=== PATIENT | male | born 1955 | race Caucasian/White ===

== ENCOUNTER → 2017-11-11 12:10 | Outpatient (CLI) | payer MEDICAID, SELFPAY ==
[2017-11-01 13:12] VITALS: BP 152/80; BMI 39.5
[2017-11-11 12:34] VITALS: PULSE 121; PULSE 124; PULSE 125; PULSE 126; PULSE 128; PULSE 129; O2SAT 89; O2SAT 90; O2SAT 92
--- NOTE | 2017-11-12 07:50 | WT_ITS ---
PSN 6 Minute Walk Test - 6 Minute Walk Test 6 Minute Walk Test: 6 Minute Walk Test PSN:6-Minute Walk Test Start: 11/11/17 12: 34 Freq: Status: Active Protocol: [id number].6MINW Document 11/11/17 12:34 DWP (Rec: 11/11/17 12:40 DWP [id number]) 6 Minute Walk Test Date Performed 11/11/17 Time Performed 12:17 Height 6 ft 1 in Weight: 300 lb Weight in Pounds 300.[address]: DR. ALEX PANCHAL FIO2 (% Oxygen) 0.21 Assistive device used: None Pre-test Oxygen Delivery Method Room Air Pulse Ox (%) 90 Pulse Rate (60-100 beats/min) 124 H Dyspnea Levy Scale (0-10) 5 Exertion Levy Scale (6-20) 10 Number of Rests Taken 0 1st minute Oxygen Delivery Method Room Air Pulse Ox (%) 90 Pulse Rate (60-100 beats/min) 124 H Number of Rests Taken 0 Reported Symptoms Increased Work of Breathing 2nd minute Oxygen Delivery Method Room Air Pulse Ox (%) 89 Pulse Rate (60-100 beats/min) 129 H Number of Rests Taken 0 3rd minute Oxygen Delivery Method Room Air Pulse Ox (%) 90 Pulse Rate (60-100 beats/min) 128 H Number of Rests Taken 0 Reported Symptoms Increased Work of Breathing 4th minute Oxygen Delivery Method Room Air Pulse Ox (%) 89 Pulse Rate (60-100 beats/min) 125 H Number of Rests Taken 0 5th minute Oxygen Delivery Method Room Air Pulse Ox (%) 89 Pulse Rate (60-100 beats/min) 126 H Number of Rests Taken 0 6th minute Oxygen Delivery Method Room Air Pulse Ox (%) 90 Pulse Rate (60-100 beats/min) 125 H Number of Rests Taken 0 Post-test Oxygen Delivery Method Room Air Pulse Ox (%) 92 Pulse Rate (60-100 beats/min) 121 H Dyspnea Levy Scale (0-10) 6 Exertion Levy Scale (6-20) 12 Full Laps Walked 8 Partial Lap, Number of Tiles Walked 0 Total Distance Walked (ft) 472 - Interpretation Interpretation: The patient ambulated 472 feet over the course of 6 minutes on room air without assistive devices or breaks. Pretesting oxygen saturation was noted to be 90% on room air. With ambulation, the chano oxygen saturation was 89%. The patient was notably tachycardic throughout the entire walk test. There was no significant exertional oxygen desaturation noted. However, there was evidence of impaired walk distance. - Recommendations Recommendations: There is no current indication for the use of supplemental oxygen at this time. However, close interval follow-up is recommended given the patient's low resting oxygen saturation and desaturation to 89% with ambulation.
== END ==
PROVIDERS: Family Provider Nurse Practitioner Family; PCP Nurse Practitioner Family; Visit Provider Internal Medicine Critical Care Medicine
DX: J44.9 Chronic obstructive pulmonary disease, unspecified (principal); F17.200 Nicotine dependence, unspecified, uncomplicated
CPT/HCPCS: 94618

== ENCOUNTER → 2017-12-08 12:39 | Outpatient (CLI) | payer MEDICAID, SELFPAY ==
[2017-11-01 13:12] VITALS: BP 152/80; BMI 39.5
--- NOTE | 2017-12-09 08:45 | PFT ---
INTRODUCTION: Patient is a 62-year-old male currently under the care of myself the presents for pulmonary function testing secondary to a diagnosis of COPD. Respiratory therapy reports good patient effort reports no other concerns. Bronchodilators were used during testing. INTERPRETATION: Forced expiration spirometry demonstrates the presence of a very severe large airways obstructive ventilatory defect. There was a significant response to aerosolized bronchodilators noted, based upon change in FVC. Spirograms are of good quality and do not plateau indicating slow emptying of the lungs. The respiratory flow volume loop reveals decreased expiratory flow rates at all lung volumes consistent with airways obstruction. Body plethysmography was performed and reveals an increased RV to 212% of predicted, indicative of underlying air trapping. Diffusing capacity by single breath CO is severely reduced at 31% of predicted. IMPRESSION: These pulmonary function studies demonstrate the presence of an irreversible very severe large airways obstructive ventilatory defect with associated air trapping and severe reduction in diffusing capacity. There are no previous pulmonary function studies available for comparison.
== END ==
PROVIDERS: Family Provider Nurse Practitioner Family; PCP Nurse Practitioner Family; Visit Provider Internal Medicine Critical Care Medicine
DX: J44.9 Chronic obstructive pulmonary disease, unspecified (principal); F17.200 Nicotine dependence, unspecified, uncomplicated
CPT/HCPCS: 94060; 94726; 94729

== ENCOUNTER → 2017-12-12 15:34 | Outpatient (CLI) | payer MEDICAID, SELFPAY ==
--- NOTE | 2017-12-12 15:36 | RAD_ITS ---
STUDY: X-RAY CHEST REASON FOR EXAM: Male, 62 years old. Short of breath and cough. TECHNIQUE: Frontal and lateral views of the chest. COMPARISON: None. FINDINGS: Hyperexpansion of the lungs. Increased lung markings in the perihilar regions and lung bases. Findings could be congestion and interstitial edema and/or atypical inflammatory process. Probable mild atelectasis or scarring in the lung bases. No focal infiltrates. No effusions. Sternal cerclage wires and vascular clips are present from a prior sternotomy and coronary artery bypass graft procedure (CABG). Mild cardiomegaly.. Normal mediastinum and steve. Normal visualized pulmonary arteries. Normal visualized aortic arch and descending thoracic aorta. There are diffuse degenerative changes of the visualized thoracic spine. Normal visualized ribs, clavicles, and shoulders. There is no demonstrated abnormality of the visualized soft tissue structures of the upper abdomen. RAD/Chest PA and Lateral IMPRESSION: Hyperexpansion of the lungs. Increased lung markings in the perihilar regions and lung bases. Findings could be congestion and interstitial edema and/or atypical inflammatory process. Electronically Signed: Narayan Roca MD at 9:45 EDT , Service support ,
== END ==
PROVIDERS: Family Provider Nurse Practitioner Family; PCP Nurse Practitioner Family; Visit Provider Nurse Practitioner Acute Care
DX: J44.9 Chronic obstructive pulmonary disease, unspecified (principal); R06.02 Shortness of breath; R06.00 Dyspnea, unspecified
CPT/HCPCS: 71046

== ENCOUNTER 2018-01-06 10:39 | Inpatient (IN) | payer MEDICAID, SELFPAY ==
[2018-01-06] VITALS (16 sets, daily range): BP systolic 113–158; BP diastolic 66–111; PULSE 81–133; RESP 14–28; TEMP 36.4–37.1; O2SAT 90–97; BMI 41.4; BMI 41.1
--- NOTE | 2018-01-06 11:06 | RAD_ITS ---
STUDY: X-RAY CHEST REASON FOR EXAM: Male, 62 years old. New onset of atrial fibrillation. Lower extremity edema. TECHNIQUE: Single AP portable view of the chest. COMPARISON: Comparison is made with prior study dated December 12, 2017. FINDINGS: EKG electrodes are seen. There is evidence of vascular congestion and mild degree of CHF. Blunting of the left costophrenic angle. Sternal cerclage wires and vascular clips are present from a prior sternotomy and coronary artery bypass graft procedure (CABG). Mild cardiomegaly. Normal mediastinum and steve. Normal visualized pulmonary arteries. Normal visualized aortic arch and descending thoracic aorta. There are diffuse degenerative changes of the visualized thoracic spine. Prior fusion of the lower cervical spine. There is no demonstrated abnormality of the visualized soft tissue structures of the upper abdomen. RAD/Chest 1 View (Portable) IMPRESSION: CHF. Cardiomegaly. Electronically Signed: Mao Cuenca MD at 11:33 EDT Tel [phone], Service support ,
--- NOTE | 2018-01-06 11:06 | EKG12_ITS ---
Test Reason : SOB Blood Pressure : / mmHG Vent. Rate : 122 BPM Atrial Rate : 129 BPM P-R Int : 000 ms QRS Dur : 100 ms QT Int : 336 ms P-R-T Axes : 000 071 011 degrees QTc Int : 478 ms Atrial fibrillation with premature ventricular or aberrantly conducted complexes Low voltage QRS Septal infarct , age undetermined Abnormal ECG Confirmed by DONNIE BRODY, ANGELA ([id number]), medical transcription editor BEATRIZ IBARRA ([id number]) on 01/10/2018 1:52:59 PM Referred By: BOB Confirmed By:ANGELA FIELDS MD
[2018-01-06] MEDS: Ipratropium/Albuterol Sulfate 3 ML AMPUL.NEB INHALATION ×3 (11:30→19:47)
[2018-01-06 11:52] LABS: Absolute Lymphocyte Count 0.47 X10^3/ul (0.83-4.51); Absolute Neutrophil Count 4.6 X10^3/uL (2.0-7.7); Basophil# 0.02 X10^3/uL; Basophil% 0.4 % (0-1); Differential Indicated SCAN CRITERIA MET; Eosinophil# 0.01 X10^3/uL; Eosinophils% 0.2 % (0-5); Hematocrit 54.7 % (40-54); Hemoglobin 17.6 g/dl (13.0-16.5); Lymphocyte # 0.47 X10^3/ul (4.0); Lymphocyte % 8.5 % (19-41); Mean Corp Hgb Conc 32.2 g/gl (32-36); Mean Corpuscular Hgb 31.1 pg (27.0-32.0); Mean Corpuscular Volume 96.6 fL (80-94); Mean Platelet Vol. 9.9 fl (6.2-12.0); Monocyte# 0.36 X10^3/uL; Monocyte% 6.5 % (0-10); Neutrophil # 4.64 X10^3/uL (2.7-7.7); Neutrophil % 84.2 % (47-70); POSITIVE COUNT NO; POSITIVE DIFFERENTIAL YES; POSITIVE MORPHOLOGY NO; Platelet Count 139 K/mm3 (150-450); RBC Distribution Width CV 14.9 % (11.6-14.6); Red Blood Count 5.66 M/mm3 (4.6-6.2); White Blood Count 5.5 K/mm3 (4.4-11.0)
[2018-01-06 11:59] LABS: Anion Gap 4 (5-15); BUN 17 mg/dL (7-18); BUN/Creat Ratio 16.2 RATIO (10-20); Calcium,Total 8.6 mg/dL (8.5-10.1); Chloride 106 mmol/L (98-107); Creatinine, Serum 1.05 mg/dL (0.70-1.30); EST Glomerular Filtration Rate 76 mL/min (>60); Est Glom Filt Rate - Afr Amer 92 mL/min (>60); Estimated Creatinine Clearance 83.49 ml/min; Glucose 98 mg/dL (74-106); Sodium Level 140 mmol/L (136-145)
--- NOTE | 2018-01-06 12:06 | ED.VISSUMM ---
- ER Visit Summary Date of Service: 01/06/18 Chief Complaint: Lower extremity edema and shortness of breath History of Present Illness: The patient is a 62 M who sees Tono Lara and a director of the biophysics facility Dr. Springer in [place]. Patient reports that he has swelling in his legs bilaterally that began approximately 1 week ago. Reports that at baseline his right leg is slightly swollen since having a two-vessel bypass 3 years ago. States it is twice as big as it typically is. Denies any chest pain or palpitations. He reports he has a chronic cough that is unchanged. No fever or chills. He reports that he has severe shortness of breath that is worsened by walking or laying flat. Physical Examination: Vitals: Stable. Afebrile. General: Well-nourished and well-developed. Head: Normocephalic atraumatic. Neck: Supple, no lymphadenopathy. No JVD. Nontender. Cardiovascular: Tachycardic irregular rhythm. No murmurs. Respiratory: No respiratory distress. Moderate wheezing bilaterally with decreased air movement. Abdominal: Soft, nontender, nondistended, normal bowel sounds. No guarding, rebound, or peritoneal signs. Back: Nontender. Extremities: Nontender, 3+ pitting edema of his lower extremities bilaterally. Neurologic: Alert and oriented ?3. Cranial nerves II through XII are intact. Normal strength and sensation. Psych: Normal affect. Test Results: EKG is A. fib at [address] changes. Troponin is negative. Chem-7 was normal. CBC is more for an H&H of 17.6 54.7, platelets 139, segment neutrophils 84, monocytes of 9. Emergency Department Course and Treatment: Patient was given albuterol and Atrovent aerosols. He was given 40 mg of Lasix IV. He was given Cardizem IV. Treatment Plan: Patient will be admitted to the hospital for further evaluation and treatment. Disposition: Admitted in improved condition. Impression: 1. Age fibrillation with RVR. 2. CHF. 3. COPD. 4. Critical care time 30 minutes. This note was generated with [employer] dictation software. It may contain incorrect words, spelling, and punctuation that were not noted in review of the chart prior to signing ED Disposition - Plan for ED Patient: Chief Complaint: Edema Referrals: Dawit Newell [Primary Care Provider] -
[2018-01-06] MEDS: Furosemide 40 MG/4 ML Vial IV ×2 (12:11→22:54)
--- NOTE | 2018-01-06 12:11 | ED.DCSUM_ITS ---
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 Springer in [place]. Patient reports that he has swelling in his legs bilaterally that began approximately 1 week ago. Reports that at baseline his right leg is slightly swollen since having a two-vessel bypass 3 years ago. States it is twice as big as it typically is. Denies any chest pain or palpitations. He reports he has a chronic cough that is unchanged. No fever or chills. He reports that he has severe shortness of breath that is worsened by walking or laying flat. Physical Examination: Vitals: Stable. Afebrile. General: Well-nourished and well-developed. Head: Normocephalic atraumatic. Neck: Supple, no lymphadenopathy. No JVD. Nontender. Cardiovascular: Tachycardic irregular rhythm. No murmurs. Respiratory: No respiratory distress. Moderate wheezing bilaterally with decreased air movement. Abdominal: Soft, nontender, nondistended, normal bowel sounds. No guarding, rebound, or peritoneal signs. Back: Nontender. Extremities: Nontender, 3+ pitting edema of his lower extremities bilaterally. Neurologic: Alert and oriented ?3. Cranial nerves II through XII are intact. Normal strength and sensation. Psych: Normal affect. Test Results: EKG is A. fib at [address] changes. Troponin is negative. Chem-7 was normal. CBC is more for an H&H of 17.6 54.7, platelets 139, segment neutrophils 84, monocytes of 9. Emergency Department Course and Treatment: Patient was given albuterol and Atrovent aerosols. He was given 40 mg of Lasix IV. He was given Cardizem IV. Treatment Plan: Patient will be admitted to the hospital for further evaluation and treatment. Disposition: Admitted in improved condition. Impression: 1. Age fibrillation with RVR. 2. CHF. 3. COPD. 4. Critical care time 30 minutes. This note was generated with [employer] dictation software. It may contain incorrect words, spelling, and punctuation that were not noted in review of the chart prior to signing ED Disposition - Plan for ED Patient: Chief Complaint: Edema Referrals: Dawit Newell [Primary Care Provider] -
--- NOTE | 2018-01-06 12:12 | ED.RN ---
called previously for rosa maria from pharmacy, will call again.
--- NOTE | 2018-01-06 12:26 | ED.RN ---
Called Pharmacy again for Elisabethm, Christa stated that it was in our [facility], I asked if it was refilled since I called, she said no but it was in the [facility]. [facility] did not have any when i called he first time nor the 2nd call. Pharmacy will send.
[2018-01-06] MEDS: dilTIAZem 25 MG/5 ML Vial 20 MG IV BOLUS (12:42)
[2018-01-06 13:28] LABS: BNP,B-Type NATRIURETIC PEPTIDE 177.1 pg/mL (0-100)
--- NOTE | 2018-01-06 13:32 | ED.RN ---
Cardizem drip up from pharmacy, not bolus. Called pharmacy for bolus dose.
[2018-01-06] MEDS: dilTIAZem 25 MG/5 ML Vial IV BOLUS (13:46)
--- NOTE | 2018-01-06 14:27 | HP.PCM_ITS ---
Problem List (1) New onset atrial fibrillation Status: Acute (2) Shortness of breath Status: Acute (3) Leg edema Status: Acute History of Present Illness Date of Admission: 01/06/18 Chief Complaint: New-onset atrial fibrillation, leg edema, shortness of breath The patient is a 62 year old M who was seen in the emergency room at [facility] after being sent in for evaluation by his family physician after an office visit today revealed that he was in atrial fibrillation. Patient has been complaining of some shortness of breath over the last week-he is very vague about his symptoms, he denies any chest pain, purulent sputum production, fever, chills, or diaphoresis. Patient states that he has had symptoms of palpitations in the past but he was unaware he was in atrial fib today. Patient has a past history of coronary artery disease with bypass in 2014, last time he saw assistant signal maintainer was last year, information obtained from his family practitioner reveals the patient had a stress test in 2016 that was negative for reversible ischemia, his last echocardiogram was done in 2013 and it showed a normal EF. Patient also complained of lower extremity edema-again he was vague about the onset of the lower extremity edema, he states he noticed that when he was diagnosed with shingle approximally a week ago. Workup in the emergency room revealed the patient had normal labs with the exception of an elevated beta natruretic peptide of 177, patient's chest x-ray showed some mild pulmonary congestion bilaterally on an overlay of what I feel is chronic changes in both lungs. Patient's pulse ox on room air was 90%, EKG showed atrial fibrillation with a rate of 122 bpm. Patient was given IV Cardizem which slowed his rate down somewhat, at the time of my examination, his heart rate was in the 105-110 range-he was due to get another IV bolus of Cardizem by the emergency room physician. On examination, patient had diffuse expiratory wheezes bilaterally, he does have a diagnosis of COPD and continues to smoke .Examination of lower extremities reveals +3 mm pitting edema of both lower legs.He did not appear to be in any distress. He will be admitted to PCU for new onset atrial fib with RVR, CHF presumed to be diastolic, and exacerbation of COPD. 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 (Chronic) HDL deficiency (Chronic) Asthma (Chronic) Overweight (BMI 25.0-29.9) (Chronic) Tobacco dependence (Chronic) Hyperlipidemia (Chronic) COPD (chronic obstructive pulmonary disease) (Chronic) Hypertension (Chronic) Allergies No Known Allergies Allergy (Unverified 12/12/17 14:25) Home Medications: Ambulatory Orders Medication Instructions Recorded albuterol sulfate HFA 90 2 puff INHALATION Q6H 10/27/17 mcg/actuation aerosol inhaler carvedilol 3.125 mg tablet 3.125 mg PO BID 10/27/17 ibuprofen 600 mg tablet 600 mg PO ONCE 10/27/17 loratadine 10 mg tablet 10 mg PO QDAY 10/27/17 simvastatin 40 mg tablet 40 mg PO QAM 10/27/17 budesonide-formoterol HFA 160 2 inh INHALATION Q12H #1 device 11/01/17 mcg-4.5 mcg/actuation aerosol inhaler azithromycin 250 mg tablet 250 mg PO QDAY #6 tab 12/12/17 losartan 25 mg tablet 25 mg PO QDAY 12/12/17 prednisone 10 mg tablet 10 mg PO QDAY #30 tab 12/12/17 umeclidinium 62.5 mcg/actuation 1 inh INHALATION QDAY #30 ea 12/12/17 blister powder for inhalation Albuterol Inhaler [Ventolin Hfa 2 puff INHALATION Q4H PRN PRN 01/06/18 (SP)] Valacyclovir HCl [Valtrex] 1,000 mg PO TID 01/06/18 Surgical History: coronary bypass surgery, tonsillectomy, - - 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, right shoulder surgery Psychiatric History: No pertinent psych hx Lives: Friends Smoking Status: Current every day smoker Tobacco Use: Cigarettes Alcohol: None Drugs: None - *Family History Maternal History Items: Heart Disease Paternal History Items: Heart Disease Review of Systems Constitutional: Denies: Anorexia, Chills, Fever, Night Sweats, Malaise, Weakness , Weight Change, Fatigue Eyes: Denies: Blurred vision, Cataracts, Conjunctivae Inflammation HEENT: Denies: Difficulty Swallowing, Dysphasia, Ear Pain, Eye Pain, Head Aches , Hearing Changes, Nasal bleeding, Nasal Congestion, Post Nasal Drip Cardiovascular: Reports: Edema, Palpitations. Denies: Chest Pain, Claudication , Chest Pressure, Chest Tightness, Heaviness, Light Headedness, Orthopnea, Syncope Respiratory: Reports: Shortness of Breath, Shortness of breath at rest, Shortness of breath upon exertion, Wheezing. Denies: Cough, Hemoptysis, Pleuritic Pain, Sputum production Gastrointestinal: Denies: Abdominal Pain, Constipation, Diarrhea, Hematemesis, Hematochezia, Nausea, Melena, Vomiting Genitourinary: Denies: Dysuria, Frequency, Hematuria, Hesitancy, Incontinence, Nocturia, Urgency Musculoskeletal: Denies: Joint Pain, Joint stiffness, Joint swelling Skin: Reports: - - Patient has resolving shingles area on the left upper buttocks. Denies: Dryness, Pruritis, Rash Neurological: Denies: Blurred vision, Double vision, Change in Speech, Slurred speech, Difficulty swallowing, Focal weakness, Incoordination, Numbness, Tingling Psychiatric: Denies: Anxiety, Depression, Homicidal Ideations, Suicidal Ideations Endocrine: Denies: Change in Body Habitus, Heat/ Cold Intolerance, Polydipsia, Polyuria, Hx of Irradiation Hematologic/ Lymphatic: Denies: Adenopathy, Anemia, Easy Bruising, Easy Bleeding , Petechiae, Purpura VTE Information - Inpt Only VTE Present on Admission: No VTE Mechan Device Prophylaxis: None VTE Pharm Prophylaxis ordered?: No Reason prophylaxis not ordered:: Treatment Not Indicated - patient will get full anticoagulation Patient Problems: Active and Suspected Problems (Last Reviewed 12/13/17 @ 13:04 by Vandana Castillo NP-C) New onset atrial fibrillation (Acute) Shortness of breath (Acute) Leg edema (Acute) - Physical Exam General: Alert, Oriented x3, Cooperative, No apparent distress, Well developed, Well nourished HEENT: Atraumatic, PERRLA, EOMI, Normocephalic Neck: Supple, No JVD, Negative Carotid Bruits, No Nuchal Rigidity, Trachea Midline, Thyroid Normal Size and Texture Lungs: Normal air movement, No rhonchi, No rales, Wheezes - Expiratory wheezes bilaterally Cardiovascular: No murmurs, PMI Normal, Irregular Rate, No rub noted, No Gallop Abdomen: Bowel Sounds Present, Soft, Non Tender, Non-Distended, Obese, No hernias noted Extremities: No clubbing, No cyanosis, Capillary Refill Less than 3 Seconds, Edema - +3 mm edema is noted over both legs Skin: No rashes, No breakdown, - - eschar formation on the patient's left upper buttocks Musculoskeletal: No Tenderness to Palpation of Joints or Extremities Neurological: Cranial nerves II-XII grossly intact, Neuro grossly intact, Sensory exam intact to light touch and pain, Coordination normal Psych/Mental Status: Normal Affect, Appropriate, Alert and oriented to time, place, person, mood and affect Vital Signs Temp Pulse Resp BP Pulse Ox 98.7 F 101 H 18 139/66 H 94 01/06/18 13:49 01/06/18 14:15 01/06/18 14:15 01/06/18 14:15 01/06/18 14:15 Oxygen Flow Rate (L/min) 3 Oxygen Delivery Method Nasal Cannula Weight: 142.609 kg Body Mass Index (BMI) 41.4 Intake and Output for Last 24 Hours 01/04/18 01/05/18 01/06/18 23:59 23:59 23:59 Output Total 1100 / 1100 Balance -1100 / -1100 Laboratory Tests Past 24 Hrs 01/06/18 01/06/18 01/06/18 11:32 11:32 11:32 WBC 5.5 RBC 5.66 Hgb 17.6 H Hct 54.7 H MCV 96.6 H MCH 31.1 MCHC 32.2 RDW 14.9 H RDW Differential 53.0 H Plt Count 139 L MPV 9.9 Immature Gran % (Auto) 0.200 Neut % (Auto) 84.2 H Lymph % (Auto) 8.5 L Porter % (Auto) 6.5 Eos % (Auto) 0.2 Baso % (Auto) 0.4 Absolute Neuts (auto) 4.6 Absolute Lymphs (auto) 0.47 L Total Counted Not Reportable Differential Comment COMMENT Sodium 140 Potassium 4.0 Chloride 106 Carbon Dioxide 30.0 Anion Gap 4 L BUN 17 Creatinine 1.05 Estim Creat Clear Calc 83.49 Est GFR (MDRD) Af Amer 92 Est GFR (MDRD) Non-Af 76 BUN/Creatinine Ratio 16.2 Glucose 98 Calcium 8.6 Troponin I < 0.02 B-Natriuretic Peptide 177.1 H Assessment/Plan Active and Suspected Problems (Last Reviewed 12/13/17 @ 13:04 by Vandana Castillo NP-C) New onset atrial fibrillation (Acute) Shortness of breath (Acute) Leg edema (Acute) #1 new onset A. fib with RVR-patient will be admitted to PCU, he will receive oral Cardizem, I will increase the patient's carvedilol, he will remain on his other cardiac meds, patient will be monitored on telemetry. I will start the patient on Xarelto for anticoagulation, he will be seen by cardiology #2 acute exacerbation of COPD-I feel the patient's wheezing is from COPD rather than CHF, I will place him on IV Solu-Medrol and DuoNeb aerosol treatments, patient does not want nicotine patch-he continues to smoke at home. #3 mild diastolic CHF-patient will have an echocardiogram performed, IV Lasix will be administered, repeat chest x-ray will be obtained tomorrow #4 lower extremity edema-possibly secondary to pulmonary hypertension ( undiagnosed)-patient will be given IV Lasix and monitored #5 morbid obesity #6 coronary artery disease #7 hyperlipidemia Code Visit Inpatient E&M: 40888 Init Hosp L3
[2018-01-06] MEDS: 0.9% NaCl Peripheral Flush Adult/Peds IV ×2 (15:55→22:54)
[2018-01-06] MEDS: Rivaroxaban 15 MG Tablet PO (15:56)
[2018-01-06] MEDS: dilTIAZem 60 MG Tablet PO ×2 (15:56→22:54)
[2018-01-06] MEDS: Carvedilol 12.5 MG Tablet PO ×2 (15:59→22:54)
[2018-01-06] MEDS: Atorvastatin Calcium 20 MG Tablet PO (22:54)
[2018-01-07] VITALS (21 sets, daily range): BP systolic 102–126; BP diastolic 59–100; PULSE 72–106; RESP 14–29; TEMP 36.6–37.5; O2SAT 92–96
[2018-01-07] MEDS: Ipratropium/Albuterol Sulfate 3 ML AMPUL.NEB INHALATION ×5 (00:53→22:50)
[2018-01-07] MEDS: Acetaminophen 325 MG Tablet 650 MG PO (01:14)
[2018-01-07] MEDS: Gabapentin 300 MG Capsule PO (01:18)
--- NOTE | 2018-01-07 05:55 | ECHOD_ITS ---
Reason For Study: Afib, Aflutter Procedure This was a 2D Doppler, Color Flow transthoracic echocardiogram. The study was technically difficult. Pt scanned upright due to SOB. Exam performed portable in patient room. Left Ventricle Normal LV size. Left ventricular systolic function is lower limits of normal. The estimated ejection fraction is 50 %. Unable to assess diastolic dysfunction. No regional wall motion abnormalities noted. Right Ventricle Normal RV size. Normal systolic function. Atria The left atrium is moderately enlarged. The right atrium is moderately enlarged. Mitral Valve Mitral valve not well visualized. Tricuspid Valve The tricuspid valve is not well visualized. Mild to moderate (1-2+) tricuspid valve insufficiency. Pulmonary artery systolic pressure is 30 mmHg. Aortic Valve The aortic valve is not well visualized. Pulmonic Valve The pulmonic valve is not well visualized. Great Vessels Normal aortic root. Pericardium/Pleural No pericardial effusion. Medication Definity0.4ml given slow IV push to enhance endocardial definition. MMode/2D Measurements & Calculations LVIDd: 5.5 cm IVSd: 1.2 cm Ao root diam: 3.0 cm LVIDs: 3.7 cm LVPWd: 1.2 cm LA dimension: 5.9 cm FS: 32.4 % LAV(MOD-bp): 84.4 ml LAV(MOD-bp) Indexed: 32.6 ml/m2 LA A4 area: 29.1 cm2 RA A4 area: 34.5 cm2 LAV(MOD-sp2): 66.0 ml LAV(MOD-sp4): 90.5 ml Doppler Measurements & Calculations MV E max alisa: 82.1 cm/sec Ao V2 max: 102.3 cm/sec LV V1 max: 87.0 cm/sec Ao max P.2 mmHg LV V1 max P.0 mmHg Ao V2 mean: 79.8 cm/sec Ao mean P.7 mmHg Ao V2 VTI: 17.2 cm PA V2 max: 110.5 cm/sec TR max alisa: 253.7 cm/sec TR max P.8 mmHg Interpretation Summary Normal LV size. Left ventricular systolic function is lower limits of normal. The estimated ejection fraction is 50 %. Unable to assess diastolic dysfunction. Pulmonary artery systolic pressure is 30 mmHg. Contrast injection was performed. Ordering Physician: Esau Everett Referring Physician: Dawit Newell Performed By: Charla López, HUNG, RVT
--- NOTE | 2018-01-07 05:55 | RAD_ITS ---
STUDY: X-RAY CHEST REASON FOR EXAM: Male, 62 years old. Follow-up TECHNIQUE: 1 view COMPARISON: January 06, 2018 FINDINGS: There is cardiomegaly with central vascular congestion and a few platelike atelectatic changes in the left base. No pneumonia. No pleural effusion. Median sternotomy wires are in place. Normal visualized thoracic spine. Normal visualized ribs, clavicles, and shoulders. There is no demonstrated abnormality of the visualized soft tissue structures of the upper abdomen. RAD/Chest PA and Lateral IMPRESSION: No change since yesterday's study. Cardiomegaly with central vascular congestion. Electronically Signed: Alfa Aguilar, at 7:08 EDT Tel , Service support ,
[2018-01-07] MEDS: dilTIAZem 60 MG Tablet PO (06:43)
[2018-01-07] MEDS: Furosemide 40 MG/4 ML Vial IV ×3 (06:43→22:34)
[2018-01-07 07:43] LABS: Anion Gap 8 (5-15); BUN 21 mg/dL (7-18); BUN/Creat Ratio 19.3 RATIO (10-20); Calcium,Total 8.7 mg/dL (8.5-10.1); Chloride 103 mmol/L (98-107); Creatinine, Serum 1.09 mg/dL (0.70-1.30); EST Glomerular Filtration Rate 73 mL/min (>60); Est Glom Filt Rate - Afr Amer 88 mL/min (>60); Estimated Creatinine Clearance 80.43 ml/min; Glucose 118 mg/dL (74-106); Potassium 4.6 mmol/L (3.5-5.1); Sodium Level 140 mmol/L (136-145)
--- NOTE | 2018-01-07 07:50 | PCM.PROGNOTE ---
Patient Problems: Active and Suspected Problems (Last Reviewed 12/13/17 @ 13:04 by RHONDA Tate) New onset atrial fibrillation (Acute) Shortness of breath (Acute) Leg edema (Acute) Subjective: Patient seen and examined today, chest x-ray shows continued vascular congestion from this morning. Patient remains in atrial fibrillation but his rate is well controlled on present medications. Patient appears to be moving more air today but there is still end expiratory wheezing noted bilaterally. - Physical Exam General: Alert, Oriented x3, Cooperative, No apparent distress, Well developed, Well nourished HEENT: Atraumatic, PERRLA, EOMI, Normocephalic Oral: Moist Mucosa Neck: Supple, No JVD, No Nuchal Rigidity, Trachea Midline, Thyroid Normal Size and Texture Lungs: Normal air movement, No rhonchi, No rales, Wheezes - End expiratory wheezes are noted bilaterally Cardiovascular: No murmurs, PMI Normal, Irregular Rate, No rub noted, No Gallop Abdomen: Bowel Sounds Present, Soft, Non Tender, Non-Distended, Obese, Hernia - Ventral hernia is noted Extremities: No clubbing, Capillary Refill Less than 3 Seconds, Edema - Generalized edema is noted over both lower legs Skin: No rashes, No breakdown Musculoskeletal: No Tenderness to Palpation of Joints or Extremities Neurological: Cranial nerves II-XII grossly intact, Neuro grossly intact, Sensory exam intact to light touch and pain, Coordination normal Psych/Mental Status: Normal Affect, Appropriate, Alert and oriented to time, place, person, mood and affect Vital Signs Temp Pulse Resp BP Pulse Ox 98.1 F 89 20 H 108/76 94 01/07/18 06:41 01/07/18 06:41 01/07/18 06:41 01/07/18 06:41 01/07/18 06:41 Oxygen Flow Rate (L/min) 3 Oxygen Delivery Method Nasal Cannula Weight: 136.4 kg Body Mass Index (BMI) 41.1 Intake and Output for Last 24 Hours 01/05/18 01/06/18 01/07/18 23:59 23:59 23:59 Intake Total 420 / 420 340 / 340 Output Total 1750 / 1750 Balance 420 / -680 -1410 / -1410 Laboratory Tests Past 24 Hrs 01/07/18 06:07 Sodium 140 Potassium 4.6 Chloride 103 Carbon Dioxide 29.0 Anion Gap 8 BUN 21 H Creatinine 1.09 Estim Creat Clear Calc 80.43 Est GFR (MDRD) Af Amer 88 Est GFR (MDRD) Non-Af 73 BUN/Creatinine Ratio 19.3 Glucose 118 H Calcium 8.7 Medical Necessity - Tobacco Use Smoking Status: Current every day smoker Tobacco Use: Cigarettes Assessment/Plan Active and Suspected Problems (Last Reviewed 12/13/17 @ 13:04 by Vandana Castillo, JORGE-C) New onset atrial fibrillation (Acute) Shortness of breath (Acute) Leg edema (Acute) #1 new onset A. fib with RVR-patient's rate is presently controlled, I will change him over to Trippifi CD today, cardiology will consult today #2 acute exacerbation of COPD-continue IV Solu-Medrol and aerosol treatments #3 mild diastolic CHF-patient will have an echocardiogram performed, IV Lasix will be continued #4 lower extremity edema-possibly secondary to pulmonary hypertension (undiagnosed)-patient will be given IV Lasix, await echocardiogram #5 morbid obesity #6 coronary artery disease #7 hyperlipidemia Code Visit Inpatient E&M: 05109 Subs Hosp L2
[2018-01-07] MEDS: Rivaroxaban 15 MG Tablet PO ×2 (08:02→17:28)
[2018-01-07] MEDS: Losartan Potassium 25 MG Tablet PO (09:27)
[2018-01-07] MEDS: Carvedilol 12.5 MG Tablet PO ×2 (09:27→22:34)
[2018-01-07] MEDS: dilTIAZem CD 180 MG Capsule PO (09:30)
[2018-01-07] MEDS: 0.9% NaCl Peripheral Flush Adult/Peds IV ×2 (10:57→22:36)
--- NOTE | 2018-01-07 14:41 | CON.PCM_ITS ---
Problem List (1) New onset atrial fibrillation Status: Acute Reason for Consult Date of Consultation: 01/07/18 History of Present Illness: The patient is a 62 year old M past medical history significant for coronary artery disease status post coronary artery bypass graft surgery, hypertension, COPD and dyslipidemia. He was referred from his primary care physician's office where and he had gone with complaints for complaints of increased ankle swelling. He was noted to be in atrial fibrillation. Subsequently he was admitted to the hospital. He was started on calcium channel blockers and his beta-gil dosage was increased. He was also started on anticoagulation with Xarelto. Patient describes history of palpitations off-and-on. Denies any chest pains. He has chronic shortness of breath on account of his COPD. Recent change. Denies any cough. No fevers or chills. Denies any orthopnea. Denies any history of sleep apnea. No PND. [] Past Medical History Allergies/Adverse Reactions: Allergies No Known Allergies Allergy (Unverified 12/12/17 14:25) Home Medications: Ambulatory Orders Medication Instructions Recorded carvedilol 3.125 mg tablet 3.125 mg PO DAILY 10/27/17 ibuprofen 600 mg tablet 600 mg PO Q6H PRN PRN 10/27/17 simvastatin 40 mg tablet 40 mg PO DAILY 10/27/17 losartan 25 mg tablet 25 mg PO DAILY 12/12/17 Albuterol Inhaler [Ventolin Hfa 2 puff INHALATION Q4H PRN PRN 01/06/18 (SP)] Budesonide/Formoterol 160/4.5 2 puff INHALATION DAILY 01/06/18 [Symbicort 160/4.5 Mcg Inhaler (SP)] Gabapentin [Neurontin] 300 mg PO DAILY 01/06/18 Prednisone See Taper PO DAILY 01/06/18 Umeclidinium Cushing [Incruse 1 inh INHALATION DAILY 01/06/18 Ellipta] Valacyclovir HCl [Valtrex] 1,000 mg PO TID 01/06/18 Past Medical History (Chronic Problems): Chronic Problems (Last Reviewed 12/13/17 @ 13:04 by RHONDA Tate) Stage 4 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 (Chronic) HDL deficiency (Chronic) Asthma (Chronic) Overweight (BMI 25.0-29.9) (Chronic) Tobacco dependence (Chronic) Hyperlipidemia (Chronic) COPD (chronic obstructive pulmonary disease) (Chronic) Hypertension (Chronic) Surgical History: coronary bypass surgery, tonsillectomy, - - 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, right shoulder surgery Psychiatric History: No pertinent psych hx - *Family History Maternal Family History: Family History (Last Reviewed 12/13/17 @ 13:04 by RHONDA Tate) Mother Hypertension Heart disease Father Heart disease Hypertension Myocardial infarction Brother Heart disease Hypertension Myocardial infarction History Items: Heart Disease Paternal Family History: Family History (Last Reviewed 12/13/17 @ 13:04 by RHONDA Tate) Mother Hypertension Heart disease Father Heart disease Hypertension Myocardial infarction Brother Heart disease Hypertension Myocardial infarction History Items: Heart Disease Lives: Friends Smoking Status: Current every day smoker Tobacco Use: Cigarettes Alcohol: None Drugs: None Review of Systems - Review of Systems General: Denies: Fever, Chills, Weight Loss HEENT: Denies: Head Aches Cardiovascular: Reports: Shortness of Breath with Exertion, Peripheral Edema. Denies: Chest Discomfort, Chest Discomfort at Rest, Chest Discomfort with Exertion Respiratory: Reports: Shortness of Breath Gastrointestinal: Denies: Abdominal Discomfort, Emesis, Hematemesis, Melena Muscoloskeletal: Denies: Myalgias Neurological: Denies: History of TIA, History of CVA Hematologic/ Lymphatic: Denies: Anemia, Easy Brusing, Easy Bleeding Subjectve: Obese. No apparent distress. Objective: Vital Signs Temp Pulse Resp BP Pulse Ox 98.3 F 77 20 H 104/64 96 01/07/18 12:54 01/07/18 12:54 01/07/18 12:54 01/07/18 12:54 01/07/18 12:54 Oxygen Flow Rate (L/min) 3 Oxygen Delivery Method Nasal Cannula Weight: 136.4 kg Body Mass Index (BMI) 41.1 Intake and Output for Last 24 Hours 01/05/18 01/06/18 01/07/18 23:59 23:59 23:59 Intake Total 420 / 420 780 / 780 Output Total 3650 / 3650 Balance 420 / -680 -2870 / -2870 General: Awake, Alert, Oriented x 3, No Acute Distress HEENT: Atraumatic, Normocephalic Oral: Moist Mucosa Neck: Supple, - - Jugular venous hernandez difficult because of body habitus Lungs: - - Bilateral end expiratory wheezing. Decreased breath sounds bilaterally Cardiovascular: Irregular Rhythm, Normal S1, Normal S2 Abdomen: Bowel Sounds Present, Soft Extremities: Bilateral Edema +2 - Chronic venous incompetence changes noted bilaterally Neurological: No Focal Motor or Sensory Deficit Psych/Mental Status: Appropriate 01/07/18 06:07: Sodium 140, Potassium 4.6, Chloride 103, Carbon Dioxide 29.0, Anion Gap 8, BUN 21 H, Creatinine 1.09, Est GFR (MDRD) Af Amer 88, Est GFR (MDRD ) Non-Af 73, BUN/Creatinine Ratio 19.3, Glucose 118 H, Calcium 8.7 Rhythm: Atrial fibrillation. Controlled ventricular response EKG: Atrial fibrillation ECHO: Ejection fraction normal. Stress Test: Cardiac Cath: PCI: CT Surgery: Holter monitor: EPS: PPM: CXR: Mild central vascular congestion Chest CT Scan: Assessment/Plan . New diagnosis of atrial fibrillation. Agree with rate controlled with calcium channel blockers. Patient is on beta blockers, seems to be tolerating well. However if his bronchospastic disease gets worse, then may consider stopping beta blockers. Agree with anticoagulation for thromboembolic risk with atrial fibrillation. Discussed with patient. He understands and agrees 2. COPD. Unfortunately patient continues to smoke. He is unwilling to quit 3. History of coronary artery disease status post CABG 4. Lower extremity edema. Consider venous incompetence. Agree with diuretics next 5. Hypertension 6. Consider workup for sleep apnea. Consider pulmonology consult 7. Obesity. Counseled to lose weight 8. Patient does not follow regularly with cardiology. Recommend follow-up with the [facility] in 2-3 weeks time after discharge home
[2018-01-07] MEDS: Gabapentin 600 MG Tablet PO (22:35)
[2018-01-07] MEDS: Atorvastatin Calcium 20 MG Tablet PO (22:35)
[2018-01-08] VITALS (20 sets, daily range): BP systolic 103–121; BP diastolic 58–66; PULSE 72–95; RESP 12–20; TEMP 36.5–37; O2SAT 92–96
[2018-01-08] MEDS: Ipratropium/Albuterol Sulfate 3 ML AMPUL.NEB INHALATION ×4 (02:44→23:21)
[2018-01-08] MEDS: 0.9% NaCl Peripheral Flush Adult/Peds IV ×3 (05:18→22:34)
[2018-01-08] MEDS: Furosemide 40 MG/4 ML Vial IV ×3 (05:18→22:26)
--- NOTE | 2018-01-08 05:55 | RAD_ITS ---
STUDY: X-RAY CHEST REASON FOR EXAM: Male, 62 years old. Shortness of breath TECHNIQUE: 1 view COMPARISON: None. FINDINGS: Cardiomegaly with minimally improved vascular congestion but no pneumonia and no pleural effusions. Median sternotomy wires are in place Normal visualized thoracic spine. Normal visualized ribs, clavicles, and shoulders. There is no demonstrated abnormality of the visualized soft tissue structures of the upper abdomen. RAD/Chest 1 View (Portable) IMPRESSION: Cardiomegaly with minimally improved central vascular congestion. No pneumonia and no pleural effusions. Electronically Signed: Alfa Aguilar, at 6:47 EDT Tel , Service support ,
[2018-01-08 06:48] LABS: BUN 29 mg/dL (7-18); Creatinine, Serum 1.25 mg/dL (0.70-1.30); Estimated Creatinine Clearance 70.13 ml/min; Glucose 135 mg/dL (74-106)
[2018-01-08 06:49] LABS: Anion Gap 2 (5-15); BUN/Creat Ratio 23.2 RATIO (10-20); Calcium,Total 9.1 mg/dL (8.5-10.1); Chloride 101 mmol/L (98-107); EST Glomerular Filtration Rate 62 mL/min (>60); Est Glom Filt Rate - Afr Amer 76 mL/min (>60); Potassium 4.7 mmol/L (3.5-5.1); Sodium Level 136 mmol/L (136-145)
--- NOTE | 2018-01-08 07:40 | NURSING ---
PT'S IV IS ACTUALLY IN LEFT HAND. ALL CHARTING ON IV IS IN RESPECT TO THE FACT THE IV IS ACTUALLY IN LEFT HAND.
[2018-01-08] MEDS: Losartan Potassium 25 MG Tablet PO (08:39)
[2018-01-08] MEDS: dilTIAZem CD 180 MG Capsule PO (08:39)
[2018-01-08] MEDS: Rivaroxaban 15 MG Tablet PO ×2 (08:39→18:03)
[2018-01-08] MEDS: Carvedilol 12.5 MG Tablet PO ×2 (08:39→22:26)
--- NOTE | 2018-01-08 15:27 | PCM.PROGNOTE ---
Patient Problems: Active and Suspected Problems (Last Reviewed 12/13/17 @ 13:04 by Vandana Castillo NP-Jaime) New onset atrial fibrillation (Acute) Shortness of breath (Acute) Leg edema (Acute) Subjective: Patient seen and examined today, he still having expiratory wheezes bilaterally, pulse ox on room air is 89% at rest. Patient continues to diurese, his rate is well controlled on his current rate limiting medications. I feel the patient needs continued diuresis for now and may need to go home on temporary oxygen, his pharmacy will need to be contacted regarding approval for Xarelto for him as an outpatient. - Physical Exam General: Alert, Oriented x3, Cooperative, No apparent distress, Well developed, Well nourished HEENT: Atraumatic, PERRLA, EOMI, Normocephalic Oral: Moist Mucosa Neck: Supple, No JVD, Trachea Midline, Thyroid Normal Size and Texture Lungs: Normal air movement, No rhonchi, No rales, Wheezes - Scattered expiratory wheezes bilaterally Cardiovascular: No murmurs, PMI Normal, Irregular Rate, No rub noted Abdomen: Bowel Sounds Present, Soft, Non Tender, Non-Distended, Obese Extremities: Capillary Refill Less than 3 Seconds, Edema - Generalized edema is noted over both lower legs Skin: No rashes, No breakdown Musculoskeletal: No Tenderness to Palpation of Joints or Extremities Neurological: Cranial nerves II-XII grossly intact, Neuro grossly intact, Sensory exam intact to light touch and pain, Coordination normal Psych/Mental Status: Normal Affect, Appropriate, Alert and oriented to time, place, person, mood and affect Vital Signs Temp Pulse Resp BP Pulse Ox 98.6 F 95 18 121/66 H 92 01/08/18 14:53 01/08/18 14:53 01/08/18 14:55 01/08/18 14:53 01/08/18 14:53 Oxygen Flow Rate (L/min) 2 Oxygen Delivery Method Nasal Cannula Weight: 139.4 kg Body Mass Index (BMI) 41.1 Intake and Output for Last 24 Hours 01/06/18 01/07/18 01/08/18 23:59 23:59 23:59 Intake Total 420 / 420 1352 / 1352 530 / 530 Output Total 5965 / 5965 1640 / 1640 Balance 420 / -680 -4613 / -4613 -1110 / -1110 Laboratory Tests Past 24 Hrs 01/08/18 05:45 Sodium 136 Potassium 4.7 Chloride 101 Carbon Dioxide 33.0 H Anion Gap 2 L BUN 29 H Creatinine 1.25 Estim Creat Clear Calc 70.13 Est GFR (MDRD) Af Amer 76 Est GFR (MDRD) Non-Af 62 BUN/Creatinine Ratio 23.2 H Glucose 135 H Calcium 9.1 Medical Necessity - Tobacco Use Smoking Status: Current every day smoker Tobacco Use: Cigarettes Assessment/Plan Active and Suspected Problems (Last Reviewed 12/13/17 @ 13:04 by Vandana Castillo, SSRS DEVELOPER-C) New onset atrial fibrillation (Acute) Shortness of breath (Acute) Leg edema (Acute) #1 new onset A. fib with RVR-patient's rate is presently controlled #2 acute exacerbation of COPD-continue IV Solu-Medrol and aerosol treatments #3 mild diastolic CHF-chest x-ray today showed improved pulmonary congestion, EF on patient's echo yesterday was 50% #4 lower extremity edema-possibly secondary to pulmonary hypertension-mild #5 morbid obesity #6 coronary artery disease #7 hyperlipidemia Summary: This 62-year-old white male was admitted with new onset atrial fibrillation and increased lower extremity edema along with diastolic congestive heart failure, echocardiogram showed a preserved ejection fraction (intermediate) and mild pulmonary hypertension. Patient was seen in consultation by cardiology recommended rate limiting medications and Xarelto. Patient was also felt to have an acute exacerbation of COPD with bilateral wheezing-he continues to smoke at home despite a diagnosis of COPD. Patient has been on Solu-Medrol since he was admitted, attempts to wean him to room air today failed. He will need set up for oxygen at home at least temporarily and his Xarelto will need to be approved by his insurance carrier. Code Visit Inpatient E&M: 23682 Subs Hosp L2
--- NOTE | 2018-01-08 15:33 | PN_ITS ---
Patient Problems: Active and Suspected Problems (Last Reviewed 12/13/17 @ 13:04 by Vandana Castillo NP-Jaime) New onset atrial fibrillation (Acute) Shortness of breath (Acute) Leg edema (Acute) Subjective: Patient seen and examined today, he still having expiratory wheezes bilaterally , pulse ox on room air is 89% at rest. Patient continues to diurese, his rate is well controlled on his current rate limiting medications. I feel the patient needs continued diuresis for now and may need to go home on temporary oxygen, his pharmacy will need to be contacted regarding approval for Xarelto for him as an outpatient. - Physical Exam General: Alert, Oriented x3, Cooperative, No apparent distress, Well developed, Well nourished HEENT: Atraumatic, PERRLA, EOMI, Normocephalic Oral: Moist Mucosa Neck: Supple, No JVD, Trachea Midline, Thyroid Normal Size and Texture Lungs: Normal air movement, No rhonchi, No rales, Wheezes - Scattered expiratory wheezes bilaterally Cardiovascular: No murmurs, PMI Normal, Irregular Rate, No rub noted Abdomen: Bowel Sounds Present, Soft, Non Tender, Non-Distended, Obese Extremities: Capillary Refill Less than 3 Seconds, Edema - Generalized edema is noted over both lower legs Skin: No rashes, No breakdown Musculoskeletal: No Tenderness to Palpation of Joints or Extremities Neurological: Cranial nerves II-XII grossly intact, Neuro grossly intact, Sensory exam intact to light touch and pain, Coordination normal Psych/Mental Status: Normal Affect, Appropriate, Alert and oriented to time, place, person, mood and affect Vital Signs Temp Pulse Resp BP Pulse Ox 98.6 F 95 18 121/66 H 92 01/08/18 14:53 01/08/18 14:53 01/08/18 14:55 01/08/18 14:53 01/08/18 14:53 Oxygen Flow Rate (L/min) 2 Oxygen Delivery Method Nasal Cannula Weight: 139.4 kg Body Mass Index (BMI) 41.1 Intake and Output for Last 24 Hours 01/06/18 01/07/18 01/08/18 23:59 23:59 23:59 Intake Total 420 / 420 1352 / 1352 530 / 530 Output Total 5965 / 5965 1640 / 1640 Balance 420 / -680 -4613 / -4613 -1110 / -1110 Laboratory Tests Past 24 Hrs 01/08/18 05:45 Sodium 136 Potassium 4.7 Chloride 101 Carbon Dioxide 33.0 H Anion Gap 2 L BUN 29 H Creatinine 1.25 Estim Creat Clear Calc 70.13 Est GFR (MDRD) Af Amer 76 Est GFR (MDRD) Non-Af 62 BUN/Creatinine Ratio 23.2 H Glucose 135 H Calcium 9.1 Medical Necessity - Tobacco Use Smoking Status: Current every day smoker Tobacco Use: Cigarettes Assessment/Plan Active and Suspected Problems (Last Reviewed 12/13/17 @ 13:04 by Vandana Castillo, BROAD[employer] PRODUCER-C) New onset atrial fibrillation (Acute) Shortness of breath (Acute) Leg edema (Acute) #1 new onset A. fib with RVR-patient's rate is presently controlled #2 acute exacerbation of COPD-continue IV Solu-Medrol and aerosol treatments #3 mild diastolic CHF-chest x-ray today showed improved pulmonary congestion, EF on patient's echo yesterday was 50% #4 lower extremity edema-possibly secondary to pulmonary hypertension-mild #5 morbid obesity #6 coronary artery disease #7 hyperlipidemia Summary: This 62-year-old white male was admitted with new onset atrial fibrillation and increased lower extremity edema along with diastolic congestive heart failure, echocardiogram showed a preserved ejection fraction ( intermediate) and mild pulmonary hypertension. Patient was seen in consultation by cardiology recommended rate limiting medications and Xarelto. Patient was also felt to have an acute exacerbation of COPD with bilateral wheezing-he continues to smoke at home despite a diagnosis of COPD. Patient has been on Solu-Medrol since he was admitted, attempts to wean him to room air today failed. He will need set up for oxygen at home at least temporarily and his Xarelto will need to be approved by his insurance carrier. Code Visit Inpatient E&M: 14250 Subs Hosp L2
[2018-01-08] MEDS: metOLazone 5 MG Tablet PO (18:10)
[2018-01-08] MEDS: Atorvastatin Calcium 20 MG Tablet PO (22:26)
[2018-01-08] MEDS: Gabapentin 600 MG Tablet PO (22:27)
[2018-01-08] MEDS: Acetaminophen 325 MG Tablet 650 MG PO (22:47)
[2018-01-09] VITALS (24 sets, daily range): BP systolic 95–122; BP diastolic 59–81; PULSE 68–98; RESP 16–20; TEMP 36.4–37.1; O2SAT 3–96
[2018-01-09] MEDS: 0.9% NaCl Peripheral Flush Adult/Peds IV ×4 (05:48→21:19)
[2018-01-09] MEDS: Ipratropium/Albuterol Sulfate 3 ML AMPUL.NEB INHALATION ×5 (07:47→23:16)
[2018-01-09] MEDS: Rivaroxaban 15 MG Tablet PO (10:12)
[2018-01-09] MEDS: dilTIAZem CD 180 MG Capsule PO (10:12)
--- NOTE | 2018-01-09 11:03 | CASEMGMT ---
Face to Face with patient for initial transition planning/care coordination assessment. SAMEER LAURENT introduced self and role at [facility], pt voices understanding and consents to assessment at this time. Pt is sitting up in chair in no distress at this time. Pt is A/O x4 at this time and answers all questions appropriately at this time. Care providers, pharmacy, and demographics verified. See attached link. Pt voices no further concerns/needs at this time. Advised pt to ask for CM if any further questions/concerns/needs arise, voices understanding. CM to follow for home oxygen need. PLAN: [place] SAMEER LAURENT
[2018-01-09] MEDS: Carvedilol 12.5 MG Tablet PO ×2 (12:15→21:16)
--- NOTE | 2018-01-09 15:36 | PCM.PN.HOSP ---
Patient Problems: Active and Suspected Problems (Last Reviewed 12/13/17 @ 13:04 by RHONDA Tate) New onset atrial fibrillation (Acute) Shortness of breath (Acute) Leg edema (Acute) Subjective: breathing better. still with lower extremity edema. edema reportedly began on 01/06 Vitals/I&O's: Vital Signs Temp Pulse Resp BP Pulse Ox 36.9 C 90 18 96/81 H 94 01/09/18 10:07 01/09/18 15:04 01/09/18 14:15 01/09/18 14:05 01/09/18 10:07 Oxygen Flow Rate (L/min) [ 3 AMBULATION with Oxygen] Oxygen Flow Rate (L/min) 3 Oxygen Delivery Method Nasal Cannula Weight: 139.4 kg Body Mass Index (BMI) 41.1 Intake and Output for Last 24 Hours 01/07/18 01/08/18 01/09/18 23:59 23:59 23:59 Intake Total 1352 / 1352 1672 / 1672 770 / 770 Output Total 5965 / 5965 3420 / 3420 1450 / 1450 Balance -4613 / -4613 -1748 / -1748 -680 / -680 General: Alert, Cooperative, No apparent distress HEENT: Atraumatic, Normocephalic Neck: No Nodes, Thyroid Normal Size and Texture Lungs: Clear to auscultation, No rhonchi, No wheeze, Diminished Cardiovascular: Regular rate, Regular Rhythm, Normal S1, Normal S2, No murmurs Abdomen: Bowel Sounds Present, Soft, Non Tender, Non-Distended, No Hepato-splenomegaly, Obese Extremities: No Calf Tenderness, Edema Psych/Mental Status: Normal Affect, Appropriate Current Medications Acetaminophen (Tylenol) 650 mg PO Q6H PRN PRN PRN Reason: Mild Pain (1-3)/Temp > 100.7 F Last Admin: 01/08/18 22:47 Dose: 650 mg Albuterol Sulfate (Ventolin Aerosols) 2.5 mg INHALATION Q2H PRN PRN PRN Reason: dyspnea, wheezing Albuterol/Ipratropium (Duoneb) 3 ml INHALATION Q4H.RT ES Last Admin: 01/09/18 15:08 Dose: 3 ml Atorvastatin Calcium (Lipitor) 20 mg PO QHS ES Last Admin: 01/08/18 22:26 Dose: 20 mg Carvedilol (Coreg) 12.5 mg PO BID [facility] Last Admin: 01/09/18 12:15 Dose: 12.5 mg Diltiazem HCl (Cardizem Cd) 180 mg PO DAILY [facility] Last Admin: 01/09/18 10:12 Dose: 180 mg Furosemide (Lasix) 40 mg IV Q8 [facility] Last Admin: 01/09/18 06:43 Dose: Not Given Gabapentin (Neurontin) 600 mg PO QHS [facility] Last Admin: 01/08/18 22:27 Dose: 600 mg Hydralazine HCl (Apresoline Iv) 10 mg IV Q4H PRN PRN PRN Reason: SBP > 160 Losartan Potassium (Cozaar) 25 mg PO DAILY [facility] Last Admin: 01/09/18 10:35 Dose: Not Given Methylprednisolone (Solu-Medrol) 40 mg IV Q8 [facility] Last Admin: 01/09/18 14:06 Dose: 40 mg Ondansetron HCl (Zofran) 4 mg IV Q8H PRN PRN PRN Reason: NAUSEA/VOMITING [facility] Last Admin: 01/09/18 10:12 Dose: 20 meq [facility] Last Admin: 01/09/18 10:12 Dose: 15 mg Sodium Chloride () 5 - 30 ml IV UD PRN PRN Reason: SALINE FLUSH Last Admin: 01/09/18 14:06 Dose: 10 ml Medical Necessity - Tobacco Use Smoking Status: Current every day smoker Tobacco Use: Cigarettes Assessment/Plan Active and Suspected Problems (Last Reviewed 12/13/17 @ 13:04 by Vandana Castillo NP-C) New onset atrial fibrillation (Acute) Shortness of breath (Acute) Leg edema (Acute) 1. New onset afib w RVR now rate controlled. [id number] score is 3 continue coreg, dilt and xarelto 2. HFpEF EF 50% continue IV lasix 3. AECOPD: change steroids to prednisone 4. DVT proph: anticoagulated. Code Visit Inpatient E&M: 35817 Subs Hosp L2
--- NOTE | 2018-01-09 15:41 | PN_ITS ---
Patient Problems: Active and Suspected Problems (Last Reviewed 12/13/17 @ 13:04 by RHONDA Tate) New onset atrial fibrillation (Acute) Shortness of breath (Acute) Leg edema (Acute) Subjective: breathing better. still with lower extremity edema. edema reportedly began on Vitals/I&O's: Vital Signs Temp Pulse Resp BP Pulse Ox 36.9 C 90 18 96/81 H 94 01/09/18 10:07 01/09/18 15:04 01/09/18 14:15 01/09/18 14:05 01/09/18 10:07 Oxygen Flow Rate (L/min) [ 3 AMBULATION with Oxygen] Oxygen Flow Rate (L/min) 3 Oxygen Delivery Method Nasal Cannula Weight: 139.4 kg Body Mass Index (BMI) 41.1 Intake and Output for Last 24 Hours 01/07/18 01/08/18 01/09/18 23:59 23:59 23:59 Intake Total 1352 / 1352 1672 / 1672 770 / 770 Output Total 5965 / 5965 3420 / 3420 1450 / 1450 Balance -4613 / -4613 -1748 / -1748 -680 / -680 General: Alert, Cooperative, No apparent distress HEENT: Atraumatic, Normocephalic Neck: No Nodes, Thyroid Normal Size and Texture Lungs: Clear to auscultation, No rhonchi, No wheeze, Diminished Cardiovascular: Regular rate, Regular Rhythm, Normal S1, Normal S2, No murmurs Abdomen: Bowel Sounds Present, Soft, Non Tender, Non-Distended, No Hepato- splenomegaly, Obese Extremities: No Calf Tenderness, Edema Psych/Mental Status: Normal Affect, Appropriate Current Medications Acetaminophen (Tylenol) 650 mg PO Q6H PRN PRN PRN Reason: Mild Pain (1-3)/Temp > 100.7 F Last Admin: 01/08/18 22:47 Dose: 650 mg Albuterol Sulfate (Ventolin Aerosols) 2.5 mg INHALATION Q2H PRN PRN PRN Reason: dyspnea, wheezing Albuterol/Ipratropium (Duoneb) 3 ml INHALATION Q4H.RT [facility] Last Admin: 01/09/18 15:08 Dose: 3 ml Atorvastatin Calcium (Lipitor) 20 mg PO QHS ES Last Admin: 01/08/18 22:26 Dose: 20 mg Carvedilol (Coreg) 12.5 mg PO BID [facility] Last Admin: 01/09/18 12:15 Dose: 12.5 mg Diltiazem HCl (Cardizem Cd) 180 mg PO DAILY [facility] Last Admin: 01/09/18 10:12 Dose: 180 mg Furosemide (Lasix) 40 mg IV Q8 [facility] Last Admin: 01/09/18 06:43 Dose: Not Given Gabapentin (Neurontin) 600 mg PO QHS [facility] Last Admin: 01/08/18 22:27 Dose: 600 mg Hydralazine HCl (Apresoline Iv) 10 mg IV Q4H PRN PRN PRN Reason: SBP > 160 Losartan Potassium (Cozaar) 25 mg PO DAILY [facility] Last Admin: 01/09/18 10:35 Dose: Not Given Methylprednisolone (Solu-Medrol) 40 mg IV Q8 [facility] Last Admin: 01/09/18 14:06 Dose: 40 mg Ondansetron HCl (Zofran) 4 mg IV Q8H PRN PRN PRN Reason: NAUSEA/VOMITING [facility] Admin: 01/09/18 10:12 Dose: 20 meq [facility] Last Admin: 01/09/18 10:12 Dose: 15 mg Sodium Chloride () 5 - 30 ml IV UD PRN PRN Reason: SALINE FLUSH Last Admin: 01/09/18 14:06 Dose: 10 ml Medical Necessity - Tobacco Use Smoking Status: Current every day smoker Tobacco Use: Cigarettes Assessment/Plan Active and Suspected Problems (Last Reviewed 12/13/17 @ 13:04 by Vandana Castillo NP-C) New onset atrial fibrillation (Acute) Shortness of breath (Acute) Leg edema (Acute) 1. New onset afib w RVR * now rate controlled. * [id number] score is 3 * continue coreg, dilt and xarelto 2. HFpEF * EF 50% * continue IV lasix 3. AECOPD: * change steroids to prednisone 4. DVT proph: anticoagulated. Code Visit Inpatient E&M: 31288 Subs Hosp L2
[2018-01-09] MEDS: Furosemide 40 MG/4 ML Vial IV ×2 (15:50→21:16)
[2018-01-09] MEDS: predniSONE 20 MG Tablet 40 MG PO (17:14)
[2018-01-09 17:15] LABS: Anion Gap 5 (5-15); BUN 36 mg/dL (7-18); BUN/Creat Ratio 24.7 RATIO (10-20); Calcium,Total 9.2 mg/dL (8.5-10.1); Chloride 100 mmol/L (98-107); Creatinine, Serum 1.46 mg/dL (0.70-1.30); EST Glomerular Filtration Rate 52 mL/min (>60); Est Glom Filt Rate - Afr Amer 63 mL/min (>60); Estimated Creatinine Clearance 60.05 ml/min; Glucose 131 mg/dL (74-106); Potassium 4.7 mmol/L (3.5-5.1); Sodium Level 139 mmol/L (136-145)
--- NOTE | 2018-01-09 17:49 | NURSING ---
TALKED WITH PT IN DEPTH ABOUT LIMITING HIS FLUID INTAKE. EXPLAINED THE PROCESS OF USING LASIX TO TRY AND PULL THE EXTRA WATER OFF HIM AND THAT HE SHOULD TRY TO REFRAIN FROM PUTTING AN ABUNDANT AMOUNT IN. RN TOLD HIM THAT FOR NOW HE SHOULD TRY TO STAY AROUND 2000 ML. PT STATES HE WILL DO WHAT HE WANTS.
[2018-01-09] MEDS: Gabapentin 600 MG Tablet PO (21:16)
[2018-01-09] MEDS: Atorvastatin Calcium 20 MG Tablet PO (21:17)
[2018-01-10] VITALS (12 sets, daily range): BP systolic 107–121; BP diastolic 60–79; PULSE 62–95; RESP 18–20; TEMP 36.3–36.9; O2SAT 88–93
[2018-01-10] MEDS: Furosemide 40 MG/4 ML Vial IV (05:25)
[2018-01-10] MEDS: 0.9% NaCl Peripheral Flush Adult/Peds IV (05:26)
[2018-01-10] MEDS: Ipratropium/Albuterol Sulfate 3 ML AMPUL.NEB INHALATION ×3 (06:48→15:18)
[2018-01-10] MEDS: dilTIAZem CD 180 MG Capsule PO (08:18)
[2018-01-10] MEDS: Rivaroxaban 20 MG Tablet PO (08:18)
[2018-01-10] MEDS: predniSONE 20 MG Tablet 40 MG PO (08:19)
[2018-01-10] MEDS: Carvedilol 12.5 MG Tablet PO (08:19)
[2018-01-10] MEDS: Losartan Potassium 25 MG Tablet PO (08:19)
--- NOTE | 2018-01-10 09:58 | CASEMGMT ---
Pt qualified for home oxygen and he states he would like [facility] as he had issues with [facility] in the past. Referral to Elaine at [facility] at this time, voices understanding. Referral also faxed to [facility] at this time. Veronika ESTRELLA CM
--- NOTE | 2018-01-10 14:00 | PCM.PN.HOSP ---
Patient Problems: Active and Suspected Problems (Last Reviewed 12/13/17 @ 13:04 by RHONDA Tate) New onset atrial fibrillation (Acute) Shortness of breath (Acute) Leg edema (Acute) Subjective: Breathing well w/ oxygen. No new complaints. Vitals/I&O's: Vital Signs Temp Pulse Resp BP Pulse Ox 36.8 C 91 18 107/60 91 01/10/18 13:25 01/10/18 13:25 01/10/18 13:25 01/10/18 13:25 01/10/18 13:25 Oxygen Flow Rate (L/min) [ 3 AMBULATION with Oxygen] Oxygen Flow Rate (L/min) [At 0 REST on Room Air] Oxygen Flow Rate (L/min) 3 Oxygen Delivery Method Nasal Cannula Weight: 139.4 kg Body Mass Index (BMI) 41.1 Intake and Output for Last 24 Hours 01/08/18 01/09/18 01/10/18 23:59 23:59 23:59 Intake Total 1672 / 1672 1800 / 1800 1900 / 1900 Output Total 3420 / 3420 2200 / 2200 4625 / 4625 Balance -1748 / -1748 -400 / -400 -2725 / -2725 General: Alert, Cooperative, No apparent distress HEENT: Atraumatic, Normocephalic Neck: No Nodes, Thyroid Normal Size and Texture Lungs: Clear to auscultation, Diminished Cardiovascular: Regular rate, Regular Rhythm, Normal S1, Normal S2, No murmurs Abdomen: Bowel Sounds Present, Soft, Non Tender, Non-Distended, No Hepato-splenomegaly Extremities: No Calf Tenderness, Edema Skin: No rashes, No breakdown Psych/Mental Status: Normal Affect, Appropriate Laboratory Results 01/09/18 16:14: Sodium 139, Potassium 4.7, Chloride 100, Carbon Dioxide 34.0 H, Anion Gap 5, BUN 36 H, Creatinine 1.46 H, Estim Creat Clear Calc 60.05, Est GFR (MDRD) Af Amer 63, Est GFR (MDRD) Non-Af 52 L, BUN/Creatinine Ratio 24.7 H, Glucose 131 H, Calcium 9.2 Current Medications Acetaminophen (Tylenol) 650 mg PO Q6H PRN PRN PRN Reason: Mild Pain (1-3)/Temp > 100.7 F Last Admin: 01/08/18 22:47 Dose: 650 mg Albuterol Sulfate (Ventolin Aerosols) 2.5 mg INHALATION Q2H PRN PRN PRN Reason: dyspnea, wheezing Albuterol/Ipratropium (Duoneb) 3 ml INHALATION Q4H.RT [facility] Last Admin: 01/10/18 11:07 Dose: 3 ml Atorvastatin Calcium (Lipitor) 20 mg PO QHS [facility] Last Admin: 01/09/18 21:17 Dose: 20 mg Carvedilol (Coreg) 12.5 mg PO BID [facility] Last Admin: 01/10/18 08:19 Dose: 12.5 mg Diltiazem HCl (Cardizem Cd) 180 mg PO DAILY [facility] Last Admin: 01/10/18 08:18 Dose: 180 mg Furosemide (Lasix) 40 mg PO BID [facility] Gabapentin (Neurontin) 600 mg PO QHS [facility] Last Admin: 01/09/18 21:16 Dose: 600 mg Hydralazine HCl (Apresoline Iv) 10 mg IV Q4H PRN PRN PRN Reason: SBP > 160 Losartan Potassium (Cozaar) 25 mg PO DAILY [facility] Last Admin: 01/10/18 08:19 Dose: 25 mg Ondansetron HCl (Zofran) 4 mg IV Q8H PRN PRN PRN Reason: NAUSEA/VOMITING [facility] Last Admin: 01/10/18 08:19 Dose: 20 meq Prednisone () 40 mg PO DAILY@0800 [facility] Last Admin: 01/10/18 08:19 Dose: 40 mg Rivaroxaban (Xarelto) 20 mg PO DAILY [facility] Last Admin: 01/10/18 08:18 Dose: 20 mg Sodium Chloride () 5 - 30 ml IV UD PRN PRN Reason: SALINE FLUSH Last Admin: 01/10/18 05:26 Dose: 10 ml Medical Necessity - Tobacco Use Smoking Status: Current every day smoker Tobacco Use: Cigarettes Assessment/Plan Active and Suspected Problems (Last Reviewed 12/13/17 @ 13:04 by Vandana Castillo NP-C) New onset atrial fibrillation (Acute) Shortness of breath (Acute) Leg edema (Acute) 1. New onset afib w RVR now rate controlled. [id number] score is 3 continue coreg, dilt and xarelto 2. HFpEF EF 50% change lasix to PO (40 Qday) 3. AECOPD: change steroids to prednisone (continue through 01/13) improved 4. DINO: likely d/t overdiuresis baseline 1.05, now 1.46 dc IV lasix 5. DVT proph: anticoagulated. DC home with oxygen.
--- NOTE | 2018-01-10 14:19 | PN_ITS ---
Patient Problems: Active and Suspected Problems (Last Reviewed 12/13/17 @ 13:04 by RHONDA Tate) New onset atrial fibrillation (Acute) Shortness of breath (Acute) Leg edema (Acute) Subjective: Breathing well w/ oxygen. No new complaints. Vitals/I&O's: Vital Signs Temp Pulse Resp BP Pulse Ox 36.8 C 91 18 107/60 91 01/10/18 13:25 01/10/18 13:25 01/10/18 13:25 01/10/18 13:25 01/10/18 13:25 Oxygen Flow Rate (L/min) [ 3 AMBULATION with Oxygen] Oxygen Flow Rate (L/min) [At 0 REST on Room Air] Oxygen Flow Rate (L/min) 3 Oxygen Delivery Method Nasal Cannula Weight: 139.4 kg Body Mass Index (BMI) 41.1 Intake and Output for Last 24 Hours 01/08/18 01/09/18 01/10/18 23:59 23:59 23:59 Intake Total 1672 / 1672 1800 / 1800 1900 / 1900 Output Total 3420 / 3420 2200 / 2200 4625 / 4625 Balance -1748 / -1748 -400 / -400 -2725 / -2725 General: Alert, Cooperative, No apparent distress HEENT: Atraumatic, Normocephalic Neck: No Nodes, Thyroid Normal Size and Texture Lungs: Clear to auscultation, Diminished Cardiovascular: Regular rate, Regular Rhythm, Normal S1, Normal S2, No murmurs Abdomen: Bowel Sounds Present, Soft, Non Tender, Non-Distended, No Hepato- splenomegaly Extremities: No Calf Tenderness, Edema Skin: No rashes, No breakdown Psych/Mental Status: Normal Affect, Appropriate Laboratory Results 01/09/18 16:14: Sodium 139, Potassium 4.7, Chloride 100, Carbon Dioxide 34.0 H, Anion Gap 5, BUN 36 H, Creatinine 1.46 H, Estim Creat Clear Calc 60.05, Est GFR (MDRD) Af Amer 63, Est GFR (MDRD) Non-Af 52 L, BUN/Creatinine Ratio 24.7 H, Glucose 131 H, Calcium 9.2 Current Medications Acetaminophen (Tylenol) 650 mg PO Q6H PRN PRN PRN Reason: Mild Pain (1-3)/Temp > 100.7 F Last Admin: 01/08/18 22:47 Dose: 650 mg Albuterol Sulfate (Ventolin Aerosols) 2.5 mg INHALATION Q2H PRN PRN PRN Reason: dyspnea, wheezing Albuterol/Ipratropium (Duoneb) 3 ml INHALATION Q4H.RT [facility] Last Admin: 01/10/18 11:07 Dose: 3 ml Atorvastatin Calcium (Lipitor) 20 mg PO QHS [facility] Last Admin: 01/09/18 21:17 Dose: 20 mg Carvedilol (Coreg) 12.5 mg PO BID [facility] Last Admin: 01/10/18 08:19 Dose: 12.5 mg Diltiazem HCl (Cardizem Cd) 180 mg PO DAILY [facility] Last Admin: 01/10/18 08:18 Dose: 180 mg Furosemide (Lasix) 40 mg PO BID [facility] Gabapentin (Neurontin) 600 mg PO QHS [facility] Last Admin: 01/09/18 21:16 Dose: 600 mg Hydralazine HCl (Apresoline Iv) 10 mg IV Q4H PRN PRN PRN Reason: SBP > 160 Losartan Potassium (Cozaar) 25 mg PO DAILY [facility] Last Admin: 01/10/18 08:19 Dose: 25 mg Ondansetron HCl (Zofran) 4 mg IV Q8H PRN PRN PRN Reason: NAUSEA/VOMITING Pot[facility] Last Admin: 01/10/18 08:19 Dose: 20 meq Prednisone () 40 mg PO DAILY@0800 [facility] Last Admin: 01/10/18 08:19 Dose: 40 mg Rivaroxaban (Xarelto) 20 mg PO DAILY [facility] Last Admin: 01/10/18 08:18 Dose: 20 mg Sodium Chloride () 5 - 30 ml IV UD PRN PRN Reason: SALINE FLUSH Last Admin: 01/10/18 05:26 Dose: 10 ml Medical Necessity - Tobacco Use Smoking Status: Current every day smoker Tobacco Use: Cigarettes Assessment/Plan Active and Suspected Problems (Last Reviewed 12/13/17 @ 13:04 by Vandana Castillo NP-C) New onset atrial fibrillation (Acute) Shortness of breath (Acute) Leg edema (Acute) 1. New onset afib w RVR * now rate controlled. * [id number] score is 3 * continue coreg, dilt and xarelto 2. HFpEF * EF 50% * change lasix to PO (40 Qday) 3. AECOPD: * change steroids to prednisone (continue through 01/13) * improved 4. DINO: * likely d/t overdiuresis * baseline 1.05, now 1.46 * dc IV lasix 5. DVT proph: anticoagulated. DC home with oxygen.
--- NOTE | 2018-01-10 14:25 | PCM.DC ---
- Discharge Diagnoses Current Active Problems: Current Active and Chronic Problems (Last Reviewed 12/13/17 @ 13:04 by RHONDA Tate) New onset atrial fibrillation (Acute) Shortness of breath (Acute) Leg edema (Acute) You will use the following diet at home:: Cardiac, Fluid restricted (specify 2000 mls, 1500 mls) - 2000 cc/day Your food should be the consistency of: Regular Your liquids should be the consistency of: Regular/Thin Discharge Activity: Return to Normal Activity Call your doctor if you observe: Fever of 101 or Higher, Shortness of breath, Chest pain Allergies/Adverse Reactions: Allergies No Known Allergies Allergy (Unverified 12/12/17 14:25) Medications to take at Discharge simvastatin 40 mg tablet 40 mg PO DAILY 10/27/17 Albuterol Inhaler [Ventolin Hfa] 2 puff INHALATION Q4H PRN PRN 01/06/18 Budesonide/Formoterol 160/4.5 [Symbicort 160/4.5 Mcg Inhaler (SP)] 2 puff INHALATION DAILY 01/06/18 Gabapentin [Neurontin] 300 mg PO DAILY 01/06/18 Umeclidinium [place] [Incruse Ellipta] 1 inh INHALATION DAILY 01/06/18 Albuterol Aerosols [Ventolin Aerosols] 2.5 mg INHALATION Q4HWA.RT PRN #1 vial.neb. 01/10/18 Carvedilol [Coreg (Beta Nathan)] 12.5 mg PO BID #60 tab 01/10/18 Diltiazem CD [Cardizem CD] 180 mg PO DAILY #30 cap 01/10/18 Furosemide [Lasix] 40 mg PO DAILY #30 tab 01/10/18 Potassium Chloride [K-Dur] 20 meq PO DAILY #30 tab 01/10/18 Prednisone 4 tab PO DAILY #12 tab 01/10/18 Rivaroxaban [Xarelto] 20 mg PO DAILY #30 tab 01/10/18 The following prescriptions were given: Albuterol Aerosols [Ventolin Aerosols] 2.5 mg INHALATION Q4HWA.RT PRN #1 vial.neb. PRN Reason: Shortness Of Breath Diltiazem CD [Cardizem CD] 180 mg PO DAILY #30 cap Furosemide [Lasix] 40 mg PO DAILY #30 tab Potassium Chloride [K-Dur] 20 meq PO DAILY #30 tab Prednisone 4 tab PO DAILY #12 tab Rivaroxaban [Xarelto] 20 mg PO DAILY #30 tab Carvedilol [Coreg (Beta Nathan)] 12.5 mg PO BID #60 tab Primary Care Physician: Dawit Newell [Primary Care Provider] - Within 2 Weeks Please Follow Up With: [facility] - afib and heart failure follow up. When: 1-2 months Please Follow Up With: Maurisio Lee DO - COPD follow up When: 1-2 months Proposed Discharge Date: 01/10/18
--- NOTE | 2018-01-10 14:29 | PCM.DC.SUM ---
Discharge Date and Diagnosis - Problem List Patient Problems: Active and Suspected Problems (Last Reviewed 12/13/17 @ 13:04 by RHONDA Tate) DINO (acute kidney injury) (Acute) Heart failure with preserved ejection fraction (Acute) COPD with acute exacerbation (Acute) New onset atrial fibrillation (Acute) Leg edema (Acute) Date of Admission: 01/06/18 Date of Discharge: 01/10/18 - Primary Discharge Diagnosis Active and Suspected Problems (Last Reviewed 12/13/17 @ 13:04 by RHODNA Tate) DINO (acute kidney injury) (Acute) Heart failure with preserved ejection fraction (Acute) COPD with acute exacerbation (Acute) New onset atrial fibrillation (Acute) Shortness of breath (Acute) Leg edema (Acute) - Secondary Discharge Diagnosis Chronic Problems (Last Reviewed 12/13/17 @ 13:04 by RHONDA Tate) Stage 4 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 Cardiomegaly. Electronically Signed: Mao Cuenca MD at 11:33 EDT Tel [phone], Service support , Chest X-Ray 01/07/18 05:55 IMPRESSION: No change since yesterday's study. Cardiomegaly with central vascular congestion. Electronically Signed: Alfa Aguilar, at 7:08 EDT Tel , Service support , Chest X-Ray 01/08/18 05:55 IMPRESSION: Cardiomegaly with minimally improved central vascular congestion. No pneumonia and no pleural effusions. Electronically Signed: Alfa Aguilar, at 6:47 EDT Tel , Service support , Operations: None Procedures: 2-D Echocardiogram - EF 50%. PASP 30mmHg Summary of Care Provided: The patient is a 62 year old M presents with atrial fibrillation and shortness of breath. Patient was felt to be in acute heart failure as well as acute exacerbation of COPD. Patient was started on IV Lasix IV Solu-Medrol and oxygen. Patient did improve from a respiratory standpoint. Patient did drop down to 80% on room air and therefore will require oxygen at home. 1. New onset afib w RVR now rate controlled. [id number] score is 3 continue coreg, dilt and xarelto follow up with cardiology 2. HFpEF EF 50% change lasix to PO (40 Qday) on cozaar and coreg 3. AECOPD: change steroids to prednisone (continue through 01/13) improved albuterol PRN follow up with Dr. Lee. 4. DINO: likely d/t overdiuresis baseline 1.05, now 1.46 dc IV lasix follow up outpatient labs. ] Discharge Diet: 6 Cup Fluid Restriction, 2000 mg Sodium Diet Discharge Activity: Return to Normal Activity Call your doctor if you observe: Fever of 101 or Higher, Shortness of breath, Chest pain Home Medications: Medications to take at Discharge simvastatin 40 mg tablet 40 mg PO DAILY 10/27/17 Albuterol Inhaler [Ventolin Hfa] 2 puff INHALATION Q4H PRN PRN 01/06/18 Budesonide/Formoterol 160/4.5 [Symbicort 160/4.5 Mcg Inhaler (SP)] 2 puff INHALATION DAILY 01/06/18 Gabapentin [Neurontin] 300 mg PO DAILY 01/06/18 Umeclidinium [place] [Incruse Ellipta] 1 inh INHALATION DAILY 01/06/18 Albuterol Aerosols [Ventolin Aerosols] 2.5 mg INHALATION Q4HWA.RT PRN #1 vial.neb. 01/10/18 Carvedilol [Coreg (Beta Nathan)] 12.5 mg PO BID #60 tab 01/10/18 Diltiazem CD [Cardizem CD] 180 mg PO DAILY #30 cap 01/10/18 Furosemide [Lasix] 40 mg PO DAILY #30 tab 01/10/18 Potassium Chloride [K-Dur] 20 meq PO DAILY #30 tab 01/10/18 Prednisone 4 tab PO DAILY #12 tab 01/10/18 Rivaroxaban [Xarelto] 20 mg PO DAILY #30 tab 01/10/18 Following Prescrptions Were Given to Patient: Albuterol Aerosols [Ventolin Aerosols] 2.5 mg INHALATION Q4HWA.RT PRN #1 vial.neb. PRN Reason: Shortness Of Breath Diltiazem CD [Cardizem CD] 180 mg PO DAILY #30 cap Furosemide [Lasix] 40 mg PO DAILY #30 tab Potassium Chloride [K-Dur] 20 meq PO DAILY #30 tab Prednisone 4 tab PO DAILY #12 tab Rivaroxaban [Xarelto] 20 mg PO DAILY #30 tab Carvedilol [Coreg (Beta Nathan)] 12.5 mg PO BID #60 tab Primary Care Physician: Dawit Newell [Primary Care Provider] - Within 2 Weeks Please Follow Up With: [facility] - afib and heart failure follow up. When: 1-2 months Please Follow Up With: Maurisio Lee DO - COPD follow up When: 1-2 months Disposition: Home Minutes spent on discharge:: 32 Patient Condition:: Fair Medical Necessity - Tobacco Use Smoking Status: Current every day smoker Tobacco Use: Cigarettes Meaningful Use Info Meaningful Use Diagnoses (Choose all that apply): CHF - CHF SOLOMON/ARB ordered at discharge?: Yes Documented LVEF (%): 50 Code Visit Inpatient E&M: 82643 Disch Hosp
--- NOTE | 2018-01-10 14:35 | DS.PCM_ITS ---
Discharge Date and Diagnosis - Problem List Patient Problems: Active and Suspected Problems (Last Reviewed 12/13/17 @ 13:04 by RHONDA Tate) DINO (acute kidney injury) (Acute) Heart failure with preserved ejection fraction (Acute) COPD with acute exacerbation (Acute) New onset atrial fibrillation (Acute) Leg edema (Acute) Date of Admission: 01/06/18 Date of Discharge: 01/10/18 - Primary Discharge Diagnosis Active and Suspected Problems (Last Reviewed 12/13/17 @ 13:04 by RHONDA Tate) DINO (acute kidney injury) (Acute) Heart failure with preserved ejection fraction (Acute) COPD with acute exacerbation (Acute) New onset atrial fibrillation (Acute) Shortness of breath (Acute) Leg edema (Acute) - Secondary Discharge Diagnosis Chronic Problems (Last Reviewed 12/13/17 @ 13:04 by RHONDA Tate) Stage 4 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 Cardiomegaly. Electronically Signed: Mao Cuenca MD at 11:33 EDT Tel [phone], Service support , Chest X-Ray 01/07/18 05:55 IMPRESSION: No change since yesterday's study. Cardiomegaly with central vascular congestion. Electronically Signed: Alfa Aguilar, at 7:08 EDT Tel , Service support , Chest X-Ray 01/08/18 05:55 IMPRESSION: Cardiomegaly with minimally improved central vascular congestion. No pneumonia and no pleural effusions. Electronically Signed: Alfa Aguilar, at 6:47 EDT Tel , Service support , Operations: None Procedures: 2-D Echocardiogram - EF 50%. PASP 30mmHg Summary of Care Provided: The patient is a 62 year old M presents with atrial fibrillation and shortness of breath. Patient was felt to be in acute heart failure as well as acute exacerbation of COPD. Patient was started on IV Lasix IV Solu-Medrol and oxygen. Patient did improve from a respiratory standpoint. Patient did drop down to 80% on room air and therefore will require oxygen at home. 1. New onset afib w RVR * now rate controlled. * [id number] score is 3 * continue coreg, dilt and xarelto * follow up with cardiology 2. HFpEF * EF 50% * change lasix to PO (40 Qday) * on cozaar and coreg 3. AECOPD: * change steroids to prednisone (continue through 01/13) * improved * albuterol PRN * follow up with Dr. Lee. 4. DINO: * likely d/t overdiuresis * baseline 1.05, now 1.46 * dc IV lasix * follow up outpatient labs. ] Discharge Diet: 6 Cup Fluid Restriction, 2000 mg Sodium Diet Discharge Activity: Return to Normal Activity Call your doctor if you observe: Fever of 101 or Higher, Shortness of breath, Chest pain Home Medications: Medications to take at Discharge simvastatin 40 mg tablet 40 mg PO DAILY 10/27/17 Albuterol Inhaler [Ventolin Hfa] 2 puff INHALATION Q4H PRN PRN 01/06/18 Budesonide/Formoterol 160/4.5 [Symbicort 160/4.5 Mcg Inhaler (SP)] 2 puff INHALATION DAILY 01/06/18 Gabapentin [Neurontin] 300 mg PO DAILY 01/06/18 Umeclidinium [place] [Incruse Ellipta] 1 inh INHALATION DAILY 01/06/18 Albuterol Aerosols [Ventolin Aerosols] 2.5 mg INHALATION Q4HWA.RT PRN #1 vial.neb. 01/10/18 Carvedilol [Coreg (Beta Nathan)] 12.5 mg PO BID #60 tab 01/10/18 Diltiazem CD [Cardizem CD] 180 mg PO DAILY #30 cap 01/10/18 Furosemide [Lasix] 40 mg PO DAILY #30 tab 01/10/18 Potassium Chloride [K-Dur] 20 meq PO DAILY #30 tab 01/10/18 Prednisone 4 tab PO DAILY #12 tab 01/10/18 Rivaroxaban [Xarelto] 20 mg PO DAILY #30 tab 01/10/18 Following Prescrptions Were Given to Patient: Albuterol Aerosols [Ventolin Aerosols] 2.5 mg INHALATION Q4HWA.RT PRN #1 vial.neb. PRN Reason: Shortness Of Breath Diltiazem CD [Cardizem CD] 180 mg PO DAILY #30 cap Furosemide [Lasix] 40 mg PO DAILY #30 tab Potassium Chloride [K-Dur] 20 meq PO DAILY #30 tab Prednisone 4 tab PO DAILY #12 tab Rivaroxaban [Xarelto] 20 mg PO DAILY #30 tab Carvedilol [Coreg (Beta Nathan)] 12.5 mg PO BID #60 tab Primary Care Physician: Dawit Newell [Primary Care Provider] - Within 2 Weeks Please Follow Up With: [facility] - afib and heart failure follow up. When: 1-2 months Please Follow Up With: Maurisio Lee DO - COPD follow up When: 1-2 months Disposition: Home Minutes spent on discharge:: 32 Patient Condition:: Fair Medical Necessity - Tobacco Use Smoking Status: Current every day smoker Tobacco Use: Cigarettes Meaningful Use Info Meaningful Use Diagnoses (Choose all that apply): CHF - CHF SOLOMON/ARB ordered at discharge?: Yes Documented LVEF (%): 50 Code Visit Inpatient E&M: 45166 Disch Hosp
--- NOTE | 2018-01-13 16:02 | CASEMGMT ---
Addendum entered by Anabel Strickland 01/17/18 15:35: PT LEFT MESSAGE OVER THE WEEKEND FOR THIS RN CM TO CALL BACK FOR F/U DISCHARGE PHONE CALL. CALL ATTEMPTED 01/17/18 WITHOUT SUCCESS WITH NO ANSWER. THIS RN CM WAS NOT ABLE TO LEAVE A VM. REYNA ESTRELLA CM Original Note: RN CM DISCHARGE F/U PHONE CALL LACE: 9 STRATA: 3 CALL DATE: 01/13/2018 DISCHARGE DATE: 01/10/18 TIME OF CALL: 1601 DURATION: 1 MINUTE ATTEMPT AT THIS TIME, NO ANSWER, VM LEFT WITH PT TO CALL THIS RN CM BACK. REYNA ESTRELLA CM
== END 2018-01-10 16:54 | disposition home or self-care (01) | DRG 127 ==
LOC: ED 11:55 → PCU 14:20
PROVIDERS: Admitting Provider Internal Medicine; Emergency Provider Emergency Medicine; Family Provider Nurse Practitioner Family; PCP Nurse Practitioner Family
DX: I11.0 Hypertensive heart disease with heart failure (principal); I48.91 Unspecified atrial fibrillation; J44.1 Chronic obstructive pulmonary disease with (acute) exacerbation; N17.9 Acute kidney failure, unspecified; I50.33 Acute on chronic diastolic (congestive) heart failure; I27.20 Pulmonary hypertension, unspecified; I25.10 Atherosclerotic heart disease of native coronary artery without angina pectoris; E78.5 Hyperlipidemia, unspecified; E78.6 Lipoprotein deficiency; F17.210 Nicotine dependence, cigarettes, uncomplicated; E66.01 Morbid (severe) obesity due to excess calories; Z68.41 Body mass index [BMI] 40.0-44.9, adult; Z79.899 Other long term (current) drug therapy; Z95.1 Presence of aortocoronary bypass graft
CPT/HCPCS: 36415; 71045; 71046; 80048; 83880; 84484; 85025; 93005; 93306; 94640; 97802; 99251; 99284; 99406; Q9957; A4216; C8929; G0463; J1940

== ENCOUNTER → 2018-02-07 12:34 | Outpatient (CLI) | payer MEDICAID, SELFPAY ==
[2018-02-07 13:04] VITALS: PULSE 118; PULSE 78; PULSE 88; PULSE 89; PULSE 92; PULSE 99; O2SAT 90; O2SAT 91; O2SAT 92; O2SAT 94; O2SAT 95
--- NOTE | 2018-02-07 14:47 | WT_ITS ---
PSN 6 Minute Walk Test - 6 Minute Walk Test 6 Minute Walk Test: 6 Minute Walk Test PSN:6-Minute Walk Test Start: 02/07/18 13: 04 Freq: Status: Active Protocol: [id number] Document 02/07/18 13:04 FR (Rec: 02/07/18 13:08 FR [id number]) 6 Minute Walk Test Date Performed 02/07/18 Time Performed 12:30 Height 6 ft 1 in Weight: 132.903 kg Weight in Pounds 293.[address]: Vandana Castillo FIO2 (% Oxygen) 21 Assistive device used: None Pre-test Oxygen Delivery Method Room Air Pulse Ox (%) 94 Pulse Rate (60-100 beats/min) 78 1st minute Oxygen Delivery Method Room Air Pulse Ox (%) 92 Pulse Rate (60-100 beats/min) 89 2nd minute Oxygen Delivery Method Room Air Pulse Ox (%) 90 Pulse Rate (60-100 beats/min) 92 3rd minute Oxygen Delivery Method Room Air Pulse Ox (%) 90 Pulse Rate (60-100 beats/min) 99 4th minute Oxygen Delivery Method Room Air Pulse Ox (%) 90 Pulse Rate (60-100 beats/min) 118 H 5th minute Oxygen Delivery Method Room Air Pulse Ox (%) 91 Pulse Rate (60-100 beats/min) 92 6th minute Oxygen Delivery Method Room Air Pulse Ox (%) 90 Pulse Rate (60-100 beats/min) 88 Dyspnea Levy Scale (0-10) 6 Exertion Levy Scale (6-20) 9 Post-test Oxygen Delivery Method Room Air Pulse Ox (%) 95 Pulse Rate (60-100 beats/min) 78 Full Laps Walked 13 Partial Lap, Number of Tiles Walked 23 Total Distance Walked (ft) 790 - Interpretation Interpretation: The patient was able to ambulate 790 feet over the course of 6 minutes on room air with no assistive devices or breaks. She did have significant desaturation with an oxygen chano of 90%. Some reflexive tachycardia was noted. These findings are consistent with a respiratory limitation exercise tolerance. - Recommendations Recommendations: Luminal oxygen is indicated at this time. However, patient will need to be followed closely given level of desaturation
== END ==
PROVIDERS: Family Provider Nurse Practitioner Family; PCP Nurse Practitioner Family; Visit Provider Nurse Practitioner Acute Care
DX: J44.9 Chronic obstructive pulmonary disease, unspecified (principal)
CPT/HCPCS: 94618

== ENCOUNTER 2018-08-23 12:00 | Inpatient (IN) | payer MEDICAID, SELFPAY ==
[2018-08-23 12:00] VITALS: BMI 39.5
[2018-08-23 12:02] VITALS: BP 133/75; PULSE 89; RESP 17; TEMP 36.4; O2SAT 97; BMI 39.3
[2018-08-23 12:55] LABS: Absolute Lymphocyte Count 0.98 X10^3/ul (0.83-4.51); Absolute Neutrophil Count 4.4 X10^3/uL (2.0-7.7); Basophil# 0.05 X10^3/uL; Basophil% 0.8 % (0-1); Eosinophil# 0.03 X10^3/uL; Eosinophils% 0.5 % (0-5); Hematocrit 54.1 % (40-54); Hemoglobin 17.6 g/dl (13.0-16.5); Lymphocyte # 0.98 X10^3/ul (4.0); Mean Corp Hgb Conc 32.5 g/gl (32-36); Mean Corpuscular Hgb 31.7 pg (27.0-32.0); Mean Corpuscular Volume 97.5 fL (80-94); Mean Platelet Vol. 9.7 fl (6.2-12.0); Monocyte# 0.62 X10^3/uL; Monocyte% 10.1 % (0-10); Neutrophil # 4.42 X10^3/uL (2.7-7.7); Neutrophil % 72.4 % (47-70); Platelet Count 199 K/mm3 (150-450); RBC Distribution Width CV 15.1 % (11.6-14.6); RBC Distribution Width SD 53.5 fl (35.1-43.9); Red Blood Count 5.55 M/mm3 (4.6-6.2); White Blood Count 6.1 K/mm3 (4.4-11.0)
[2018-08-23 12:56] LABS: POSITIVE COUNT NO; POSITIVE DIFFERENTIAL NO; POSITIVE MORPHOLOGY NO
[2018-08-23 13:13] LABS: ALB/GLOB Ratio 0.7 RATIO (0.9-2.4); AST(SGOT) 26 U/L (15-37); Alanine Aminotransfer ALT/SGPT 19 U/L (16-61); Albumin, Serum 3.8 g/dL (3.2-5.0); Alkaline Phosphatase 72 U/L (45-117); Anion Gap 5 (5-15); BUN 32 mg/dL (7-18); BUN/Creat Ratio 21.8 RATIO (10-20); Calcium,Total 9.2 mg/dL (8.5-10.1); Chloride 103 mmol/L (98-107); Creatinine, Serum 1.47 mg/dL (0.70-1.30); EST Glomerular Filtration Rate 52 mL/min (>60); Est Glom Filt Rate - Afr Amer 63 mL/min (>60); Estimated Creatinine Clearance 59.64 ml/min; Globulin 5.2 g/dL (2.2-4.2); Glucose 98 mg/dL (74-106); Potassium 3.9 mmol/L (3.5-5.1); Sodium Level 137 mmol/L (136-145)
[2018-08-23 13:17] LABS: International Normalized Ratio 2.4; Prothrombin Time (Protime)PT. 26.2 SECONDS (11.7-14.9)
[2018-08-23 13:18] LABS: Partial Thromboplast Time 43.2 Seconds (24.1-36.2)
[2018-08-23 13:21] LABS: Lactic Acid 0.9 mmol/L (0.4-2.0)
--- NOTE | 2018-08-23 13:26 | ED.DCSUM_ITS ---
- ER Visit Summary Date of Service: 08/23/18 Chief Complaint: Right leg infection History of Present Illness: The patient is a 62 M with a presumed right leg infection. The patient was referred to the emergency department today by his primary care doctor for admission for IV antibiotics. He has an underlying history of coronary disease and CABG. He has chronic venous stasis of his legs, but worse on the right from his vein surgery. He was evaluated 2 weeks ago, after a fall. This is when his symptoms started. He had an x-ray which was negative and an ultrasound which was negative for DVT done at the [facility]. His primary care doctor followed him for swelling, redness, and wounds. He has been on Levaquin and then a round of Bactrim. He had outpatient culture of his leg wounds and they did not grow anything. His PCP saw him today and his redness and warmth seem to be worse. He denies fever or systemic symptoms. Physical Examination: Afebrile and vital signs unremarkable. Patient has an irregular heartbeat. Lungs are clear. Abdomen soft. Right lower extremity is diffusely red, warm, and tender to palpation below the knee. He has multiple scabs over his anterior leg and foot. He has some anterior leg swelling just distal to his right knee. Pulses are dopplerable. Calf edematous but nontender. Test Results: Hemoglobin 17.6, BUN 32, creatinine 1.47. Coags and lactate pending. Blood cultures pending. Emergency Department Course and Treatment: Patient presents with failed outpatient treatment for cellulitis. He has dopplerable pulses. He had negative x-rays 2 weeks ago. He had a negative duplex ultrasound 2 weeks ago. Patient started on vancomycin. Hospitalist was contacted for admission. Treatment Plan: As above Disposition: Admission Impression: 1. Right leg cellulitis This note was generated with [employer] dictation software. It may contain incorrect words, spelling, and punctuation that were not noted in review of the chart prior to signing ED Disposition - Plan for ED Patient: Chief Complaint: Cellulitis Referrals: Lucas Boone MD [Primary Care Provider] -
--- NOTE | 2018-08-23 13:47 | PCM.HP.STD ---
Problem List (1) Cellulitis of right leg Status: Acute History of Present Illness Date of Admission: 08/23/18 Chief Complaint: redness of right leg. The patient is a 62 year old M who fell several weeks ago when he neuropathy. Patient was going upstairs time and then fell forward onto the stairs with abrasions to his right leg. Patient noted relatively soon thereafter, that he developed a redness. Patient was being managed at his primary care's office with antibiotics and had used Levaquin without relief and then most recently Bactrim again without relief. And his leg continue to get worse. Patient was directed to the emergency room for further inpatient treatment. Patient states that his right leg has become more swollen than usual, more red and does have swelling. Does have pain as well. Denies any fever chills though he does endorse that he is having some general malaise. 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 History of pleural effusion (Resolved) Z87.09 Asthma (Chronic) J45.909 Overweight (BMI 25.0-29.9) (Chronic) E66.3 Tobacco dependence (Chronic) F17.200 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 History of MT (myocardial infarction) (Resolved) I25.2 Hyperlipidemia (Chronic) E78.5 COPD (chronic obstructive pulmonary disease) (Chronic) J44.9 Hypertension (Chronic) I10 Chronic kidney disease, stage 3 N18.3 Allergies No Known Allergies Allergy (Unverified 08/23/18 12:02) Home Medications: Ambulatory Orders Medication Instructions Recorded simvastatin 40 mg tablet 40 mg PO DAILY 10/27/17 Albuterol Inhaler [Ventolin Hfa] 2 puff INHALATION Q4H PRN PRN 01/06/18 Budesonide/Formoterol 160/4.5 2 puff INHALATION DAILY 01/06/18 [Symbicort 160/4.5 Mcg Inhaler (SP)] Umeclidinium [place] Inhaler 1 inh INHALATION DAILY 01/06/18 [Incruse Ellipta Inhaler] Albuterol Aerosols [Ventolin 2.5 mg INHALATION Q4HWA.RT PRN #1 01/10/18 Aerosols] vial.neb. 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, right shoulder surgery Psychiatric History: No pertinent psych hx Smoking Status: Current every day smoker Tobacco Use: Cigarettes Alcohol: None Drugs: None - *Family History Maternal Family History: Family History (Last Reviewed 08/23/18 @ 13:50 by Cecilio Wahl DO) Mother Hypertension Heart disease Father Heart disease Hypertension Myocardial infarction Brother Heart disease Hypertension Myocardial infarction History Items: Heart Disease Paternal Family History: Family History (Last Reviewed 08/23/18 @ 13:50 by Cecilio Wahl DO) Mother Hypertension Heart disease Father Heart disease Hypertension Myocardial infarction Brother Heart disease Hypertension Myocardial infarction History Items: Heart Disease Review of Systems Constitutional: Reports: Malaise. Denies: Chills, Fever, Weight Change Eyes: Denies: Blurred vision, Double vision HEENT: Denies: Head Aches, Sinus Congestion, Sinus Drainage Cardiovascular: Denies: Chest Pain, Palpitations Respiratory: Reports: Shortness of Breath - Chronic and occasional. Patient states that he does use his oxygen at times. Gastrointestinal: Denies: Abdominal Pain, Nausea, Vomiting Genitourinary: Denies: Dysuria Musculoskeletal: Reports: Leg Pain - Right leg pain. 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 Denies: Easy Bruising, Hx of blood clot Comment: A 10 point review of systems were negative except as mentioned in the history of present illness and the other review of systems. VTE Information - Inpt Only VTE Present on Admission: No VTE Pharm Prophylaxis ordered?: Yes Patient Problems: Active and Suspected Problems (Last Reviewed 06/28/18 @ 13:09 by Chica Saldivar) Cellulitis of right leg (Acute) - Physical Exam General: Alert, Cooperative, No apparent distress HEENT: Atraumatic, Normocephalic Oral: Moist Mucosa, No Gingival or Mucosal Lesions/ Ulcerations, - - Edentulous Neck: No Nodes, Thyroid Normal Size and Texture Lungs: Normal air movement, Wheezes - Upper respiratory Cardiovascular: Regular rate, No murmurs Abdomen: Bowel Sounds Present, Soft, Non Tender, Non-Distended, Obese Extremities: Edema - Right lower extremity edema, - - Right calf and distal lower extremity tenderness due to swelling Skin: - - Market erythema of the distal right lower extremity. Does have an area of fluctuance just below right patella. Musculoskeletal: No Tenderness to Palpation of Joints or Extremities, No Muscle Wasting Neurological: Neuro grossly intact, - - No clonus Psych/Mental Status: Normal Affect, Appropriate Vital Signs Temp Pulse Resp BP Pulse Ox 36.4 C L 89 17 133/75 H 97 08/23/18 12:02 08/23/18 12:02 08/23/18 12:02 08/23/18 12:02 08/23/18 12:02 Oxygen Delivery Method Room Air Weight: 135.171 kg Body Mass Index (BMI) 39.3 Laboratory Tests Past 24 Hrs 08/23/18 08/23/18 08/23/18 12:40 12:40 12:40 WBC 6.1 RBC 5.55 Hgb 17.6 H Hct 54.1 H MCV 97.5 H MCH 31.7 MCHC 32.5 RDW 15.1 H RDW Differential 53.5 H Plt Count 199 MPV 9.7 Immature Gran % (Auto) 0.200 Neut % (Auto) 72.4 H Lymph % (Auto) 16.0 L [place] % (Auto) 10.1 H Eos % (Auto) 0.5 Baso % (Auto) 0.8 Absolute Neuts (auto) 4.4 Absolute Lymphs (auto) 0.98 Total Counted Not Reportable PT 26.2 H INR 2.4 APTT 43.2 H Sodium 137 Potassium 3.9 Chloride 103 Carbon Dioxide 29.0 Anion Gap 5 BUN 32 H Creatinine 1.47 H Estim Creat Clear Calc 59.64 Est GFR (MDRD) Af Amer 63 Est GFR (MDRD) Non-Af 52 L BUN/Creatinine Ratio 21.8 H Glucose 98 Lactic Acid Calcium 9.2 Total Bilirubin 1.50 H AST 26 ALT 19 Alkaline Phosphatase 72 Total Protein 9.0 H Albumin 3.8 Globulin 5.2 H Albumin/Globulin Ratio 0.7 L 08/23/18 12:40 WBC RBC Hgb Hct MCV MCH MCHC RDW RDW Differential Plt Count MPV Immature Gran % (Auto) Neut % (Auto) Lymph % (Auto) [place] % (Auto) Eos % (Auto) Baso % (Auto) Absolute Neuts (auto) Absolute Lymphs (auto) Total Counted PT INR APTT Sodium Potassium Chloride Carbon Dioxide Anion Gap BUN Creatinine Estim Creat Clear Calc Est GFR (MDRD) Af Amer Est GFR (MDRD) Non-Af BUN/Creatinine Ratio Glucose Lactic Acid 0.9 Calcium Total Bilirubin AST ALT Alkaline Phosphatase Total Protein Albumin Globulin Albumin/Globulin Ratio Assessment/Plan All Active Problems (Last Reviewed 06/28/18 @ 13:09 by Chica Saldivar) Cellulitis of right leg (Acute) DINO (acute kidney injury) (Acute) Heart failure with preserved ejection fraction (Acute) COPD with acute exacerbation (Acute) New onset atrial fibrillation (Acute) Shortness of breath (Acute) Leg edema (Acute) mediastinal exploration and arrest of hemorrhage (Resolved) History of coronary artery bypass graft x 2 (Resolved) History of pleural effusion (Resolved) History of Vogt's palsy (Resolved) History of MT (myocardial infarction) (Resolved) 1. Right lower extremity cellulitis Failed outpatient antibiotics with Levaquin and Bactrim Patient will continue with vancomycin Check wound MRSA Check a CT scan of his leg to evaluate if this is hematoma versus abscess. May require orthopedic assistance if there is concern for abscess. Patient's wounds on his right lower extremity appear to be scabbed over and 2. Atrial fibrillation Currently rate controlled Continue with carvedilol and Xarelto 3. Coronary artery disease Stable 4. Chronic kidney disease stage III Creatinine 1.47, which is similar to the patient's last creatinine in our system 1.46 Continue to monitor particular with the patient is on Lasix. 5. DVT prophylaxis: Patient is anticoagulated. Code Visit Inpatient E&M: 20233 Init Hosp L3
--- NOTE | 2018-08-23 13:51 | HP.PCM_ITS ---
Problem List (1) Cellulitis of right leg Status: Acute History of Present Illness Date of Admission: 08/23/18 Chief Complaint: redness of right leg. The patient is a 62 year old M who fell several weeks ago when he neuropathy. Patient was going upstairs time and then fell forward onto the stairs with abrasions to his right leg. Patient noted relatively soon thereafter, that he developed a redness. Patient was being managed at his primary care's office with antibiotics and had used Levaquin without relief and then most recently Bactrim again without relief. And his leg continue to get worse. Patient was directed to the emergency room for further inpatient treatment. Patient states that his right leg has become more swollen than usual, more red and does have swelling. Does have pain as well. Denies any fever chills though he does endorse that he is having some general malaise. 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 History of pleural effusion (Resolved) Z87.09 Asthma (Chronic) J45.909 Overweight (BMI 25.0-29.9) (Chronic) E66.3 Tobacco dependence (Chronic) F17.200 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 History of DC (myocardial infarction) (Resolved) I25.2 Hyperlipidemia (Chronic) E78.5 COPD (chronic obstructive pulmonary disease) (Chronic) J44.9 Hypertension (Chronic) I10 Chronic kidney disease, stage 3 N18.3 Allergies No Known Allergies Allergy (Unverified 08/23/18 12:02) Home Medications: Ambulatory Orders Medication Instructions Recorded simvastatin 40 mg tablet 40 mg PO DAILY 10/27/17 Albuterol Inhaler [Ventolin Hfa] 2 puff INHALATION Q4H PRN PRN 01/06/18 Budesonide/Formoterol 160/4.5 2 puff INHALATION DAILY 01/06/18 [Symbicort 160/4.5 Mcg Inhaler (SP)] Umeclidinium [place] Inhaler 1 inh INHALATION DAILY 01/06/18 [Incruse Ellipta Inhaler] Albuterol Aerosols [Ventolin 2.5 mg INHALATION Q4HWA.RT PRN #1 01/10/18 Aerosols] vial.neb. 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, right shoulder surgery Psychiatric History: No pertinent psych hx Smoking Status: Current every day smoker Tobacco Use: Cigarettes Alcohol: None Drugs: None - *Family History Maternal Family History: Family History (Last Reviewed 08/23/18 @ 13:50 by Cecilio Wahl DO) Mother Hypertension Heart disease Father Heart disease Hypertension Myocardial infarction Brother Heart disease Hypertension Myocardial infarction History Items: Heart Disease Paternal Family History: Family History (Last Reviewed 08/23/18 @ 13:50 by Cecilio Wahl DO) Mother Hypertension Heart disease Father Heart disease Hypertension Myocardial infarction Brother Heart disease Hypertension Myocardial infarction History Items: Heart Disease Review of Systems Constitutional: Reports: Malaise. Denies: Chills, Fever, Weight Change Eyes: Denies: Blurred vision, Double vision HEENT: Denies: Head Aches, Sinus Congestion, Sinus Drainage Cardiovascular: Denies: Chest Pain, Palpitations Respiratory: Reports: Shortness of Breath - Chronic and occasional. Patient states that he does use his oxygen at times. Gastrointestinal: Denies: Abdominal Pain, Nausea, Vomiting Genitourinary: Denies: Dysuria Musculoskeletal: Reports: Leg Pain - Right leg pain. 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 Denies: Easy Bruising, Hx of blood clot Comment: A 10 point review of systems were negative except as mentioned in the history of present illness and the other review of systems. VTE Information - Inpt Only VTE Present on Admission: No VTE Pharm Prophylaxis ordered?: Yes Patient Problems: Active and Suspected Problems (Last Reviewed 06/28/18 @ 13:09 by Chica Saldivar) Cellulitis of right leg (Acute) - Physical Exam General: Alert, Cooperative, No apparent distress HEENT: Atraumatic, Normocephalic Oral: Moist Mucosa, No Gingival or Mucosal Lesions/ Ulcerations, - - Edentulous Neck: No Nodes, Thyroid Normal Size and Texture Lungs: Normal air movement, Wheezes - Upper respiratory Cardiovascular: Regular rate, No murmurs Abdomen: Bowel Sounds Present, Soft, Non Tender, Non-Distended, Obese Extremities: Edema - Right lower extremity edema, - - Right calf and distal lower extremity tenderness due to swelling Skin: - - Market erythema of the distal right lower extremity. Does have an area of fluctuance just below right patella. Musculoskeletal: No Tenderness to Palpation of Joints or Extremities, No Muscle Wasting Neurological: Neuro grossly intact, - - No clonus Psych/Mental Status: Normal Affect, Appropriate Vital Signs Temp Pulse Resp BP Pulse Ox 36.4 C L 89 17 133/75 H 97 08/23/18 12:02 08/23/18 12:02 08/23/18 12:02 08/23/18 12:02 08/23/18 12:02 Oxygen Delivery Method Room Air Weight: 135.171 kg Body Mass Index (BMI) 39.3 Laboratory Tests Past 24 Hrs 08/23/18 08/23/18 08/23/18 12:40 12:40 12:40 WBC 6.1 RBC 5.55 Hgb 17.6 H Hct 54.1 H MCV 97.5 H MCH 31.7 MCHC 32.5 RDW 15.1 H RDW Differential 53.5 H Plt Count 199 MPV 9.7 Immature Gran % (Auto) 0.200 Neut % (Auto) 72.4 H Lymph % (Auto) 16.0 L [place] % (Auto) 10.1 H Eos % (Auto) 0.5 Baso % (Auto) 0.8 Absolute Neuts (auto) 4.4 Absolute Lymphs (auto) 0.98 Total Counted Not Reportable PT 26.2 H INR 2.4 APTT 43.2 H Sodium 137 Potassium 3.9 Chloride 103 Carbon Dioxide 29.0 Anion Gap 5 BUN 32 H Creatinine 1.47 H Estim Creat Clear Calc 59.64 Est GFR (MDRD) Af Amer 63 Est GFR (MDRD) Non-Af 52 L BUN/Creatinine Ratio 21.8 H Glucose 98 Lactic Acid Calcium 9.2 Total Bilirubin 1.50 H AST 26 ALT 19 Alkaline Phosphatase 72 Total Protein 9.0 H Albumin 3.8 Globulin 5.2 H Albumin/Globulin Ratio 0.7 L 08/23/18 12:40 WBC RBC Hgb Hct MCV MCH MCHC RDW RDW Differential Plt Count MPV Immature Gran % (Auto) Neut % (Auto) Lymph % (Auto) [place] % (Auto) Eos % (Auto) Baso % (Auto) Absolute Neuts (auto) Absolute Lymphs (auto) Total Counted PT INR APTT Sodium Potassium Chloride Carbon Dioxide Anion Gap BUN Creatinine Estim Creat Clear Calc Est GFR (MDRD) Af Amer Est GFR (MDRD) Non-Af BUN/Creatinine Ratio Glucose Lactic Acid 0.9 Calcium Total Bilirubin AST ALT Alkaline Phosphatase Total Protein Albumin Globulin Albumin/Globulin Ratio Assessment/Plan All Active Problems (Last Reviewed 06/28/18 @ 13:09 by Chica Saldivar) Cellulitis of right leg (Acute) DINO (acute kidney injury) (Acute) Heart failure with preserved ejection fraction (Acute) COPD with acute exacerbation (Acute) New onset atrial fibrillation (Acute) Shortness of breath (Acute) Leg edema (Acute) mediastinal exploration and arrest of hemorrhage (Resolved) History of coronary artery bypass graft x 2 (Resolved) History of pleural effusion (Resolved) History of Vogt's palsy (Resolved) History of DC (myocardial infarction) (Resolved) 1. Right lower extremity cellulitis * Failed outpatient antibiotics with Levaquin and Bactrim * Patient will continue with vancomycin * Check wound MRSA * Check a CT scan of his leg to evaluate if this is hematoma versus abscess. May require orthopedic assistance if there is concern for abscess. * Patient's wounds on his right lower extremity appear to be scabbed over and 2. Atrial fibrillation * Currently rate controlled * Continue with carvedilol and Xarelto 3. Coronary artery disease * Stable 4. Chronic kidney disease stage III * Creatinine 1.47, which is similar to the patient's last creatinine in our system 1.46 * Continue to monitor particular with the patient is on Lasix. 5. DVT prophylaxis: Patient is anticoagulated. Code Visit Inpatient E&M: 50815 Init Hosp L3
[2018-08-23 14:29] VITALS: PULSE 80; RESP 18; O2SAT 95; BMI 25.6; BMI 25.7
[2018-08-23 14:43] VITALS: BP 129/81; PULSE 94; RESP 16; TEMP 36.6; O2SAT 94
--- NOTE | 2018-08-23 14:55 | CT_ITS ---
STUDY: CT RIGHT TIBIA/FIBULA WITHOUT CONTRAST REASON FOR EXAM: Right lower leg injury/infection. TECHNIQUE: Transaxial CT imaging of the tibia/fibula was performed. Sagittal and coronal images were reconstructed. Individualized dose optimization techniques were used for this CT. COMPARISON: None. FINDINGS: Normal tibia and fibula without fracture or bone destruction. There is a fluid collection anterior to the tibial tubercle measuring approximately 3.2 cm in length and 3.3 cm in transverse dimension with increased density (axial images 43-57) suggesting hematoma. There is diffuse edema in the subcutis adipose space of the lower leg. Normal muscle groups of the lower leg. There are surgical clips at the medial aspect of the lower leg. CT/Extremity Lower without Contra IMPRESSION: Hematoma anterior to the tibial tubercle, with or without superimposed infection. Diffuse edema in the subcutis adipose space. Electronically Signed: Toby Gamez MD at 15:55 EST Tel , Service support ,
[2018-08-23 15:49] LABS: Erythrocyte Sedimentation Rate 21 mm/hr (0-20)
--- NOTE | 2018-08-23 16:45 | PCM.RX.CS ---
Consult Pharmacy has been consulted to manage selected antiobiotic: Vancomycin Type of Consult: New start Suspected Infection: Skin/Soft tissue Prior Doses of Antibiotics Received/Current Regimen: Received 2gm iv x1 in ER Labs: Sodium 137 mmol/L (136-145) 08/23/18 12:40 Potassium 3.9 mmol/L (3.5-5.1) 08/23/18 12:40 Chloride 103 mmol/L (98-107) 08/23/18 12:40 Carbon Dioxide 29.0 mmol/L (21.0-32.0) 08/23/18 12:40 Anion Gap 5 (5-15) 08/23/18 12:40 BUN 32 mg/dL (7-18) H 08/23/18 12:40 Creatinine 1.47 mg/dL (0.70-1.30) H 08/23/18 12:40 Est GFR (MDRD) Af Amer 63 mL/min (>60) 08/23/18 12:40 Est GFR (MDRD) Non-Af 52 mL/min (>60) L 08/23/18 12:40 BUN/Creatinine Ratio 21.8 RATIO (10-20) H 08/23/18 12:40 Glucose 98 mg/dL (74-106) 08/23/18 12:40 Weight used for dosin.8 kg Estimated Creatinine Clearance: 60 ml/min Goal Trough: 15-20 mcg/mL Pharmacy Plan for Drug Dosing: Renal status reviewed with Cr 1.47 and CrCl ~60 ml/min. Will begin 1gm iv q12 hr and get trough level before 4th dose of therapy (goal 15-20 mcg/ml). Pharmacy Service will continue to monitor and adjust dosing as required. Follow-Up Labs: Trough Vancomycin - 08.25.18 @0030 before 0100 dose
[2018-08-23] MEDS: Acetaminophen 325 MG Tablet 650 MG PO (18:44)
[2018-08-23] MEDS: oxyCODONE 5 MG Tablet PO ×2 (18:44→22:51)
[2018-08-23] MEDS: Furosemide 40 MG Tablet PO (18:45)
[2018-08-23 19:20] VITALS: PULSE 77; RESP 18
[2018-08-23] MEDS: Budesonide Respules 0.5 MG/2 ML AMPUL.NEB. INHALATION (19:20)
[2018-08-23] MEDS: Albuterol 2.5 MG/3 ML VIAL.NEB. INHALATION (19:20)
[2018-08-23 20:57] VITALS: BP 92/57; PULSE 76; RESP 18; TEMP 36.7; O2SAT 94
[2018-08-23] MEDS: Gabapentin 800 MG Tablet PO (22:14)
[2018-08-23] MEDS: Atorvastatin Calcium 20 MG Tablet PO (22:14)
[2018-08-23] MEDS: Carvedilol 6.25 MG Tablet PO (22:14)
[2018-08-24] VITALS (15 sets, daily range): BP systolic 100–148; BP diastolic 57–95; PULSE 64–135; RESP 16–24; TEMP 36.2–36.8; O2SAT 92–95; BMI 25.6
[2018-08-24] MEDS: Vancomycin IV 1,000 MG/200 ML BAG 200 MG IV ×2 (00:42→13:50)
[2018-08-24] MEDS: oxyCODONE 5 MG Tablet PO ×3 (05:49→23:10)
[2018-08-24] MEDS: Gabapentin 800 MG Tablet PO ×3 (05:49→21:13)
[2018-08-24] MEDS: Acetaminophen 325 MG Tablet 650 MG PO (05:51)
[2018-08-24 06:07] LABS: Absolute Lymphocyte Count 1.34 X10^3/ul (0.83-4.51); Absolute Neutrophil Count 2.6 X10^3/uL (2.0-7.7); Basophil# 0.07 X10^3/uL; Basophil% 1.5 % (0-1); Eosinophils% 2.2 % (0-5); Hematocrit 50.7 % (40-54); Hemoglobin 16.5 g/dl (13.0-16.5); Lymphocyte # 1.34 X10^3/ul (4.0); Lymphocyte % 28.9 % (19-41); Mean Corp Hgb Conc 32.5 g/gl (32-36); Mean Corpuscular Hgb 32.2 pg (27.0-32.0); Mean Corpuscular Volume 98.8 fL (80-94); Mean Platelet Vol. 9.6 fl (6.2-12.0); Monocyte# 0.48 X10^3/uL; Monocyte% 10.4 % (0-10); Neutrophil # 2.63 X10^3/uL (2.7-7.7); Neutrophil % 56.8 % (47-70); Platelet Count 201 K/mm3 (150-450); RBC Distribution Width CV 15.1 % (11.6-14.6); RBC Distribution Width SD 54.5 fl (35.1-43.9); Red Blood Count 5.13 M/mm3 (4.6-6.2); White Blood Count 4.6 K/mm3 (4.4-11.0)
[2018-08-24 06:17] LABS: Anion Gap 8 (5-15); BUN 31 mg/dL (7-18); BUN/Creat Ratio 21.1 RATIO (10-20); Chloride 102 mmol/L (98-107); Creatinine, Serum 1.47 mg/dL (0.70-1.30); EST Glomerular Filtration Rate 52 mL/min (>60); Est Glom Filt Rate - Afr Amer 63 mL/min (>60); Estimated Creatinine Clearance 57.92 ml/min; Glucose 99 mg/dL (74-106); Potassium 3.6 mmol/L (3.5-5.1); Sodium Level 140 mmol/L (136-145)
[2018-08-24 06:19] LABS: International Normalized Ratio 1.4; Prothrombin Time (Protime)PT. 17.2 SECONDS (11.7-14.9)
[2018-08-24 06:35] LABS: POSITIVE COUNT NO; POSITIVE DIFFERENTIAL NO; POSITIVE MORPHOLOGY NO
[2018-08-24] MEDS: Ipratropium 0.5 MG/2.5 ML SOLUTION INHALATION ×2 (07:04→13:05)
[2018-08-24] MEDS: Albuterol 2.5 MG/3 ML VIAL.NEB. INHALATION ×3 (07:04→23:55)
[2018-08-24] MEDS: Budesonide Respules 0.5 MG/2 ML AMPUL.NEB. INHALATION (07:04)
--- NOTE | 2018-08-24 09:19 | NURSING ---
wound photo: right lower leg
--- NOTE | 2018-08-24 09:37 | NURSING ---
Back in to assess right leg with Dr Mcclure. Heather, propellant charge zone assembler states that Dr Wallis plans to take patient for I&D later this evening around 1700. patient remains up in chair with legs dependent. pt states his legs hurt more with legs elevated and does not want them up at this time. Discussed the importance of edema control. does not want compression wraps on at this time either. removed the most proximal scab. skin is epithelialized. small amount of bleeding noted with another scab. will leave in place since patient is going to surgery. pt denies further needs at this time. Dr Mcclure states he can [facility] after discharge from the hospital.
[2018-08-24] MEDS: Furosemide 40 MG Tablet PO (10:22)
[2018-08-24] MEDS: Carvedilol 6.25 MG Tablet PO ×2 (10:22→21:13)
[2018-08-24] MEDS: hydroCHLOROthiazide 25 MG Tablet PO (10:28)
--- NOTE | 2018-08-24 10:47 | PN_ITS ---
Patient Problems: Active and Suspected Problems (Last Updated 08/23/18 @ 13:49 by Cecilio Wahl DO) Cellulitis of right leg (Acute) Subjective: Patient was seen and examined. Complains of pain in the right lower leg pain 5 out of 10. Denied any fever or chills. No acute events overnight Going for surgery later by orthopedics. Objective: Physical Exam General: Alert, Cooperative, No apparent distress HEENT: Atraumatic, Normocephalic Oral: Moist Mucosa, No Gingival or Mucosal Lesions/ Ulcerations, - - Edentulous Neck: No Nodes, Thyroid Normal Size and Texture Lungs: Normal air movement, Wheezes - Upper respiratory Cardiovascular: Regular rate, No murmurs Abdomen: Bowel Sounds Present, Soft, Non Tender, Non-Distended, Obese Extremities: Edema - Right lower extremity edema, tense- - Right calf and distal lower extremity tenderness due to swelling, able to wiggle toes Skin: - - Marked erythema of the distal right lower extremity. He has multiple areas of fluctuance especially just below right patella, areas of scabbing over the hernandez. Musculoskeletal: No Tenderness to Palpation of Joints or Extremities, No Muscle Wasting Neurological: Neuro grossly intact, - - No clonus Psych/Mental Status: Normal Affect, Appropriate Vitals/I&O's: Vital Signs Temp Pulse Resp BP Pulse Ox 97.8 F 64 16 100/69 93 08/24/18 10:00 08/24/18 10:00 08/24/18 10:00 08/24/18 10:00 08/24/18 10:00 Oxygen Flow Rate (L/min) 2 Oxygen Delivery Method Room Air Weight: 87.815 kg Body Mass Index (BMI) 25.6 Intake and Output for Last 24 Hours 08/22/18 08/23/18 08/24/18 23:59 23:59 23:59 Intake Total 1343 / 1343 Output Total 800 / 800 1600 / 1600 Balance 543 / 543 -1600 / -1600 Laboratory Results 08/23/18 12:40: WBC 6.1, RBC 5.55, Hgb 17.6 H, Hct 54.1 H, MCV 97.5 H, MCH 31.7, MCHC 32.5, RDW 15.1 H, RDW Differential 53.5 H, Plt Count 199, MPV 9.7, Immature Gran % (Auto) 0.200, Neut % (Auto) 72.4 H, Lymph % (Auto) 16.0 L, [place] % (Auto) 10.1 H, Eos % (Auto) 0.5, Baso % (Auto) 0.8, Absolute Neuts (auto) 4.4, Absolute Lymphs (auto) 0.98, Total Counted Not Reportable 08/23/18 12:40: PT 26.2 H, INR 2.4, APTT 43.2 H 08/23/18 12:40: Sodium 137, Potassium 3.9, Chloride 103, Carbon Dioxide 29.0, Anion Gap 5, BUN 32 H, Creatinine 1.47 H, Estim Creat Clear Calc 59.64, Est GFR (MDRD) Af Amer 63, Est GFR (MDRD) Non-Af 52 L, BUN/Creatinine Ratio 21.8 H, Glucose 98, Calcium 9.2, Total Bilirubin 1.50 H, AST 26, ALT 19, Alkaline Phosphatase 72, Total Protein 9.0 H, Albumin 3.8, Globulin 5.2 H, Albumin/Globulin Ratio 0.7 L 08/23/18 12:40: Lactic Acid 0.9 08/23/18 12:40: ESR 21 H 08/24/18 05:28: WBC 4.6, RBC 5.13, Hgb 16.5, Hct 50.7, MCV 98.8 H, MCH 32.2 H, MCHC 32.5, RDW 15.1 H, RDW Differential 54.5 H, Plt Count 201, MPV 9.6, Immature Gran % (Auto) 0.200, Neut % (Auto) 56.8, Lymph % (Auto) 28.9, [place] % (Auto) 10.4 H, Eos % (Auto) 2.2, Baso % (Auto) 1.5 H, Absolute Neuts (auto) 2.6, Absolute Lymphs (auto) 1.34, Total Counted Not Reportable 08/24/18 05:28: Sodium 140, Potassium 3.6, Chloride 102, Carbon Dioxide 30.0, Anion Gap 8, BUN 31 H, Creatinine 1.47 H, Estim Creat Clear Calc 57.92, Est GFR (MDRD) Af Amer 63, Est GFR (MDRD) Non-Af 52 L, BUN/Creatinine Ratio 21.1 H, Glucose 99, Calcium 9.0 08/24/18 05:28: PT 17.2 H, INR 1.4 Current Medications Acetaminophen (Tylenol) 650 mg PO Q6H PRN PRN PRN Reason: Mild Pain (1-3)/Temp > 100.7 F Last Admin: 08/24/18 05:51 Dose: 650 mg Albuterol Sulfate (Ventolin Aerosols) 2.5 mg INHALATION Q4HWA.RT PRN PRN Reason: SHORTNESS OF BREATH Albuterol Sulfate (Ventolin Aerosols) 2.5 mg INHALATION Q6HWA.RT [facility] Last Admin: 08/24/18 07:04 Dose: 2.5 mg Atorvastatin Calcium (Lipitor) 20 mg PO QHS [facility] Last Admin: 08/23/18 22:14 Dose: 20 mg Budesonide (Pulmicort Aerosol) 0.5 mg INHALATION Q12H.RT [facility] Last Admin: 08/24/18 07:04 Dose: 0.5 mg Carvedilol (Coreg) 6.25 mg PO BID [facility] Last Admin: 08/24/18 10:22 Dose: 6.25 mg Dextrose (D50w Syringe) 0 gm IV X1 PRN; Protocol PRN Reason: Hypoglycemia Furosemide (Lasix) 40 mg PO BIDLX [facility] Last Admin: 08/24/18 10:22 Dose: 40 mg Gabapentin (Neurontin) 800 mg PO Q8 [facility] Last Admin: 08/24/18 05:49 Dose: 800 mg Glucagon () 1 mg IM .X1 PRN PRN Reason: Hypoglycemia Hydrochlorothiazide (Hctz) 25 mg PO TuThSa@1000 [facility] Last Admin: 08/24/18 10:28 Dose: 25 mg Vancomycin IV Pharmacy to Dose (1 ea/ Sodium Chloride) 500 mls @ 250 mls/hr IV PRN PRN; Protocol PRN Reason: Rx to Dose Vancomycin HCl (Vancomycin) 1,000 mg in 200 mls @ 200 mls/hr IV Q12H [facility] Last Admin: 08/24/18 00:42 Dose: 200 mls/hr Ipratropium [place] (Atrovent) 0.5 mg INHALATION Q6HWA.RT [facility] Last Admin: 08/24/18 07:04 Dose: 0.5 mg Magnesium Hydroxide (Milk Of Magnesia) 30 ml PO DAILY PRN PRN PRN Reason: Constipation Oxycodone HCl (Oxyir) 5 - 10 mg PO Q4H PRN PRN PRN Reason: MOD-SEVERE PAIN (4-07/05) Last Admin: 08/24/18 10:28 Dose: 10 mg Potassium Chloride (K-Dur) 20 meq PO DAILY SE Last Admin: 08/24/18 10:22 Dose: 20 meq Sodium Chloride () 5 - 15 ml IV UD PRN PRN Reason: SALINE FLUSH Medical Necessity - Tobacco Use Smoking Status: Current every day smoker Tobacco Use: Cigarettes, Cigars, Chew Assessment/Plan All Active Problems (Last Updated 08/23/18 @ 13:49 by Cecilio Wahl, ) New onset atrial fibrillation (Acute) Shortness of breath (Acute) Leg edema (Acute) COPD with acute exacerbation (Acute) Heart failure with preserved ejection fraction (Acute) DINO (acute kidney injury) (Acute) Cellulitis of right leg (Acute) mediastinal exploration and arrest of hemorrhage (Resolved) History of coronary artery bypass graft x 2 (Resolved) History of pleural effusion (Resolved) History of Vogt's palsy (Resolved) History of NV (myocardial infarction) (Resolved) 62-year-old with past medical history of severe COPD/asthma, hyperlipidemia, jeaneth otine dependence, hypertension who comes in with complaints of right lower extremity redness and swelling 1. Cellulitis right lower extremity, failed outpatient therapy, no fevers or chills or leukocytosis Blood cultures pending, on vancomycin, will add cefazolin 1g q6, continue to elevate extremity 2. Right lower extremity hematoma secondary to fall, off Xarelto, going for surgery, INR is 1.4, stable hemoglobin 3. CKD stage 3, unclear etiology, patient's creatinine was 1.05 earlier in December 2017, was 1.46 on discharge, admitting creatinine is 1.47, will repeat blood work in a.m. after IV fluids 4. COPD, severe, on 1 L oxygen off and on at home, continue as needed breathing treatment 5. Hypertension, controlled, on carvedilol, hydrochlorothiazide, would hold off Lasix 6. CAD, stable, on carvedilol 7. DVT prophylaxis-was on Xarelto; off Xarelto now Code Visit Inpatient E&M: 11050 Subs Hosp L2
--- NOTE | 2018-08-24 11:50 | CASEMGMT ---
RN CM Face to Face with patient for initial transition planning/care coordination assessment. RN CM introduced self and role at [facility]. Patient lying in bed, alert and oriented. Patient willing to participate in assessment and is able to answer all questions appropriately. Care providers, pharmacy, and demographics verified. Patient wishes to discharge home, denies need for home health at this time. Patient states he has no further needs or concerns at this time. CM to follow for discharge planning needs that may arise. PCP: Paolo Specialists: [employer]. Patient states he also see print and pattern designer but forgets name Preferred Pharmacy: [facility] Insurance: [employer] Prescription Benefit: [employer] Living Will/HPOA: Yes, sister Tamiko Parmar LNOK: Sister, Ex brother in law Living Arrangements: Patient lives with ex bother in law in 2 story house, patient able to navigate stairs. Transportation: Self/family DME/HHC: Patient has oxygen through [employer] 1lpm PRN and nebulizer. Disposition Plan: Patient to discharge home with family support and follow up plans in place. Anabel MCKEONN, RN, CM
[2018-08-24] MEDS: 0.9% NaCl Peripheral Flush Adult/Peds IV (13:50)
--- NOTE | 2018-08-24 15:43 | NURSING ---
off unit at this time via bed for surgery. report called to varghese in ac
--- NOTE | 2018-08-24 16:39 | CON.PCM_ITS ---
Reason for Consult Date of Consultation: 08/24/18 Reason for Consultation: right leg pain/cellulitis/hematoma History of Present Illness: The patient is a 62 year old M who was referred to his primary care doctor for admission for IV antibiotics. He has an underlying history of cardiac issues He has chronic venous stasis of his legs. He was evaluated 2 weeks ago, after a fall where he had a contusion to his right proximal leg. He had an x-ray which was negative and an ultrasound which was negative for DVT done at the [facility]. His primary care doctor followed him for swelling, redness, and wounds. He has been on Levaquin and then a round of Bactrim. He had outpatient culture of his leg wounds and they did not grow anything. His PCP saw him today and his redness and warmth seem to be getting worse. He denies fever or systemic symptoms. see chart for fruther details.[] Past Medical History Past Medical History (Chronic Problems): Chronic Problems (Last Updated 08/23/18 @ 13:49 by Cecilio Wahl DO) Stage 4 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 (Chronic) FEV1 30% of predicted Morbid obesity (Chronic) CKD (chronic kidney disease) stage 3, GFR 30-59 ml/min (Chronic) HDL deficiency (Chronic) Asthma (Chronic) Overweight (BMI 25.0-29.9) (Chronic) Tobacco dependence (Chronic) Hyperlipidemia (Chronic) Hypertension (Chronic) Medical History: Medical History (Last Updated 08/23/18 @ 13:49 by Cecilio Wahl DO) HDL deficiency (Chronic) E78.6 History of pleural effusion (Resolved) Z87.09 Asthma (Chronic) J45.909 Overweight (BMI 25.0-29.9) (Chronic) E66.3 Tobacco dependence (Chronic) F17.200 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 History of ME (myocardial infarction) (Resolved) I25.2 Hyperlipidemia (Chronic) E78.5 COPD (chronic obstructive pulmonary disease) (Acute) J44.9 Hypertension (Chronic) I10 Chronic kidney disease, stage 3 N18.3 Allergies No Known Allergies Allergy (Unverified 08/23/18 12:02) Home Medications: Ambulatory Orders Medication Instructions Recorded simvastatin 40 mg tablet 40 mg PO DAILY 10/27/17 RX: Albuterol Inhaler [Ventolin 2 puff INHALATION Q4H PRN PRN 01/06/18 Hfa] RX: Budesonide/Formoterol 160/4.5 2 puff INHALATION DAILY 01/06/18 [Symbicort 160/4.5 Mcg Inhaler (SP)] RX: Umeclidinium [place] Inhaler 1 inh INHALATION DAILY 01/06/18 [Incruse Ellipta Inhaler] RX: Albuterol Aerosols [Ventolin 2.5 mg INHALATION Q4HWA.RT PRN #1 01/10/18 Aerosols] vial.neb. RX: Potassium Chloride [K-Dur] 20 meq PO DAILY #30 tab 01/10/18 RX: Carvedilol 6.25 mg PO BID 08/23/18 RX: Gabapentin [Neurontin] 800 mg PO Q8H 08/23/18 Cephalexin [Keflex] 500 mg PO Q8H #22 capsule 08/30/18 RX: Acetaminophen [Tylenol Tablet] 650 mg PO Q6H PRN PRN tablet 08/30/18 RX: Furosemide [Lasix] 40 mg PO BID@1000,1800 tablet 08/30/18 RX: Magnesium Hydroxide [Milk Of 30 ml PO DAILY PRN PRN udc 08/30/18 Magnesia] RX: Rivaroxaban [Xarelto] 20 mg PO DAILY@1700 tablet 08/30/18 Surgical History: Surgical History (Last Reviewed 08/23/18 @ 13:49 by Cecilio Wahl DO) mediastinal exploration and arrest of hemorrhage (Resolved) History of coronary artery bypass graft x 2 (Resolved) Z95.1 Surgical History: coronary bypass surgery, tonsillectomy, - - 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, right shoulder surgery Psychiatric History: No pertinent psych hx Smoking Status: Current every day smoker Tobacco Use: Cigarettes, Cigars, Chew Alcohol: None Drugs: None - *Family History Maternal Family History: Family History (Last Reviewed 08/23/18 @ 13:50 by Cecilio Wahl DO) Mother Hypertension Heart disease Father Heart disease Hypertension Myocardial infarction Brother Heart disease Hypertension Myocardial infarction History Items: Heart Disease Paternal Family History: Family History (Last Reviewed 08/23/18 @ 13:50 by Cecilio Wahl DO) Mother Hypertension Heart disease Father Heart disease Hypertension Myocardial infarction Brother Heart disease Hypertension Myocardial infarction History Items: Heart Disease Review of Systems Constitutional: Denies: Chills, Fever, Weight Change HEENT: Denies: Head Aches, Sinus Congestion, Sinus Drainage Cardiovascular: Denies: Chest Pain, Palpitations Respiratory: Denies: Cough, Shortness of breath at rest, Sputum production Gastrointestinal: Denies: Abdominal Pain, Nausea, Vomiting Genitourinary: Denies: Dysuria Musculoskeletal: Reports: Leg Pain. Denies: Joint Pain, Joint Tenderness Skin: Denies: Rash, Wounds Neurological: Denies: Numbness, Tingling, Focal weakness Psychiatric: Denies: Anxiety, Depression, Homicidal Ideations, Suicidal Ideations Hematologic/ Lymphatic: Denies: Easy Bruising, Easy Bleeding - Physical Exam General: Alert, Oriented x3, Cooperative HEENT: Atraumatic, PERRLA, EOMI, Normocephalic Neck: Supple, No JVD, Negative Carotid Bruits Lungs: Clear to auscultation, Normal air movement Cardiovascular: Regular rate, No murmurs Abdomen: Bowel Sounds Present, Soft, Non Tender Extremities: No edema, Capillary Refill Less than 3 Seconds Skin: Ulcer/ Wound - erythema extending from proximal hematoma and distal ulcer of leg Musculoskeletal: Tenderness Neurological: Cranial nerves II-XII grossly intact Psych/Mental Status: Normal Affect, Appropriate Vital Signs Temp Pulse Resp BP Pulse Ox 97.5 F L 84 16 107/82 H 93 08/24/18 14:00 08/24/18 14:00 08/24/18 14:00 08/24/18 14:00 08/24/18 14:00 Oxygen Flow Rate (L/min) 2 Oxygen Delivery Method Room Air Weight: 193 lb 9.6 oz Body Mass Index (BMI) 25.6 Intake and Output for Last 24 Hours 08/22/18 08/23/18 08/24/18 23:59 23:59 23:59 Intake Total 1343 / 1343 280 / 280 Output Total 800 / 800 2400 / 2400 Balance 543 / 543 -2120 / -2120 Laboratory Tests Past 24 Hrs 08/24/18 08/24/18 08/24/18 05:28 05:28 05:28 WBC 4.6 RBC 5.13 Hgb 16.5 Hct 50.7 MCV 98.8 H MCH 32.2 H MCHC 32.5 RDW 15.1 H RDW Differential 54.5 H Plt Count 201 MPV 9.6 Immature Gran % (Auto) 0.200 Neut % (Auto) 56.8 Lymph % (Auto) 28.9 [place] % (Auto) 10.4 H Eos % (Auto) 2.2 Baso % (Auto) 1.5 H Absolute Neuts (auto) 2.6 Absolute Lymphs (auto) 1.34 Total Counted Not Reportable PT 17.2 H INR 1.4 Sodium 140 Potassium 3.6 Chloride 102 Carbon Dioxide 30.0 Anion Gap 8 BUN 31 H Creatinine 1.47 H Estim Creat Clear Calc 57.92 Est GFR (MDRD) Af Amer 63 Est GFR (MDRD) Non-Af 52 L BUN/Creatinine Ratio 21.1 H Glucose 99 Calcium 9.0 Assessment/Plan All Active Problems (Last Updated 08/23/18 @ 13:49 by Cecilio Wahl DO) New onset atrial fibrillation (Acute) Shortness of breath (Acute) Leg edema (Acute) COPD with acute exacerbation (Acute) Heart failure with preserved ejection fraction (Acute) DINO (acute kidney injury) (Acute) Cellulitis of right leg (Acute) Hematoma (Acute) Atrial fibrillation with RVR (Acute) SERENITY (obstructive sleep apnea) (Acute) Diastolic CHF (Acute) Pulmonary HTN (Acute) mediastinal exploration and arrest of hemorrhage (Resolved) History of coronary artery bypass graft x 2 (Resolved) History of pleural effusion (Resolved) History of Vogt's palsy (Resolved) History of ME (myocardial infarction) (Resolved) COPD (chronic obstructive pulmonary disease) (Acute) hematoma with cellulitis worsening over past 2 weeks and not improving within 24 hours of IV antibiotics erythema/fluctuence at proximal tibia visualized on CT, concerning for infection Risks benefits and alternatives surgery discussed with patient. Risks include but not limited to blood loss, blood clot, infection, neurovascular injury, failure procedure, loss of life and loss of limb need for revision surgery vs amputation. Patient is aware would like proceed with right leg irrigation debridement VAC application repair is indicated. Consent obtained Ancef 2 g on-call the OR Will be admitted see wound care and evaluated and follow up accordingly This note was generated with [employer] dictation software. It may contain incorrect words, spelling, and punctuation that were not noted in checking the note before signing.
--- NOTE | 2018-08-24 16:39 | OP.PCM_ITS ---
Report of Operation Date of Procedure: 08/24/18 Pre-Operative Diagnosis: right leg hematoma/ cellulitis, distal tibia ulcer with erythema Post-Operative Diagnosis: same Surgery/Procedure Performed:: right leg hematoma evacuation/irrigation and debridement; right lower leg ulcer debridemen/irrigation and debridement Type of Anesthesia:: General Anesthesiologist: Cecilio Negrete Specimen's removed: right proximal tibia hematoma; right distal tibia ulcer with cellulitis Estimated Blood Loss (mL): 50cc Fluids Replaced: 800ml lr Description of Procedure: Preoperative note Patient is a 62-year-old male who fell approximately 2 weeks ago sustained a hematoma to his right proximal tibia was seen by his primary care doctor and treated for as outpatient with Levaquin and Bactrim was not improving increasing erythema and cellulitis was then sent to the emergency room. Please note PCP also ordered cultures and Doppler which was negative of his right leg. He was admitted for IV antibiotics received a little under 24 hours of IV antibiotics so had erythema CT showed a hematoma with questionable infection resulting in cellulitis. Decision was made as cellulitis was worsening patient is becoming more painful at the site of the hematoma to debride his hematoma and he had a distal ulcer to remove this as well. Risks benefits and alternatives surgery discussed with patient. Risks include but not limited to blood loss, blood clot, infection, neurovascular, failure procedure, loss of life and loss of limb. Patient is aware like proceed with right lower leg debridement irrigation debridement repair is indicated VAC application. Next Operative note Patient seen and examined preoperative holding area. Right leg was marked. Patient is brought to the operating placed supine on the operating table. Signing, anesthesia and antibiotics were held until cultures were drawn. All bony possible padded and SCDs placed on his contralateral limb. The right leg was prepped and draped in usual sterile fashion with tourniquet around his upper thigh. We then elevated the leg turn was raised to pressure of 300 torr. The proximal leg at the site of the hematoma had some ulcerative excoriations at the skin this was removed the skin was removed and the resulting defect was a 10 by centimeter by 4 cm wound area. We then irrigated and debrided the hematoma that was extensive throughout however did there is no pus present. We did undermine the subcuticular layer to see if there is anything further than no is no tracts into the joint. We then again irrigated debrided the proximal wound we then moved to the distal tibial wound and there is some S excoriations and an ulcer this skin was removed and sent again to pathology for further evaluation I am after removing the skin that we noticed that there was no tracking and no pus is still debrided and sent cultures and further irrigated undermined in a hernandez bcuticular layers to make sure that there is no tracts which there was not deeper. We irrigated debrided this again and placed a VAC sponge proximally and distally. These were connected by a split connected to a back canister there is no leaks present we then overwrapped it with an Rayo bandage. Patient transferred recovery room in stable condition there are no comp occasions. Next Postoperative note We will, we will consult wound care to change dressing tomorrow change back and get socially responsible investment adviser on for home VAC versus outpatient VAC management Ancef until cultures return next Call with increased pain numbness tingling further as arise Dragon disclaimer this note was generated with [employer] dictation software. It may contain incorrect words, spelling, and punctuation that were not noted in checking the note before signing.
[2018-08-24] MEDS: Cefazolin 2 GM in 0.9% Normal Saline 100 ML IV (17:28)
[2018-08-24] MEDS: 0.9% Normal Saline 1,000 ML 100 ML IV (18:31)
[2018-08-24] MEDS: Atorvastatin Calcium 20 MG Tablet PO (21:13)
[2018-08-24] MEDS: Cefazolin 1 GM/50 ML BAG IV (23:17)
[2018-08-25] VITALS (28 sets, daily range): BP systolic 98–139; BP diastolic 59–116; PULSE 68–126; RESP 12–22; TEMP 36.6–37.2; O2SAT 84–98
[2018-08-25] MEDS: Vancomycin IV 1,000 MG/200 ML BAG 200 MG IV ×2 (00:19→12:55)
--- NOTE | 2018-08-25 01:51 | PCM.RX.CS ---
Consult Pharmacy has been consulted to manage selected antiobiotic: Vancomycin Type of Consult: Follow-up Suspected Infection: Skin/Soft tissue Prior Doses of Antibiotics Received/Current Regimen: Medications Vancomycin HCl (Vancomycin) 1,000 mg in 200 mls @ 200 mls/hr IV Q12H ES Last Admin: 08/25/18 00:19 Dose: 200 mls/hr Labs: Sodium 140 mmol/L (136-145) 08/24/18 05:28 Potassium 3.6 mmol/L (3.5-5.1) 08/24/18 05:28 Chloride 102 mmol/L (98-107) 08/24/18 05:28 Carbon Dioxide 30.0 mmol/L (21.0-32.0) 08/24/18 05:28 Anion Gap 8 (5-15) 08/24/18 05:28 BUN 31 mg/dL (7-18) H 08/24/18 05:28 Creatinine 1.47 mg/dL (0.70-1.30) H 08/24/18 05:28 Est GFR (MDRD) Af Amer 63 mL/min (>60) 08/24/18 05:28 Est GFR (MDRD) Non-Af 52 mL/min (>60) L 08/24/18 05:28 BUN/Creatinine Ratio 21.1 RATIO (10-20) H 08/24/18 05:28 Glucose 99 mg/dL (74-106) 08/24/18 05:28 Vancomycin Trough 18.0 ug/mL (5.0-15.0) H 08/25/18 00:28 Weight used for dosin.8 kg Estimated Creatinine Clearance: 58 Goal Trough: 15-20 mcg/mL Pharmacy Plan for Drug Dosing: Trough value within target range, so will continue with current dose of 1000mg q12hrs. Will re-draw trough 08/28/18. Pharmacy Service will continue to monitor and adjust dosing as required. Follow-Up Labs: Trough Vancomycin Labs to be done on [date and time ordered]: 08/28/18 @1230
[2018-08-25] MEDS: 0.9% Normal Saline 1,000 ML 100 ML IV (03:11)
[2018-08-25] MEDS: oxyCODONE 5 MG Tablet PO ×2 (03:25→08:11)
[2018-08-25] MEDS: Gabapentin 800 MG Tablet PO ×2 (05:21→22:15)
[2018-08-25] MEDS: Cefazolin 1 GM/50 ML BAG IV ×3 (05:21→18:34)
[2018-08-25] MEDS: Ipratropium 0.5 MG/2.5 ML SOLUTION INHALATION (07:02)
[2018-08-25] MEDS: Budesonide Respules 0.5 MG/2 ML AMPUL.NEB. INHALATION ×2 (07:02→20:30)
[2018-08-25] MEDS: Albuterol 2.5 MG/3 ML VIAL.NEB. INHALATION (07:02)
[2018-08-25 08:34] LABS: Absolute Lymphocyte Count 0.78 X10^3/ul (0.83-4.51); Basophil# 0.03 X10^3/uL; Basophil% 0.4 % (0-1); Eosinophil# 0.01 X10^3/uL; Eosinophils% 0.1 % (0-5); Hematocrit 52.7 % (40-54); Hemoglobin 16.5 g/dl (13.0-16.5); Lymphocyte # 0.78 X10^3/ul (4.0); Lymphocyte % 10.4 % (19-41); Mean Corp Hgb Conc 31.3 g/gl (32-36); Mean Corpuscular Volume 102.1 fL (80-94); Mean Platelet Vol. 9.7 fl (6.2-12.0); Monocyte# 0.63 X10^3/uL; Monocyte% 8.4 % (0-10); Neutrophil # 6.04 X10^3/uL (2.7-7.7); Neutrophil % 80.6 % (47-70); Platelet Count 178 K/mm3 (150-450); RBC Distribution Width CV 14.9 % (11.6-14.6); RBC Distribution Width SD 55.6 fl (35.1-43.9); Red Blood Count 5.16 M/mm3 (4.6-6.2); White Blood Count 7.5 K/mm3 (4.4-11.0)
[2018-08-25 08:39] LABS: POSITIVE COUNT NO; POSITIVE DIFFERENTIAL NO; POSITIVE MORPHOLOGY NO
--- NOTE | 2018-08-25 09:24 | PCM.PN.HOSP ---
Patient Problems: Active and Suspected Problems (Last Updated 08/23/18 @ 13:49 by Cecilio Wahl DO) Cellulitis of right leg (Acute) Subjective: Patient seen and examined. He feels sleepy. Just medicated. Seen pictures from wound nurse. Bleeding from surgical wound. Reinforcement and manual compression of wound done to stop bleeding. Denied dizziness or chest pain or shortness of breath. Patient was also found to be lethargic, desaturating, started on a Ventimask. Denied any complaint. Medicated with OxyIR in the morning Objective: Physical Exam General: Alert, Cooperative, No apparent distress HEENT: Atraumatic, Normocephalic Oral: Moist Mucosa, No Gingival or Mucosal Lesions/ Ulcerations, - - Edentulous Neck: No Nodes, Thyroid Normal Size and Texture Lungs: Normal air movement, Wheezes - Upper respiratory Cardiovascular: Regular rate, No murmurs Abdomen: Bowel Sounds Present, Soft, Non Tender, Non-Distended, Obese Extremities: Edema - Right lower extremity edema, tense- - Right calf and distal lower extremity tenderness due to swelling, able to wiggle toes Skin: - - Marked erythema of the distal right lower extremity. He has multiple areas of fluctuance especially just below right patella, areas of scabbing over the hernandez. Musculoskeletal: No Tenderness to Palpation of Joints or Extremities, No Muscle Wasting Neurological: Neuro grossly intact, - - No clonus Psych/Mental Status: Normal Affect, Appropriate Vitals/I&O's: Vital Signs Temp Pulse Resp BP Pulse Ox 98.4 F 82 18 139/100 H 90 08/25/18 03:15 08/25/18 07:02 08/25/18 07:02 08/25/18 03:15 08/25/18 07:02 Oxygen Flow Rate (L/min) 2.5 Oxygen Delivery Method Nasal Cannula Weight: 87.815 kg Body Mass Index (BMI) 25.6 Intake and Output for Last 24 Hours 08/23/18 08/24/18 08/25/18 23:59 23:59 23:59 Intake Total 1343 / 1343 2096 / 2096 888 / 888 Output Total 800 / 800 2625 / 2625 200 / 200 Balance 543 / 543 -529 / -529 688 / 688 Microbiology Past 72 Hours 08/24/18 17:08 Biopsy - Other Gram Stain - Final 08/24/18 17:08 Biopsy - Leg, Right Gram Stain - Final 08/24/18 16:58 Biopsy - Other Gram Stain - Final 08/24/18 16:59 Biopsy - Leg, Right Gram Stain - Final Laboratory Results 08/25/18 00:28: Vancomycin Trough 18.0 H 08/25/18 07:54: WBC 7.5, RBC 5.16, Hgb 16.5, Hct 52.7, MCV 102.1 H, MCH 32.0, MCHC 31.3 L, RDW 14.9 H, RDW Differential 55.6 H, Plt Count 178, MPV 9.7, Immature Gran % (Auto) 0.100, Neut % (Auto) 80.6 H, Lymph % (Auto) 10.4 L, [place] % (Auto) 8.4, Eos % (Auto) 0.1, Baso % (Auto) 0.4, Absolute Neuts (auto) 6.0, Absolute Lymphs (auto) 0.78 L, Total Counted Not Reportable Current Medications Acetaminophen (Tylenol) 650 mg PO Q6H PRN PRN PRN Reason: Mild Pain (1-3)/Temp > 100.7 F Last Admin: 08/24/18 05:51 Dose: 650 mg Albuterol Sulfate (Ventolin Aerosols) 2.5 mg INHALATION Q4HWA.RT PRN PRN Reason: SHORTNESS OF BREATH Last Admin: 08/24/18 23:55 Dose: 2.5 mg Albuterol/Ipratropium (Duoneb) 3 ml INHALATION Q4HWA.RT [facility] Atorvastatin Calcium (Lipitor) 20 mg PO QHS ES Last Admin: 08/24/18 21:13 Dose: 20 mg Budesonide (Pulmicort Aerosol) 0.5 mg INHALATION Q12H.RT ES Last Admin: 08/25/18 07:02 Dose: 0.5 mg Carvedilol (Coreg) 6.25 mg PO BID ES Last Admin: 08/24/18 21:13 Dose: 6.25 mg Dextrose (D50w Syringe) 0 gm IV X1 PRN; Protocol PRN Reason: Hypoglycemia Gabapentin (Neurontin) 800 mg PO Q8 ES Last Admin: 08/25/18 05:21 Dose: 800 mg Glucagon () 1 mg IM .X1 PRN PRN Reason: Hypoglycemia Hydrochlorothiazide (Hctz) 25 mg PO TuThSa@1000 [facility] Last Admin: 08/24/18 10:28 Dose: 25 mg Vancomycin IV Pharmacy to Dose (1 ea/ Sodium Chloride) 500 mls @ 250 mls/hr IV PRN PRN; Protocol PRN Reason: Rx to Dose Vancomycin HCl (Vancomycin) 1,000 mg in 200 mls @ 200 mls/hr IV Q12H [facility] Last Admin: 08/25/18 00:19 Dose: 200 mls/hr Cefazolin Sodium () 1 gm in 50 mls @ 100 mls/hr IV Q6 ES Last Admin: 08/25/18 05:21 Dose: 100 mls/hr Sodium Chloride () 1,000 mls @ 30 mls/hr IV .[id number] [facility] Magnesium Hydroxide (Milk Of Magnesia) 30 ml PO DAILY PRN PRN PRN Reason: Constipation Oxycodone HCl (Oxyir) 5 - 10 mg PO Q4H PRN PRN PRN Reason: MOD-SEVERE PAIN (4-07/05) Last Admin: 08/25/18 08:11 Dose: 10 mg Potassium Chloride (K-Dur) 20 meq PO DAILY ES Last Admin: 08/24/18 10:22 Dose: 20 meq Sodium Chloride () 5 - 15 ml IV UD PRN PRN Reason: SALINE FLUSH Last Admin: 08/24/18 13:50 Dose: 10 ml Medical Necessity - Tobacco Use Smoking Status: Current every day smoker Tobacco Use: Cigarettes, Cigars, Chew Assessment/Plan All Active Problems (Last Updated 08/23/18 @ 13:49 by Cecilio Wahl DO) New onset atrial fibrillation (Acute) Shortness of breath (Acute) Leg edema (Acute) COPD with acute exacerbation (Acute) Heart failure with preserved ejection fraction (Acute) DINO (acute kidney injury) (Acute) Cellulitis of right leg (Acute) mediastinal exploration and arrest of hemorrhage (Resolved) History of coronary artery bypass graft x 2 (Resolved) History of pleural effusion (Resolved) History of Vogt's palsy (Resolved) History of [place] (myocardial infarction) (Resolved) 62-year-old with past medical history of severe COPD/asthma, hyperlipidemia, nicotine dependence, hypertension who comes in with complaints of right lower extremity redness and swelling 1. Acute hypoxic respiratory failure, factor in etiology, likely secondary to medications side effect on top of severe COPD/possible pulmonary hypertension/possible sleep apnea, ABG shows pH of 7.22, PCO2 of 70.3, PO2 59 respiratory acidosis, give IV Narcan x1, and switch to PCU, started on BiPAP, ABG in 1 hour 2. Cellulitis right lower extremity, failed outpatient therapy, no fevers or chills or leukocytosis Blood cultures and wound cultures are negative. On IV vancomycin and cefazolin, will check MRSA swab, will continue to elevate extremity 3. Right lower extremity hematoma secondary to fall, off Xarelto, status post evacuation of hematoma, wound VAC not placed today, orthopedic surgery and wound nurse following. 4. CKD stage 3, elevated today secondary to dehydration and poor p.o. intake, creatinine up to 1.99, will continue on IV fluids, recheck labs in a.m. 5. Hypertension, controlled, on carvedilol, hydrochlorothiazide, would hold off Lasix 6. CAD, stable, on carvedilol 7. A. fib with RVR secondary to respiratory failure, will continue to monitor, off Xarelto on account of bleeding, T on carvedilol 8. DVT prophylaxis-SCDS, off Xarelto, bleeding from wound Code Visit Inpatient E&M: 19590 Subs Hosp L3
--- NOTE | 2018-08-25 09:33 | NURSING ---
wound photo: left hernandez (distal)
--- NOTE | 2018-08-25 09:34 | NURSING ---
wound photo: right hernandez (proximal wound)
[2018-08-25] MEDS: Ipratropium/Albuterol Sulfate 3 ML AMPUL.NEB INHALATION ×2 (10:37→20:54)
--- NOTE | 2018-08-25 11:01 | NURSING ---
BP 101/59, WILL HOLD COREG AT THIS TIME AND REASSESS BP LATER AND GIVE AT THAT TIME OR CONTACT DR CARDOSO.
--- NOTE | 2018-08-25 11:19 | CPS ---
pt switched to 35% venturi mask, pt very sleepy and mouth breathing. Pt's Spo2 84% on 4L NC, SpO2 91% on 35% VM, Marta ESTRELLA and Dr. Young notified.
[2018-08-25] MEDS: Carvedilol 6.25 MG Tablet PO ×2 (12:21→22:14)
--- NOTE | 2018-08-25 12:32 | RAD_ITS ---
STUDY: X-RAY CHEST REASON FOR EXAM: Male, 62 years old. Shortness of breath/dyspnea. TECHNIQUE: Single AP portable view of the chest. COMPARISON: Comparison is made with prior study is January 08, 2018. FINDINGS: There is evidence of vascular congestion and mild CHF. There is no demonstrated pleural abnormality. Sternal cerclage wires and vascular clips are present from a prior sternotomy and coronary artery bypass graft procedure (CABG). Mild cardiomegaly. Normal mediastinum and steve. Normal visualized pulmonary arteries. Normal visualized aortic arch and descending thoracic aorta. Normal visualized thoracic spine. Prior fusion in the lower cervical spine. There is no demonstrated abnormality of the visualized soft tissue structures of the upper abdomen. RAD/Chest 1 View (Portable) IMPRESSION: Mild cardiomegaly and CHF. Electronically Signed: Mao Cuenca MD at 15:59 EST Tel [phone], Service support ,
--- NOTE | 2018-08-25 12:52 | NURSING ---
abg drawn, bnp drawn and xray here for cxray. dr carrasquillo working with pt using incentive spirometer.
[2018-08-25 13:00] LABS: Allen Test POS; Base Excess 1 mmol/L (-2 to +2); Bicarbonate 28.4 mmol/L (22-26); Blood Gas Specimen Type ART; FI02 35; PO2 59 mmHG (75-100); SITE R Radial; SO2 83 % (95-99); Time Given 1250; Total Carbon Dioxide 31 mmol/L; pCO2 70.3 mmHg (35-45); pH 7.22 (7.35-7.45)
[2018-08-25 13:08] LABS: Anion Gap 3 (5-15); BUN 35 mg/dL (7-18); BUN/Creat Ratio 17.6 RATIO (10-20); Calcium,Total 8.1 mg/dL (8.5-10.1); Chloride 100 mmol/L (98-107); Creatinine, Serum 1.99 mg/dL (0.70-1.30); EST Glomerular Filtration Rate 36 mL/min (>60); Est Glom Filt Rate - Afr Amer 44 mL/min (>60); Estimated Creatinine Clearance 42.79 ml/min; Glucose 130 mg/dL (74-106); Potassium 5.4 mmol/L (3.5-5.1); Sodium Level 134 mmol/L (136-145)
--- NOTE | 2018-08-25 13:14 | NURSING ---
0.4mg Narcan given. Dr. Young at bedside.
[2018-08-25] MEDS: Naloxone 0.4 MG/ML Syringe IV (13:22)
[2018-08-25] MEDS: 0.9% NaCl Peripheral Flush Adult/Peds IV ×3 (13:23→18:34)
--- NOTE | 2018-08-25 13:45 | EKG12_ITS ---
Test Reason : A-FIB Blood Pressure : / mmHG Vent. Rate : 103 BPM Atrial Rate : 133 BPM P-R Int : 000 ms QRS Dur : 104 ms QT Int : 336 ms P-R-T Axes : 000 074 033 degrees QTc Int : 440 ms Atrial fibrillation with rapid ventricular response with premature ventricular or aberrantly conducte d complexes Low voltage QRS Incomplete right bundle branch block Septal infarct , age undetermined, cannot be excluded Abnormal ECG Confirmed by ILAN BRODY, ELA ([id number]), editorial clerk BEATRIZ IBARRA ([id number]) on 08/31/2018 2:20:13 PM Referred By: WALKER Confirmed By:ELA TALAVERA MD
--- NOTE | 2018-08-25 14:43 | NURSING ---
transferred to u 126. report given to brandee lopez.
[2018-08-25 15:55] LABS: Allen Test POS; Base Excess 2 mmol/L (-2 to +2); Blood Gas Specimen Type ART; EPAP 6; FI02 40; IPAP 14; PO2 62 mmHG (75-100); RR 12; SITE L Radial; SO2 87 % (95-99); Time Given 1543; Total Carbon Dioxide 31 mmol/L; pCO2 64.8 mmHg (35-45); pH 7.26 (7.35-7.45)
--- NOTE | 2018-08-25 16:00 | PN.ORTHO_ITS ---
Patient Problems: Active and Suspected Problems (Last Updated 08/23/18 @ 13:49 by Cecilio Wahl DO) Cellulitis of right leg (Acute) - Physical Exam General: Alert - Patient was alert at the same time did appear to be a little tired., No apparent distress, Well developed, Well nourished Oral: Moist Mucosa Extremities: No Calf Tenderness, Edema, Tenderness - tenderness over incision site Skin: Incision - Dressing was not removed as wound was evaluted mid-morning once wound vac was removed. Pressure was held on the site for appropximately 5 minutes until hemostasis was achieved and pressure dressing was then applied. No concerns were noted at that time. Neurological: Neuro grossly intact, Muscle tone normal - Patient has normal use of ankle / foot as well as all of his toes., Sensory exam intact to light touch and pain - Patient has normal sensation of the toes with light touch Vital Signs Temp Pulse Resp BP Pulse Ox 97.8 F 95 20 H 118/81 H 93 08/25/18 13:41 08/25/18 15:19 08/25/18 15:19 08/25/18 13:41 08/25/18 15:19 Oxygen Flow Rate (L/min) 10 Oxygen Delivery Method Bi-pap Weight: 193 lb 9.6 oz Body Mass Index (BMI) 25.6 Intake and Output for Last 24 Hours 08/23/18 08/24/18 08/25/18 23:59 23:59 23:59 Intake Total 1343 / 1343 2096 / 2096 1474 / 1474 Output Total 800 / 800 2625 / 2625 200 / 200 Balance 543 / 543 -529 / -529 1274 / 1274 Microbiology Past 72 Hours 08/23/18 12:40 Blood Culture - Preliminary Blood Culture (Wb) - Anticubital Right No growth in 48 hours. 08/23/18 12:40 Blood Culture - Preliminary Blood Culture (Wb) - Anticubital Left No growth in 48 hours. 08/24/18 17:08 Gram Stain - Final Biopsy - Other Wound Culture - Preliminary No growth-Final to follow 08/24/18 17:08 Gram Stain - Final Biopsy - Leg, Right Wound Culture - Preliminary No growth-Final to follow 08/24/18 16:58 Gram Stain - Final Biopsy - Other Wound Culture - Preliminary No growth-Final to follow 08/24/18 16:59 Gram Stain - Final Biopsy - Leg, Right Wound Culture - Preliminary No growth-Final to follow Laboratory Tests Past 24 Hrs 08/25/18 08/25/18 08/25/18 00:28 07:54 12:50 WBC 7.5 RBC 5.16 Hgb 16.5 Hct 52.7 MCV 102.1 H MCH 32.0 MCHC 31.3 L RDW 14.9 H RDW Differential 55.6 H Plt Count 178 MPV 9.7 Immature Gran % (Auto) 0.100 Neut % (Auto) 80.6 H Lymph % (Auto) 10.4 L [place] % (Auto) 8.4 Eos % (Auto) 0.1 Baso % (Auto) 0.4 Absolute Neuts (auto) 6.0 Absolute Lymphs (auto) 0.78 L Total Counted Not Reportable Specimen Type Sample Site pH Bicarbonate Actual POC Total CO2 Base Excess O2 Saturation O2 % ABG pCO2 ABG pO2 Juan R Test Respiration Rate O2 Delivery Device EPAP IPAP Blood Gas Notified Whom Blood Gas Notified Time Sodium 134 L Potassium 5.4 H Chloride 100 Carbon Dioxide 31.0 Anion Gap 3 L BUN 35 H Creatinine 1.99 H Estim Creat Clear Calc 42.79 Est GFR (MDRD) Af Amer 44 L Est GFR (MDRD) Non-Af 36 L BUN/Creatinine Ratio 17.6 Glucose 130 H Calcium 8.1 L Vancomycin Trough 18.0 H 08/25/18 08/25/18 12:53 15:48 WBC RBC Hgb Hct MCV MCH MCHC RDW RDW Differential Plt Count MPV Immature Gran % (Auto) Neut % (Auto) Lymph % (Auto) [place] % (Auto) Eos % (Auto) Baso % (Auto) Absolute Neuts (auto) Absolute Lymphs (auto) Total Counted Specimen Type ART ART Sample Site R Radial L Radial pH 7.22 L 7.26 L Bicarbonate Actual 28.4 H 29.0 H POC Total CO2 31 31 Base Excess 1 2 O2 Saturation 83 L 87 L O2 % 35 40 ABG pCO2 70.3 H* 64.8 H ABG pO2 59 L 62 L Juan R Test POS POS Respiration Rate 12 O2 Delivery Device Vent Mask Bi / C PAP EPAP 6 IPAP 14 Blood Gas Notified Whom HOSP MD HOSP MD Blood Gas Notified Time 1250 1543 Sodium Potassium Chloride Carbon Dioxide Anion Gap BUN Creatinine Estim Creat Clear Calc Est GFR (MDRD) Af Amer Est GFR (MDRD) Non-Af BUN/Creatinine Ratio Glucose Calcium Vancomycin Trough Medical Necessity - Tobacco Use Smoking Status: Current every day smoker Tobacco Use: Cigarettes, Cigars, Chew Assessment/Plan All Active Problems (Last Updated 08/23/18 @ 13:49 by Cecilio Wahl DO) New onset atrial fibrillation (Acute) Shortness of breath (Acute) Leg edema (Acute) COPD with acute exacerbation (Acute) Heart failure with preserved ejection fraction (Acute) DINO (acute kidney injury) (Acute) Cellulitis of right leg (Acute) mediastinal exploration and arrest of hemorrhage (Resolved) History of coronary artery bypass graft x 2 (Resolved) History of pleural effusion (Resolved) History of Vogt's palsy (Resolved) History of [place] (myocardial infarction) (Resolved) Patient is to have pressure dressing applied to leg with leg elevated (toes above the nose) at all times. Dressing changed daily or sooner if needed. Patient will likely have wound vac re-applied on Tuesday if appropriate. Will continue to monitor for inflammation, increased pains, erythema, or discharge that would indicate possible infection. Also to monitor for calf pains/tenderness or shortness of breath that could possibly indicate DVT/PE. Patient will be following up with wound center once discharged from the hospital.
[2018-08-25 17:31] LABS: BNP,B-Type NATRIURETIC PEPTIDE 322.1 pg/mL (0-100)
[2018-08-25] MEDS: Furosemide 40 MG/4 ML Vial IV ×2 (18:34→22:15)
[2018-08-25] MEDS: Acetaminophen 325 MG Tablet 650 MG PO (20:21)
[2018-08-25] MEDS: Atorvastatin Calcium 20 MG Tablet PO (22:14)
[2018-08-26] VITALS (28 sets, daily range): BP systolic 95–114; BP diastolic 62–79; PULSE 82–109; RESP 12–27; TEMP 36.1–36.9; O2SAT 91–97
[2018-08-26] MEDS: Cefazolin 1 GM/50 ML BAG IV ×4 (00:05→18:45)
[2018-08-26] MEDS: 0.9% NaCl Peripheral Flush Adult/Peds IV ×3 (00:08→20:47)
[2018-08-26] MEDS: Ipratropium/Albuterol Sulfate 3 ML AMPUL.NEB INHALATION ×5 (00:35→23:51)
[2018-08-26] MEDS: Vancomycin IV 1,000 MG/200 ML BAG 200 MG IV ×2 (00:51→14:03)
[2018-08-26] MEDS: Gabapentin 800 MG Tablet PO ×3 (05:58→20:47)
[2018-08-26] MEDS: Furosemide 40 MG/4 ML Vial IV ×3 (06:05→20:47)
[2018-08-26 07:10] LABS: Absolute Lymphocyte Count 0.65 X10^3/ul (0.83-4.51); Absolute Neutrophil Count 5.8 X10^3/uL (2.0-7.7); Hematocrit 49.3 % (40-54); Hemoglobin 15.8 g/dl (13.0-16.5); Lymphocyte # 0.65 X10^3/ul (4.0); Lymphocyte % 9.5 % (19-41); Mean Corpuscular Hgb 32.1 pg (27.0-32.0); Mean Corpuscular Volume 100.2 fL (80-94); Mean Platelet Vol. 9.5 fl (6.2-12.0); Monocyte# 0.36 X10^3/uL; Monocyte% 5.3 % (0-10); Neutrophil # 5.83 X10^3/uL (2.7-7.7); Neutrophil % 85.1 % (47-70); Platelet Count 159 K/mm3 (150-450); RBC Distribution Width CV 14.4 % (11.6-14.6); RBC Distribution Width SD 52.7 fl (35.1-43.9); Red Blood Count 4.92 M/mm3 (4.6-6.2); White Blood Count 6.9 K/mm3 (4.4-11.0)
[2018-08-26 07:18] LABS: POSITIVE COUNT NO; POSITIVE DIFFERENTIAL NO; POSITIVE MORPHOLOGY NO
[2018-08-26] MEDS: Budesonide Respules 0.5 MG/2 ML AMPUL.NEB. INHALATION ×2 (07:23→20:50)
[2018-08-26 07:30] LABS: Anion Gap 5 (5-15); BUN 39 mg/dL (7-18); BUN/Creat Ratio 21.2 RATIO (10-20); Calcium,Total 8.7 mg/dL (8.5-10.1); Chloride 100 mmol/L (98-107); Creatinine, Serum 1.84 mg/dL (0.70-1.30); EST Glomerular Filtration Rate 40 mL/min (>60); Est Glom Filt Rate - Afr Amer 48 mL/min (>60); Estimated Creatinine Clearance 46.27 ml/min; Glucose 130 mg/dL (74-106); Magnesium 2.2 mg/dL (1.6-2.6); Potassium 4.3 mmol/L (3.5-5.1); Sodium Level 138 mmol/L (136-145)
[2018-08-26] MEDS: Carvedilol 6.25 MG Tablet PO ×2 (10:03→20:46)
--- NOTE | 2018-08-26 14:03 | PCM.PN.HOSP ---
Patient Problems: Active and Suspected Problems (Last Updated 08/23/18 @ 13:49 by Cecilio Wahl DO) Cellulitis of right leg (Acute) Subjective: Patient was seen and examined. Patient did better with the BiPAP overnight. Denies any complaints. Improved with IV Lasix Objective: Physical Exam General: Alert x 3, Cooperative, No apparent distress HEENT: Atraumatic, Normocephalic Oral: Moist Mucosa, No Gingival or Mucosal Lesions/ Ulcerations Neck: No Nodes, Thyroid Normal Size and Texture Lungs: Normal air movement, Wheezes - Upper respiratory Cardiovascular: Regular rate, No murmurs Abdomen: Bowel Sounds Present, Soft, Non Tender, Non-Distended, Obese Extremities: Edema - Right lower extremity edema, tense- - Right calf and distal lower extremity tenderness due to swelling, able to wiggle toes, SOLOMON wraps to right leg Skin: - - Marked erythema of the distal right lower extremity. He has multiple areas of fluctuance especially just below right patella, areas of scabbing over the hernandez. Musculoskeletal: No Tenderness to Palpation of Joints or Extremities, No Muscle Wasting Neurological: Neuro grossly intact, Psych/Mental Status: Normal Affect, Appropriate Vitals/I&O's: Vital Signs Temp Pulse Resp BP Pulse Ox 97.8 F 107 H 23 H 114/75 93 08/26/18 09:55 08/26/18 12:04 08/26/18 12:04 08/26/18 09:55 08/26/18 09:55 Oxygen Flow Rate (L/min) 6 Oxygen Delivery Method Nasal Cannula Weight: 87.815 kg Body Mass Index (BMI) 25.6 Intake and Output for Last 24 Hours 08/24/18 08/25/18 08/26/18 23:59 23:59 23:59 Intake Total 2096 / 2096 2309 / 2309 620 / 620 Output Total 2625 / 2625 1825 / 1825 1550 / 1550 Balance -529 / -529 484 / 484 -930 / -930 Microbiology Past 72 Hours 08/24/18 16:59 Biopsy - Leg, Right Gram Stain - Final 08/24/18 16:59 Biopsy - Leg, Right Wound Culture - Preliminary No growth-Final to follow 08/24/18 16:59 Biopsy - Leg, Right Anaerobic Culture - Preliminary No growth in 48 hours. 08/24/18 16:58 Biopsy - Other Gram Stain - Final 08/24/18 16:58 Biopsy - Other Wound Culture - Preliminary No growth-Final to follow 08/24/18 16:58 Biopsy - Other Anaerobic Culture - Preliminary Checking for anaerobes, further studies to follow. 08/24/18 17:08 Biopsy - Other Gram Stain - Final 08/24/18 17:08 Biopsy - Other Wound Culture - Preliminary No growth-Final to follow 08/24/18 17:08 Biopsy - Other Anaerobic Culture - Preliminary No growth in 48 hours. 08/24/18 17:08 Biopsy - Leg, Right Gram Stain - Final 08/24/18 17:08 Biopsy - Leg, Right Wound Culture - Preliminary No growth-Final to follow 08/24/18 17:08 Biopsy - Leg, Right Anaerobic Culture - Preliminary No growth in 48 hours. 08/23/18 12:40 Blood Culture (Wb) - Anticubital Right Blood Culture - Preliminary No growth in 48 hours. 08/23/18 12:40 Blood Culture (Wb) - Anticubital Left Blood Culture - Preliminary No growth in 48 hours. Laboratory Results 08/25/18 07:54: B-Natriuretic Peptide 322.1 H 08/25/18 15:48: Specimen Type ART, Sample Site L Radial, pH 7.26 L, Bicarbonate Actual 29.0 H, POC Total CO2 31, Base Excess 2, O2 Saturation 87 L, O2 % 40, ABG pCO2 64.8 H, ABG pO2 62 L, Juan R Test POS, Respiration Rate 12, O2 Delivery Device Bi / C PAP, EPAP 6, IPAP 14, Blood Gas Notified Whom [facility] , Blood Gas Notified Time 1952 08/26/18 06:43: Sodium 138, Potassium 4.3, Chloride 100, Carbon Dioxide 33.0 H, Anion Gap 5, BUN 39 H, Creatinine 1.84 H, Estim Creat Clear Calc 46.27, Est GFR (MDRD) Af Amer 48 L, Est GFR (MDRD) Non-Af 40 L, BUN/Creatinine Ratio 21.2 H, Glucose 130 H, Calcium 8.7, Magnesium 2.2 08/26/18 06:43: WBC 6.9, RBC 4.92, Hgb 15.8, Hct 49.3, MCV 100.2 H, MCH 32.1 H, MCHC 32.0, RDW 14.4, RDW Differential 52.7 H, Plt Count 159, MPV 9.5, Immature Gran % (Auto) 0.100, Neut % (Auto) 85.1 H, Lymph % (Auto) 9.5 L, [place] % (Auto) 5.3, Eos % (Auto) 0.0, Baso % (Auto) 0.0, Absolute Neuts (auto) 5.8, Absolute Lymphs (auto) 0.65 L, Total Counted Not Reportable Current Medications Acetaminophen (Tylenol) 650 mg PO Q6H PRN PRN PRN Reason: Mild Pain (1-3)/Temp > 100.7 F Last Admin: 08/25/18 20:21 Dose: 650 mg Albuterol Sulfate (Ventolin Aerosols) 2.5 mg INHALATION Q4HWA.RT PRN PRN Reason: SHORTNESS OF BREATH Last Admin: 08/24/18 23:55 Dose: 2.5 mg Albuterol/Ipratropium (Duoneb) 3 ml INHALATION Q4HWA.RT [facility] Last Admin: 08/26/18 12:04 Dose: 3 ml Atorvastatin Calcium (Lipitor) 20 mg PO QHS [facility] Last Admin: 08/25/18 22:14 Dose: 20 mg Budesonide (Pulmicort Aerosol) 0.5 mg INHALATION Q12H.RT [facility] Last Admin: 08/26/18 07:23 Dose: 0.5 mg Carvedilol (Coreg) 6.25 mg PO BID [facility] Last Admin: 08/26/18 10:03 Dose: 6.25 mg Dextrose (D50w Syringe) 0 gm IV X1 PRN; Protocol PRN Reason: Hypoglycemia Furosemide (Lasix) 40 mg IV Q8 [facility] Last Admin: 08/26/18 06:05 Dose: 40 mg Gabapentin (Neurontin) 800 mg PO Q8 [facility] Last Admin: 08/26/18 05:58 Dose: 800 mg Glucagon () 1 mg IM .X1 PRN PRN Reason: Hypoglycemia Vancomycin IV Pharmacy to Dose (1 ea/ Sodium Chloride) 500 mls @ 250 mls/hr IV PRN PRN; Protocol PRN Reason: Rx to Dose Vancomycin HCl (Vancomycin) 1,000 mg in 200 mls @ 200 mls/hr IV Q12H [facility] Last Admin: 08/26/18 00:51 Dose: 200 mls/hr Cefazolin Sodium () 1 gm in 50 mls @ 100 mls/hr IV Q6 ES Last Admin: 08/26/18 12:28 Dose: 100 mls/hr Magnesium Hydroxide (Milk Of Magnesia) 30 ml PO DAILY PRN PRN PRN Reason: Constipation Methylprednisolone (Solu-Medrol) 40 mg IV Q8 ES Last Admin: 08/26/18 05:58 Dose: 40 mg Oxycodone HCl (Oxyir) 5 - 10 mg PO Q4H PRN PRN PRN Reason: MOD-SEVERE PAIN (4-07/05) Last Admin: 08/25/18 08:11 Dose: 10 mg Sodium Chloride () 5 - 15 ml IV UD PRN PRN Reason: SALINE FLUSH Last Admin: 08/26/18 05:58 Dose: 10 ml Medical Necessity - Tobacco Use Smoking Status: Current every day smoker Tobacco Use: Cigarettes, Cigars, Chew Assessment/Plan All Active Problems (Last Updated 08/23/18 @ 13:49 by Cecilio Wahl DO) New onset atrial fibrillation (Acute) Shortness of breath (Acute) Leg edema (Acute) COPD with acute exacerbation (Acute) Heart failure with preserved ejection fraction (Acute) DINO (acute kidney injury) (Acute) Cellulitis of right leg (Acute) mediastinal exploration and arrest of hemorrhage (Resolved) History of coronary artery bypass graft x 2 (Resolved) History of pleural effusion (Resolved) History of Vogt's palsy (Resolved) History of [place] (myocardial infarction) (Resolved) 62-year-old with past medical history of severe COPD/asthma, hyperlipidemia, nicotine dependence, hypertension who comes in with complaints of right lower extremity redness and swelling 1. Acute hypoxic respiratory failure, factor in etiology, likely secondary to medications side effect on top of severe COPD/possible pulmonary hypertension/possible sleep apnea, on 6 L of oxygen, continue with BiPAP as needed 2. Cellulitis right lower extremity, failed outpatient therapy, no fevers or chills or leukocytosis, Blood cultures and wound cultures are negative. On IV vancomycin and cefazolin, awaiting MRSA swab, will continue to elevate extremity 3. Acute on chronic diastolic CHF/suspected cor pulmonale, started on IV Lasix, will continue same 4. Right lower extremity hematoma secondary to fall, off Xarelto, status post evacuation of hematoma, wound VAC not placed today, orthopedic surgery and wound nurse following. 5. CKD stage 3, creatinine appears improved today, continue to monitor 6. Hypertension, controlled, on carvedilol 7. CAD, stable, on carvedilol 8. A. fib with RVR secondary to respiratory failure, will continue to monitor, off Xarelto on account of bleeding, T on carvedilol 9. Suspected sleep apnea, not on CPAP, will continue BiPAP here, patient needs to follow-up with pulmonology for sleep study in the outpatient 10. DVT prophylaxis-SCDS, off Xarelto, bleeding from wound Code Visit Inpatient E&M: 43714 Subs Hosp L2
--- NOTE | 2018-08-26 14:08 | PN_ITS ---
Patient Problems: Active and Suspected Problems (Last Updated 08/23/18 @ 13:49 by Cecilio Wahl DO) Cellulitis of right leg (Acute) Subjective: Patient was seen and examined. Patient did better with the BiPAP overnight. Denies any complaints. Improved with IV Lasix Objective: Physical Exam General: Alert x 3, Cooperative, No apparent distress HEENT: Atraumatic, Normocephalic Oral: Moist Mucosa, No Gingival or Mucosal Lesions/ Ulcerations Neck: No Nodes, Thyroid Normal Size and Texture Lungs: Normal air movement, Wheezes - Upper respiratory Cardiovascular: Regular rate, No murmurs Abdomen: Bowel Sounds Present, Soft, Non Tender, Non-Distended, Obese Extremities: Edema - Right lower extremity edema, tense- - Right calf and distal lower extremity tenderness due to swelling, able to wiggle toes, SOLOMON wraps to right leg Skin: - - Marked erythema of the distal right lower extremity. He has multiple areas of fluctuance especially just below right patella, areas of scabbing over the hernandez. Musculoskeletal: No Tenderness to Palpation of Joints or Extremities, No Muscle Wasting Neurological: Neuro grossly intact, Psych/Mental Status: Normal Affect, Appropriate Vitals/I&O's: Vital Signs Temp Pulse Resp BP Pulse Ox 97.8 F 107 H 23 H 114/75 93 08/26/18 09:55 08/26/18 12:04 08/26/18 12:04 08/26/18 09:55 08/26/18 09:55 Oxygen Flow Rate (L/min) 6 Oxygen Delivery Method Nasal Cannula Weight: 87.815 kg Body Mass Index (BMI) 25.6 Intake and Output for Last 24 Hours 08/24/18 08/25/18 08/26/18 23:59 23:59 23:59 Intake Total 2096 / 2096 2309 / 2309 620 / 620 Output Total 2625 / 2625 1825 / 1825 1550 / 1550 Balance -529 / -529 484 / 484 -930 / -930 Microbiology Past 72 Hours 08/24/18 16:59 Biopsy - Leg, Right Gram Stain - Final 08/24/18 16:59 Biopsy - Leg, Right Wound Culture - Preliminary No growth-Final to follow 08/24/18 16:59 Biopsy - Leg, Right Anaerobic Culture - Preliminary No growth in 48 hours. 08/24/18 16:58 Biopsy - Other Gram Stain - Final 08/24/18 16:58 Biopsy - Other Wound Culture - Preliminary No growth-Final to follow 08/24/18 16:58 Biopsy - Other Anaerobic Culture - Preliminary Checking for anaerobes, further studies to follow. 08/24/18 17:08 Biopsy - Other Gram Stain - Final 08/24/18 17:08 Biopsy - Other Wound Culture - Preliminary No growth-Final to follow 08/24/18 17:08 Biopsy - Other Anaerobic Culture - Preliminary No growth in 48 hours. 08/24/18 17:08 Biopsy - Leg, Right Gram Stain - Final 08/24/18 17:08 Biopsy - Leg, Right Wound Culture - Preliminary No growth-Final to follow 08/24/18 17:08 Biopsy - Leg, Right Anaerobic Culture - Preliminary No growth in 48 hours. 08/23/18 12:40 Blood Culture (Wb) - Anticubital Right Blood Culture - Preliminary No growth in 48 hours. 08/23/18 12:40 Blood Culture (Wb) - Anticubital Left Blood Culture - Preliminary No growth in 48 hours. Laboratory Results 08/25/18 07:54: B-Natriuretic Peptide 322.1 H 08/25/18 15:48: Specimen Type ART, Sample Site L Radial, pH 7.26 L, Bicarbonate Actual 29.0 H, POC Total CO2 31, Base Excess 2, O2 Saturation 87 L, O2 % 40, ABG pCO2 64.8 H, ABG pO2 62 L, Juan R Test POS, Respiration Rate 12, O2 Delivery Device Bi / C PAP, EPAP 6, IPAP 14, Blood Gas Notified Whom [facility] , Blood Gas Notified Time 4491 08/26/18 06:43: Sodium 138, Potassium 4.3, Chloride 100, Carbon Dioxide 33.0 H, Anion Gap 5, BUN 39 H, Creatinine 1.84 H, Estim Creat Clear Calc 46.27, Est GFR (MDRD) Af Amer 48 L, Est GFR (MDRD) Non-Af 40 L, BUN/Creatinine Ratio 21.2 H, Glucose 130 H, Calcium 8.7, Magnesium 2.2 08/26/18 06:43: WBC 6.9, RBC 4.92, Hgb 15.8, Hct 49.3, MCV 100.2 H, MCH 32.1 H, MCHC 32.0, RDW 14.4, RDW Differential 52.7 H, Plt Count 159, MPV 9.5, Immature Gran % (Auto) 0.100, Neut % (Auto) 85.1 H, Lymph % (Auto) 9.5 L, Monona % (Auto) 5.3, Eos % (Auto) 0.0, Baso % (Auto) 0.0, Absolute Neuts (auto) 5.8, Absolute Lymphs (auto) 0.65 L, Total Counted Not Reportable Current Medications Acetaminophen (Tylenol) 650 mg PO Q6H PRN PRN PRN Reason: Mild Pain (1-3)/Temp > 100.7 F Last Admin: 08/25/18 20:21 Dose: 650 mg Albuterol Sulfate (Ventolin Aerosols) 2.5 mg INHALATION Q4HWA.RT PRN PRN Reason: SHORTNESS OF BREATH Last Admin: 08/24/18 23:55 Dose: 2.5 mg Albuterol/Ipratropium (Duoneb) 3 ml INHALATION Q4HWA.RT [facility] Last Admin: 08/26/18 12:04 Dose: 3 ml Atorvastatin Calcium (Lipitor) 20 mg PO QHS [facility] Last Admin: 08/25/18 22:14 Dose: 20 mg Budesonide (Pulmicort Aerosol) 0.5 mg INHALATION Q12H.RT [facility] Last Admin: 08/26/18 07:23 Dose: 0.5 mg Carvedilol (Coreg) 6.25 mg PO BID [facility] Last Admin: 08/26/18 10:03 Dose: 6.25 mg Dextrose (D50w Syringe) 0 gm IV X1 PRN; Protocol PRN Reason: Hypoglycemia Furosemide (Lasix) 40 mg IV Q8 [facility] Last Admin: 08/26/18 06:05 Dose: 40 mg Gabapentin (Neurontin) 800 mg PO Q8 [facility] Last Admin: 08/26/18 05:58 Dose: 800 mg Glucagon () 1 mg IM .X1 PRN PRN Reason: Hypoglycemia Vancomycin IV Pharmacy to Dose (1 ea/ Sodium Chloride) 500 mls @ 250 mls/hr IV PRN PRN; Protocol PRN Reason: Rx to Dose Vancomycin HCl (Vancomycin) 1,000 mg in 200 mls @ 200 mls/hr IV Q12H [facility] Last Admin: 08/26/18 00:51 Dose: 200 mls/hr Cefazolin Sodium () 1 gm in 50 mls @ 100 mls/hr IV Q6 [facility] Last Admin: 08/26/18 12:28 Dose: 100 mls/hr Magnesium Hydroxide (Milk Of Magnesia) 30 ml PO DAILY PRN PRN PRN Reason: Constipation Methylprednisolone (Solu-Medrol) 40 mg IV Q8 [facility] Last Admin: 08/26/18 05:58 Dose: 40 mg Oxycodone HCl (Oxyir) 5 - 10 mg PO Q4H PRN PRN PRN Reason: MOD-SEVERE PAIN (4-07/05) Last Admin: 08/25/18 08:11 Dose: 10 mg Sodium Chloride () 5 - 15 ml IV UD PRN PRN Reason: SALINE FLUSH Last Admin: 08/26/18 05:58 Dose: 10 ml Medical Necessity - Tobacco Use Smoking Status: Current every day smoker Tobacco Use: Cigarettes, Cigars, Chew Assessment/Plan All Active Problems (Last Updated 08/23/18 @ 13:49 by Cecilio Wahl DO) New onset atrial fibrillation (Acute) Shortness of breath (Acute) Leg edema (Acute) COPD with acute exacerbation (Acute) Heart failure with preserved ejection fraction (Acute) DINO (acute kidney injury) (Acute) Cellulitis of right leg (Acute) mediastinal exploration and arrest of hemorrhage (Resolved) History of coronary artery bypass graft x 2 (Resolved) History of pleural effusion (Resolved) History of Vogt's palsy (Resolved) History of [place] (myocardial infarction) (Resolved) 62-year-old with past medical history of severe COPD/asthma, hyperlipidemia, nicotine dependence, hypertension who comes in with complaints of right lower extremity redness and swelling 1. Acute hypoxic respiratory failure, factor in etiology, likely secondary to medications side effect on top of severe COPD/possible pulmonary hypertension/possible sleep apnea, on 6 L of oxygen, continue with BiPAP as needed 2. Cellulitis right lower extremity, failed outpatient therapy, no fevers or chills or leukocytosis, Blood cultures and wound cultures are negative. On IV vancomycin and cefazolin, awaiting MRSA swab, will continue to elevate extremity 3. Acute on chronic diastolic CHF/suspected cor pulmonale, started on IV Lasix, will continue same 4. Right lower extremity hematoma secondary to fall, off Xarelto, status post evacuation of hematoma, wound VAC not placed today, orthopedic surgery and wound nurse following. 5. CKD stage 3, creatinine appears improved today, continue to monitor 6. Hypertension, controlled, on carvedilol 7. CAD, stable, on carvedilol 8. A. fib with RVR secondary to respiratory failure, will continue to monitor, off Xarelto on account of bleeding, T on carvedilol 9. Suspected sleep apnea, not on CPAP, will continue BiPAP here, patient needs to follow-up with pulmonology for sleep study in the outpatient 10. DVT prophylaxis-SCDS, off Xarelto, bleeding from wound Code Visit Inpatient E&M: 68444 Subs Hosp L2
--- NOTE | 2018-08-26 16:22 | NURSING ---
Student nurse charting reviewed and appropriate.
[2018-08-26 20:25] LABS: M R Staph aureus DNA By PCR Negative (Negative); Probe Check PASS; Specimen Processing Control PASS; Staph aureus DNA By PCR NEGATIVE (Negative)
[2018-08-26] MEDS: oxyCODONE 5 MG Tablet PO (20:47)
[2018-08-26] MEDS: Atorvastatin Calcium 20 MG Tablet PO (20:47)
[2018-08-27] VITALS (17 sets, daily range): BP systolic 102–126; BP diastolic 42–77; PULSE 85–108; RESP 10–20; TEMP 36.3–36.7; O2SAT 92–96
[2018-08-27] MEDS: Cefazolin 1 GM/50 ML BAG IV ×5 (00:12→23:25)
[2018-08-27] MEDS: 0.9% NaCl Peripheral Flush Adult/Peds IV ×5 (00:13→22:35)
[2018-08-27] MEDS: Vancomycin IV 1,000 MG/200 ML BAG 200 MG IV (01:17)
[2018-08-27] MEDS: Furosemide 40 MG/4 ML Vial IV ×3 (06:28→22:32)
[2018-08-27] MEDS: Gabapentin 800 MG Tablet PO ×3 (06:28→22:32)
--- NOTE | 2018-08-27 07:41 | PN_ITS ---
Patient Problems: Active and Suspected Problems (Last Updated 08/23/18 @ 13:49 by Cecilio Wahl DO) Cellulitis of right leg (Acute) Subjective: Patient was seen and examined. Denies any new complaints. Feels much better. Denies any chest pain or shortness of breath. Objective: Physical Exam General: Alert x 3, Cooperative, No apparent distress HEENT: Atraumatic, Normocephalic Oral: Moist Mucosa, No Gingival or Mucosal Lesions/ Ulcerations Neck: No Nodes, Thyroid Normal Size and Texture Lungs: Normal air movement, Wheezes - Upper respiratory Cardiovascular: Regular rate, No murmurs Abdomen: Bowel Sounds Present, Soft, Non Tender, Non-Distended, Obese Extremities: Edema - Right lower extremity edema, tense- - Right calf and distal lower extremity tenderness due to swelling, able to wiggle toes, SOLOMON wraps to right leg Skin: - - Marked erythema of the distal right lower extremity. He has multiple areas of fluctuance especially just below right patella, areas of scabbing over the hernandez. Musculoskeletal: No Tenderness to Palpation of Joints or Extremities, No Muscle Wasting Neurological: Neuro grossly intact, Psych/Mental Status: Normal Affect, Appropriate Vitals/I&O's: Vital Signs Temp Pulse Resp BP Pulse Ox 98.0 F 99 20 H 119/74 92 08/27/18 03:00 08/27/18 07:07 08/27/18 03:00 08/27/18 03:00 08/27/18 03:00 Oxygen Flow Rate (L/min) 4 Oxygen Delivery Method Nasal Cannula Weight: 87.815 kg Body Mass Index (BMI) 25.6 Intake and Output for Last 24 Hours 08/25/18 08/26/18 08/27/18 23:59 23:59 23:59 Intake Total 2309 / 2309 720 / 720 785 / 785 Output Total 1825 / 1825 2350 / 2350 1825 / 1825 Balance 484 / 484 -1630 / -1630 -1040 / -1040 Microbiology Past 72 Hours 08/24/18 16:59 Biopsy - Leg, Right Gram Stain - Final 08/24/18 16:59 Biopsy - Leg, Right Wound Culture - Preliminary No growth-Final to follow 08/24/18 16:59 Biopsy - Leg, Right Anaerobic Culture - Preliminary No growth in 48 hours. 08/24/18 16:58 Biopsy - Other Gram Stain - Final 08/24/18 16:58 Biopsy - Other Wound Culture - Preliminary No growth-Final to follow 08/24/18 16:58 Biopsy - Other Anaerobic Culture - Preliminary Checking for anaerobes, further studies to follow. 08/24/18 17:08 Biopsy - Other Gram Stain - Final 08/24/18 17:08 Biopsy - Other Wound Culture - Preliminary No growth-Final to follow 08/24/18 17:08 Biopsy - Other Anaerobic Culture - Preliminary No growth in 48 hours. 08/24/18 17:08 Biopsy - Leg, Right Gram Stain - Final 08/24/18 17:08 Biopsy - Leg, Right Wound Culture - Preliminary No growth-Final to follow 08/24/18 17:08 Biopsy - Leg, Right Anaerobic Culture - Preliminary No growth in 48 hours. 08/23/18 12:40 Blood Culture (Wb) - Anticubital Right Blood Culture - Preliminary No growth in 48 hours. 08/23/18 12:40 Blood Culture (Wb) - Anticubital Left Blood Culture - Preliminary No growth in 48 hours. Laboratory Results 08/26/18 18:00: S.aureus Protein A PCR NEGATIVE, MRSA (PCR) Negative Current Medications Acetaminophen (Tylenol) 650 mg PO Q6H PRN PRN PRN Reason: Mild Pain (1-3)/Temp > 100.7 F Last Admin: 08/25/18 20:21 Dose: 650 mg Albuterol Sulfate (Ventolin Aerosols) 2.5 mg INHALATION Q4HWA.RT PRN PRN Reason: SHORTNESS OF BREATH Last Admin: 08/24/18 23:55 Dose: 2.5 mg Albuterol/Ipratropium (Duoneb) 3 ml INHALATION Q4HWA.RT [facility] Last Admin: 08/26/18 23:51 Dose: 3 ml Atorvastatin Calcium (Lipitor) 20 mg PO QHS [facility] Last Admin: 08/26/18 20:47 Dose: 20 mg Budesonide (Pulmicort Aerosol) 0.5 mg INHALATION Q12H.RT [facility] Last Admin: 08/26/18 20:50 Dose: 0.5 mg Carvedilol (Coreg) 6.25 mg PO BID [facility] Last Admin: 08/26/18 20:46 Dose: 6.25 mg Dextrose (D50w Syringe) 0 gm IV X1 PRN; Protocol PRN Reason: Hypoglycemia Furosemide (Lasix) 40 mg IV Q8 ES Last Admin: 08/27/18 06:28 Dose: 40 mg Gabapentin (Neurontin) 800 mg PO Q8 ES Last Admin: 08/27/18 06:28 Dose: 800 mg Glucagon () 1 mg IM .X1 PRN PRN Reason: Hypoglycemia Vancomycin IV Pharmacy to Dose (1 ea/ Sodium Chloride) 500 mls @ 250 mls/hr IV PRN PRN; Protocol PRN Reason: Rx to Dose Vancomycin HCl (Vancomycin) 1,000 mg in 200 mls @ 200 mls/hr IV Q12H [facility] Last Admin: 08/27/18 01:17 Dose: 200 mls/hr Cefazolin Sodium () 1 gm in 50 mls @ 100 mls/hr IV Q6 ES Last Admin: 08/27/18 06:28 Dose: 100 mls/hr Magnesium Hydroxide (Milk Of Magnesia) 30 ml PO DAILY PRN PRN PRN Reason: Constipation Methylprednisolone (Solu-Medrol) 40 mg IV Q8 [facility] Last Admin: 08/27/18 06:28 Dose: 40 mg Oxycodone HCl (Oxyir) 5 - 10 mg PO Q4H PRN PRN PRN Reason: MOD-SEVERE PAIN (4-10/10) Last Admin: 08/26/18 20:47 Dose: 10 mg Sodium Chloride () 5 - 15 ml IV UD PRN PRN Reason: SALINE FLUSH Last Admin: 08/27/18 06:28 Dose: 10 ml Medical Necessity - Tobacco Use Smoking Status: Current every day smoker Tobacco Use: Cigarettes, Cigars, Chew Assessment/Plan All Active Problems (Last Updated 08/23/18 @ 13:49 by Cecilio Wahl DO) New onset atrial fibrillation (Acute) Shortness of breath (Acute) Leg edema (Acute) COPD with acute exacerbation (Acute) Heart failure with preserved ejection fraction (Acute) DINO (acute kidney injury) (Acute) Cellulitis of right leg (Acute) mediastinal exploration and arrest of hemorrhage (Resolved) History of coronary artery bypass graft x 2 (Resolved) History of pleural effusion (Resolved) History of Vogt's palsy (Resolved) History of [place] (myocardial infarction) (Resolved) 62-year-old with past medical history of severe COPD/asthma, hyperlipidemia, nicotine dependence, hypertension who comes in with complaints of right lower extremity redness and swelling. Patient was admitted and managed as cellulitis of the right lower extremities. He was managed on Levaquin and then Bactrim in the outpatient. He had Doppler done in the outpatient was negative for any acute DVT. CT of the leg on admission showed hematoma. Patient has surgery on 08/24/18 for right leg hematoma evacuation/irrigation debridement. On postop day 1, patient was found to be progressively hypoxic, transferred to PCU from the [facility] floor and managed on BiPAP. 1. Acute hypoxic respiratory failure, multifactorial in etiology, likely secondary to medications side effect on top of severe COPD/possible pulmonary hypertension/possible sleep apnea, patient has improved, currently on 3 L of oxygen, will continue with BiPAP as needed 2. POD #3, s/p right leg hematoma evacuation/irrigation I&D/cellulitis right lower extremity, failed outpatient therapy, no fevers or chills or leukocytosis, Blood cultures and wound cultures are negative. MRSA swab was negative, initially managed on IV vancomycin and cefazolin, On IV vancomycin and cefazolin, awaiting MRSA swab, will continue to elevate extremity Will discontinue vancomycin, keep on cefazolin(day 5) Possible wound VAC placement on Tuesday, wound nurse following 3. Acute on chronic diastolic CHF/suspected cor pulmonale, diuresed more than 10 L since admission, will continue on Lasix 40 mg IV q. 8, with I's and O's, daily weights 4. CKD stage 3, likely having a component of cardiorenal syndrome, creatinine improving with Lasix therapy, continue to monitor 5. Hypertension, controlled, on carvedilol 6. CAD, stable, on carvedilol 7. A. fib with RVR secondary to respiratory failure, will continue to monitor, off Xarelto on account of bleeding, on carvedilol, would need to discuss with surgeon when to resume Xarelto 8. Suspected sleep apnea, not on CPAP, on BiPAP here, patient needs to follow- up with pulmonology for sleep study in the outpatient 9. DVT prophylaxis-SCDS, off Xarelto, bleeding from wound Code Visit Inpatient E&M: 60537 Subs Hosp L2
[2018-08-27] MEDS: Budesonide Respules 0.5 MG/2 ML AMPUL.NEB. INHALATION ×2 (08:03→20:10)
[2018-08-27] MEDS: Ipratropium/Albuterol Sulfate 3 ML AMPUL.NEB INHALATION ×3 (08:03→15:52)
[2018-08-27] MEDS: Carvedilol 6.25 MG Tablet PO ×2 (09:22→22:32)
[2018-08-27] MEDS: oxyCODONE 5 MG Tablet PO ×3 (11:41→23:39)
[2018-08-27 12:24] LABS: Anion Gap 7 (5-15); BUN 50 mg/dL (7-18); BUN/Creat Ratio 32.7 RATIO (10-20); Calcium,Total 8.8 mg/dL (8.5-10.1); Chloride 100 mmol/L (98-107); Creatinine, Serum 1.53 mg/dL (0.70-1.30); EST Glomerular Filtration Rate 49 mL/min (>60); Est Glom Filt Rate - Afr Amer 60 mL/min (>60); Estimated Creatinine Clearance 55.65 ml/min; Glucose 164 mg/dL (74-106); Potassium 3.7 mmol/L (3.5-5.1); Sodium Level 137 mmol/L (136-145)
[2018-08-27] MEDS: Albuterol 2.5 MG/3 ML VIAL.NEB. INHALATION (20:00)
[2018-08-27] MEDS: Atorvastatin Calcium 20 MG Tablet PO (22:32)
[2018-08-28] VITALS (17 sets, daily range): BP systolic 107–125; BP diastolic 71–80; PULSE 77–104; RESP 10–21; TEMP 36.5–36.8; O2SAT 3–94
[2018-08-28] MEDS: Gabapentin 800 MG Tablet PO ×3 (05:33→21:39)
[2018-08-28] MEDS: Cefazolin 1 GM/50 ML BAG IV ×4 (05:33→23:11)
[2018-08-28] MEDS: 0.9% NaCl Peripheral Flush Adult/Peds IV ×5 (05:35→21:40)
[2018-08-28] MEDS: Furosemide 40 MG/4 ML Vial IV ×3 (05:54→21:39)
[2018-08-28 06:47] LABS: Anion Gap 7 (5-15); BUN 50 mg/dL (7-18); BUN/Creat Ratio 34.2 RATIO (10-20); Calcium,Total 8.9 mg/dL (8.5-10.1); Chloride 101 mmol/L (98-107); Creatinine, Serum 1.46 mg/dL (0.70-1.30); EST Glomerular Filtration Rate 52 mL/min (>60); Est Glom Filt Rate - Afr Amer 63 mL/min (>60); Estimated Creatinine Clearance 58.32 ml/min; Glucose 128 mg/dL (74-106); Potassium 3.9 mmol/L (3.5-5.1); Sodium Level 141 mmol/L (136-145)
[2018-08-28] MEDS: Ipratropium/Albuterol Sulfate 3 ML AMPUL.NEB INHALATION ×3 (07:16→19:25)
[2018-08-28] MEDS: Budesonide Respules 0.5 MG/2 ML AMPUL.NEB. INHALATION ×2 (07:16→19:25)
[2018-08-28] MEDS: Carvedilol 6.25 MG Tablet PO ×2 (09:29→21:39)
[2018-08-28] MEDS: oxyCODONE 5 MG Tablet PO ×3 (09:30→19:58)
--- NOTE | 2018-08-28 14:02 | PCM.PROGNOTE ---
<Amaury Kevin - Last Filed: 08/28/18 14:02> Patient Problems: Active and Suspected Problems (Last Updated 08/23/18 @ 13:49 by Cecilio Wahl DO) Cellulitis of right leg (Acute) Subjective: No complaints. No SOB or cough. No fever or chills. He is waiting for the wound vac placement. Pain is controlled. - Physical Exam General: Alert, Oriented x3, Cooperative HEENT: Atraumatic, PERRLA, EOMI, Normocephalic Neck: Supple, No JVD, Negative Carotid Bruits Lungs: Clear to auscultation, Normal air movement Cardiovascular: Regular rate, No murmurs Abdomen: Bowel Sounds Present, Soft, Non Tender Extremities: No edema, Capillary Refill Less than 3 Seconds Skin: No rashes, No breakdown Musculoskeletal: No Tenderness to Palpation of Joints or Extremities Neurological: Cranial nerves II-XII grossly intact Psych/Mental Status: Normal Affect, Appropriate, Alert and oriented to time, place, person, mood and affect Vital Signs Temp Pulse Resp BP Pulse Ox 98.3 F 90 20 H 119/80 92 08/28/18 13:23 08/28/18 13:23 08/28/18 13:23 08/28/18 13:23 08/28/18 13:23 Oxygen Flow Rate (L/min) 3 Oxygen Delivery Method Nasal Cannula Weight: 298 lb 1.039 oz Body Mass Index (BMI) 25.6 Intake and Output for Last 24 Hours 08/26/18 08/27/18 08/28/18 23:59 23:59 23:59 Intake Total 720 / 720 2224 / 2224 1213.1 / 1213.1 Output Total 2350 / 2350 4775 / 4775 1295 / 1295 Balance -1630 / -1630 -2551 / -2551 -81.9 / -81.9 Microbiology Past 72 Hours 08/23/18 12:40 Blood Culture - Final Blood Culture (Wb) - Anticubital Left No growth in 5 days. 08/23/18 12:40 Blood Culture - Final Blood Culture (Wb) - Anticubital Right No growth in 5 days. 08/24/18 16:58 Gram Stain - Final Biopsy - Other Wound Culture - Final No growth aerobically. Anaerobic Culture - Final No growth in 5 days. 08/24/18 17:08 Gram Stain - Final Biopsy - Other Wound Culture - Final No growth aerobically. Anaerobic Culture - Preliminary No growth in 48 hours. 08/24/18 17:08 Gram Stain - Final Biopsy - Leg, Right Wound Culture - Final No growth aerobically. Anaerobic Culture - Preliminary No growth in 48 hours. 08/24/18 16:59 Gram Stain - Final Biopsy - Leg, Right Wound Culture - Final No growth aerobically. Anaerobic Culture - Preliminary No growth in 48 hours. Laboratory Tests Past 24 Hrs 08/28/18 06:15 Sodium 141 Potassium 3.9 Chloride 101 Carbon Dioxide 33.0 H Anion Gap 7 BUN 50 H Creatinine 1.46 H Estim Creat Clear Calc 58.32 Est GFR (MDRD) Af Amer 63 Est GFR (MDRD) Non-Af 52 L BUN/Creatinine Ratio 34.2 H Glucose 128 H Calcium 8.9 Medical Necessity - Tobacco Use Smoking Status: Current every day smoker Tobacco Use: Cigarettes, Cigars, Chew Assessment/Plan All Active Problems (Last Updated 08/23/18 @ 13:49 by Cecilio Wahl DO) New onset atrial fibrillation (Acute) Shortness of breath (Acute) Leg edema (Acute) COPD with acute exacerbation (Acute) Heart failure with preserved ejection fraction (Acute) DINO (acute kidney injury) (Acute) Cellulitis of right leg (Acute) mediastinal exploration and arrest of hemorrhage (Resolved) History of coronary artery bypass graft x 2 (Resolved) History of pleural effusion (Resolved) History of Vogt's palsy (Resolved) History of [place] (myocardial infarction) (Resolved) 1. Acute hypoxic resp failure - 2/2 COPD exacerbation , sleep apnea, pulmonary htn, Acute on chronic diastolic CHF- continue current therapy. wean o2 as tolerated. Maintain IV lasix with plan to transition to PO. Renal function improved. CO2 mildly up. Transition steroids to PO. Continue aerosols. 2. Right leg hematoma, cellulitis - POD#4 hematoma evacuation. Wound vac to go on today. Continue cefazolin. Wound care consulted. 3, CKDIII - improving despite lasix 4. HTN - stable 5. CAD - coreg, statin 6. Afib RVR - improved. Needs to resume xarelto when ok per surgeon. 7. Suspected SERENITY - needs o/p psg DVT ppx: resume xarelto when appropriate. SCDs DC planning: home when stable This patient was seen by Amaury Kevin PA-C under the supervision of Dr. David. <Memo David - Last Filed: 08/28/18 14:22> - Physical Exam Vital Signs Temp Pulse Resp BP Pulse Ox 98.3 F 90 20 H 119/80 92 08/28/18 13:23 08/28/18 13:23 08/28/18 13:23 08/28/18 13:23 08/28/18 13:23 Oxygen Flow Rate (L/min) 3 Oxygen Delivery Method Nasal Cannula Weight: 135.2 kg Body Mass Index (BMI) 25.6 Intake and Output for Last 24 Hours 08/26/18 08/27/18 08/28/18 23:59 23:59 23:59 Intake Total 720 / 720 2224 / 2224 1213.1 / 1213.1 Output Total 2350 / 2350 4775 / 4775 1295 / 1295 Balance -1630 / -1630 -2551 / -2551 -81.9 / -81.9 Microbiology Past 72 Hours 08/23/18 12:40 Blood Culture - Final Blood Culture (Wb) - Anticubital Left No growth in 5 days. 08/23/18 12:40 Blood Culture - Final Blood Culture (Wb) - Anticubital Right No growth in 5 days. 08/24/18 16:58 Gram Stain - Final Biopsy - Other Wound Culture - Final No growth aerobically. Anaerobic Culture - Final No growth in 5 days. 08/24/18 17:08 Gram Stain - Final Biopsy - Other Wound Culture - Final No growth aerobically. Anaerobic Culture - Preliminary No growth in 48 hours. 08/24/18 17:08 Gram Stain - Final Biopsy - Leg, Right Wound Culture - Final No growth aerobically. Anaerobic Culture - Preliminary No growth in 48 hours. 08/24/18 16:59 Gram Stain - Final Biopsy - Leg, Right Wound Culture - Final No growth aerobically. Anaerobic Culture - Preliminary No growth in 48 hours. Laboratory Tests Past 24 Hrs 08/28/18 06:15 Sodium 141 Potassium 3.9 Chloride 101 Carbon Dioxide 33.0 H Anion Gap 7 BUN 50 H Creatinine 1.46 H Estim Creat Clear Calc 58.32 Est GFR (MDRD) Af Amer 63 Est GFR (MDRD) Non-Af 52 L BUN/Creatinine Ratio 34.2 H Glucose 128 H Calcium 8.9 Assessment/Plan This patient was seen in conjunction with Amaury Kevin PA-C . I have independently interviewed and examined the patient and reviewed pertinent historical, laboratory, and other data. Please refer to Amaury Kevin PA-C note for details of this patient's presentation, findings, and recommendations. I have reviewed Amaury Kevin PA-C note and concur with documented findings. In brief, patient is a 62-year-old gentleman with multiple comorbidities including paroxysmal atrial fibrillation on systemic anticoagulation with Xarelto admitted with right lower extremity erythema and swelling. Physical Examination: GENERAL: cooperative HEENT: Atraumatic EYES; Anicteric, NECK; supple, normal thyroid, RESPIRATORY: Diminished to auscultation bilaterally, CARDIOVASCULAR: Regular S1 S2, no audible murmurs GI: soft, non-tender, normoactive bowel sounds, : No Renal angle tenderness; NEURO: Awake; no lateralizing signs. PSYCH; Normal affect Assessment: 1. Right lower extremity cellulitis on cefazolin 2. Right roximal tibia hematoma;extremity hematoma status post evacuation by Dr. Wallis on08/24/18 3. COPD with acute exacerbation 4. CKD stage IV 5. Essential hypertension 6. Coronary artery disease 7. Paroxysmal atrial fibrillation with intermittent RVR 8. Suspected sleep apnea plan is for outpatient sleep study Recommendations: 1. I have discussed the results of my overview and impressions with the patient 2. Options for management were reviewed Code Visit Inpatient E&M: 51284 Subs Hosp L2
--- NOTE | 2018-08-28 15:50 | NURSING ---
wound photo: right hernandez (proximal)
--- NOTE | 2018-08-28 15:51 | NURSING ---
wound photo: right hernandez (distal)
[2018-08-28] MEDS: Atorvastatin Calcium 20 MG Tablet PO (21:39)
[2018-08-28] MEDS: Acetaminophen 325 MG Tablet 650 MG PO (21:39)
[2018-08-29] VITALS (16 sets, daily range): BP systolic 105–125; BP diastolic 61–71; PULSE 67–99; RESP 12–22; TEMP 36.4–37; O2SAT 87–97
[2018-08-29] MEDS: oxyCODONE 5 MG Tablet PO ×2 (03:43→20:04)
[2018-08-29] MEDS: Gabapentin 800 MG Tablet PO ×3 (05:02→21:05)
[2018-08-29] MEDS: Furosemide 40 MG/4 ML Vial IV (05:02)
[2018-08-29] MEDS: Cefazolin 1 GM/50 ML BAG IV ×4 (05:03→23:08)
[2018-08-29] MEDS: Acetaminophen 325 MG Tablet 650 MG PO ×2 (05:03→20:04)
[2018-08-29] MEDS: 0.9% NaCl Peripheral Flush Adult/Peds IV ×3 (05:03→17:24)
[2018-08-29 07:05] LABS: Anion Gap 8 (5-15); BUN 48 mg/dL (7-18); Calcium,Total 8.9 mg/dL (8.5-10.1); Chloride 98 mmol/L (98-107); EST Glomerular Filtration Rate 50 mL/min (>60); Est Glom Filt Rate - Afr Amer 61 mL/min (>60); Estimated Creatinine Clearance 58.45 ml/min; Glucose 88 mg/dL (74-106); Potassium 3.8 mmol/L (3.5-5.1); Sodium Level 141 mmol/L (136-145)
[2018-08-29] MEDS: predniSONE 20 MG Tablet 40 MG PO (08:07)
[2018-08-29] MEDS: Carvedilol 6.25 MG Tablet PO ×2 (08:07→21:05)
[2018-08-29] MEDS: Ipratropium/Albuterol Sulfate 3 ML AMPUL.NEB INHALATION ×3 (10:25→19:19)
[2018-08-29] MEDS: Furosemide 40 MG Tablet PO ×2 (10:40→17:27)
--- NOTE | 2018-08-29 11:30 | CASEMGMT ---
Patient's sister who is also his POA is concerned about patient going home at d/c and feels he needs to go somewhere for rehab and wound care. SW spoke with patient and his sister. Introdu[facility]. SW explained how the process works and that he would stay in the hospital until insurance gives us an answer. Patient's sister was tearful as she is overwhelmed. SW provided emotional support. Their first choice would be [facility] and second would be [facility]. SW called [facility] and left a message with referral and also faxed referral information. Plan: SNF pending SNF acceptance and insurance approval. Gin IRAHETA
--- NOTE | 2018-08-29 12:29 | CASEMGMT ---
GAYATHRI received phone call from Favoila Torrez at [facility] and they are no longer in network with [facility]. [facility] and they are in network with [facility]. GAYATHRI made referral and faxed information as well. Gin CALIX MSW
--- NOTE | 2018-08-29 13:43 | PCM.PROGNOTE ---
<Amaury Kevin - Last Filed: 08/29/18 13:43> Patient Problems: Active and Suspected Problems (Last Updated 08/23/18 @ 13:49 by Cecilio Wahl DO) Cellulitis of right leg (Acute) Subjective: Pt refused to elevate legs and refused dressing changed today. He states his breathing is unchanged. He has no complaints. He is agreeable to placement in SNF after discussing his care with his sister. He does not tolerate bipap at night, and prefers to use NC instead. - Physical Exam General: Alert, Oriented x3, Cooperative HEENT: Atraumatic, PERRLA, EOMI, Normocephalic Neck: Supple, No JVD, Negative Carotid Bruits Lungs: Normal air movement, Wheezes Cardiovascular: Regular rate, No murmurs Abdomen: Bowel Sounds Present, Soft, Non Tender Extremities: No edema, Capillary Refill Less than 3 Seconds Skin: No rashes, No breakdown Musculoskeletal: No Tenderness to Palpation of Joints or Extremities Neurological: Cranial nerves II-XII grossly intact Psych/Mental Status: Normal Affect, Appropriate, Alert and oriented to time, place, person, mood and affect Vital Signs Temp Pulse Resp BP Pulse Ox 97.6 F L 98 22 H 125/71 H 87 08/29/18 09:30 08/29/18 10:54 08/29/18 10:25 08/29/18 09:30 08/29/18 10:50 Oxygen Flow Rate (L/min) [ 2 AMBULATION with Oxygen] Oxygen Flow Rate (L/min) 2 Oxygen Delivery Method Nasal Cannula Weight: 305 lb 8.971 oz Body Mass Index (BMI) 25.6 Intake and Output for Last 24 Hours 08/27/18 08/28/18 08/29/18 23:59 23:59 23:59 Intake Total 2224 / 2224 2170.6 / 2170.6 1111.3 / 1111.3 Output Total 4775 / 4775 3555 / 3555 1875 / 1875 Balance -2551 / -2551 -1384.4 / -1384.4 -763.7 / -763.7 Microbiology Past 72 Hours 08/24/18 17:08 Gram Stain - Final Biopsy - Other Wound Culture - Final No growth aerobically. Anaerobic Culture - Final No growth in 5 days. 08/24/18 17:08 Gram Stain - Final Biopsy - Leg, Right Wound Culture - Final No growth aerobically. Anaerobic Culture - Final No growth in 5 days. 08/24/18 16:59 Gram Stain - Final Biopsy - Leg, Right Wound Culture - Final No growth aerobically. Anaerobic Culture - Final No growth in 5 days. 08/23/18 12:40 Blood Culture - Final Blood Culture (Wb) - Anticubital Left No growth in 5 days. 08/23/18 12:40 Blood Culture - Final Blood Culture (Wb) - Anticubital Right No growth in 5 days. 08/24/18 16:58 Gram Stain - Final Biopsy - Other Wound Culture - Final No growth aerobically. Anaerobic Culture - Final No growth in 5 days. Laboratory Tests Past 24 Hrs 08/29/18 06:35 Sodium 141 Potassium 3.8 Chloride 98 Carbon Dioxide 35.0 H Anion Gap 8 BUN 48 H Creatinine 1.50 H Estim Creat Clear Calc 58.45 Est GFR (MDRD) Af Amer 61 Est GFR (MDRD) Non-Af 50 L BUN/Creatinine Ratio 32.0 H Glucose 88 Calcium 8.9 Medical Necessity - Tobacco Use Smoking Status: Current every day smoker Tobacco Use: Cigarettes, Cigars, Chew Assessment/Plan All Active Problems (Last Updated 08/23/18 @ 13:49 by Cecilio Wahl DO) New onset atrial fibrillation (Acute) Shortness of breath (Acute) Leg edema (Acute) COPD with acute exacerbation (Acute) Heart failure with preserved ejection fraction (Acute) DINO (acute kidney injury) (Acute) Cellulitis of right leg (Acute) mediastinal exploration and arrest of hemorrhage (Resolved) History of coronary artery bypass graft x 2 (Resolved) History of pleural effusion (Resolved) History of Vogt's palsy (Resolved) History of ME (myocardial infarction) (Resolved) 1. Acute hypoxic resp failure - 2/2 COPD exacerbation , sleep apnea, pulmonary htn, Acute on chronic diastolic CHF- continue current therapy. wean o2 as tolerated. Transition to PO lasix today. CO2 mildly up. Continue oral steroids. Continue aerosols. Pt unable to be weaned off O2, even at rest on room air he needs O2. Will DC to SNF with O2. 2. Right leg hematoma, cellulitis - POD#4 hematoma evacuation. Wound vac cannot be placed as the wound borders are unstable. Continue cefazolin (MRSA screen neg), goal of 14 days of total abx therapy. At dc will transition to keflex or duricef. Wound care consulted. He refused wound care this AM. I discussed this with Dr. Wallis who indicated that aggressive wound care is essential, and failure to do so could result in poor outcome and possible limb loss. 3. CKDIII - improving despite lasix 4. HTN - stable 5. CAD - coreg, statin 6. Afib RVR - improved. Needs to resume xarelto when ok per surgeon. 7. Suspected SERENITY - patient refuses BiPAP. It does not seal well with his facial hair and he doesnt like the discomfort of the mask. DVT ppx: resume xarelto when appropriate. SCDs DC planning: Plan is for him to go to SNF. He needs follow up with [facility] within 1 week and within the next 2 weeks after seen by wound care needs to see Dr. Wallis in the office. This patient was seen by Amaury Kevin PA-C under the supervision of Dr. David. <Memo David - Last Filed: 08/29/18 14:44> - Physical Exam Vital Signs Temp Pulse Resp BP Pulse Ox 97.6 F L 98 22 H 125/71 H 87 08/29/18 09:30 08/29/18 10:54 08/29/18 10:25 08/29/18 09:30 08/29/18 10:50 Oxygen Flow Rate (L/min) [ 2 AMBULATION with Oxygen] Oxygen Flow Rate (L/min) 2 Oxygen Delivery Method Nasal Cannula Weight: 138.6 kg Body Mass Index (BMI) 25.6 Intake and Output for Last 24 Hours 08/27/18 08/28/18 08/29/18 23:59 23:59 23:59 Intake Total 2224 / 2224 2170.6 / 2170.6 1111.3 / 1111.3 Output Total 4775 / 4775 3555 / 3555 1875 / 1875 Balance -2551 / -2551 -1384.4 / -1384.4 -763.7 / -763.7 Microbiology Past 72 Hours 08/24/18 17:08 Gram Stain - Final Biopsy - Other Wound Culture - Final No growth aerobically. Anaerobic Culture - Final No growth in 5 days. 08/24/18 17:08 Gram Stain - Final Biopsy - Leg, Right Wound Culture - Final No growth aerobically. Anaerobic Culture - Final No growth in 5 days. 08/24/18 16:59 Gram Stain - Final Biopsy - Leg, Right Wound Culture - Final No growth aerobically. Anaerobic Culture - Final No growth in 5 days. 08/23/18 12:40 Blood Culture - Final Blood Culture (Wb) - Anticubital Left No growth in 5 days. 08/23/18 12:40 Blood Culture - Final Blood Culture (Wb) - Anticubital Right No growth in 5 days. 08/24/18 16:58 Gram Stain - Final Biopsy - Other Wound Culture - Final No growth aerobically. Anaerobic Culture - Final No growth in 5 days. Laboratory Tests Past 24 Hrs 08/29/18 06:35 Sodium 141 Potassium 3.8 Chloride 98 Carbon Dioxide 35.0 H Anion Gap 8 BUN 48 H Creatinine 1.50 H Estim Creat Clear Calc 58.45 Est GFR (MDRD) Af Amer 61 Est GFR (MDRD) Non-Af 50 L BUN/Creatinine Ratio 32.0 H Glucose 88 Calcium 8.9 Assessment/Plan This patient was seen in conjunction with Amaury Kevin PA-C . I have independently interviewed and examined the patient and reviewed pertinent historical, laboratory, and other data. Please refer to Amaury Kevin PA-C note for details of this patient's presentation, findings, and recommendations. I have reviewed Aamury Kevin PA-C note and concur with documented findings. In brief, patient is a 62-year-old gentleman with multiple comorbidities including paroxysmal atrial fibrillation on systemic anticoagulation with Xarelto admitted with right lower extremity erythema and swelling. Patient did agree to be transferred to a [place] [facility] facility. Consult subsequently placed to case management to assist with discharge planning. Physical Examination: GENERAL: cooperative HEENT: Atraumatic EYES; Anicteric, NECK; supple, normal thyroid, RESPIRATORY: Diminished to auscultation bilaterally, CARDIOVASCULAR: Regular S1 S2, no audible murmurs GI: soft, non-tender, normoactive bowel sounds, : No Renal angle tenderness; NEURO: Awake; no lateralizing signs. PSYCH; Normal affect Assessment: 1. Right lower extremity cellulitis on cefazolin 2. Right proximal tibia hematoma;extremity hematoma status post evacuation by Dr. Wallis on08/24/18 3. COPD with acute exacerbation 4. CKD stage IV 5. Essential hypertension 6. Coronary artery disease 7. Paroxysmal atrial fibrillation with intermittent RVR 8. Suspected sleep apnea plan is for outpatient sleep study Recommendations: 1. I have discussed the results of my overview and impressions with the patient 2. Options for management were reviewed Code Visit Inpatient E&M: 70345 Subs Hosp L2
--- NOTE | 2018-08-29 14:16 | CASEMGMT ---
Received call from Marta at [facility] and they will accept patient. She will start the pre-cert. SW to notify patient and his sister. Gin CALIX MSW
--- NOTE | 2018-08-29 14:38 | CASEMGMT ---
GAYATHRI let patient know [facility]. GAYATHRI also called patient's sister and Tamiko HOLLEY letting her know this information. Plan: [facility] pending pre-cert Gin CALIX MSW
[2018-08-29] MEDS: Rivaroxaban 20 MG Tablet PO (17:27)
[2018-08-29] MEDS: Budesonide Respules 0.5 MG/2 ML AMPUL.NEB. INHALATION (19:19)
[2018-08-29] MEDS: Atorvastatin Calcium 20 MG Tablet PO (21:05)
[2018-08-30] VITALS (8 sets, daily range): BP systolic 101–114; BP diastolic 69–81; PULSE 76–90; RESP 16–20; TEMP 36.4–36.9; O2SAT 92–95
[2018-08-30] MEDS: oxyCODONE 5 MG Tablet PO (03:21)
[2018-08-30] MEDS: Acetaminophen 325 MG Tablet 650 MG PO (03:21)
[2018-08-30] MEDS: Cefazolin 1 GM/50 ML BAG IV ×2 (05:30→11:28)
[2018-08-30] MEDS: Gabapentin 800 MG Tablet PO (05:30)
[2018-08-30 06:53] LABS: Anion Gap 8 (5-15); BUN 44 mg/dL (7-18); BUN/Creat Ratio 31.2 RATIO (10-20); Calcium,Total 8.7 mg/dL (8.5-10.1); Chloride 100 mmol/L (98-107); Creatinine, Serum 1.41 mg/dL (0.70-1.30); EST Glomerular Filtration Rate 54 mL/min (>60); Est Glom Filt Rate - Afr Amer 66 mL/min (>60); Estimated Creatinine Clearance 62.18 ml/min; Glucose 99 mg/dL (74-106); Potassium 3.9 mmol/L (3.5-5.1); Sodium Level 140 mmol/L (136-145)
[2018-08-30] MEDS: Budesonide Respules 0.5 MG/2 ML AMPUL.NEB. INHALATION (07:04)
[2018-08-30] MEDS: Ipratropium/Albuterol Sulfate 3 ML AMPUL.NEB INHALATION ×2 (07:04→11:25)
[2018-08-30] MEDS: Furosemide 40 MG Tablet PO (08:02)
[2018-08-30] MEDS: Carvedilol 6.25 MG Tablet PO (08:02)
[2018-08-30] MEDS: predniSONE 20 MG Tablet 40 MG PO (08:02)
--- NOTE | 2018-08-30 10:46 | TREXTCAR_ITS ---
- Diet 08/25/18 06:06 Diet: Cardiac/Low Cholesterol Is pt able to select menu?: Yes - Routine Orders/Code Status Suppository Type: Dulcolax 10mg Suppository Frequency: Daily PRN O2 Frequency: Continuous Routine Lab Work: CBC - 5 days, BMP - 5 days Code Status: Full Code - Wound(s) bilat legs Wound Type: Abrasion rle Wound Type: Open Surgical Wound Dressing Change: Dry Sterile Dressing lle Wound Type: scabbed over abrasions right hernandez (proximal wound) Wound Type: Open Surgical Wound Dressing Change: AntiMicrobial (Aquacel AG, etc) right hernandez (distal wound) Wound Type: Open Surgical Wound Dressing Change: AntiMicrobial (Aquacel AG, etc) - Therapies Physical Therapy: Eval and Treat Occupational Therapy: Eval and Treat - Problem/Diagnosis (1) Diastolic CHF Status: Acute Current Visit: Yes (2) COPD (chronic obstructive pulmonary disease) Status: Acute Current Visit: No (3) Hematoma Status: Acute Current Visit: Yes (4) Atrial fibrillation with RVR Status: Acute Current Visit: Yes (5) CKD (chronic kidney disease) stage 3, GFR 30-59 ml/min Status: Chronic Current Visit: Yes (6) SERENITY (obstructive sleep apnea) Status: Acute Current Visit: Yes (7) Pulmonary HTN Status: Acute Current Visit: Yes (8) Cellulitis of right leg Status: Acute Current Visit: Yes (9) COPD with acute exacerbation Status: Acute Current Visit: No (10) Hyperlipidemia Status: Chronic Current Visit: No (11) Hypertension Status: Chronic Current Visit: No (12) History of SD (myocardial infarction) Status: Resolved Current Visit: No (13) History of coronary artery bypass graft x 2 Status: Resolved Current Visit: No (14) Morbid obesity Status: Chronic Current Visit: Yes - Allergies/Procedures Done in Hospital Allergies/Adverse Reactions: Allergies No Known Allergies Allergy (Unverified 08/23/18 12:02) - Type of Care/Length of Stay Estimated LOS: Convalescent Care Less Than 30 days Type of Care Needed: Skilled Rehab Potential: Fair Prognosis: Fair - Additional Orders/Day of Discharge Day of Discharge: 08/30/18 - Dietary and Speech Recommendations Dietitian Recommendations/Changes: Suggest diet change to 2000 carri/cardiac/low sodium with 1500 ml fluid restriction. - Follow Up Care Primary Care Physician: Lucas Boone MD [Primary Care Provider] - Please follow up with your Primary Care Physician in: 1-2 weeks Please Follow Up With: [facility] When: 7 days Please Follow Up With: K[facility] Wallis DO When: 1-2 weeks
[2018-08-30] MEDS: 0.9% NaCl Peripheral Flush Adult/Peds IV (11:28)
--- NOTE | 2018-08-30 11:59 | NURSING ---
called report to [facility] to nurse Neetu
--- NOTE | 2018-08-30 13:11 | CASEMGMT ---
Received a call from Marta at [facility] and they received authorization. GAYATHRI notified physician. Faxed orders to [facility]. Completed convalescent on HENS. GAYATHRI called [facility] and they said SW has to go through [facility] to set up transport. SW spent 30 minutes on the phone with [facility] to try and arrange transport with no luck. They said they do not supply O2 for transports. Patient does not have his own O2 here. SW spoke with patient and he asked if he could drive himself. SW spoke with therapy and they felt he would be fine. GAYATHRI spoke with Dr David and he was ok with patient transporting himself. SW called [facility] as this is who he gets his O2 from and as long as he calls and gives them a credit card they can bring a portable. Insurance only pays for a certain amount and he already has this. As long as he returns this tank within a week his card will not be charged. GAYATHRI spoke with patient and he was in agreement with this. GAYATHRI called Marta at [facility] and let her know. Plan: d/c to [facility] under skilled level of care on a convalescent stay. Patient transported himself. Gin CALIX MSW
--- NOTE | 2018-08-30 14:08 | PCM.DC.SUM ---
<Amaury Kevin - Last Filed: 08/30/18 14:08> Discharge Date and Diagnosis Date of Admission: 08/23/18 Date of Discharge: 08/30/18 - Primary Discharge Diagnosis Active and Suspected Problems (Last Updated 08/23/18 @ 13:49 by Cecilio Wahl DO) Cellulitis of right leg (Acute) Hematoma, questionably infected(Acute) Atrial fibrillation with RVR (Acute) Diastolic CHF (Acute) Pulmonary HTN (Acute) SERENITY (obstructive sleep apnea) - non compliant with Bipap/CPAP CKDIII CAD - Secondary Discharge Diagnosis Chronic Problems (Last Updated 08/23/18 @ 13:49 by Cecilio Wahl DO) Stage 4 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 (Chronic) FEV1 30% of predicted Morbid obesity (Chronic) CKD (chronic kidney disease) stage 3, GFR 30-59 ml/min (Chronic) HDL deficiency (Chronic) Asthma (Chronic) Overweight (BMI 25.0-29.9) (Chronic) Tobacco dependence (Chronic) Hyperlipidemia (Chronic) Hypertension (Chronic) Hospital Course and Treatment Imaging Results: CT/Extremity Lower without Contra IMPRESSION: Hematoma anterior to the tibial tubercle, with or without superimposed infection. Diffuse edema in the subcutis adipose space. RAD/Chest 1 View (Portable) IMPRESSION: Mild cardiomegaly and CHF. Consultations 08/23/18 14:55 Consult: Onc/Wound/extract mixer Routine Comment: 08/24/18 17:35 Consult: Onc/Wound/extract mixer Routine Comment: Reason for Consult:: vac change f,m,w Comments:: thanks Operations: - Procedures: None Summary of Care Provided: Hospital Course: The patient is a 62 year old M with pmhx of [place], CAD, COPD, HTN, CKDIII, HLD, COPD, Afib, who prseented to the ER with c/o increased redness of his RLE which had recently been diagnosed with cellulitis. RLE cellulitis and failued outaptient abx with levaquin and bactrim. He was on xarelto, and a ct showed underlying hematoma. He was admitted with cellulitis on vanco, with underlying hematoma. Xarelto was held. Ortho was consulted. On 08/24 Dr. Wallis took him to the OR and performed a right leg hematoma evacuation irrigation and debridement, and the same of the right lower leg ulcer. Cefazolin was added. MRSA screen was negative so vanco was DCd. He developed worsened breathing and was found to have COPD exacerbation and diastolic CHF exacerbation. He was treated with aerosols, steroids, and lasix and responded well to therapy. His Afib went into RVR and this was treated with coreg for this with good response. He had an echo this past december showing preserved EF, mild pulmonary htn, and valvular disease. A wound vac was attempted but the wound borders were to poor to accept the vac. Aggressive local wound care was recommended. The patient was advised to have dressings and to elevate his leg at rest but was only intermittently compliant with his instructions. Cultures of the wound are NTD. Cefazolin was transitioned to keflex, and he will complete a 14 day course. I discussed resumption of xarelto with Dr. Wallis who indicated that he may resume xarelto now. He was debilitated, and SNF was recommended, he was agreeable and discharged to long term in stable condition. He will need to see [facility] within 1 week, and need to see Dr. Wallis within the next 1-2 weeks. This patient was seen by Amaury Kevin PA-C under the supervision of Dr. David. [] - Physical Exam General: Alert, Oriented x3, Cooperative HEENT: Atraumatic, PERRLA, EOMI, Normocephalic Neck: Supple, No JVD, Negative Carotid Bruits Lungs: Wheezes Cardiovascular: Regular rate, No murmurs Abdomen: Bowel Sounds Present, Soft, Non Tender, Obese Extremities: No edema, Capillary Refill Less than 3 Seconds Skin: No rashes, No breakdown Musculoskeletal: No Tenderness to Palpation of Joints or Extremities Neurological: Cranial nerves II-XII grossly intact Psych/Mental Status: Normal Affect, Appropriate, Alert and oriented to time, place, person, mood and affect Vital Signs Temp Pulse Resp BP Pulse Ox 97.6 F L 76 20 H 101/76 92 08/30/18 13:58 08/30/18 13:58 08/30/18 13:58 08/30/18 13:58 08/30/18 13:58 Oxygen Flow Rate (L/min) [ 2 AMBULATION with Oxygen] Oxygen Flow Rate (L/min) 2 Oxygen Delivery Method Room Air Weight: 305 lb 8.971 oz Body Mass Index (BMI) 25.6 Intake and Output for Last 24 Hours 08/28/18 08/29/18 08/30/18 23:59 23:59 23:59 Intake Total 2170.6 / 2170.6 2255.8 / 2255.8 589.1 / 589.1 Output Total 3555 / 3555 4025 / 4025 1675 / 1675 Balance -1384.4 / -1384.4 -1769.2 / -1769.2 -1085.9 / -1085.9 Microbiology Past 72 Hours 08/24/18 17:08 Gram Stain - Final Biopsy - Other Wound Culture - Final No growth aerobically. Anaerobic Culture - Final No growth in 5 days. 08/24/18 17:08 Gram Stain - Final Biopsy - Leg, Right Wound Culture - Final No growth aerobically. Anaerobic Culture - Final No growth in 5 days. 08/24/18 16:59 Gram Stain - Final Biopsy - Leg, Right Wound Culture - Final No growth aerobically. Anaerobic Culture - Final No growth in 5 days. 08/23/18 12:40 Blood Culture - Final Blood Culture (Wb) - Anticubital Left No growth in 5 days. 08/23/18 12:40 Blood Culture - Final Blood Culture (Wb) - Anticubital Right No growth in 5 days. 08/24/18 16:58 Gram Stain - Final Biopsy - Other Wound Culture - Final No growth aerobically. Anaerobic Culture - Final No growth in 5 days. Laboratory Tests Past 24 Hrs 08/30/18 06:10 Sodium 140 Potassium 3.9 Chloride 100 Carbon Dioxide 32.0 Anion Gap 8 BUN 44 H Creatinine 1.41 H Estim Creat Clear Calc 62.18 Est GFR (MDRD) Af Amer 66 Est GFR (MDRD) Non-Af 54 L BUN/Creatinine Ratio 31.2 H Glucose 99 Calcium 8.7 Discharge Diet: Low fat/ Low Cholesterol, 2000 mg Sodium Diet Discharge Activity: Return to Normal Activity Home Medications: Medications to take at Discharge simvastatin 40 mg tablet 40 mg PO DAILY 10/27/17 Albuterol Inhaler [Ventolin Hfa] 2 puff INHALATION Q4H PRN PRN 01/06/18 Budesonide/Formoterol 160/4.5 [Symbicort 160/4.5 Mcg Inhaler (SP)] 2 puff INHALATION DAILY 01/06/18 Umeclidinium [place] Inhaler [Incruse Ellipta Inhaler] 1 inh INHALATION DAILY 01/06/18 Albuterol Aerosols [Ventolin Aerosols] 2.5 mg INHALATION Q4HWA.RT PRN #1 vial.neb. 01/10/18 Potassium Chloride [K-Dur] 20 meq PO DAILY #30 tab 01/10/18 Carvedilol 6.25 mg PO BID 08/23/18 Gabapentin [Neurontin] 800 mg PO Q8H 08/23/18 Acetaminophen [Tylenol Tablet] 650 mg PO Q6H PRN PRN tablet 08/30/18 Cephalexin [Keflex] 500 mg PO Q8H #22 capsule 08/30/18 Furosemide [Lasix] 40 mg PO BID@1000,1800 tablet 08/30/18 Magnesium Hydroxide [Milk Of Magnesia] 30 ml PO DAILY PRN PRN udc 08/30/18 Oxycodone [Oxyir] 5 mg PO Q4H PRN PRN 2 Days #12 tab 08/30/18 Rivaroxaban [Xarelto] 20 mg PO DAILY@1700 tablet 08/30/18 Following Prescrptions Were Given to Patient: Cephalexin [Keflex] 500 mg PO Q8H #22 capsule Oxycodone [Oxyir] 5 mg PO Q4H PRN PRN 2 Days #12 tab PRN Reason: Mod-Severe Pain (4-10/10) Primary Care Physician: Lucas Boone MD [Primary Care Provider] - Please follow up with your Primary Care Physician in: 1-2 weeks Please Follow Up With: [facility] When: 7 days Please Follow Up With: Keara Wallis DO When: 1-2 weeks Disposition: Halfway facility Minutes spent on discharge:: 35 Patient Condition:: Stable Medical Necessity - Tobacco Use Smoking Status: Current every day smoker Tobacco Use: Cigarettes, Cigars, Chew Meaningful Use Info Meaningful Use Diagnoses (Choose all that apply): None applicable <Memo David - Last Filed: 08/30/18 14:31> Discharge Date and Diagnosis - Secondary Discharge Diagnosis Chronic Problems (Last Updated 08/23/18 @ 13:49 by Cecilio Jopperi, DO) Stage 4 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 (Chronic) FEV1 30% of predicted Morbid obesity (Chronic) CKD (chronic kidney disease) stage 3, GFR 30-59 ml/min (Chronic) HDL deficiency (Chronic) Asthma (Chronic) Overweight (BMI 25.0-29.9) (Chronic) Tobacco dependence (Chronic) Hyperlipidemia (Chronic) Hypertension (Chronic) Hospital Course and Treatment Consultations 08/23/18 14:55 Consult: Onc/Wound/extract mixer Routine Comment: 08/24/18 17:35 Consult: Onc/Wound/extract mixer Routine Comment: Reason for Consult:: vac change f,m,w Comments:: thanks Summary of Care Provided: This patient was seen in conjunction with Amaury Kevin PA-C . I have independently interviewed and examined the patient and reviewed pertinent historical, laboratory, and other data. Please refer to Amaury Kevin PA-C note for details of this patient's presentation, findings, and recommendations. I have reviewed Amaury Kevin PA-C note and concur with documented findings. In brief, patient is a 62-year-old gentleman with multiple comorbidities including paroxysmal atrial fibrillation on systemic anticoagulation with Xarelto admitted with right lower extremity erythema and swelling. Assessment: 1. Right lower extremity cellulitis on cefazolin 2. Right proximal tibia hematoma;extremity hematoma status post evacuation by Dr. Wallis on08/24/18 3. COPD with acute exacerbation 4. CKD stage IV 5. Essential hypertension 6. Coronary artery disease 7. Paroxysmal atrial fibrillation with intermittent RVR 8. Suspected sleep apnea plan is for outpatient sleep study Hospital course; as elicited above - Physical Exam Vital Signs Temp Pulse Resp BP Pulse Ox 97.6 F L 76 20 H 101/76 92 08/30/18 13:58 08/30/18 13:58 08/30/18 13:58 08/30/18 13:58 08/30/18 13:58 Oxygen Flow Rate (L/min) [ 2 AMBULATION with Oxygen] Oxygen Flow Rate (L/min) 2 Oxygen Delivery Method Room Air Weight: 138.6 kg Body Mass Index (BMI) 25.6 Intake and Output for Last 24 Hours 08/28/18 08/29/18 08/30/18 23:59 23:59 23:59 Intake Total 2170.6 / 2170.6 2255.8 / 2255.8 589.1 / 589.1 Output Total 3555 / 3555 4025 / 4025 1675 / 1675 Balance -1384.4 / -1384.4 -1769.2 / -1769.2 -1085.9 / -1085.9 Microbiology Past 72 Hours 08/24/18 17:08 Gram Stain - Final Biopsy - Other Wound Culture - Final No growth aerobically. Anaerobic Culture - Final No growth in 5 days. 08/24/18 17:08 Gram Stain - Final Biopsy - Leg, Right Wound Culture - Final No growth aerobically. Anaerobic Culture - Final No growth in 5 days. 08/24/18 16:59 Gram Stain - Final Biopsy - Leg, Right Wound Culture - Final No growth aerobically. Anaerobic Culture - Final No growth in 5 days. 08/23/18 12:40 Blood Culture - Final Blood Culture (Wb) - Anticubital Left No growth in 5 days. 08/23/18 12:40 Blood Culture - Final Blood Culture (Wb) - Anticubital Right No growth in 5 days. 08/24/18 16:58 Gram Stain - Final Biopsy - Other Wound Culture - Final No growth aerobically. Anaerobic Culture - Final No growth in 5 days. Laboratory Tests Past 24 Hrs 08/30/18 06:10 Sodium 140 Potassium 3.9 Chloride 100 Carbon Dioxide 32.0 Anion Gap 8 BUN 44 H Creatinine 1.41 H Estim Creat Clear Calc 62.18 Est GFR (MDRD) Af Amer 66 Est GFR (MDRD) Non-Af 54 L BUN/Creatinine Ratio 31.2 H Glucose 99 Calcium 8.7 Code Visit Inpatient E&M: 96944 Disch Hosp
--- NOTE | 2018-08-30 14:19 | DS.PCM_ITS ---
<Amaury Kevin - Last Filed: 08/30/18 14:08> Discharge Date and Diagnosis Date of Admission: 08/23/18 Date of Discharge: 08/30/18 - Primary Discharge Diagnosis Active and Suspected Problems (Last Updated 08/23/18 @ 13:49 by Cecilio Wahl DO) Cellulitis of right leg (Acute) Hematoma, questionably infected(Acute) Atrial fibrillation with RVR (Acute) Diastolic CHF (Acute) Pulmonary HTN (Acute) SERENITY (obstructive sleep apnea) - non compliant with Bipap/CPAP CKDIII CAD - Secondary Discharge Diagnosis Chronic Problems (Last Updated 08/23/18 @ 13:49 by Cecilio Wahl DO) Stage 4 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 (Chronic) FEV1 30% of predicted Morbid obesity (Chronic) CKD (chronic kidney disease) stage 3, GFR 30-59 ml/min (Chronic) HDL deficiency (Chronic) Asthma (Chronic) Overweight (BMI 25.0-29.9) (Chronic) Tobacco dependence (Chronic) Hyperlipidemia (Chronic) Hypertension (Chronic) Hospital Course and Treatment Imaging Results: CT/Extremity Lower without Contra IMPRESSION: Hematoma anterior to the tibial tubercle, with or without superimposed infection. Diffuse edema in the subcutis adipose space. RAD/Chest 1 View (Portable) IMPRESSION: Mild cardiomegaly and CHF. Consultations 08/23/18 14:55 Consult: Onc/Wound/helicopter utility aircrewman Routine Comment: 08/24/18 17:35 Consult: Onc/Wound/helicopter utility aircrewman Routine Comment: Reason for Consult:: vac change f,m,w Comments:: thanks Operations: - Procedures: None Summary of Care Provided: Hospital Course: The patient is a 62 year old M with pmhx of NH, CAD, COPD, HTN, CKDIII, HLD, COPD, Afib, who prseented to the ER with c/o increased redness of his RLE which had recently been diagnosed with cellulitis. RLE cellulitis and failued outaptient abx with levaquin and bactrim. He was on xarelto, and a ct showed underlying hematoma. He was admitted with cellulitis on vanco, with underlying hematoma. Xarelto was held. Ortho was consulted. On 08/24 Dr. Wallis took him to the OR and performed a right leg hematoma evacuation irrigation and debridement, and the same of the right lower leg ulcer. Cefazolin was added. MRSA screen was negative so vanco was DCd. He developed worsened breathing and was found to have COPD exacerbation and diastolic CHF exacerbation. He was treated with aerosols, steroids, and lasix and responded well to therapy. His Afib went into RVR and this was treated with coreg for this with good response. He had an echo this past december showing preserved EF, mild pulmonary htn, and valvular disease. A wound vac was attempted but the wound borders were to poor to accept the vac. Aggressive local wound care was recommended. The patient was advised to have dressings and to elevate his leg at rest but was only intermittently compliant with his instructions. Cultures of the wound are NTD. Cefazolin was transitioned to keflex, and he will complete a 14 day course. I discussed resumption of xarelto with Dr. Wallis who indicated that he may resume xarelto now. He was debilitated, and SNF was recommended, he was agreeable and discharged to long term in stable condition. He will need to see the [facility] within 1 week, and need to see Dr. Wallis within the next 1-2 weeks. This patient was seen by Amaury Kevin PA-C under the supervision of Dr. David. [] - Physical Exam General: Alert, Oriented x3, Cooperative HEENT: Atraumatic, PERRLA, EOMI, Normocephalic Neck: Supple, No JVD, Negative Carotid Bruits Lungs: Wheezes Cardiovascular: Regular rate, No murmurs Abdomen: Bowel Sounds Present, Soft, Non Tender, Obese Extremities: No edema, Capillary Refill Less than 3 Seconds Skin: No rashes, No breakdown Musculoskeletal: No Tenderness to Palpation of Joints or Extremities Neurological: Cranial nerves II-XII grossly intact Psych/Mental Status: Normal Affect, Appropriate, Alert and oriented to time, place, person, mood and affect Vital Signs Temp Pulse Resp BP Pulse Ox 97.6 F L 76 20 H 101/76 92 08/30/18 13:58 08/30/18 13:58 08/30/18 13:58 08/30/18 13:58 08/30/18 13:58 Oxygen Flow Rate (L/min) [ 2 AMBULATION with Oxygen] Oxygen Flow Rate (L/min) 2 Oxygen Delivery Method Room Air Weight: 305 lb 8.971 oz Body Mass Index (BMI) 25.6 Intake and Output for Last 24 Hours 08/28/18 08/29/18 08/30/18 23:59 23:59 23:59 Intake Total 2170.6 / 2170.6 2255.8 / 2255.8 589.1 / 589.1 Output Total 3555 / 3555 4025 / 4025 1675 / 1675 Balance -1384.4 / -1384.4 -1769.2 / -1769.2 -1085.9 / -1085.9 Microbiology Past 72 Hours 08/24/18 17:08 Gram Stain - Final Biopsy - Other Wound Culture - Final No growth aerobically. Anaerobic Culture - Final No growth in 5 days. 08/24/18 17:08 Gram Stain - Final Biopsy - Leg, Right Wound Culture - Final No growth aerobically. Anaerobic Culture - Final No growth in 5 days. 08/24/18 16:59 Gram Stain - Final Biopsy - Leg, Right Wound Culture - Final No growth aerobically. Anaerobic Culture - Final No growth in 5 days. 08/23/18 12:40 Blood Culture - Final Blood Culture (Wb) - Anticubital Left No growth in 5 days. 08/23/18 12:40 Blood Culture - Final Blood Culture (Wb) - Anticubital Right No growth in 5 days. 08/24/18 16:58 Gram Stain - Final Biopsy - Other Wound Culture - Final No growth aerobically. Anaerobic Culture - Final No growth in 5 days. Laboratory Tests Past 24 Hrs 08/30/18 06:10 Sodium 140 Potassium 3.9 Chloride 100 Carbon Dioxide 32.0 Anion Gap 8 BUN 44 H Creatinine 1.41 H Estim Creat Clear Calc 62.18 Est GFR (MDRD) Af Amer 66 Est GFR (MDRD) Non-Af 54 L BUN/Creatinine Ratio 31.2 H Glucose 99 Calcium 8.7 Discharge Diet: Low fat/ Low Cholesterol, 2000 mg Sodium Diet Discharge Activity: Return to Normal Activity Home Medications: Medications to take at Discharge simvastatin 40 mg tablet 40 mg PO DAILY 10/27/17 Albuterol Inhaler [Ventolin Hfa] 2 puff INHALATION Q4H PRN PRN 01/06/18 Budesonide/Formoterol 160/4.5 [Symbicort 160/4.5 Mcg Inhaler (SP)] 2 puff INHALATION DAILY 01/06/18 Umeclidinium [place] Inhaler [Incruse Ellipta Inhaler] 1 inh INHALATION DAILY 01/06/18 Albuterol Aerosols [Ventolin Aerosols] 2.5 mg INHALATION Q4HWA.RT PRN #1 vial.neb. 01/10/18 Potassium Chloride [K-Dur] 20 meq PO DAILY #30 tab 01/10/18 Carvedilol 6.25 mg PO BID 08/23/18 Gabapentin [Neurontin] 800 mg PO Q8H 08/23/18 Acetaminophen [Tylenol Tablet] 650 mg PO Q6H PRN PRN tablet 08/30/18 Cephalexin [Keflex] 500 mg PO Q8H #22 capsule 08/30/18 Furosemide [Lasix] 40 mg PO BID@1000,1800 tablet 08/30/18 Magnesium Hydroxide [Milk Of Magnesia] 30 ml PO DAILY PRN PRN udc 08/30/18 Oxycodone [Oxyir] 5 mg PO Q4H PRN PRN 2 Days #12 tab 08/30/18 Rivaroxaban [Xarelto] 20 mg PO DAILY@1700 tablet 08/30/18 Following Prescrptions Were Given to Patient: Cephalexin [Keflex] 500 mg PO Q8H #22 capsule Oxycodone [Oxyir] 5 mg PO Q4H PRN PRN 2 Days #12 tab PRN Reason: Mod-Severe Pain (4-10/10) Primary Care Physician: Lucas Boone MD [Primary Care Provider] - Please follow up with your Primary Care Physician in: 1-2 weeks Please Follow Up With: [facility] When: 7 days Please Follow Up With: Keara Wallis DO When: 1-2 weeks Disposition: [facility] facility Minutes spent on discharge:: 35 Patient Condition:: Stable Medical Necessity - Tobacco Use Smoking Status: Current every day smoker Tobacco Use: Cigarettes, Cigars, Chew Meaningful Use Info Meaningful Use Diagnoses (Choose all that apply): None applicable <Memo David - Last Filed: 08/30/18 14:31> Discharge Date and Diagnosis - Secondary Discharge Diagnosis Chronic Problems (Last Updated 08/23/18 @ 13:49 by Cecilio Jopperi, DO) Stage 4 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 (Chronic) FEV1 30% of predicted Morbid obesity (Chronic) CKD (chronic kidney disease) stage 3, GFR 30-59 ml/min (Chronic) HDL deficiency (Chronic) Asthma (Chronic) Overweight (BMI 25.0-29.9) (Chronic) Tobacco dependence (Chronic) Hyperlipidemia (Chronic) Hypertension (Chronic) Hospital Course and Treatment Consultations 08/23/18 14:55 Consult: Onc/Wound/helicopter utility aircrewman Routine Comment: 08/24/18 17:35 Consult: Onc/Wound/helicopter utility aircrewman Routine Comment: Reason for Consult:: vac change f,m,w Comments:: thanks Summary of Care Provided: This patient was seen in conjunction with Amaury Kevin PA-C . I have independently interviewed and examined the patient and reviewed pertinent historical, laboratory, and other data. Please refer to Amaury Kevin PA-C note for details of this patient's presentation, findings, and recommendations. I have reviewed Amaury Kevin PA-C note and concur with documented findings. In brief, patient is a 62-year-old gentleman with multiple comorbidities including paroxysmal atrial fibrillation on systemic anticoagulation with Xarelto admitted with right lower extremity erythema and swelling. Assessment: 1. Right lower extremity cellulitis on cefazolin 2. Right proximal tibia hematoma;extremity hematoma status post evacuation by Dr. Wallis on08/24/18 3. COPD with acute exacerbation 4. CKD stage IV 5. Essential hypertension 6. Coronary artery disease 7. Paroxysmal atrial fibrillation with intermittent RVR 8. Suspected sleep apnea plan is for outpatient sleep study Hospital course; as elicited above - Physical Exam Vital Signs Temp Pulse Resp BP Pulse Ox 97.6 F L 76 20 H 101/76 92 08/30/18 13:58 08/30/18 13:58 08/30/18 13:58 08/30/18 13:58 08/30/18 13:58 Oxygen Flow Rate (L/min) [ 2 AMBULATION with Oxygen] Oxygen Flow Rate (L/min) 2 Oxygen Delivery Method Room Air Weight: 138.6 kg Body Mass Index (BMI) 25.6 Intake and Output for Last 24 Hours 08/28/18 08/29/18 08/30/18 23:59 23:59 23:59 Intake Total 2170.6 / 2170.6 2255.8 / 2255.8 589.1 / 589.1 Output Total 3555 / 3555 4025 / 4025 1675 / 1675 Balance -1384.4 / -1384.4 -1769.2 / -1769.2 -1085.9 / -1085.9 Microbiology Past 72 Hours 08/24/18 17:08 Gram Stain - Final Biopsy - Other Wound Culture - Final No growth aerobically. Anaerobic Culture - Final No growth in 5 days. 08/24/18 17:08 Gram Stain - Final Biopsy - Leg, Right Wound Culture - Final No growth aerobically. Anaerobic Culture - Final No growth in 5 days. 08/24/18 16:59 Gram Stain - Final Biopsy - Leg, Right Wound Culture - Final No growth aerobically. Anaerobic Culture - Final No growth in 5 days. 08/23/18 12:40 Blood Culture - Final Blood Culture (Wb) - Anticubital Left No growth in 5 days. 08/23/18 12:40 Blood Culture - Final Blood Culture (Wb) - Anticubital Right No growth in 5 days. 08/24/18 16:58 Gram Stain - Final Biopsy - Other Wound Culture - Final No growth aerobically. Anaerobic Culture - Final No growth in 5 days. Laboratory Tests Past 24 Hrs 08/30/18 06:10 Sodium 140 Potassium 3.9 Chloride 100 Carbon Dioxide 32.0 Anion Gap 8 BUN 44 H Creatinine 1.41 H Estim Creat Clear Calc 62.18 Est GFR (MDRD) Af Amer 66 Est GFR (MDRD) Non-Af 54 L BUN/Creatinine Ratio 31.2 H Glucose 99 Calcium 8.7 Code Visit Inpatient E&M: 22418 Disch Hosp
--- OUTSIDE RECORDS SUMMARY | 2018-10-18 21:35 | XMS RPT_ITS ---
:1955 Author Organization OHIP Support Name Relationship Address Phone CHULARASHAWN Unavailable Unavailable + CHULARASHAWN Unavailable Unavailable + CHULARASHAWN Unavailable Unavailable + CHULADAVIDMA Unavailable Unavailable + FAUZIA, RASHAWN Unavailable [address] + [place] [address] UE Unavailable Unavailable Unavailable FAUZIA, RASHAWN Unavailable [address] + [place] [address] UE Unavailable Unavailable Unavailable FAUZIA, RASHAWN Unavailable [address] + [place] [address] UE Unavailable Unavailable Unavailable FAUZIA, RASHAWN Unavailable [address] + [place] [address] UE Unavailable Unavailable Unavailable FAUZIA, RASHAWN Unavailable [address] + [place] [address] UE Unavailable Unavailable Unavailable FAUZIA, RASHAWN Unavailable [address] + [place] [address] UE Unavailable Unavailable Unavailable FAUZIA, RASHAWN Unavailable [address] + [place] [address] UE Unavailable Unavailable Unavailable FAUZIA, RASHAWN Unavailable [address] + [place] [address] UE Unavailable Unavailable Unavailable FAUZIA, RASHAWN Unavailable [address] + [place] [address] UE Unavailable Unavailable Unavailable FAUZIA, RASHAWN Unavailable [address] + [place] [address] UE Unavailable Unavailable Unavailable CHULA, RASHAWN Unavailable Unavailable + CHULA, RASHAWN Unavailable Unavailable + FAUZIA, RASHAWN Unavailable [address] + [place] [address] UE Unavailable Unavailable Unavailable CHULA, RASHAWN Unavailable Unavailable + CHULA, RASHAWN Unavailable Unavailable + CHULA, RASHAWN Unavailable Unavailable + CHULA, RASHAWN Unavailable Unavailable + FAUZIA, RASHAWN Unavailable [address] + [place] [address] UE Unavailable Unavailable Unavailable CHULA, RASHAWN Unavailable Unavailable + CHULA, RASHAWN Unavailable Unavailable + FAUZIA, RASHAWN Unavailable [address] + [place] [address] UE Unavailable Unavailable Unavailable FAUZIA, RASHAWN Unavailable [address] + [place] [address] UE Unavailable Unavailable Unavailable CHULA, RASHAWN Unavailable Unavailable + CHULA, RASHAWN Unavailable Unavailable + FAUZIA, RASHAWN Unavailable [address] + [place] [address] UE Unavailable Unavailable Unavailable FAUZIA, RASHAWN Unavailable [address] + [place] [address] UE Unavailable Unavailable Unavailable FAUZIA, RASHAWN Unavailable [address] + [place] [address] UE Unavailable Unavailable Unavailable FAUZIA, RASHAWN Unavailable [address] + [place] [address] UE Unavailable Unavailable Unavailable FAUZIA, RASHAWN Unavailable [address] + [place] [address] UE Unavailable Unavailable Unavailable FAUZIA, RASHAWN Unavailable [address] + [place] [address] UE Unavailable Unavailable Unavailable FAUZIA, RASHAWN Unavailable [address] + [place] [address] UE Unavailable Unavailable Unavailable FAUZIA, RASHAWN Unavailable [address] + [place] [address] UE Unavailable Unavailable Unavailable FAUZIA, RASHAWN Unavailable [address] + [place] [address] UE Unavailable Unavailable Unavailable FAUZIA, RASHAWN Unavailable [address] + [place] [address] UE Unavailable Unavailable Unavailable FAUZIA, RASHAWN Unavailable [address] + [place] [address] UE Unavailable Unavailable Unavailable FAUZIA, RASHAWN Unavailable [address] + [place] [address] UE Unavailable Unavailable Unavailable FAUZIA, RASHAWN Unavailable [address] + [place] [address] UE Unavailable Unavailable Unavailable FAUZIA, RASHAWN Unavailable [address] + [place] [address] UE Unavailable Unavailable Unavailable CHULA, RASHAWN Unavailable Unavailable + CHULA, RASHAWN Unavailable Unavailable + Care Team Providers Name Role Phone REECELUCITA CARTAGENA CNP Attending Unavailable REECE LUCITA HUYNH Primary Care Unavailable REECE LUCITA HUYNH Primary Care Unavailable DR. JIAN MOYA DO Attending Unavailable EZIO BARRAZA MD Attending Unavailable REECE LUCITA HUYNH Primary Care Unavailable REECE LUCITA HUYNH Attending Unavailable REECE LUCITA HUYNH. Primary Care Unavailable REECE LUCITA HUYNH Attending Unavailable REECE LUCITA HUYNH Primary Care Unavailable GARETT BRODY, KIANNA Tomlin Consulting Unavailable SUPRIYA STONER MD Attending Unavailable REECE LUCITA HUYNH Primary Care Unavailable GÓMEZ CALVIN Attending Unavailable REECE LUCITA HUYNH Primary Care Unavailable NARCISO MCKAY MD Admitting Unavailable NARCISO MCKAY MD Attending Unavailable REECE LUCITA HUYNH Primary Care Unavailable KRISTEN MALAVE, DR. JINNY Ruiz Consulting Unavailable LUCAS NIEVES Attending Unavailable LUCAS NIEVES Referring Unavailable LUCAS NIEVES Referring Unavailable TICO BURNHAM (PT) Attending Unavailable LUCAS NIEVES Referring Unavailable LUCAS NIVEES Referring Unavailable JOSEFA CORBIN (PA) Attending Unavailable JOSEFA CORBIN (PA) Referring Unavailable EZEQUIEL LUCAS A Referring Unavailable JOSEFA CORBIN (PA) Referring Unavailable JOSEFA CORBIN (PA) Referring Unavailable TICO BURNHAM (PT) Attending Unavailable EZEQUIEL, LUCAS A Referring Unavailable TICO BURNHAM (PT) Attending Unavailable EZEQUIEL, LUCAS A Referring Unavailable EZEQUIEL, LUCAS A Attending Unavailable EZEQUIEL, LUCAS A Referring Unavailable EZEQUIEL, LUCAS A Attending Unavailable EZEQUIEL, LUCAS A Referring Unavailable Vianca Hutchins.O. Attending Unavailable REECE, LUCITA Referring Unavailable Vianca Hutchins.O. Attending Unavailable REECE, LUCITA Primary Care Unavailable Maurisio Lee, Vianca.O. Referring Unavailable Vianca Hutchins.O. Attending Unavailable Maurisio Lee D.O. Referring Unavailable Vianca Hutchins.O. Attending Unavailable Vianca Hutchins.O. Referring Unavailable REECE, LUCITA Primary Care Unavailable Pramod Lee Consulting Unavailable Vandana Castillo Attending Unavailable REECE, LUCITA Referring Unavailable Vandana Castillo Attending Unavailable REECE, LUCITA Primary Care Unavailable Maurisio Lee D.O. Attending Unavailable Vianca Hutchins.O. Referring Unavailable REECE, LUCITA Primary Care Unavailable Tereletsky, Esau Admitting Unavailable Vitaliy, Silvestre Consulting Unavailable Jian Moya Attending Unavailable Tereletsky, Esau Admitting Unavailable Tereletsky, Esau Attending Unavailable REECE, LUCITA Primary Care Unavailable Tereletsky, Esau Consulting Unavailable Tereletsky, Esau Admitting Unavailable Tereletsky, Esau Attending Unavailable REECE, LUCITA Primary Care Unavailable Tereletsky, Esau Consulting Unavailable Tereletsky, Esau Admitting Unavailable Vitaliy, Silvestre Attending Unavailable REECE, LUCITA Primary Care Unavailable Vitaliy, Silvestre Consulting Unavailable Tereletsky, Esau Consulting Unavailable Tereletsky, Esau Admitting Unavailable Tereletsky, Esau Attending Unavailable REECE, LUCITA Primary Care Unavailable Vitaliy, Silvestre Consulting Unavailable Tereletsky, Esau Consulting Unavailable Tereletsky, Esau Admitting Unavailable Jian Moya Attending Unavailable REECE, LUCITA Primary Care Unavailable Vitaliy, Silvestre Consulting Unavailable Jian Moya Consulting Unavailable Joseeletsiram, Esau Admitting Unavailable Jian Moya Attending Unavailable REECE, LUCITA Primary Care Unavailable Vitaliy, Silvestre Consulting Unavailable Macario Moyaic Consulting Unavailable Vandana Castillo Attending Unavailable Vandana Castillo Referring Unavailable Lucita Newell HOSPICE MUSIC THERAPIST-C Primary Care Unavailable Crispin Butcher Attending Unavailable Vandana Castillo Referring Unavailable Vandana Castillo Attending Unavailable LUCITA NEWELL Referring Unavailable Maurisio Lee D.O. Attending Unavailable LUCITA NEWELL Referring Unavailable [facility] Primary Care Unavailable Jopperi, Jian Admitting Unavailable Chicorelli, Keara Consulting Unavailable Memo David Attending Unavailable Jopperi, Jian Admitting Unavailable Jopperi, Jian Attending Unavailable [facility] Primary Care Unavailable Jopperi, Jian Consulting Unavailable Jopperi, Jian Admitting Unavailable Paintsil, Hiawatha Attending Unavailable [facility] Primary Care Unavailable Chicorelli, Keara Consulting Unavailable Paintsil, Hiawatha Consulting Unavailable Jopperi, Jian Admitting Unavailable Paintsil, Hiawatha Attending Unavailable [facility] Primary Care Unavailable Chicorelli, Keara Consulting Unavailable Paintsil, Hiawatha Consulting Unavailable Jopperi, Jian Admitting Unavailable Viral Contreras Attending Unavailable [facility] Primary Care Unavailable Chicorelli, Keara Consulting Unavailable Paintsil, Hiawatha Consulting Unavailable Jopperi, Jian Admitting Unavailable Paintsil, Hiawatha Attending Unavailable [facility] Care Unavailable Chicorelli, Keara Consulting Unavailable Paintsil, Hiawatha Consulting Unavailable Jopperi, Jian Admitting Unavailable Paintsil, Hiawatha Attending Unavailable [facility] Care Unavailable Chicorelli, Keara Consulting Unavailable Paintsil, Hiawatha Consulting Unavailable Jopperi, Jian Admitting Unavailable [facility] Primary Care Unavailable Chicorelli, Keara Consulting Unavailable Memo David Attending Unavailable Memo David Consulting Unavailable Jopperi, Jian Admitting Unavailable [facility] Primary Care Unavailable Bimal, Keara Consulting Unavailable Memo David Attending Unavailable Memo David Consulting Unavailable Jopperi, Jian Admitting Unavailable [facility] Primary Care Unavailable Chicorelli, Keara Consulting Unavailable Memo David Attending Unavailable Memo David Consulting Unavailable PROBLEMS PROBLEMS DATE TYPE CONDITION / CODE ATTENDING STATUS SOURCE 09/06/2018 Unknown L03.115 - Cellulitis Memo David Active [place] of right lower limb Community / L03.115(ICD-10) Hospital Repository 08/08/2018 Active Other injury of NA Active [place] unspecified body Clinic Main region, initial [place] encounter / Repository T14.8XXA(ICD-10) 08/08/2018 Active Other specified soft NA Active [place] tissue disorders / Clinic Main M79.89(ICD-10) [place] Repository 08/08/2018 Active Unspecified fall, NA Active [place] initial encounter / Clinic Main W19.XXXA(ICD-10) [place] Repository 08/08/2018 Active Pain in right knee / NA Active [place] M25.561(ICD-10) Clinic Main [place] Repository 07/25/2018 Active Other symptoms and NA Active [place] signs involving the Clinic Main musculoskeletal [place] system / Repository R29.898(ICD-10) 07/25/2018 Active Radiculopathy, site NA Active [place] unspecified / Clinic Main M54.10(ICD-10) [place] Repository 07/25/2018 Active Other disturbances NA Active [place] of skin sensation / Clinic Main R20.8(ICD-10) [place] Repository 07/25/2018 Active Pain in unspecified NA Active [place] joint / Clinic Main M25.50(ICD-10) [place] Repository 07/25/2018 Active Lumbago with NA Active [place] sciatica, left side Clinic Main / M54.42(ICD-10) [place] Repository 06/28/2018 Unknown Z23 - Encounter for Maurisio Alex, Active [place] immunization / 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 Repository 03/24/2018 Unknown J44.9 - Chronic Castillo, Active [place] obstructive [facility] pulmonary disease, Hospital unspecified / Repository J44.9(ICD-10) 03/24/2018 Unknown F17.200 - Nicotine Castillo, Active [place] dependence, [facility] unspecified, Hospital uncomplicated / Repository F17.200(ICD-10) 03/24/2018 Unknown J45.41 - Moderate Castillo, Active [place] persistent asthma [facility] with (acute) Hospital exacerbation / Repository J45.41(ICD-10) 02/22/2018 Admitting Heart failure, MADI BRODY, Active [facility] Diagnosis unspecified / [facility] I50.9(ICD-10) Repository 02/22/2018 Admitting Atherosclerotic MADI BRODY, [facility]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 JIAN Delgado / N17.9(ICD-10) Repository 10/06/2017 Admitting Hyperlipidemia, REECE LOTTERIES AGENT, [facility] Diagnosis unspecified / LUCITA [place] Danny E78.5(ICD-10) Repository 10/06/2017 Admitting Essential (primary) REECE LOTTERIES AGENT, [facility] Diagnosis hypertension / LUCITA DKvng Danny I10(ICD-10) Repository PROCEDURES PROCEDURES No Procedure Records FoundRESULTS RESULTS BG Collected: 09/06/2018 Status: F Source: [facility] 9:48 AM [facility] REPOSITORY TYPE CODE TESTS RESULT OUT OF REFERENCE UNITS RANGE LAB PH(LOINC) 7.380-7.460 Low pH 7.175 LAB PCO2(LOINC 32.0-46.0 mmHg ) pCO2 High 49.4 LAB PO2(LOINC) 74.0-108.0 mmHg pO2 79.3 LAB HCO3(LOINC 21.0-29.0 mmol/L ) Low HCO3 17.8 LAB TCO2(LOINC 22.0-30.0 mmol/L ) Low CO2 Totl 19.3 LAB BE(LOINC) mmol/L Base Excess -10.8 LAB O2SAT(LOIN 92.0-96.0 % C) O2 Sat 95.1 LAB BPRES(LOIN mmHg C) Barometric 733 Pressure Performed By: #### BG #### [address] [address] LAC Collected: 09/06/2018 Status: F Source: [facility] 8:57 AM [facility] REPOSITORY TYPE CODE TESTS RESULT OUT OF REFERENCE UNITS RANGE LAB LAC(LOINC) 0.2-2.0 mmol/L High Lactic Acid 8.8 Lvl Performed By: #### LAC #### [address] [address] HFP Collected: 09/06/2018 Status: F Source: [facility] 8:57 AM [facility] REPOSITORY Order Comment: Please add to morning labs TYPE CODE TESTS RESULT OUT OF REFERENCE UNITS RANGE LAB PROT(LOINC) 6.0-8.5 G/dL Total Protein 6.1 LAB ALB(LOINC) 3.2-4.8 G/dL Low Albumin Level 2.4 LAB GLB(LOINC) 1.5-3.8 G/dL Globulin 3.7 LAB AG(LOINC) 0.9-1.6 ratio Low A/G Ratio 0.6 LAB BILT(LOINC) 0.2-1.2 mg/dL High Bili Total 1.9 LAB BILAD(LOINC 0.0-0.4 mg/dL ) High Bili Direct 1.4 LAB BILI(LOINC) 0.1-10.0 mg/dL Bili Indirect 0.5 LAB AP(LOINC) 38-126 U/L Low Alk Phos 36 LAB AST(LOINC) 8-34 U/L High AST/SGOT 101 LAB ALT(LOINC) 12-55 U/L ALT/SGPT 24 Performed By: #### HFP #### [place] [address] LAC Collected: 09/06/2018 Status: F Source: [facility] 5:17 AM [facility] REPOSITORY TYPE CODE TESTS RESULT OUT OF REFERENCE UNITS RANGE LAB LAC(LOINC) 0.2-2.0 mmol/L High Lactic Acid 7.5 Lvl Performed By: #### LAC #### [place] [address] TROPI Collected: 09/06/2018 Status: F Source: [facility] 5:17 AM [facility] REPOSITORY TYPE CODE TESTS RESULT OUT OF REFERENCE UNITS RANGE LAB TROPI(LOINC 0.000-0.040 ng/mL ) High Troponin I 1.540 Result Comment: Troponin I reference ranges (06/03/14): 0.00-0.040 ng/mL Negative and non-diagnostic. >0.040 ng/mL Consistent with cardiac damage, increased clinical risk and possibility of myocardial infarction. Serial measurements, a rise & fall in test results, clinical history, appropriate symptoms and/or ECG changes may help assess possibility of [place]. *Other non-acute coronary syndrome conditions such as CHF, myocarditis, pulmonary emboli, sepsis and cardiac surgery could result in myocardial damage and increased troponin levels. Performed By: #### TROPI #### [address] [address] .GFR Collected: 09/06/2018 Status: F Source: [facility] 5:17 AM [facility] REPOSITORY TYPE CODE TESTS RESULT OUT OF REFERENCE UNITS RANGE LAB GFRAA(LOINC ml/min/1.73 ) sqm GFR 21 [place] Result Comment: GFR Population mean for , Non- Americans Ages 20-29 = 116 mL/min/1.73 sq.m. Ages 30-39 = 107 mL/min/1.73 sq.m. Ages 40-49 = 99 mL/min/1.73 sq.m. Ages 50-59 = 93 mL/min/1.73 sq.m. Ages 60-69 = 85 mL/min/1.73 sq.m. Ages 70+ = 75 mL/min/1.73 sq.m. Chronic Kidney Disease: Less than 60 mL/min/1.73 square meters End Stage Renal Disease: Less than 15 mL/min/1.73 square meters LAB GFRNO(LOINC) ml/min/1.73sqm GFR Non- 18 Result Comment: GFR Population mean for , Non- Americans Ages 20-29 = 116 mL/min/1.73 sq.m. Ages 30-39 = 107 mL/min/1.73 sq.m. Ages 40-49 = 99 mL/min/1.73 sq.m. Ages 50-59 = 93 mL/min/1.73 sq.m. Ages 60-69 = 85 mL/min/1.73 sq.m. Ages 70+ = 75 mL/min/1.73 sq.m. Chronic Kidney Disease: Less than 60 mL/min/1.73 square meters End Stage Renal Disease: Less than 15 mL/min/1.73 square meters Performed By: #### GFR, BMP, CBC, MG, PHOS, DIFF, MORPH #### [address] [address] BMP Collected: 09/06/2018 Status: F Source: [facility] 5:17 AM [facility] REPOSITORY TYPE CODE TESTS RESULT OUT OF RANGE REFERENCE UNITS LAB GLU(LOINC) 82-115 mg/dL High Glucose Level 143 LAB NA(LOINC) 136-145 mEq/L Sodium Level 138 LAB K(LOINC) 3.5-5.0 mEq/L Potassium Abnormal Level 6.8 Alert LAB CL(LOINC) 98-110 mEq/L Chloride 101 LAB CO2(LOINC) 22-32 mEq/L CO2 23 LAB EBAL(LOINC 4.0-15.0 mEq/L ) Electrolyte Balance 14.0 LAB BUN(LOINC) 8.0-22.0 mg/dL High BUN 52.0 LAB CRE(LOINC) 0.60-1.40 mg/dL High Creatinine Lvl (s) 3.56 LAB BC(LOINC) 10.0-22.0 ratio BUN/Creatinine 14.6 Ratio LAB CA(LOINC) 8.4-10.1 mg/dL Low Calcium Lvl 7.1 Performed By: #### GFR, BMP, CBC, MG, PHOS, DIFF, MORPH #### [address] [address] CBC Collected: 09/06/2018 Status: F Source: [facility] 5:17 AM [facility] TYPE CODE TESTS RESULT OUT OF REFERENCE UNITS RANGE LAB WBC(LOINC) 4.50-10.80 10 3/mcL High WBC 28.60 LAB RBCCT(LOINC 4.50-6.00 10 6/mcL ) RBC 5.01 LAB HGB(LOINC) 13.0-17.5 G/dL Hgb 15.7 LAB HCT(LOINC) 40.0-52.0 % Hct 50.3 LAB MCV(LOINC) 81.0-100.0 fL High MCV 100.6 LAB MCH(LOINC) 27.0-33.0 pg MCH 31.4 LAB MCHC(LOINC) 32.0-36.0 G/dL Low MCHC 31.2 LAB RDW(LOINC) 11.5-15.5 % High RDW 16.5 LAB PLT(LOINC) 150-450 10 3/mcL Platelet 175 LAB MPV(LOINC) 6.4-10.5 fL MPV 9.7 Performed By: #### GFR, BMP, CBC, MG, PHOS, DIFF, MORPH #### [address] [address] MG Collected: 09/06/2018 Status: F Source: [facility] 5:17 AM [facility] REPOSITORY TYPE CODE TESTS RESULT OUT OF REFERENCE UNITS RANGE LAB MG(LOINC) 1.6-2.4 mg/dL Magnesium Lvl 1.8 Performed By: #### GFR, BMP, CBC, MG, PHOS, DIFF, MORPH #### [place] [address] PHOS Collected: 09/06/2018 Status: F Source: [facility] 5:17 AM [facility] REPOSITORY TYPE CODE TESTS RESULT OUT OF REFERENCE UNITS RANGE LAB PHOS(LOINC 2.5-4.5 mg/dL ) High Phosphorus 5.8 Performed By: #### GFR, BMP, CBC, MG, PHOS, DIFF, MORPH #### [place] [address] .MANUAL DIFF Collected: 09/06/2018 Status: F Source: [facility] 5:17 AM [facility] REPOSITORY TYPE CODE TESTS RESULT OUT OF REFERENCE UNITS RANGE LAB LIMIT(LOIN C) Cells Counted 100 LAB NEUM(LOINC 50.0-75.0 % ) Neutrophil %, High Manual 76.0 LAB LYMM(LOINC 20.0-40.0 % ) Lymphocyte %, Low Manual 9.0 LAB MONM(LOINC 2.0-13.0 % ) Monocyte %, Manual 3.0 LAB EOM(LOINC) 0.0-6.0 % Eosinophil %, Manual 0.0 LAB BASM(LOINC 0.0-2.5 % ) Basophil %, Manual 0.0 LAB BAND(LOINC 0.0-5.0 % ) Bands High 9.0 LAB META(LOINC % ) Metamyelocyte 1.0 LAB MYEL(LOINC % ) Myelocyte 2.0 LAB NRBC(LOINC /100 WBC ) Nucleated RBC 1.0 LAB ANEUM(LOIN 2.25-8.10 10 3/mcL C) Neutrophil, Abs High Manual 24.31 LAB ABLYMM(CHATA 0.90-4.32 10 3/mcL NC) Lymphocyte, Abs Manual 2.57 LAB AMONM(LOIN 0.09-1.40 10 3/mcL C) Monocyte, Abs Manual 0.86 LAB AEOSM(LOIN 0.00-0.65 10 3/mcL C) Eosinophil, Abs Manual 0.00 LAB ABASM(LOIN 0.00-0.27 10 3/mcL C) Basophil, Abs Manual 0.00 Performed By: #### GFR, BMP, CBC, MG, PHOS, DIFF, MORPH #### [place] [address] .MORPH Collected: 09/06/2018 Status: F [facility]: [facility] 5:17 AM [facility] REPOSITORY TYPE CODE TESTS RESULT OUT OF REFERENCE UNITS RANGE LAB PLTE(LOINC ) Platelet Estimate Normal LAB ANIS(LOINC ) Anisocytosis Slight LAB POIK(LOINC ) Poik Slight LAB MACYT(LOIN C) Macrocytosis Slight Performed By: #### GFR, BMP, CBC, MG, PHOS, DIFF, MORPH #### [place] [address] BG Collected: 09/06/2018 Status: F [facility] TYPE CODE TESTS RESULT OUT OF REFERENCE UNITS RANGE LAB PH(LOINC) 7.380-7.460 Low pH 7.186 LAB PCO2(LOINC 32.0-46.0 mmHg ) pCO2 High 60.7 LAB PO2(LOINC) 74.0-108.0 mmHg Low pO2 57.3 LAB HCO3(LOINC 21.0-29.0 mmol/L ) HCO3 22.5 LAB TCO2(LOINC 22.0-30.0 mmol/L ) CO2 Totl 24.3 LAB BE(LOINC) mmol/L Base Excess -7.0 LAB O2SAT(LOIN 92.0-96.0 % C) Low O2 Sat 91.5 LAB BPRES(LOIN mmHg C) Barometric 736 Pressure Performed By: #### BG #### [place] [address] XR CHEST 1 VIEW Observed: 09/06/2018 Status: F Source: [facility] 5:01 AM [facility] REPOSITORY ORIGINAL XR CHEST 1 VIEW CLINICAL STATEMENT: pneumonia. COMPARISON: 09/05/2018 FINDINGS: Heart and mediastinal contours are unchanged. Vascular congestion noted. RIGHT internal jugular catheter and endotracheal tube are similar to the prior exam. The enteric tube is not well seen distally b ut likely courses into the abdomen. Sternotomy wires appear intact. The exam is rotated. There does appear to be volume loss in the RIGHT lung with consolidation of the central and lower RIGHT lung. Patchy consolidation seen in the LEFT lung base. No obvious pneumothora x seen. There are extensive extrinsic artifacts. Bony details not optimal. Fusion plate noted in the lower cervical spine. IMPRESSION: Persistent consolidation and volume loss in the RIGHT lung. A component of lobar collapse is not excluded. Patchy airspace disease in the LEFT lung base. Vascular congestion Interpreted By: Ezio Russo MD Preliminary Report By: Ezio Russo MD Electronically Signed By: Ezio Russo MD Dictated Date: 09/06/2018 7:28:39 AM Prelim Date: 09/06/2018 7:28:39 AM Sign Date: 09/06/2018 7:31:19 AM XR ABDOMEN AP Observed: 09/06/2018 Status: F Source: [facility] 12:11 AM [facility] REPOSITORY ORIGINAL XR ABDOMEN AP CLINICAL STATEMENT: OG placement. COMPARISON: None FINDINGS: The enteric tube terminates near the level of the distal gastric body/antrum. Air distended loops of small bowel seen in the RIGHT lower abdomen. Warming blanket artifact seen. Lower chest is not well evaluated. IMPRESSION: Enteric tube terminates at the level of the distal gastric body/antrum Interpreted By: Ezio Russo MD Preliminary Report By: Ezio Russo MD Electronically Signed By: Ezio Russo MD Dictated Date: 09/06/2018 12:45:23 AM Prelim Date: 09/06/2018 12:45:23 AM Sign Date: 09/06/2018 12:46:06 AM XR ABDOMEN AP Observed: 09/05/2018 Status: F Source: [facility] 11:15 PM [facility] REPOS[facility]AL Portable supine abdomen 09/05/2018 2326 CLINICAL STATEMENT: Tube placement Enteric tube courses through the esophagus and stomach with tip in the duodenum. Dilated gas-filled small bowel loops in the RIGHT abdomen are compatible with ileus/obstruction. Interpreted By: Anibal Mcdonald MD Preliminary Report By: Anibal Mcdonald MD Electronically Signed By: Anibal Mcdonald MD Dictated Date: 09/05/2018 11:40:30 PM Prelim Date: 09/05/2018 11:40:30 PM Sign Date: 09/05/2018 11:41:41 PM LAC Collected: 09/05/2018 Status: F Source: [facility] 11:08 [facility] REPOSITORY TYPE CODE TESTS RESULT OUT OF REFERENCE UNITS RANGE LAB LAC(LOINC) 0.2-2.0 mmol/L High Lactic Acid 6.5 Lvl Performed By: #### LAC, TROPI #### [facility] [address] [place] [id number] TROPI Collected: 09/05/2018 Status: F Source: [facility] 11:08 PM [facility] REPOSITORY TYPE CODE TESTS RESULT OUT OF REFERENCE UNITS RANGE LAB TROPI(LOINC 0.000-0.040 ng/mL ) High Troponin I 1.070 Result Comment: Troponin I reference ranges (06/03/14): 0.00-0.040 ng/mL Negative and non-diagnostic. >0.040 ng/mL Consistent with cardiac damage, increased clinical risk and possibility of myocardial infarction. Serial measurements, a rise & fall in test results, clinical history, appropriate symptoms and/or ECG changes may help assess possibility of [place]. *Other non-acute coronary syndrome conditions such as CHF, myocarditis, pulmonary emboli, sepsis and cardiac surgery could result in myocardial damage and increased troponin levels. Performed By: #### LAC, TROPI #### [place] [id number] [place] [id number] Observed: 09/05/2018 Status: F Source: [facility] 11:08 PM [facility] REPOSITORY . MICRO - Microbiology PROCEDURE: Streptococcus Pneumoniae Urine Antig [^1 *1] SOURCE: Urine, Clean Catch BODY SITE: COLLECTED DATE/TIME: 09/05/2018 23:08 EST RECEIVED DATE/TIME: 09/05/2018 23:46 EST START DATE/TIME: 09/05/2018 23:47 EST FREE TEXT SOURCE: FINAL REPORTS Final Report [] Verified Date/Time/Personnel: 09/06/2018 00:05 EST Presumptive negative for pneumococcal pneumonia, suggesting no current or recent pneumococcal infection. Infection due to Strep pneumoniae cannot be ruled out since the antigen present in the sample may be below the detection limit of the test. Interpretive Data ^1: Streptococcus Pneumoniae Urine Antig This test has not been evaluated on patients taking antibiotics for greater than 24 hours or on patients who have recently completed an antibiotic regimen. The accuracy of this test has not been proven in young children. Performing Locations *1: This test was performed at: [facility], [address] [place] [address], [id number] , [facility] Performed By: #### SPAG #### [address] [address] NAUR Collected: 09/05/2018 Status: F Source: [facility] 11:08 PM [facility] REPOSITORY TYPE CODE TESTS RESULT OUT OF REFERENCE UNITS RANGE LAB DEIDRE(LOINC) mEq/L U Sodium 43.0 Performed By: #### ANDRÉS CONTRERAS #### [address] [address] CRUR Collected: 09/05/2018 Status: F Source: [facility] 11:08 PM [facility] REPOSITORY TYPE CODE TESTS RESULT OUT OF REFERENCE UNITS RANGE LAB CRU(LOINC) mg/dL U Creatinine 124.0 Performed By: #### ANDRÉS CONTRERAS #### [address] [address] RESPID Collected: 09/05/2018 Status: F Source: [facility] 11:08 PM [facility] REPOSITORY TYPE CODE TESTS RESULT OUT OF REFERENCE UNITS RANGE LAB RESADENO( Not Detected LOINC) Adenovirus Not Detected LAB COVHKU1(L Not Detected OINC) Coronavirus HKU1 Not Detected LAB COVNL63(L Not Detected OINC) Coronavirus NL63 Not Detected LAB [id number](L Not Detected OINC) Coronavirus 229E Not Detected LAB COVOC43(L Not Detected OINC) Coronavirus OC43 Not Detected LAB HMV(LOINC Not Detected ) Human Metapneumovirus Not Detected LAB INFA(LOIN Not Detected C) Influenza A Not Detected LAB INFAB(CHATA Not Detected NC) Influenza B Not Detected LAB PARAFLU1( Not Detected LOINC) Parainfluenza 1 Not Detected LAB PARAFLU2( Not Detected LOINC) Parainfluenza 2 Not Detected LAB PARAFLU3( Not Detected LOINC) Parainfluenza 3 Not Detected LAB PARAFLU4( Not Detected LOINC) Parainfluenza 4 Not Detected LAB RHINO(CHATA Not Detected NC) Rhinovirus/Enterovir us Not Detected LAB RESRSV(LO Not Detected INC) Respiratory Syncytial Virus Not Detected LAB RESMYCO(L Not Detected OINC) Mycoplasma pneumoniae Not Detected LAB RESCHLAM( Not Detected LOINC) Chlamydophila pneumoniae Not Detected LAB RESBORD(L Not Detected OINC) Bordetella Pertussis Not Detected LAB RESBPAR(L Not Detected OINC) Bordetella Parapertussis Not Detected Performed By: #### RESPID #### [address] [address] UA Collected: 09/05/2018 Status: C Source: [facility] 11:08 [facility] REPOSITORY TYPE CODE TESTS RESULT OUT OF RANGE REFERENCE UNITS LAB SPCUA(CHATA NC) UA Specimen Type Catheter LAB CLRUA(CHAAT NC) UA Color Dark Yellow LAB APPUA(CHATA Clear NC) UA Appear Unknown Turbid LAB SGUA(LOIN 1.006-1.029 C) UA Spec Grav 1.025 LAB GLUA(LOIN Negative mg/dL C) UA Glucose Negative LAB BILUA(CHATA Neg-Trace NC) UA Bili Negative LAB KETUA(CHATA Neg-Trace mg/dL NC) UA Ketones Trace LAB BLDUA(CHATA Neg-Trace NC) UA Blood Unknown Large LAB PHUA(LOIN 5.0 - 8.0 C) UA pH 5.0 LAB PROUA(CHATA Negative mg/dL NC) UA Protein Unknown 300 LAB UROUA(CHATA 0.2-1.0 E.U./dL NC) UA Urobilinogen 1.0 LAB NITUA(CHATA Negative NC) UA Nitrite Negative LAB LEUUA(CHATA Negative NC) UA Leuk Est Unknown Small Performed By: #### UA, UAMIC #### [place] [address] UAMIC Collected: 09/05/2018 Status: F Source: [facility] 11:08 [facility] REPOSITORY TYPE CODE TESTS RESULT OUT OF RANGE REFERENCE UNITS LAB RBCUA(LOIN 0-2 /hpf C) Unknown UA RBC 5-10 LAB WBCUA(LOIN 0-5 /hpf C) UA WBC 0-2 LAB EPIUA(LOIN 0-20 /hpf C) UA Squam Epithelial 0-2 LAB AMOUA(LOIN /hpf C) UA Amorphus 1+ LAB BACUA(LOIN Negative /hpf C) Unknown UA Bacteria 1+ Performed By: #### UA, UAMIC #### [place] [address] Observed: 09/05/2018 Status: F Source: [facility] 11:08 PM [facility] REPOSITORY . MICRO - Microbiology PROCEDURE: Urine Culture [*1] SOURCE: Urine, Clean Catch BODY SITE: COLLECTED DATE/TIME: 09/05/2018 23:08 EST RECEIVED DATE/TIME: 09/05/2018 23:46 EST START DATE/TIME: 09/05/2018 23:47 EST FREE TEXT SOURCE: FINAL REPORTS Final Report [] Verified Date/Time/Personnel: 09/07/2018 07:40 EST No growth at 48 hours. Sensitivity testing not indicated. PRELIMINARY REPORTS Preliminary Report [] Verified Date/Time/Personnel: 09/06/2018 08:45 EST No growth to date Performing Locations *1: This test was performed at: [address] Performed By: #### CUR #### [place] [address] Observed: 09/05/2018 Status: F Source: [place] [facility] 11:08 PM [facility] REPOSITORY . MICRO - Microbiology PROCEDURE: MRSA PCR [*1] SOURCE: Nares BODY SITE: COLLECTED DATE/TIME: 09/05/2018 23:08 EST RECEIVED DATE/TIME: 09/06/2018 01:16 EST START DATE/TIME: 09/06/2018 01:16 EST FREE TEXT SOURCE: FINAL REPORTS Final Report [] Verified Date/Time/Personnel: 09/06/2018 12:25 EST MRSA NEGATIVE. MRSA DNA not detected by Real-Time Polymerase Chain Reaction (PCR). A negative result may be due to intermittent colonization. Colonization may vary depending on patient treatment, patient status or exposure to high risk environments. As with all PCR based in vitro tests, extremely low levels of target below the limit of detection of the assay may be detected, but results may not be reproducible. Performing Locations *1: This test was performed at: [address] Performed By: #### MRPCR #### [place] [address] Observed: 09/05/2018 Status: F Source: [facility] 11:08 PM [facility] REPOSITORY . MICRO - Microbiology PROCEDURE: Culture Respiratory with Gram Stain [^1 *1] SOURCE: Tracheal Aspirate BODY SITE: COLLECTED DATE/TIME: 09/05/2018 23:08 EST RECEIVED DATE/TIME: 09/06/2018 09:03 EST START DATE/TIME: 09/06/2018 09:03 EST FREE TEXT SOURCE: FINAL REPORTS Final Report [] Verified Date/Time/Personnel: 09/08/2018 08:18 EST Normal respiratory raman present. Sensitivity testing not indicated. PRELIMINARY REPORTS Preliminary Report [] Verified Date/Time/Personnel: 09/07/2018 11:48 EST Negative for respiratory pathogens at 24 hours. STAINS GS [] Verified Date/Time/Personnel: 09/06/2018 14:22 EST 3+ per high power field Polymorphonuclear cells No organisms seen. Interpretive Data ^1: Culture Respiratory with Gram Stain Requests for Mycoplasma, Legionella, Fungi, Mycobacteria, Chlamydia, and Viruses require ordering of those individual tests. Performing Locations *1: This test was performed at: [address], [address] [place] [address] Performed By: #### CRES #### [address] [address] Observed: 09/05/2018 Status: F Source: [facility] 11:08 PM [facility] REPOSITORY . MICRO - Microbiology PROCEDURE: Legionella Urine Ag [*1] SOURCE: Urine BODY SITE: COLLECTED DATE/TIME: 09/05/2018 23:08 EST RECEIVED DATE/TIME: 09/05/2018 23:46 EST START DATE/TIME: 09/05/2018 23:46 EST FREE TEXT SOURCE: FINAL REPORTS Final Report [] Verified Date/Time/Personnel: 09/07/2018 17:10 EST Presumptive negative for L. pneumophila serogroup 1 antigen in urine, suggesting no recent or current infection. Legionnaire's disease cannot be ruled out since other serogroups and species may also cause disease. Performing Locations *1: This test was performed at: [address] [place], [address] , [facility] Performed By: #### SHANNON #### [place] [id number] BG Collected: 09/05/2018 Status: F Source: [facility] 7:40 PM [facility] REPOSITORY TYPE CODE TESTS RESULT OUT OF REFERENCE UNITS RANGE LAB PH(LOINC) 7.380-7.460 Low pH 7.202 LAB PCO2(LOINC 32.0-46.0 mmHg ) pCO2 High 72.8 LAB PO2(LOINC) 74.0-108.0 mmHg pO2 76.3 LAB HCO3(LOINC 21.0-29.0 mmol/L ) HCO3 27.9 LAB TCO2(LOINC 22.0-30.0 mmol/L ) CO2 Totl High 30.2 LAB BE(LOINC) mmol/L Base Excess -2.2 LAB O2SAT(LOIN 92.0-96.0 % C) O2 Sat 94.7 LAB BPRES(LOIN mmHg C) Barometric 732 Pressure Performed By: #### BG #### [place] [address] LAC Collected: 09/05/2018 Status: F Source: [facility] 7:40 PM [facility] REPOSITORY TYPE CODE TESTS RESULT OUT OF REFERENCE UNITS RANGE LAB LAC(LOINC) 0.2-2.0 mmol/L High Lactic Acid 6.4 Lvl Performed By: #### LAC, TROPI #### [place] [address] TROPI Collected: 09/05/2018 Status: F Source: [facility] 7:40 PM [facility] REPOSITORY TYPE CODE TESTS RESULT OUT OF REFERENCE UNITS RANGE LAB TROPI(LOINC 0.000-0.040 ng/mL ) High Troponin I 0.363 Result Comment: Troponin I reference ranges (06/03/14): 0.00-0.040 ng/mL Negative and non-diagnostic. >0.040 ng/mL Consistent with cardiac damage, increased clinical risk and possibility of myocardial infarction. Serial measurements, a rise & fall in test results, clinical history, appropriate symptoms and/or ECG changes may help assess possibility of [place]. *Other non-acute coronary syndrome conditions such as CHF, myocarditis, pulmonary emboli, sepsis and cardiac surgery could result in myocardial damage and increased troponin levels. Performed By: #### LAC, TROPI #### [address] [address] .GFR Collected: 09/05/2018 Status: F Source: [facility] 7:40 PM [facility] REPOSITORY TYPE CODE TESTS RESULT OUT OF REFERENCE UNITS RANGE LAB GFRAA(LOINC ml/min/1.73 ) sqm GFR 34 [place] Result Comment: GFR Population mean for , Non- Americans Ages 20-29 = 116 mL/min/1.73 sq.m. Ages 30-39 = 107 mL/min/1.73 sq.m. Ages 40-49 = 99 mL/min/1.73 sq.m. Ages 50-59 = 93 mL/min/1.73 sq.m. Ages 60-69 = 85 mL/min/1.73 sq.m. Ages 70+ = 75 mL/min/1.73 sq.m. Chronic Kidney Disease: Less than 60 mL/min/1.73 square meters End Stage Renal Disease: Less than 15 mL/min/1.73 square meters LAB GFRNO(LOINC) ml/min/1.73sqm GFR Non- 28 Result Comment: GFR Population mean for , Non- Americans Ages 20-29 = 116 mL/min/1.73 sq.m. Ages 30-39 = 107 mL/min/1.73 sq.m. Ages 40-49 = 99 mL/min/1.73 sq.m. Ages 50-59 = 93 mL/min/1.73 sq.m. Ages 60-69 = 85 mL/min/1.73 sq.m. Ages 70+ = 75 mL/min/1.73 sq.m. Chronic Kidney Disease: Less than 60 mL/min/1.73 square meters End Stage Renal Disease: Less than 15 mL/min/1.73 square meters Performed By: #### GFR, CMP #### [address] [address] CMP Collected: 09/05/2018 Status: F Source: [facility] 7:40 PM [facility] REPOSITORY TYPE CODE TESTS RESULT OUT OF RANGE REFERENCE UNITS LAB GLU(LOINC) 82-115 mg/dL Low Glucose Level 79 LAB NA(LOINC) 136-145 mEq/L High Sodium Level 158 LAB K(LOINC) 3.5-5.0 mEq/L High Potassium Level 5.4 LAB CL(LOINC) 98-110 mEq/L Chloride 105 LAB CO2(LOINC) 22-32 mEq/L CO2 Abnormal >45 Alert LAB EBAL(LOINC 4.0-15.0 mEq/L ) Electrolyte Balance <8.0 LAB BUN(LOINC) 8.0-22.0 mg/dL High BUN 39.0 LAB CRE(LOINC) 0.60-1.40 mg/dL High Creatinine Lvl (s) 2.38 LAB BC(LOINC) 10.0-22.0 ratio BUN/Creatinine 16.4 Ratio LAB CA(LOINC) 8.4-10.1 mg/dL Low Calcium Lvl 7.5 LAB PROT(LOINC 6.0-8.5 G/dL ) Low Total Protein 4.8 LAB ALB(LOINC) 3.2-4.8 G/dL Low Albumin Level 1.9 LAB GLB(LOINC) 1.5-3.8 G/dL Globulin 2.9 LAB AG(LOINC) 0.9-1.6 ratio Low A/G Ratio 0.7 LAB BILT(LOINC 0.2-1.2 mg/dL ) Bili Total 0.8 LAB AP(LOINC) 38-126 U/L Low Alk Phos 24 LAB AST(LOINC) 8-34 U/L AST/SGOT 23 LAB ALT(LOINC) 12-55 U/L ALT/SGPT 13 Performed By: #### GFR, CMP #### [place] [address] XR ABDOMEN AP Observed: 09/05/2018 Status: F Source: [facility] 7:01 PM [facility]AL Portable supine abdomen 09/05/2018 2058 hours CLINICAL STATEMENT: Tube placement Enteric tube is seen within the esophagus, with tip above the gastroesophageal junction. Bowel gas pattern is unremarkable. IMPRESSION: Tip of the enteric tube in the distal esophagus, suggest advancement. Interpreted By: Anibal Mcdonald MD Preliminary Report By: Anibal Mcdonald MD Electronically Signed By: Anibal Mcdonald MD Dictated Date: 09/05/2018 9:24:04 PM Prelim Date: 09/05/2018 9:24:04 PM Sign Date: 09/05/2018 9:26:00 PM BG Collected: 09/05/2018 Status: F Source: [facility] 5:10 PM [facility] REPOSITORY TYPE CODE TESTS RESULT OUT OF REFERENCE UNITS RANGE LAB PH(LOINC) 7.380-7.460 Low pH 7.115 LAB PCO2(LOINC 32.0-46.0 mmHg ) pCO2 High 91.4 LAB PO2(LOINC) 74.0-108.0 mmHg pO2 77.0 LAB HCO3(LOINC 21.0-29.0 mmol/L ) HCO3 28.7 LAB TCO2(LOINC 22.0-30.0 mmol/L ) CO2 Totl High 31.5 LAB BE(LOINC) mmol/L Base Excess -4.6 LAB O2SAT(LOIN 92.0-96.0 % C) O2 Sat 94.2 LAB BPRES(LOIN mmHg C) Barometric 734 Pressure Performed By: #### BG #### [place] [address] XR CHEST 1 VIEW Observed: 09/05/2018 Status: F Source: [facility] 3:50 PM [facility] REPOSITORY ORIGINAL XR CHEST 1 VIEW PORTABLE AP TIME: 4:40 PM CLINICAL STATEMENT: Sepsis, evaluate for Pneumonia. COMPARISON: 1:36 PM FINDINGS: Evaluation is compromised by patient body habitus and portable technique. An endotracheal tube is present with tip at the level of the inferior clavicles. Relationship to the itz is poorly assessed due to technical factors. There is a RIGHT internal jugular approach central venous catheter with tip projecting over the superior vena cava. Median sternotomy wires are present. Artifact from defibrillator pads overlie the image. The lung bases are excluded from the evaluation. There is opacity at the RIGHT base likely represent comminution of pleural fluid and airspace disease. No pneumotho rax. Postoperative change noted in the cervical spine. IMPRESSION: 1. No pneumothorax status post RIGHT IJ placement. 2. RIGHT basilar airspace opacity likely representing a combination of pleural fluid and airspace disease. Interpreted By: Perla Davila MD Preliminary Report By: Perla Davila MD Electronically Signed By: Perla Davila MD Dictated Date: 09/05/2018 4:51:48 PM Prelim Date: 09/05/2018 4:51:48 PM Sign Date: 09/05/2018 4:53:18 PM XR ABDOMEN AP Observed: 09/05/2018 Status: F Source: [facility] 3:49 PM [facility] REPOSITORY ORIGINAL XR ABDOMEN AP PORTABLE AP TIME: 4:45 PM CLINICAL STATEMENT: OG placement. COMPARISON: None FINDINGS: Evaluation was tailored for enteric tube placement and is limited otherwise. No enteric tube is seen extending into the stomach. A probable enteric tube is seen coursing down the midline. A li ne of uncertain etiology is seen extending to the LEFT hilum. IMPRESSION: No enteric tube in the stomach. Removal and replacement recommended as LEFT mainstem bronchus placement cannot be excluded by this examination. Perla Davila called these results to Brooklynn Pastrana on 09/05/2018 4:59 PM. Interpreted By: Perla Davila MD Preliminary Report By: Perla Davila MD Electronically Signed By: Perla Davila MD Dictated Date: 09/05/2018 4:53:56 PM Prelim Date: 09/05/2018 4:53:56 PM Sign Date: 09/05/2018 5:00:43 PM CAION Collected: 09/05/2018 Status: F Source: [facility] 3:47 PM [facility] REPOSITORY TYPE CODE TESTS RESULT OUT OF REFERENCE UNITS RANGE LAB CAION(LOINC 1.12-1.32 mmol/L ) Low Calcium 0.99 Ionized Performed By: #### CAION, LAC, CBC, ADIFF, ANEU, MG, PHOS, GFR, CMP, MYCO #### [place] [address] LAC Collected: 09/05/2018 Status: F Source: [facility] 3:47 PM [facility] REPOSITORY TYPE CODE TESTS RESULT OUT OF REFERENCE UNITS RANGE LAB LAC(LOINC) 0.2-2.0 mmol/L High Lactic Acid 4.4 Lvl Performed By: #### CAION, LAC, CBC, ADIFF, ANEU, MG, PHOS, GFR, CMP, MYCO #### [address] [address] CBC Collected: 09/05/2018 Status: F Source: [facility] 3:47 PM [facility] REPOSITORY TYPE CODE TESTS RESULT OUT OF REFERENCE UNITS RANGE LAB WBC(LOINC) 4.50-10.80 10 3/mcL High WBC 17.50 LAB RBCCT(LOINC 4.50-6.00 10 6/mcL ) RBC 5.29 LAB HGB(LOINC) 13.0-17.5 G/dL Hgb 16.7 LAB HCT(LOINC) 40.0-52.0 % High Hct 53.3 LAB MCV(LOINC) 81.0-100.0 fL High MCV 100.7 LAB MCH(LOINC) 27.0-33.0 pg MCH 31.6 LAB MCHC(LOINC) 32.0-36.0 G/dL Low MCHC 31.4 LAB RDW(LOINC) 11.5-15.5 % High RDW 16.4 LAB PLT(LOINC) 150-450 10 3/mcL Platelet 177 LAB MPV(LOINC) 6.4-10.5 fL MPV 8.5 Performed By: #### CARLOS, LAC, CBC, ADIFF, ANEU, MG, PHOS, GFR, CMP, MYCO #### [address] [address] .AUTO DIFF Collected: 09/05/2018 Status: F Source: [facility] 3:47 [facility] REPOSITORY TYPE CODE TESTS RESULT OUT OF REFERENCE UNITS RANGE LAB TIN(LOINC) 50.0-75.0 % High Neutrophil % 87.8 LAB LYM(LOINC) 20.0-40.0 % Low Lymphocyte % 7.3 LAB MON(LOINC) 2.0-13.0 % Monocyte % 4.7 LAB EO(LOINC) 0.0-6.0 % Eosinophil % 0.0 LAB BAS(LOINC) 0.0-2.5 % Basophil % 0.2 LAB ABLYM(LOIN 0.90-4.32 10 3/mcL C) Lymphocyte, 1.30 Absolute LAB NIYA(LOINC 0.09-1.40 10 3/mcL ) Monocyte, 0.80 Absolute LAB AEOS(LOINC 0.00-0.65 10 3/mcL ) Eosinophil, 0.00 Absolute LAB ABAS(LOINC 0.00-0.27 10 3/mcL ) Basophil, 0.00 Absolute Performed By: #### CARLOS, LAC, CBC, ADIFF, ANEU, MG, PHOS, GFR, CMP, MYCO #### [address] [address] .NEUABS Collected: 09/05/2018 Status: F Source: [facility] 3:47 PM [facility] REPOSITORY TYPE CODE TESTS RESULT OUT OF REFERENCE UNITS RANGE LAB ANEU(LOINC) 2.25-8.10 10 3/mcL High Neutrophil, 15.40 Absolute Performed By: #### CAION, LAC, CBC, ADIFF, ANEU, MG, PHOS, GFR, CMP, MYCO #### [place] [address] MG Collected: 09/05/2018 Status: F Source: [facility] 3:47 PM [facility] REPOSITORY TYPE CODE TESTS RESULT OUT OF REFERENCE UNITS RANGE LAB MG(LOINC) 1.6-2.4 mg/dL Magnesium Lvl 2.0 Result Comment: Specimen slightly hemolyzed. Results may be falsely elevated. Performed By: #### CAION, LAC, CBC, ADIFF, ANEU, MG, PHOS, GFR, CMP, MYCO #### [place] [address] PHOS Collected: 09/05/2018 Status: F Source: [facility] 3:47 PM [facility] REPOSITORY TYPE CODE TESTS RESULT OUT OF REFERENCE UNITS RANGE LAB PHOS(LOINC 2.5-4.5 mg/dL ) High Phosphorus 5.7 Performed By: #### CAION, LAC, CBC, ADIFF, ANEU, MG, PHOS, GFR, CMP, MYCO #### [place] [address] .GFR Collected: 09/05/2018 Status: F Source: [facility] 3:47 PM [facility] REPOSITORY TYPE CODE TESTS RESULT OUT OF REFERENCE UNITS RANGE LAB GFRAA(LOINC ml/min/1.73 ) sqm GFR 35 [place] Result Comment: GFR Population mean for , Non- Americans Ages 20-29 = 116 mL/min/1.73 sq.m. Ages 30-39 = 107 mL/min/1.73 sq.m. Ages 40-49 = 99 mL/min/1.73 sq.m. Ages 50-59 = 93 mL/min/1.73 sq.m. Ages 60-69 = 85 mL/min/1.73 sq.m. Ages 70+ = 75 mL/min/1.73 sq.m. Chronic Kidney Disease: Less than 60 mL/min/1.73 square meters End Stage Renal Disease: Less than 15 mL/min/1.73 square meters LAB GFRNO(LOINC) ml/min/1.73sqm GFR Non- 29 Result Comment: GFR Population mean for , Non- Americans Ages 20-29 = 116 mL/min/1.73 sq.m. Ages 30-39 = 107 mL/min/1.73 sq.m. Ages 40-49 = 99 mL/min/1.73 sq.m. Ages 50-59 = 93 mL/min/1.73 sq.m. Ages 60-69 = 85 mL/min/1.73 sq.m. Ages 70+ = 75 mL/min/1.73 sq.m. Chronic Kidney Disease: Less than 60 mL/min/1.73 square meters End Stage Renal Disease: Less than 15 mL/min/1.73 square meters Performed By: #### CAION, LAC, CBC, ADIFF, ANEU, MG, PHOS, GFR, CMP, MYCO #### [place] [address] CMP Collected: 09/05/2018 Status: F Source: [facility] 3:47 PM [facility] TYPE CODE TESTS RESULT OUT OF REFERENCE UNITS RANGE LAB GLU(LOINC) 82-115 mg/dL High Glucose Level 119 LAB NA(LOINC) 136-145 mEq/L Sodium Level 137 LAB K(LOINC) 3.5-5.0 mEq/L High Potassium Level 5.8 Result Comment: Specimen slightly hemolyzed. Results may be falsely elevated. LAB CL(LOINC) 98-110 mEq/L Chloride 102 LAB CO2(LOINC) 22-32 mEq/L CO2 31 LAB EBAL(LOINC) 4.0-15.0 mEq/L Electrolyte Balance 4.0 LAB BUN(LOINC) 8.0-22.0 mg/dL BUN High 38.0 LAB CRE(LOINC) 0.60-1.40 mg/dL Creatinine High Lvl (s) 2.30 LAB BC(LOINC) 10.0-22.0 ratio BUN/Creatinine Ratio 16.5 LAB CA(LOINC) 8.4-10.1 mg/dL Calcium Lvl Low 7.7 LAB PROT(LOINC) 6.0-8.5 G/dL Total Protein 7.7 LAB ALB(LOINC) 3.2-4.8 G/dL Albumin Low Level 3.1 LAB GLB(LOINC) 1.5-3.8 G/dL Globulin High 4.6 LAB AG(LOINC) 0.9-1.6 ratio A/G Ratio Low 0.7 LAB BILT(LOINC) 0.2-1.2 mg/dL Bili Total High 1.9 LAB AP(LOINC) 38-126 U/L Alk Phos 44 LAB AST(LOINC) 8-34 U/L AST/SGOT 30 Result Comment: Specimen slightly hemolyzed. Results may be falsely elevated. LAB ALT(LOINC) 12-55 U/L ALT/SGPT 21 Performed By: #### CAION, LAC, CBC, ADIFF, ANEU, MG, PHOS, GFR, CMP, MYCO #### [address] [address] MYCO Collected: 09/05/2018 Status: F Source: [facility] 3:47 PM [facility] REPOSITORY Order Comment: 09/06/2018 03:40:16 [facility] TYPE CODE TESTS RESULT OUT OF RANGE REFERENCE UNITS LAB AMYCM(LOIN C) Unknown Mycoplasma IgM Positive Result Comment: INTERPRETATION OF MYCOPLASMA BY EIA (Effective 10/01/04): Negative No detectable antibodies to M. pneumoniae. Indicates absence of current or previous infection. Positive Reactive for antibodies to M. pneumoniae. Indicates a past or recent infection. Equivocal Equivocal for antibodies to M. pneumoniae. Repeat testing by an alternate method suggested. LAB AMYCG(LOINC) Mycoplasma IgG Pos Result Comment: INTERPRETATION OF MYCOPLASMA BY EIA (Effective 10/01/04): Negative No detectable antibodies to M. pneumoniae. Indicates absence of current or previous infection. Positive Reactive for antibodies to M. pneumoniae. Indicates a past or recent infection. Equivocal Equivocal for antibodies to M. pneumoniae. Repeat testing by an alternate method suggested. Performed By: #### CAION, LAC, CBC, ADIFF, ANEU, MG, PHOS, GFR, CMP, MYCO #### [address] [address] TROPI Collected: 09/05/2018 Status: F Source: [facility] 3:47 PM [facility] REPOSITORY TYPE CODE TESTS RESULT OUT OF REFERENCE UNITS RANGE LAB TROPI(LOINC 0.000-0.040 ng/mL ) High Troponin I 0.061 Result Comment: Troponin I reference ranges (06/03/14): 0.00-0.040 ng/mL Negative and non-diagnostic. >0.040 ng/mL Consistent with cardiac damage, increased clinical risk and possibility of myocardial infarction. Serial measurements, a rise & fall in test results, clinical history, appropriate symptoms and/or ECG changes may help assess possibility of [place]. *Other non-acute coronary syndrome conditions such as CHF, myocarditis, pulmonary emboli, sepsis and cardiac surgery could result in myocardial damage and increased troponin levels. Performed By: #### TROPI #### [place] [address] Observed: 09/05/2018 Status: F Source: [facility] 3:47 PM [facility] REPOSITORY . MICRO - Microbiology PROCEDURE: Blood Culture (bacterial) [*1] SOURCE: Blood BODY SITE: COLLECTED DATE/TIME: 09/05/2018 15:47 EST RECEIVED DATE/TIME: 09/05/2018 16:37 EST START DATE/TIME: 09/05/2018 16:38 EST FREE TEXT SOURCE: FINAL REPORTS Final Report [] Verified Date/Time/Personnel: 09/10/2018 16:59 EST Blood Culture: No Growth at 5 days. PRELIMINARY REPORTS Preliminary Report [] Verified Date/Time/Personnel: 09/05/2018 17:59 EST Culture has been received in lab and is no growth to date. Routine cultures are held for 5 days. Performing Locations *1: This test was performed at: [address], [address] [place] [address] Performed By: #### CBL #### [place] [address] XR CHEST 1 VIEW Observed: 09/05/2018 Status: F Source: [facility] 1:50 PM [facility] REPOSITORY ORIGINAL XR CHEST 1 VIEW PORTABLE AP TIME: 1:42 PM CLINICAL STATEMENT: post intubation tube placement. COMPARISON: 11:28 AM FINDINGS: Evaluation is compromised by patient body habitus, portable technique, and suboptimal patient positioning. An endotracheal tube is present with tip near the level of the aortic knob. The mckay a is not well seen. The remainder of the examination appears similar to the prior exam with probable vascular congestion. IMPRESSION: Endotracheal tube tip near the level of the aortic knob. Relation to the itz is poorly assessed due to technical factors. Interpreted By: Perla Davila MD Preliminary Report By: Perla Davila MD Electronically Signed By: Perla Davila MD Dictated Date: 09/05/2018 1:54:04 PM Prelim Date: 09/05/2018 1:54:04 PM Sign Date: 09/05/2018 1:57:51 PM LAC Collected: 09/05/2018 Status: F Source: [facility] 12:32 PM [facility] REPOSITORY TYPE CODE TESTS RESULT OUT OF REFERENCE UNITS RANGE LAB LAC(LOINC) 0.4-2.0 mmol/L High Lactic Acid 4.0 Lvl Performed By: #### LAC #### [place] [address] Observed: 09/05/2018 Status: F Source: [facility] CBL 12:23 PM [facility] REPOSITORY . MICRO - Microbiology PROCEDURE: Blood Culture (bacterial) [*1] SOURCE: Blood BODY SITE: COLLECTED DATE/TIME: 09/05/2018 12:23 EST RECEIVED DATE/TIME: 09/05/2018 20:43 EST START DATE/TIME: 09/05/2018 20:43 EST FREE TEXT SOURCE: FINAL REPORTS Final Report [] Verified Date/Time/Personnel: 09/09/2018 08:37 EST Pseudomonas aeruginosa Isolated from aerobe bottle only. Refer to previous culture for susceptibility. [id number] PRELIMINARY REPORTS Preliminary Report [] Verified Date/Time/Personnel: 09/08/2018 09:08 EST Gram Negative Rods Isolated from aerobe bottle only. Final report to follow. Preliminary Report [] Verified Date/Time/Personnel: 09/05/2018 21:59 EST Culture has been received in lab and is no growth to date. Routine cultures are held for 5 days. STAINS GSAER [] Verified Date/Time/Personnel: 09/06/2018 10:45 EST Gram Negative Rods Performing Locations *1: This test was performed at: [facility], [address] [place] [address], [facility]- , [facility] Performed By: #### CBL #### [place] [address] Observed: 09/05/2018 Status: F Source: [facility] 12:23 PM [facility] REPOSITORY . MICRO - Microbiology PROCEDURE: Blood Culture (bacterial) [*1] SOURCE: Blood BODY SITE: COLLECTED DATE/TIME: 09/05/2018 12:23 EST RECEIVED DATE/TIME: 09/05/2018 20:43 EST START DATE/TIME: 09/05/2018 20:44 EST FREE TEXT SOURCE: FINAL REPORTS Final Report [] Verified Date/Time/Personnel: 09/09/2018 08:36 EST Pseudomonas aeruginosa Isolated from aerobe bottle only. PRELIMINARY REPORTS Preliminary Report [] Verified Date/Time/Personnel: 09/07/2018 15:17 EST Gram Negative Rods Isolated from aerobe bottle only. Final identification and MARQUEZ to follow. Preliminary Report [] Verified Date/Time/Personnel: 09/05/2018 21:59 EST Culture has been received in lab and is no growth to date. Routine cultures are held for 5 days. STAINS GSAER [] Verified Date/Time/Personnel: 09/06/2018 11:17 EST Gram Negative Rods SUSCEPTIBILITY RESULTS Pseudomonas aeruginosa Antibiotic MARQUEZ Dilutn MARQUEZ Interp Ceftazidime 4 Susceptible Gentamicin <=4 Susceptible Levofloxacin <=2 Susceptible Meropenem <=1 Susceptible Piperacillin/ <=16 Susceptible Tazobactam Tobramycin <=4 Susceptible Performing Locations *1: This test was performed at: [address], [facility] Performed By: #### CBL #### [place] [address] OPERATIVE REPORT Observed: 09/05/2018 Status: F Source: [place] 12:13 PM [facility] REPOSITORY [facility] Medical Records Department [address] [place] [address] Operative Report 08/24/18 1638 MR#: [id number] Acct: [id number] Name: CODEY RAZA Rep #: [id number] : 1955 62 From: Keara Wallis DO PCP: Lucas Nieves MD Status: DIS IN Y Location: [place] [id number] Report of Operation Date of Procedure: 08/24/18 Pre-Operative Diagnosis: right leg hematoma/ cellulitis, distal tibia ulcer with erythema Post-Operative Diagnosis: same Surgery/Procedure Performed:: right leg hematoma evacuation/irrigation and debridement; right lower leg ulcer debridemen/irrigation and debridement Type of Anesthesia:: General Anesthesiologist: Jian Negrete Specimen's removed: right proximal tibia hematoma; right distal tibia ulcer with cellulitis Estimated Blood Loss (mL): 50cc Fluids Replaced: 800ml lr Description of Procedure: Preoperative note Patient is a 62-year-old male who fell approximately 2 weeks ago sustained a hematoma to his right proximal tibia was seen by his primary care doctor and treated for as outpatient with Levaquin and Bactrim was not improving increasing erythema and cellulitis was then sent to the emergency room. Please note PCP also ordered cultures and Doppler which was negative of his right leg. He was admitted for IV antibiotics received a little under 24 hours of IV antibiotics so had erythema CT showed a hematoma with questionable infection resulting in cellulitis. Decision was made as cellulitis was worsening patient is becoming more painful at the site of the hematoma to debride his hematoma and he had a distal ulcer to remove this as well. Risks benefits and alternatives surgery discussed with patient. Risks include but not limited to blood loss, blood clot, infection, neurovascular, failure procedure, loss of life and loss of limb. Patient is aware like proceed with right lower leg debridement irrigation debridement repair is indicated VAC application. Next Operative note Patient seen and examined preoperative holding area. Right leg was marked. Patient is brought to the operating placed supine on the operating table. Signing, anesthesia and antibiotics were held until cultures were drawn. All bony possible padded and SCDs placed on his contralateral limb. The right leg was prepped and draped in usual sterile fashion with tourniquet around his upper thigh. We then elevated the leg turn was raised to pressure of 300 torr. The proximal leg at the site of the hematoma had some ulcerative excoriations at the skin this was removed the skin was removed and the resulting defect was a 10 by centimeter by 4 cm wound area. We then irrigated and debrided the hematoma that was extensive throughout however did there is no pus present. We did undermine the subcuticular layer to see if there is anything further than no is no tracts into the joint. We then again irrigated debrided the proximal wound we then moved to the distal tibial wound and there is some S excoriations and an ulcer this skin was removed and sent again to pathology for further evaluation I am after removing the skin that we noticed that there was no tracking and no pus is still debrided and sent cultures and further irrigated undermined in a subcuticular layers to make sure that there is no tracts which there was not deeper. We irrigated debrided this again and placed a VAC sponge proximally and distally. These were connected by a split connected to a back canister there is no leaks present we then overwrapped it with an Solomon bandage. Patient transferred recovery room in stable condition there are no comp occasions. Next Postoperative note We will, we will consult wound care to change dressing tomorrow change back and get social media developer on for home VAC versus outpatient VAC management Ancef until cultures return next Call with increased pain numbness tingling further as arise Dragon disclaimer this note was generated with [employer] dictation software. It may contain incorrect words, spelling, and punctuation that were not noted in checking the note before signing. 09/05/18 1213 <Electronically signed by Keara Wallis DO> Date Keara Wallis DO CC: Keara Wallis DO; Lucas Nieves MD Signed CONSULTATION Observed: 09/05/2018 Status: F Source: [place] 12:13 PM [facility] REPOSITORY [facility] Medical Records Department [address] [place] [address] Consultation 08/24/18 1639 MR#: [id number] Acct: [id number] Name: CODEY RAZA Rep #: [id number] : 1955 62 From: Keara Wallis DO PCP: Lucas Nieves MD Status: DIS IN Y Location: [facility] [id number] Reason for Consult Date of Consultation: 08/24/18 Reason for Consultation: right leg pain/cellulitis/hematoma History of Present Illness: The patient is a 62 year old M who was referred to his primary care doctor for admission for IV antibiotics. He has an underlying history of cardiac issues He has chronic venous stasis of his legs. He was evaluated 2 weeks ago, after a fall where he had a contusion to his right proximal leg. He had an x-ray which was negative and an ultrasound which was negative for DVT done at the [facility]. His primary care doctor followed him for swelling, redness, and wounds. He has been on Levaquin and then a round of Bactrim. He had outpatient culture of his leg wounds and they did not grow anything. His PCP saw him today and his redness and warmth seem to be getting worse. He denies fever or systemic symptoms. see chart for fruther details.[] Past Medical History Past Medical History (Chronic Problems): Chronic Problems (Last Updated 08/23/18 @ 13:49 by Jian Moya DO) Stage 4 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 (Chronic) FEV1 30% of predicted Morbid obesity (Chronic) CKD (chronic kidney disease) stage 3, GFR 30-59 ml/min (Chronic) HDL deficiency (Chronic) Asthma (Chronic) Overweight (BMI 25.0-29.9) (Chronic) Tobacco dependence (Chronic) Hyperlipidemia (Chronic) Hypertension (Chronic) Medical History: Medical History (Last Updated 08/23/18 @ 13:49 by Jian Moya DO) HDL deficiency (Chronic) E78.6 History of pleural effusion (Resolved) Z87.09 Asthma (Chronic) J45.909 Overweight (BMI 25.0-29.9) (Chronic) E66.3 Tobacco dependence (Chronic) F17.200 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 History of OH (myocardial infarction) (Resolved) I25.2 Hyperlipidemia (Chronic) E78.5 COPD (chronic obstructive pulmonary disease) (Acute) J44.9 Hypertension (Chronic) I10 Chronic kidney disease, stage 3 N18.3 Allergies No Known Allergies Allergy (Unverified 08/23/18 12:02) Home Medications: Ambulatory Orders Medication Instructions Recorded simvastatin 40 mg tablet 40 mg PO DAILY 10/27/17 RX: Albuterol Inhaler [Ventolin 2 puff INHALATION Q4H PRN PRN 01/06/18 Hfa] RX: Budesonide/Formoterol 160/4.5 2 puff INHALATION DAILY 01/06/18 Surgical History: Surgical History (Last Reviewed 08/23/18 @ 13:49 by Jian Moya DO) mediastinal exploration and arrest of hemorrhage (Resolved) History of coronary artery bypass graft x 2 (Resolved) Z95.1 Surgical History: coronary bypass surgery, tonsillectomy, - - 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, right shoulder surgery Psychiatric History: No pertinent psych hx Smoking Status: Current every day smoker Tobacco Use: Cigarettes, Cigars, Chew Alcohol: None Drugs: None - *Family History Maternal Family History: Family History (Last Reviewed 08/23/18 @ 13:50 by Jian Moya DO) Mother Hypertension Heart disease Father Heart disease Hypertension Myocardial infarction Brother Heart disease Hypertension Myocardial infarction History Items: Heart Disease Paternal Family History: Family History (Last Reviewed 08/23/18 @ 13:50 by Jian Moya DO) Mother Hypertension Heart disease Father Heart disease Hypertension Myocardial infarction Brother Heart disease Hypertension Myocardial infarction History Items: Heart Disease Review of Systems Constitutional: Denies: Chills, Fever, Weight Change HEENT: Denies: Head Aches, Sinus Congestion, Sinus Drainage Cardiovascular: Denies: Chest Pain, Palpitations Respiratory: Denies: Cough, Shortness of breath at rest, Sputum production Gastrointestinal: Denies: Abdominal Pain, Nausea, Vomiting Genitourinary: Denies: Dysuria Musculoskeletal: Reports: Leg Pain. Denies: Joint Pain, Joint Tenderness Skin: Denies: Rash, Wounds Neurological: Denies: Numbness, Tingling, Focal weakness Psychiatric: Denies: Anxiety, Depression, Homicidal Ideations, Suicidal Ideations Hematologic/ Lymphatic: Denies: Easy Bruising, Easy Bleeding - Physical Exam General: Alert, Oriented x3, Cooperative HEENT: Atraumatic, PERRLA, EOMI, Normocephalic Neck: Supple, No JVD, Negative Carotid Bruits Lungs: Clear to auscultation, Normal air movement Cardiovascular: Regular rate, No murmurs Abdomen: Bowel Sounds Present, Soft, Non Tender Extremities: No edema, Capillary Refill Less than 3 Seconds Skin: Ulcer/ Wound - erythema extending from proximal hematoma and distal ulcer of leg Musculoskeletal: Tenderness Neurological: Cranial nerves II-XII grossly intact Psych/Mental Status: Normal Affect, Appropriate Vital Signs Temp Pulse Resp BP Pulse Ox 97.5 F L 84 16 107/82 H 93 08/24/18 14:00 08/24/18 14:00 08/24/18 14:00 08/24/18 14:00 08/24/18 14:00 Oxygen Flow Rate (L/min) 2 Oxygen Delivery Method Room Air Weight: 193 lb 9.6 oz Body Mass Index (BMI) 25.6 Intake and Output for Last 24 Hours Intake Total 1343 / 1343 280 / 280 Output Total 800 / 800 2400 / 2400 Balance 543 / 543 -2120 / -2120 Laboratory Tests Past 24 Hrs Assessment/Plan All Active Problems (Last Updated 08/23/18 @ 13:49 by Jian Moya DO) New onset atrial fibrillation (Acute) Shortness of breath (Acute) Leg edema (Acute) COPD with acute exacerbation (Acute) Heart failure with preserved ejection fraction (Acute) DINO (acute kidney injury) (Acute) Cellulitis of right leg (Acute) Hematoma (Acute) Atrial fibrillation with RVR (Acute) SERENITY (obstructive sleep apnea) (Acute) Diastolic CHF (Acute) Pulmonary HTN (Acute) mediastinal exploration and arrest of hemorrhage (Resolved) History of coronary artery bypass graft x 2 (Resolved) History of pleural effusion (Resolved) History of Vogt's palsy (Resolved) History of OH (myocardial infarction) (Resolved) COPD (chronic obstructive pulmonary disease) (Acute) hematoma with cellulitis worsening over past 2 weeks and not improving within 24 hours of IV antibiotics erythema/fluctuence at proximal tibia visualized on CT, concerning for infection Risks benefits and alternatives surgery discussed with patient. Risks include but not limited to blood loss, blood clot, infection, neurovascular injury, failure procedure, loss of life and loss of limb need for revision surgery vs amputation. Patient is aware would like proceed with right leg irrigation debridement VAC application repair is indicated. Consent obtained Ancef 2 g on-call the OR Will be admitted see wound care and evaluated and follow up accordingly This note was generated with [employer] dictation software. It may contain incorrect words, spelling, and punctuation that were not noted in checking the note before signing. 09/05/18 1213 <Electronically signed by Keara Wallis DO> Date Keara Wallis DO Cosigner Signature (if applicable): Date CC: Keara Wallis DO; Lucas Nieves MD Signed XR CHEST 1 VIEW Observed: 09/05/2018 Status: F Source: [facility] 11:37 AM [facility] REPOSITORY ORIGINAL Portable semiupright AP chest, 09/05/2018 at 11:29 AM. CLINICAL INFORMATION: Shortness of breath, cough, fever. COMPARISON: Chest PA and lateral to 01/13/2017 Patient is in very lordotic position. Sternotomy sutures and lower cervical spine stabilization plate are stable. Heart is probably upper normal size. There is upper lung pulmonary venous prominence. Th is is likely in part related to positioning. There is hazy abnormal opacity in the RIGHT lower chest, possibly hypoventilatory atelectasis or other airspace disease. Posteriorly layering pleural fluid c an't be excluded. There is no pneumothorax or acute rib cage and normality. IMPRESSION: Lordotic positioning with prominent upper lung pulmonary veins. Hazy abnormal opacity RIGHT lower chest. Please see above comments. Interpreted By: Joseluis Flowers MD Preliminary Report By: Joseluis Flowers MD Electronically Signed By: Joseluis Flowers MD Dictated Date: 09/05/2018 11:40:42 AM Prelim Date: 09/05/2018 11:40:42 AM Sign Date: 09/05/2018 11:42:22 AM CMP Collected: 09/05/2018 Status: F Source: [facility] 11:06 AM [facility] REPOSITORY Order Comment: Specimen hemolyzed TYPE CODE TESTS RESULT OUT OF REFERENCE UNITS RANGE LAB GLU(LOINC) 80-115 mg/dL Glucose Level 84 LAB NA(LOINC) 136-145 mmol/L Sodium Level 139 LAB K(LOINC) 3.5-5.1 mmol/L Potassium High Level 5.3 LAB CL(LOINC) 98-107 mmol/L Chloride 104 LAB CO2(LOINC) 23-31 mmol/L CO2 23 LAB EBAL(LOINC mEq/L ) Electrolyte Balance 12.0 LAB BUN(LOINC) 7-18 mg/dL BUN High 35 LAB CRE(LOINC) 0.70-1.30 mg/dL Creatinine High Lvl (s) 2.79 LAB BC(LOINC) 7-27 ratio BUN/Creatinine 13 Ratio LAB CA(LOINC) 8.4-10.2 mg/dL Low Calcium Lvl 7.9 LAB PROT(LOINC 6.4-8.2 G/dL ) Total Protein 6.5 LAB ALB(LOINC) 3.4-4.8 G/dL Low Albumin Level 3.0 LAB GLB(LOINC) G/dL Globulin 3.5 LAB AG(LOINC) 1.1-2.5 ratio Low A/G Ratio 0.9 LAB BILT(LOINC 0.2-1.0 mg/dL ) Bili Total High 2.5 LAB AP(LOINC) 40-135 U/L Low Alk Phos 39 LAB AST(LOINC) 10-40 U/L AST/SGOT 26 LAB ALT(LOINC) 10-35 U/L ALT/SGPT 18 Performed By: #### CBC, DIFF, MORPH #### [address] [address] #### TROP, PBNP, CMP, GFR #### [address] [address] .GFR Collected: 09/05/2018 Status: F Source: [facility] 11:06 AM [facility] REPOSITORY TYPE CODE TESTS RESULT OUT OF REFERENCE UNITS RANGE LAB GFRAA(LOINC ml/min/1.73 ) sqm GFR 28 [place] Result Comment: GFR Population mean for , Non- Americans Ages 20-29 = 116 mL/min/1.73 sq.m. Ages 30-39 = 107 mL/min/1.73 sq.m. Ages 40-49 = 99 mL/min/1.73 sq.m. Ages 50-59 = 93 mL/min/1.73 sq.m. Ages 60-69 = 85 mL/min/1.73 sq.m. Ages 70+ = 75 mL/min/1.73 sq.m. Chronic Kidney Disease: Less than 60 mL/min/1.73 square meters End Stage Renal Disease: Less than 15 mL/min/1.73 square meters LAB GFRNO(LOINC) ml/min/1.73sqm GFR Non- 23 Result Comment: GFR Population mean for , Non- Americans Ages 20-29 = 116 mL/min/1.73 sq.m. Ages 30-39 = 107 mL/min/1.73 sq.m. Ages 40-49 = 99 mL/min/1.73 sq.m. Ages 50-59 = 93 mL/min/1.73 sq.m. Ages 60-69 = 85 mL/min/1.73 sq.m. Ages 70+ = 75 mL/min/1.73 sq.m. Chronic Kidney Disease: Less than 60 mL/min/1.73 square meters End Stage Renal Disease: Less than 15 mL/min/1.73 square meters Performed By: #### CBC, DIFF, MORPH #### [address] [address] #### TROP, PBNP, CMP, GFR #### [address] [address] CBC Collected: 09/05/2018 Status: C Source: [facility] 10:41 AM [facility] REPOSITORY TYPE CODE TESTS RESULT OUT OF REFERENCE UNITS RANGE LAB WBC(LOINC) 4.60-10.80 10 3/mcL High WBC 20.50 LAB RBCCT(LOINC 4.04-6.13 10 6/mcL ) RBC 4.95 LAB HGB(LOINC) 14.0-18.0 G/dL Hgb 15.3 LAB HCT(LOINC) 42.0-52.0 % Hct 48.2 LAB MCV(LOINC) 80.0-94.0 fL High MCV 97.4 LAB MCH(LOINC) 27.0-31.2 pg MCH 31.0 LAB MCHC(LOINC) 31.8-35.4 G/dL MCHC 31.8 LAB RDW(LOINC) 11.5-14.5 % High RDW 15.9 LAB PLT(LOINC) 130-400 10 3/mcL Platelet 174 LAB MPV(LOINC) 7.4-10.4 fL MPV 8.6 Performed By: #### CBC, DIFF, MORPH #### [address] [address] #### TROP, PBNP, CMP, GFR #### [address] [address] TROP Collected: 09/05/2018 Status: F Source: [facility] 10:41 AM [facility] REPOSITORY TYPE CODE TESTS RESULT OUT OF REFERENCE UNITS RANGE LAB TROP(LOINC) 0.000-0.040 ng/mL High Troponin 0.078 Result Comment: Troponin I reference range: 0.00-0.040 ng/mL Negative and non-diagnostic. >0.040 ng/mL Consistent with cardiac damage, increased clinical risk and possibility of myocardial infarction. Serial measurements, a rise & fall in test results, clinical history, appropriate symptoms and/or ECG changes may help assess possibility of OH. *Other non-acute coronary syndrome conditions such as CHF, myocarditis, pulmonary emboli, sepsis and cardiac surgery could result in myocardial damage and increased troponin levels. Performed By: #### CBC, DIFF, MORPH #### [place] [address] #### TROP, PBNP, CMP, GFR #### [place] [address] PBNP Collected: 09/05/2018 Status: F [facility] 10:41 [facility] REPOSITORY TYPE CODE TESTS RESULT OUT OF REFERENCE UNITS RANGE LAB PBNP(LOINC) 0-125 pg/mL High [facility] [address] proBNP Result Comment: NT-proBNP results of less than 300 pg/mL effectively rules out acute congestive heart failure with 99% negative predictive value. Performed By: #### CBC, DIFF, MORPH #### [place] [address] #### TROP, PBNP, CMP, GFR #### [place] [address] .MANUAL DIFF Collected: 09/05/2018 Status: F Source: [facility] 10:41 [facility] REPOSITORY TYPE CODE TESTS RESULT OUT OF REFERENCE UNITS RANGE LAB NEUM(LOINC 37.0-80.0 % ) Neutrophil %, 56.0 Manual LAB LYMM(LOINC 10.0-50.0 % ) Lymphocyte %, 11.0 Manual LAB MONM(LOINC 1.7-13.0 % ) Monocyte %, Manual 5.0 LAB EOM(LOINC) 0.0-7.0 % Eosinophil %, 0.0 Manual LAB BASM(LOINC 0.0-2.5 % ) Basophil %, Manual 0.0 LAB BAND(LOINC 0.0-5.0 % ) Bands High 28.0 LAB ANEUM(LOIN 2.85-6.16 10 3/mcL C) High Neutrophil, Abs 17.20 Manual LAB ABLYMM(CHATA 0.77-3.85 10 3/mcL NC) Lymphocyte, Abs 2.30 Manual LAB AMONM(LOIN 0.15-1.00 10 3/mcL C) High Monocyte, Abs 1.02 Manual LAB AEOSM(LOIN 0.00-0.40 10 3/mcL C) Eosinophil, Abs 0.00 Manual LAB ABASM(LOIN 0.00-0.19 10 3/mcL C) Basophil, Abs 0.00 Manual Performed By: #### CBC, DIFF, MORPH #### [address] [address] #### TROP, PBNP, CMP, GFR #### [place] [address] .MORPH Collected: 09/05/2018 Status: F Source: [facility] 10:41 AM [facility] REPOSITORY TYPE CODE TESTS RESULT OUT OF REFERENCE UNITS RANGE LAB PLTE(LOINC) Platelet Normal Estimate Performed By: #### CBC, DIFF, MORPH #### [address] [address] #### TROP, PBNP, CMP, GFR #### [place] [address] ABG Collected: 09/05/2018 Status: F Source: [facility] 10:41 [facility] REPOSITORY Order Comment: On room air TYPE CODE TESTS RESULT OUT OF REFERENCE UNITS RANGE LAB PH(LOINC) 7.35-7.45 Low pH 7.27 LAB PCO2(LOINC) 35.0-45.0 mmHg High pCO2 55.1 LAB PO2(LOINC) 80.0-100.0 mmHg Low pO2 66.0 LAB HCO3(LOINC) 22.0-26.0 mmol/L HCO3 25.2 LAB TCO2(LOINC) 19-24 mmol/L High CO2 Totl 27 LAB BE(LOINC) -2.4-2.3 mmol/L Base Excess -2.0 LAB O2SAT(LOINC 95-98 % ) Low O2 Sat 89 Performed By: #### ABG #### [place] [id number] [place], [place] [address] 12 LEAD ELECTROCARDIOGRAM Observed: 08/31/2018 Status: F Source: [facility] 2:20 PM [facility] REPOSITORY [facility] Cardiovascular Services [address] [place] [address] 12 Lead EKG 08/25/18 1351 MR#: [id number] Acct: [id number] Name: CODEY RAZA Rep #: [id number] : 1955 62 From: Les Sampson MD Attending Dr: Memo David MD Status: DIS IN Ordering Dr: Saranya Young MD Date: 08/25/18 Location: [facility] Sex: M C Admitted: 08/23/18 Test Reason : A-FIB Blood Pressure : / mmHG Vent. Rate : 103 BPM Atrial Rate : 133 BPM P-R Int : 000 ms QRS Dur : 104 ms QT Int : 336 ms P-R-T Axes : 000 074 033 degrees QTc Int : 440 ms Atrial fibrillation with rapid ventricular response with premature ventricular or aberrantly conducted complexes Low voltage QRS Incomplete right bundle branch block Septal infarct , age undetermined, cannot be excluded Abnormal ECG Confirmed by ILAN BRODY, LES ([id number]), food editor BEATRIZ IBARRA ([id number]) on 08/31/2018 2:20:13 PM Referred By: WALKER Confirmed By:LES SAMPSON MD 08/31/18 1420 Date Les Sampson MD CC: Saranya Young MD; Memo David MD; Lucas Nieves MD Signed PROGRESS Observed: 08/31/2018 Status: COMPLETED Source: [place] 2:16 PM [facility] REPOSITORY HNO ID: [id number] Author: Jessica Cramer Ma Service: (none) Author Type: (none) Type: Progress Notes Filed: 09/05/2018 12:56 PM Note Text: TRANSITION CARE MANAGEMENT (TCM) INITIAL CONTACT Assistant Attorney General Outreach Provider Action/FYI: Triage spoke to patient on 08/31 and appointment on 09/13 Initial contact with patient post discharge, spoke to patient. Patient identified by name and . TRANSITION CARE MANAGEMENT INITIAL OUTREACH DOCUMENTATION: Date of Outreach: 08/31/2018 Date of Discharge 08/30/2018 Some recent data might be hidden SUMMARY: -Pt discharged from [facility] on 08/30. -Admitted for: acute Cellulitis of right leg Hematoma, questionable infected A-fib w/RVR Diastolic CHF Pulmonary HTN SERENITY CKDIII CAD - Secondary Discharge Diagnosis Chronic Problems (Last Updated 08/23/18 @ 13:49 by Jian Moya DO) Stage 4 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 (Chronic) FEV1 30% of predicted Morbid obesity (Chronic) CKD (chronic kidney disease) stage 3, GFR 30-59 ml/min (Chronic) HDL deficiency (Chronic) Asthma (Chronic) Overweight (BMI 25.0-29.9) (Chronic) Tobacco dependence (Chronic) Hyperlipidemia (Chronic) Hypertension (Chronic) Hospital Course and Treatment Imaging Results: CT/Extremity Lower without Contra IMPRESSION: Hematoma anterior to the tibial tubercle, with or without superimposed infection. Diffuse edema in the subcutis adipose space. RAD/Chest 1 View (Portable) IMPRESSION: Mild cardiomegaly and CHF. Consult: Onc/Wound/etl architect Routine Comment: Reason for Consult:: vac change f,m,w The patient is a 62 year old M with pmhx of [place], CAD, COPD, HTN, CKDIII, HLD, COPD, Afib, who prseented to the ER with c/o increased redness of his RLE which had recently been diagnosed with cellulitis. RLE cellulitis and failued outaptient abx with levaquin and bactrim. He was on xarelto, and a ct showed underlying hematoma. He was admitted with cellulitis on vanco, with underlying hematoma. Xarelto was held. Ortho was consulted. On 08/24 Dr. Wallis took him to the OR and performed a right leg hematoma evacuation irrigation and debridement, and the same of the right lower leg ulcer. Cefazolin was added. MRSA screen was negative so vanco was DCd. He developed worsened breathing and was found to have COPD exacerbation and diastolic CHF exacerbation. He was treated with aerosols, steroids, and lasix and responded well to therapy. His Afib went into RVR and this was treated with coreg for this with good response. He had an echo this past december showing preserved EF, mild pulmonary htn, and valvular disease. A wound vac was attempted but the wound borders were to poor to accept the vac. Aggressive local wound care was recommended. The patient was advised to have dressings and to elevate his leg at rest but was only intermittently compliant with his instructions. Cultures of the wound are NTD. Cefazolin was transitioned to keflex, and he will complete a 14 day course. I discussed resumption of xarelto with Dr. Wallis who indicated that he may resume xarelto now. He was debilitated, and SNF was recommended, he was agreeable and discharged to [facility] in stable condition. He will need to see the [facility] within 1 week, and need to see Dr. Wallis within the next 1-2 weeks. This patient was seen by Amaury Kevin PA-C under the supervision of Dr. David. [] Do you have a hospital follow up appointment with your PCP? Appointment on 09/13 with Ezequiel. Yes. Remind patient of appointment date, time, and location. If not within 14 calendar days of discharge - please reschedule accordingly. MEDICATIONS: Many patients have questions or concerns about their medications once they are home. Were you prescribed any new medications? Yes updated in med list Were you told to hold any medications? No Were any of your medications discontinued? No Do you have any questions about getting or taking your medications? No Your discharge instructions/After visit Summary (AVS) are important in guiding you through the recovery process. Is there anything I might help you understand? No Do you have all the necessary equipment and supplies at home? Yes Medical records from recent hospitalization: Requested from outside hospital- pcp desk for review JOSÉ MIGUEL Observed: 08/31/2018 Status: COMPLETED Source: [place] 12:00 AM [facility] REPOSITORY Patient Outreach (FAMPWS) CODEY [id number]) 1955 M Date Time Provider Department 08/31/18 LUCAS NIEVES During your visit today, we recorded the following information about you: Jessica Cramer Sy 09/05/2018 12:56 PM Signed TRANSITION CARE MANAGEMENT (TCM) INITIAL CONTACT Assistant Attorney General Outreach Provider Action/FYI: Triage spoke to patient on 08/31 and appointment on 09/13 Initial contact with patient post discharge, spoke to patient. Patient identified by name and . TRANSITION CARE MANAGEMENT INITIAL OUTREACH DOCUMENTATION: Date of Outreach: 08/31/2018 Date of Discharge 08/30/2018 Some recent data might be hidden SUMMARY: -Pt discharged from [facility] on 08/30. -Admitted for: acute Cellulitis of right leg Hematoma, questionable infected A-fib w/RVR Diastolic CHF Pulmonary HTN SERENITY CKDIII CAD - Secondary Discharge Diagnosis Chronic Problems (Last Updated 08/23/18 @ 13:49 by Jian Moya DO) Stage 4 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 (Chronic) FEV1 30% of predicted Morbid obesity (Chronic) CKD (chronic kidney disease) stage 3, GFR 30-59 ml/min (Chronic) HDL deficiency (Chronic) Asthma (Chronic) Overweight (BMI 25.0-29.9) (Chronic) Tobacco dependence (Chronic) Hyperlipidemia (Chronic) Hypertension (Chronic) Hospital Course and Treatment Imaging Results: CT/Extremity Lower without Contra IMPRESSION: Hematoma anterior to the tibial tubercle, with or without superimposed infection. Diffuse edema in the subcutis adipose space. RAD/Chest 1 View (Portable) IMPRESSION: Mild cardiomegaly and CHF. Consult: Onc/Wound/etl architect Routine Comment: Reason for Consult:: vac change f,m,w The patient is a 62 year old M with pmhx of [place], CAD, COPD, HTN, CKDIII, HLD, COPD, Afib, who prseented to the ER with c/o increased redness of his RLE which had recently been diagnosed with cellulitis. RLE cellulitis and failued outaptient abx with levaquin and bactrim. He was on xarelto, and a ct showed underlying hematoma. He was admitted with cellulitis on vanco, with underlying hematoma. Xarelto was held. Ortho was consulted. On 08/24 Dr. Wallis took him to the OR and performed a right leg hematoma evacuation irrigation and debridement, and the same of the right lower leg ulcer. Cefazolin was added. MRSA screen was negative so vanco was DCd. He developed worsened breathing and was found to have COPD exacerbation and diastolic CHF exacerbation. He was treated with aerosols, steroids, and lasix and responded well to therapy. His Afib went into RVR and this was treated with coreg for this with good response. He had an echo this past december showing preserved EF, mild pulmonary htn, and valvular disease. A wound vac was attempted but the wound borders were to poor to accept the vac. Aggressive local wound care was recommended. The patient was advised to have dressings and to elevate his leg at rest but was only intermittently compliant with his instructions. Cultures of the wound are NTD. Cefazolin was transitioned to keflex, and he will complete a 14 day course. I discussed resumption of xarelto with Dr. Wallis who indicated that he may resume xarelto now. He was debilitated, and SNF was recommended, he was agreeable and discharged to [facility] in stable condition. He will need to see the [facility] within 1 week, and need to see Dr. Wallis within the next 1-2 weeks. This patient was seen by Amaury Kevin PA-C under the supervision of Dr. David. [] Do you have a hospital follow up appointment with your PCP? Appointment on 09/13 with Ezequiel. Yes. Remind patient of appointment date, time, and location. If not within 14 calendar days of discharge - please reschedule accordingly. MEDICATIONS: Many patients have questions or concerns about their medications once they are home. Were you prescribed any new medications? Yes updated in med list Were you told to hold any medications? No Were any of your medications discontinued? No Do you have any questions about getting or taking your medications? No Your discharge instructions/After visit Summary (AVS) are important in guiding you through the recovery process. Is there anything I might help you understand? No Do you have all the necessary equipment and supplies at home? Yes Medical records from recent hospitalization: Requested from outside hospital- pcp desk for review Allergies As of Date: 08/31/2018 Noted Allergy Reaction SHELLFISH DERIVED 08/08/2018 12 - Shortness of Breath Date Reviewed: 08/23/2018 Reviewed by: Charla Leger Ma - Fully Assessed Prescriptions as of 08/31/2018 Sig: CEPHALEXIN 500 MG CAPSULE Q8H OXYCODONE 5 MG TABLET EVERY 4 HOURS NEEDED PRN F* CARVEDILOL 6.25 MG TABLET TAKE 1 (ONE) TABLET TWO TIMES* FUROSEMIDE 40 MG TABLET TAKE 1 TABLET TWO TIMES DAILY GABAPENTIN 600 MG TABLET Take 1 tablet by mouth three * POTASSIUM CHLORIDE ER 20 MEQ * Take 1 tablet by mouth twice * RIVAROXABAN 20 MG TABLET Take 1 tablet by mouth daily * SIMVASTATIN 40 MG TABLET Take 1 tablet by mouth daily * SYMBICORT 160 MCG-4.5 MCG/ACT* UMECLIDINIUM 62.5 MCG/ACTUATI* Inhale 1 Puff as instructed o* VENTOLIN HFA 90 MCG/ACTUATION* INHALE 2 PUFFS EVERY 4 HOURS * Problem List As Of Date 08/31/2018 Noted Resolved Coronary artery disease due to lipid rich plaqu*INVALID FOR* More... Chronic atrial fibrillation (HCC) [I48.2] INVALID FOR* COPD (chronic obstructive pulmonary disease) (H*INVALID FOR* More... 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 Facet arthritis, degenerative, lumbar spine [M4*INVALID FOR* Elevated rheumatoid factor [R76.8] INVALID FOR* Arthralgia [M25.50] INVALID FOR* Encounter Status:Closed by JESSICA CRAMER MA on 09/05/18 DISCHARGE SUMMARY Observed: 08/30/2018 Status: F Source: [place] 2:31 PM [facility] REPOSITORY [facility] Medical Records Department [address] [place] [address] Discharge Summary 08/30/18 1408 MR#: [id number] Acct: [id number] Name: CODEY RAZA Rep #: [id number] : 1955 62 From: Amaury JULIEN PCP: Lucas Nieves MD Status: DIS IN Y Location: [place] [address] <Amaury Kevin - Last Filed: 08/30/18 14:08> Discharge Date and Diagnosis Date of Admission: 08/23/18 Date of Discharge: 08/30/18 - Primary Discharge Diagnosis Active and Suspected Problems (Last Updated 08/23/18 @ 13:49 by Jian Moya DO) Cellulitis of right leg (Acute) Hematoma, questionably infected(Acute) Atrial fibrillation with RVR (Acute) Diastolic CHF (Acute) Pulmonary HTN (Acute) SERENITY (obstructive sleep apnea) - non compliant with Bipap/CPAP CKDIII CAD - Secondary Discharge Diagnosis Chronic Problems (Last Updated 08/23/18 @ 13:49 by Jian Moya DO) Stage 4 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 (Chronic) FEV1 30% of predicted Morbid obesity (Chronic) CKD (chronic kidney disease) stage 3, GFR 30-59 ml/min (Chronic) HDL deficiency (Chronic) Asthma (Chronic) Overweight (BMI 25.0-29.9) (Chronic) Tobacco dependence (Chronic) Hyperlipidemia (Chronic) Hypertension (Chronic) Hospital Course and Treatment Imaging Results: CT/Extremity Lower without Contra IMPRESSION: Hematoma anterior to the tibial tubercle, with or without superimposed infection. Diffuse edema in the subcutis adipose space. RAD/Chest 1 View (Portable) IMPRESSION: Mild cardiomegaly and CHF. Consultations 08/23/18 14:55 Consult: Onc/Wound/etl architect Routine Comment: 08/24/18 17:35 Consult: Onc/Wound/etl architect Routine Comment: Reason for Consult:: vac change f,m,w Comments:: thanks Operations: - Procedures: None Summary of Care Provided: Hospital Course: The patient is a 62 year old M with pmhx of [place], CAD, COPD, HTN, CKDIII, HLD, COPD, Afib, who prseented to the ER with c/o increased redness of his RLE which had recently been diagnosed with cellulitis. RLE cellulitis and failued outaptient abx with levaquin and bactrim. He was on xarelto, and a ct showed underlying hematoma. He was admitted with cellulitis on vanco, with underlying hematoma. Xarelto was held. Ortho was consulted. On 08/24 Dr. Wallis took him to the OR and performed a right leg hematoma evacuation irrigation and debridement, and the same of the right lower leg ulcer. Cefazolin was added. MRSA screen was negative so vanco was DCd. He developed worsened breathing and was found to have COPD exacerbation and diastolic CHF exacerbation. He was treated with aerosols, steroids, and lasix and responded well to therapy. His Afib went into RVR and this was treated with coreg for this with good response. He had an echo this past december showing preserved EF, mild pulmonary htn, and valvular disease. A wound vac was attempted but the wound borders were to poor to accept the vac. Aggressive local wound care was recommended. The patient was advised to have dressings and to elevate his leg at rest but was only intermittently compliant with his instructions. Cultures of the wound are NTD. Cefazolin was transitioned to keflex, and he will complete a 14 day course. I discussed resumption of xarelto with Dr. Wallis who indicated that he may resume xarelto now. He was debilitated, and SNF was recommended, he was agreeable and discharged to [facility] in stable condition. He will need to see the [facility] within 1 week, and need to see Dr. Wallis within the next 1-2 weeks. This patient was seen by Amaury Kevin PA-C under the supervision of Dr. David. [] - Physical Exam General: Alert, Oriented x3, Cooperative HEENT: Atraumatic, PERRLA, EOMI, Normocephalic Neck: Supple, No JVD, Negative Carotid Bruits Lungs: Wheezes Cardiovascular: Regular rate, No murmurs Abdomen: Bowel Sounds Present, Soft, Non Tender, Obese Extremities: No edema, Capillary Refill Less than 3 Seconds Skin: No rashes, No breakdown Musculoskeletal: No Tenderness to Palpation of Joints or Extremities Neurological: Cranial nerves II-XII grossly intact Psych/Mental Status: Normal Affect, Appropriate, Alert and oriented to time, place, person, mood and affect Vital Signs Temp Pulse Resp BP Pulse Ox 97.6 F L 76 20 H 101/76 92 08/30/18 13:58 08/30/18 13:58 08/30/18 13:58 08/30/18 13:58 08/30/18 13:58 Oxygen Flow Rate (L/min) [ 2 AMBULATION with Oxygen] Oxygen Flow Rate (L/min) 2 Oxygen Delivery Method Room Air Weight: 305 lb 8.971 oz Body Mass Index (BMI) 25.6 Intake and Output for Last 24 Hours Microbiology Past 72 Hours 08/24/18 17:08 Gram Stain - Final Biopsy - Other Wound Culture - Final Laboratory Tests Past 24 Hrs Sodium 140 Potassium 3.9 Chloride 100 Carbon Dioxide 32.0 Discharge Diet: Low fat/ Low Cholesterol, 2000 mg Sodium Diet Discharge Activity: Return to Normal Activity Home Medications: Medications to take at Discharge simvastatin 40 mg tablet 40 mg PO DAILY 10/27/17 Albuterol Inhaler [Ventolin Hfa] 2 puff INHALATION Q4H PRN PRN 01/06/18 Budesonide/Formoterol 160/4.5 [Symbicort 160/4.5 Mcg Inhaler (SP)] 2 puff INHALATION DAILY 01/06/18 Umeclidinium [place] Inhaler [Incruse Ellipta Inhaler] 1 inh INHALATION DAILY 01/06/18 Albuterol Aerosols [Ventolin Aerosols] 2.5 mg INHALATION Q4HWA.RT PRN #1 vial.neb. 01/10/18 Potassium Chloride [K-Dur] 20 meq PO DAILY #30 tab 01/10/18 Carvedilol 6.25 mg PO BID 08/23/18 Gabapentin [Neurontin] 800 mg PO Q8H 08/23/18 Acetaminophen [Tylenol Tablet] 650 mg PO Q6H PRN PRN tablet 08/30/18 Cephalexin [Keflex] 500 mg PO Q8H #22 capsule 08/30/18 Furosemide [Lasix] 40 mg PO BID@1000,1800 tablet 08/30/18 Magnesium Hydroxide [Milk Of Magnesia] 30 ml PO DAILY PRN PRN udc 08/30/18 Oxycodone [Oxyir] 5 mg PO Q4H PRN PRN 2 Days #12 tab 08/30/18 Rivaroxaban [Xarelto] 20 mg PO DAILY@1700 tablet 08/30/18 Following Prescrptions Were Given to Patient: Cephalexin [Keflex] 500 mg PO Q8H #22 capsule Oxycodone [Oxyir] 5 mg PO Q4H PRN PRN 2 Days #12 tab PRN Reason: Mod-Severe Pain (4-07/05) Primary Care Physician: Lucas Nieves MD [Primary Care Provider] - Please follow up with your Primary Care Physician in: 1-2 weeks Please Follow Up With: [facility] When: 7 days Please Follow Up With: Keara Wallis DO When: 1-2 weeks Disposition: Nursing Home facility Minutes spent on discharge:: 35 Patient Condition:: Stable Medical Necessity - Tobacco Use Smoking Status: Current every day smoker Tobacco Use: Cigarettes, Cigars, Chew Meaningful Use Info Meaningful Use Diagnoses (Choose all that apply): None applicable <Memo David - Last Filed: 08/30/18 14:31> Discharge Date and Diagnosis - Secondary Discharge Diagnosis Chronic Problems (Last Updated 08/23/18 @ 13:49 by Jian Moya DO) Stage 4 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 (Chronic) FEV1 30% of predicted Morbid obesity (Chronic) CKD (chronic kidney disease) stage 3, GFR 30-59 ml/min (Chronic) HDL deficiency (Chronic) Asthma (Chronic) Overweight (BMI 25.0-29.9) (Chronic) Tobacco dependence (Chronic) Hyperlipidemia (Chronic) Hypertension (Chronic) Hospital Course and Treatment Consultations 08/23/18 14:55 Consult: Onc/Wound/etl architect Routine Comment: 08/24/18 17:35 Consult: Onc/Wound/etl architect Routine Comment: Reason for Consult:: vac change f,m,w Comments:: thanks Summary of Care Provided: This patient was seen in conjunction with Amaury Kevin PA-C . I have independently interviewed and examined the patient and reviewed pertinent historical, laboratory, and other data. Please refer to Amaury Kevin PA-C note for details of this patient's presentation, findings, and recommendations. I have reviewed Amaury Kevin PA-C note and concur with documented findings. In brief, patient is a 62-year-old gentleman with multiple comorbidities including paroxysmal atrial fibrillation on systemic anticoagulation with Xarelto admitted with right lower extremity erythema and swelling. Assessment: 1. Right lower extremity cellulitis on cefazolin 2. Right proximal tibia hematoma;extremity hematoma status post evacuation by Dr. Wallis on08/24/18 3. COPD with acute exacerbation 4. CKD stage IV 5. Essential hypertension 6. Coronary artery disease 7. Paroxysmal atrial fibrillation with intermittent RVR 8. Suspected sleep apnea plan is for outpatient sleep study Hospital course; as elicited above - Physical Exam Vital Signs Temp Pulse Resp BP Pulse Ox 97.6 F L 76 20 H 101/76 92 08/30/18 13:58 08/30/18 13:58 08/30/18 13:58 08/30/18 13:58 08/30/18 13:58 Oxygen Flow Rate (L/min) [ 2 AMBULATION with Oxygen] Oxygen Flow Rate (L/min) 2 Oxygen Delivery Method Room Air Weight: 138.6 kg Body Mass Index (BMI) 25.6 Intake and Output for Last 24 Hours Microbiology Past 72 Hours 08/24/18 17:08 Gram Stain - Final Biopsy - Other Wound Culture - Final Laboratory Tests Past 24 Hrs Sodium 140 Potassium 3.9 Chloride 100 Carbon Dioxide 32.0 Code Visit Inpatient E AND M: [id number] Disch Hosp 08/30/18 1422 <Electronically signed by Amaury JULIEN> Date Amaury JULIEN 08/30/18 1431<Electronically signed by Memo David MD> Cosigner Signature (if applicable): Date Memo David MD CC: ANAYA Kevin; Memo David MD; Lcuas Nieves MD Signed TRANSFER TO [facility] Observed: 08/30/2018 Status: F Source: [facility] 11:32 AM [facility] REPOSITORY [facility] Medical Records Department [address] [place] [address] Transfer to [facility] Care MR#: [id number] Acct: [id number] Name: CODEY RAZA Marybel Rep #: [id number] : 1955 62 From: Amaury JULIEN PCP: Lucas Nieves MD Status: ADM IN CODEY RAZA (Patient) (Health Ins. Claim No.) (Day of Discharge to Facility) Certification of patient admission REQUIRED AT TIME OF ADMISSION. I CERTIFY THAT POST-HOSPITAL ECF SERVICES ARE REQUIRED TO BE GIVEN ON AN IN-PATIENT BASIS BECAUSE OF THE ABOVE NAMED PATIENT'S NEED FOR [facility] CARE ON A CONTINUING BASIS FOR THE CONDITION(S) FOR WHICH HE/SHE WAS RECEIVING IN-PATIENT HOSPITAL SERVICES PRIOR TO HIS/HER TRANSFER TO THE ECF. 08/30/18 1047 <Electronically signed by Amaury JULIEN> Date Amaury JULIEN - Diet 08/25/18 06:06 Diet: Cardiac/Low Cholesterol Is pt able to select menu?: Yes - Routine Orders/Code Status Suppository Type: Dulcolax 10mg Suppository Frequency: Daily PRN O2 Frequency: Continuous Routine Lab Work: CBC - 5 days, BMP - 5 days Code Status: Full Code - Wound(s) bilat legs Wound Type: Abrasion rle Wound Type: Open Surgical Wound Dressing Change: Dry Sterile Dressing lle Wound Type: scabbed over abrasions right hernandez (proximal wound) Wound Type: Open Surgical Wound Dressing Change: AntiMicrobial (Aquacel AG, etc) right hernandez (distal wound) Wound Type: Open Surgical Wound Dressing Change: AntiMicrobial (Aquacel AG, etc) - Therapies Physical Therapy: Eval and Treat Occupational Therapy: Eval and Treat - Problem/Diagnosis (1) Diastolic CHF Status: Acute Current Visit: Yes (2) COPD (chronic obstructive pulmonary disease) Status: Acute Current Visit: No (3) Hematoma Status: Acute Current Visit: Yes (4) Atrial fibrillation with RVR Status: Acute Current Visit: Yes (5) CKD (chronic kidney disease) stage 3, GFR 30-59 ml/min Status: Chronic Current Visit: Yes (6) SERENITY (obstructive sleep apnea) Status: Acute Current Visit: Yes (7) Pulmonary HTN Status: Acute Current Visit: Yes (8) Cellulitis of right leg Status: Acute Current Visit: Yes (9) COPD with acute exacerbation Status: Acute Current Visit: No (10) Hyperlipidemia Status: Chronic Current Visit: No (11) Hypertension Status: Chronic Current Visit: No (12) History of [place] (myocardial infarction) Status: Resolved Current Visit: No (13) History of coronary artery bypass graft x 2 Status: Resolved Current Visit: No (14) Morbid obesity Status: Chronic Current Visit: Yes - Allergies/Procedures Done in Hospital Allergies/Adverse Reactions: Allergies No Known Allergies Allergy (Unverified 08/23/18 12:02) - Type of Care/Length of Stay Estimated LOS: Convalescent Care Less Than 30 days Type of Care Needed: Skilled Rehab Potential: Fair Prognosis: Fair - Additional Orders/Day of Discharge Day of Discharge: 08/30/18 - Dietary and Speech Recommendations Dietitian Recommendations/Changes: Suggest diet change to 2000 carri/cardiac/low sodium with 1500 ml fluid restriction. - Follow Up Care Primary Care Physician: Lucas Nieves MD [Primary Care Provider] - Please follow up with your Primary Care Physician in: 1-2 weeks Please Follow Up With: [facility] When: 7 days Please Follow Up With: Keara Wallis DO When: 1-2 weeks 08/30/18 1047 <Electronically signed by Amaury JULIEN> Date Amaury JULIEN CC: Keara Wallis DO; Lucas Nieves MD Signed BASIC METABOLIC Collected: 08/30/2018 Status: F Source: [place] PROFILE (BMP) 6:10 AM [facility] REPOSITORY TYPE CODE TESTS RESULT OUT OF RANGE REFERENCE UNITS LAB L501.0100 74-106 mg/dL Normal GLU 99 Result Comment: Please note revised GLUCOSE reference range effective 2017. LAB L501.1000 7-18 mg/dL High BUN 44 LAB L501.1100 0.70-1.30 mg/dL High CREAT,SERUM 1.41 Result Comment: The validity of the calculated GFR AND GFRAA in patients over 70 years has not been determined. Clinical correlation is essential. LAB L501.1110 >60 mL/min Low EST GFR 54 Result Comment: Non- GFR Calc LAB L501.1115 >60 mL/min Normal EST GFR - AA 66 Result Comment: GFR Calc LAB L501.1255 ml/min Normal Estimated CRCL 62.18 LAB L501.1300 10-20 RATIO High BUN/CRE 31.2 LAB L501.2200 8.5-10 mg/dL Normal .1 CA 8.7 LAB L501.5300 136-14 mmol/L Normal 5 NA 140 LAB L501.5600 3.5-5. mmol/L Normal 1 K 3.9 LAB L501.5900 98-107 mmol/L Normal CL 100 LAB L501.6100 21.0-3 mmol/L Normal 2.0 CO2 32.0 LAB L501.6200 5-15 Normal GAP 8 Performed By: #### L500.2500 #### [facility] [address] [place], [address] BASIC METABOLIC Collected: 08/29/2018 Status: F Source: VIENNA PROFILE (BMP) 6:35 AM [facility] REPOSITORY TYPE CODE TESTS RESULT OUT OF RANGE REFERENCE UNITS LAB L501.0100 74-106 mg/dL Normal GLU 88 Result Comment: Please note revised GLUCOSE reference range effective 2017. LAB L501.1000 7-18 mg/dL High BUN 48 LAB L501.1100 0.70-1.30 mg/dL High CREAT,SERUM 1.50 Result Comment: The validity of the calculated GFR AND GFRAA in patients over 70 years has not been determined. Clinical correlation is essential. LAB L501.1110 >60 mL/min Low EST GFR 50 Result Comment: Non- GFR Calc LAB L501.1115 >60 mL/min Normal EST GFR - AA 61 Result Comment: GFR Calc LAB L501.1255 ml/min Normal Estimated CRCL 58.45 LAB L501.1300 10-20 RATIO High BUN/CRE 32.0 LAB L501.2200 8.5-10 mg/dL Normal .1 CA 8.9 LAB L501.5300 136-14 mmol/L Normal 5 NA 141 LAB L501.5600 3.5-5. mmol/L Normal 1 K 3.8 LAB L501.5900 98-107 mmol/L Normal CL 98 LAB L501.6100 21.0-3 mmol/L High 2.0 CO2 35.0 LAB L501.6200 5-15 Normal GAP 8 Performed By: #### L500.2500 #### [facility] [address] [place], [address] BASIC METABOLIC Collected: 08/28/2018 Status: F Source: VIENNA PROFILE (BMP) 6:15 AM [facility] REPOSITORY TYPE CODE TESTS RESULT OUT OF RANGE REFERENCE UNITS LAB L501.0100 74-106 mg/dL High GLU 128 Result Comment: Fasting Glucose result greater than or equal to 126 mg/dL suggests DIABETES MELLITUS per A.D.A. criteria. Please note revised GLUCOSE reference range effective 2017. LAB L501.1000 7-18 mg/dL High BUN 50 LAB L501.1100 0.70-1.30 mg/dL High CREAT,SERUM 1.46 Result Comment: The validity of the calculated GFR AND GFRAA in patients over 70 years has not been determined. Clinical correlation is essential. LAB L501.1110 >60 mL/min Low EST GFR 52 Result Comment: Non- GFR Calc LAB L501.1115 >60 mL/min Normal EST GFR - AA 63 Result Comment: GFR Calc LAB L501.1255 ml/min Normal Estimated CRCL 58.32 LAB L501.1300 10-20 RATIO High BUN/CRE 34.2 LAB L501.2200 8.5-10 mg/dL Normal .1 CA 8.9 LAB L501.5300 136-14 mmol/L Normal 5 NA 141 LAB L501.5600 3.5-5. mmol/L Normal 1 K 3.9 LAB L501.5900 98-107 mmol/L Normal CL 101 LAB L501.6100 21.0-3 mmol/L High 2.0 CO2 33.0 LAB L501.6200 5-15 Normal GAP 7 Performed By: #### L500.2500 #### [facility] [address] [place], [address] BASIC METABOLIC Collected: 08/27/2018 Status: F Source: VIENNA PROFILE (BMP) 12:02 PM [facility] REPOSITORY TYPE CODE TESTS RESULT OUT OF RANGE REFERENCE UNITS LAB L501.0100 74-106 mg/dL High GLU 164 Result Comment: Fasting Glucose result greater than or equal to 126 mg/dL suggests DIABETES MELLITUS per A.D.A. criteria. Please note revised GLUCOSE reference range effective 2017. LAB L501.1000 7-18 mg/dL High BUN 50 LAB L501.1100 0.70-1.30 mg/dL High CREAT,SERUM 1.53 Result Comment: The validity of the calculated GFR AND GFRAA in patients over 70 years has not been determined. Clinical correlation is essential. LAB L501.1110 >60 mL/min Low EST GFR 49 Result Comment: Non- GFR Calc LAB L501.1115 >60 mL/min Normal EST GFR - AA 60 Result Comment: GFR Calc LAB L501.1255 ml/min Normal Estimated CRCL 55.65 LAB L501.1300 10-20 RATIO High BUN/CRE 32.7 LAB L501.2200 8.5-10 mg/dL Normal .1 CA 8.8 LAB L501.5300 136-14 mmol/L Normal 5 NA 137 LAB L501.5600 3.5-5. mmol/L Normal 1 K 3.7 LAB L501.5900 98-107 mmol/L Normal CL 100 LAB L501.6100 21.0-3 mmol/L Normal 2.0 CO2 30.0 LAB L501.6200 5-15 Normal GAP 7 Performed By: #### L500.2500 #### [facility] [address] [place], [place], [address] MRSA WOUND DNA BY Collected: 08/26/2018 Status: F Source: NOVA PCR 6:00 PM [facility] REPOSITORY TYPE CODE TESTS RESULT OUT OF RANGE REFERENCE UNITS LAB L8200.1100 Negative Normal MRSA Negative RESULT LAB L8200.1150 Negative Normal SA RESULT NEGATIVE Performed By: #### L8200.1075 #### [facility] [address] [place], [address] CBC W/DIFF, AUTOMATED Collected: 08/26/2018 Status: F Source: NOVA 6:43 AM [facility] REPOSITORY TYPE CODE TESTS RESULT OUT OF RANGE REFERENCE UNITS LAB L100.1000 4.4-11.0 K/mm3 Normal WBC 6.9 LAB L100.1200 4.6-6.2 M/mm3 Normal RBC 4.92 LAB L100.1300 13.0-16.5 g/dl Normal HGB 15.8 LAB L100.1400 40-54 % Normal HCT 49.3 LAB L100.1500 80-94 fL High MCV 100.2 LAB L100.1600 27.0-32.0 pg High MCH 32.1 LAB L100.1700 32-36 g/gl Normal MCHC 32.0 LAB L100.1810 11.6-14.6 % Normal RDW CV 14.4 LAB L100.1820 35.1-43.9 fl High RDW SD 52.7 LAB L100.1900 150-450 K/mm3 Normal PLT 159 LAB L100.2000 6.2-12.0 fl Normal MPV 9.5 LAB L100.2100 47-70 % High NEUT% 85.1 LAB L100.2200 19-41 % Low LY% 9.5 LAB L100.2300 0-10 % Normal MONO% 5.3 LAB L100.2400 0-5 % Normal EO% 0.0 LAB L100.2500 0-1 % Normal BASO% 0.0 LAB L100.2550 0.0-0.9 % Normal IM GRAN % 0.100 Result Comment: IG% - Immature Granulocytes (promyelocytes, myelocytes and metamyelocytes) > 1% indicates that a LEFT SHIFT is Present. LAB L100.2620 2.0-7.7 X10 3/uL Normal Absolute Neut 5.8 LAB L100.2720 0.83-4.51 X10 3/ul Low Absolute Lymph 0.65 Performed By: #### L100.0100 #### [facility] [address] [facility] [place], [address] BASIC METABOLIC Collected: 08/26/2018 Status: F Source: NOVA PROFILE ([facility]) 6:43 AM [facility] REPOSITORY TYPE CODE TESTS RESULT OUT OF RANGE REFERENCE UNITS LAB L501.0100 74-106 mg/dL High GLU 130 Result Comment: Fasting Glucose result greater than or equal to 126 mg/dL suggests DIABETES MELLITUS per A.D.A. criteria. Please note revised GLUCOSE reference range effective 2017. LAB L501.1000 7-18 mg/dL High BUN 39 LAB L501.1100 0.70-1.30 mg/dL High CREAT,SERUM 1.84 Result Comment: The validity of the calculated GFR AND GFRAA in patients over 70 years has not been determined. Clinical correlation is essential. LAB L501.1110 >60 mL/min Low EST GFR 40 Result Comment: Non- GFR Calc LAB L501.1115 >60 mL/min Low EST GFR - AA 48 Result Comment: GFR Calc LAB L501.1255 ml/min Normal Estimated CRCL 46.27 LAB L501.1300 10-20 RATIO High BUN/CRE 21.2 LAB L501.2200 8.5-10 mg/dL Normal .1 CA 8.7 LAB L501.5300 136-14 mmol/L Normal 5 NA 138 LAB L501.5600 3.5-5. mmol/L Normal 1 K 4.3 LAB L501.5900 98-107 mmol/L Normal CL 100 LAB L501.6100 21.0-3 mmol/L High 2.0 CO2 33.0 LAB L501.6200 5-15 Normal GAP 5 Performed By: #### L500.2500, L501.5200 #### [facility] [address] [place], [place], [id number] MAGNESIUM Collected: 08/26/2018 Status: F Source: NOVA 6:43 AM [facility] REPOSITORY TYPE CODE TESTS RESULT OUT OF RANGE REFERENCE UNITS LAB L501.5200 1.6-2.6 mg/dL Normal MG 2.2 Performed By: #### L500.2500, L501.5200 #### [facility] [address] [place], [address] BLOOD GASES BY [facility] Collected: 08/25/2018 Status: F Source: NOVA 3:48 PM [facility] REPOSITORY TYPE CODE TESTS RESULT OUT OF RANGE REFERENCE UNITS LAB L9000.9990 Normal BLD GAS TYPE ART LAB L9001.1000 Normal SITE L Radial LAB L9001.1010 Normal ALLYSON TEST POS LAB L9001.1050 O2 Normal Delivery Dev Bi / C PAP LAB L9001.1070 RR Normal 12 LAB L9001.1074 Normal FI02 40 LAB L9001.1088 Normal IPAP 14 LAB L9001.1090 Normal EPAP 6 LAB L9001.1104 Normal Results To HOSP LAB L9001.1105 Normal Time Given 1543 LAB L9001.1110 7.35-7.45 Low pH - I-STAT 7.26 LAB L9001.1210 35-45 mmHg High pCO2 - ISTAT 64.8 LAB L9001.1310 75-100 mmHG Low PO2 I-STAT 62 LAB L9001.2300 22-26 mmol/L High HCO3 ISTAT 29.0 LAB L9001.2400 -2 to +2 mmol/L BE Normal ISTAT 2 LAB L9001.2415 mmol/L Normal TOTAL CO2 31 ISTAT LAB L9001.2425 95-99 % Low SO2 ISTAT 87 Performed By: #### L9000.0800 #### [facility] Point of Care [address] [facility] [address] [place], [place] [address] BLOOD GASES BY CPS Collected: 08/25/2018 Status: F Source: VIENNA 12:53 PM [facility] REPOSITORY TYPE CODE TESTS RESULT OUT OF RANGE REFERENCE UNITS LAB L9000.9990 Normal BLD GAS TYPE ART LAB L9001.1000 Normal SITE R Radial LAB L9001.1010 Normal ALLYSON TEST POS LAB L9001.1050 O2 Normal Delivery Dev Vent Mask LAB L9001.1074 Normal FI02 35 LAB L9001.1104 Normal Results To HOSP LAB L9001.1105 Normal Time Given 1250 LAB L9001.1110 7.35-7.45 Low pH - I-STAT 7.22 LAB L9001.1210 35-45 mmHg High alert pCO2 - ISTAT 70.3 LAB L9001.1310 75-100 mmHG Low PO2 I-STAT 59 LAB L9001.2300 22-26 mmol/L High HCO3 ISTAT 28.4 LAB L9001.2400 -2 to +2 mmol/L BE Normal ISTAT 1 LAB L9001.2415 mmol/L Normal TOTAL CO2 31 ISTAT LAB L9001.2425 95-99 % Low SO2 ISTAT 83 Performed By: #### L9000.0800 #### [facility] Point of Care [address] [facility] [place] [address] BASIC METABOLIC Collected: 08/25/2018 Status: F Source: NOVA PROFILE (BMP) 12:50 PM [facility] REPOSITORY TYPE CODE TESTS RESULT OUT OF RANGE REFERENCE UNITS LAB L501.0100 74-106 mg/dL High GLU 130 Result Comment: Fasting Glucose result greater than or equal to 126 mg/dL suggests DIABETES MELLITUS per A.D.A. criteria. Please note revised GLUCOSE reference range effective 2017. LAB L501.1000 7-18 mg/dL High BUN 35 LAB L501.1100 0.70-1.30 mg/dL High CREAT,SERUM 1.99 Result Comment: The validity of the calculated GFR AND GFRAA in patients over 70 years has not been determined. Clinical correlation is essential. LAB L501.1110 >60 mL/min Low EST GFR 36 Result Comment: Non- GFR Calc LAB L501.1115 >60 mL/min Low EST GFR - AA 44 Result Comment: GFR Calc LAB L501.1255 ml/min Normal Estimated CRCL 42.79 LAB L501.1300 10-20 RATIO Normal BUN/CRE 17.6 LAB L501.2200 8.5-10 mg/dL Low .1 CA 8.1 LAB L501.5300 136-14 mmol/L Low 5 NA 134 LAB L501.5600 3.5-5. mmol/L High 1 K 5.4 LAB L501.5900 98-107 mmol/L Normal CL 100 LAB L501.6100 21.0-3 mmol/L Normal 2.0 CO2 31.0 LAB L501.6200 5-15 Low GAP 3 Performed By: #### L500.2500 #### [facility] [address] [place], [address] CHEST 1 VIEW Observed: 08/25/2018 Status: F Source: NOVA (PORTABLE) 12:33 PM [facility] REPOSITORY [facility] Imaging Services [address] [place] [address] Chest 1 View (Portable) MR#: [id number] Acct: [id number] Name: CODEY RAZA Rep #: [id number] : 1955 M 62 From: Mao Cuenca MD PCP: Lucas Nieves MD Status: ADM IN Study: Chest 1 View (Portable) Date of Exam: 08/25/18 Exam# [id number] Ordering Dr: Saranya Young MD STUDY: X-RAY CHEST REASON FOR EXAM: Male, 62 years old. Shortness of breath/dyspnea. TECHNIQUE: Single AP portable view of the chest. COMPARISON: Comparison is made with prior study is January 08, 2018. FINDINGS: There is evidence of vascular congestion and mild CHF. There is no demonstrated pleural abnormality. Sternal cerclage wires and vascular clips are present from a prior sternotomy and coronary artery bypass graft procedure (CABG). Mild cardiomegaly. Normal mediastinum and steve. Normal visualized pulmonary arteries. Normal visualized aortic arch and descending thoracic aorta. Normal visualized thoracic spine. Prior fusion in the lower cervical spine. There is no demonstrated abnormality of the visualized soft tissue structures of the upper abdomen. RAD/Chest 1 View (Portable) IMPRESSION: Mild cardiomegaly and CHF. Electronically Signed: Mao Cuenca MD at 15:59 EST Tel [phone], Service support , CC: Saranya Young MD; Lucas Nieves MD Receiver Bulk System: Signed CBC W/DIFF, AUTOMATED Collected: 08/25/2018 Status: F Source: NOVA 7:54 AM [facility] REPOSITORY TYPE CODE TESTS RESULT OUT OF RANGE REFERENCE UNITS LAB L100.1000 4.4-11.0 K/mm3 Normal WBC 7.5 LAB L100.1200 4.6-6.2 M/mm3 Normal RBC 5.16 LAB L100.1300 13.0-16.5 g/dl Normal HGB 16.5 LAB L100.1400 40-54 % Normal HCT 52.7 LAB L100.1500 80-94 fL High MCV 102.1 LAB L100.1600 27.0-32.0 pg Normal MCH 32.0 LAB L100.1700 32-36 g/gl Low MCHC 31.3 LAB L100.1810 11.6-14.6 % High RDW CV 14.9 LAB L100.1820 35.1-43.9 fl High RDW SD 55.6 LAB L100.1900 150-450 K/mm3 Normal PLT 178 LAB L100.2000 6.2-12.0 fl Normal MPV 9.7 LAB L100.2100 47-70 % High NEUT% 80.6 LAB L100.2200 19-41 % Low LY% 10.4 LAB L100.2300 0-10 % Normal MONO% 8.4 LAB L100.2400 0-5 % Normal EO% 0.1 LAB L100.2500 0-1 % Normal BASO% 0.4 LAB L100.2550 0.0-0.9 % Normal IM GRAN % 0.100 Result Comment: IG% - Immature Granulocytes (promyelocytes, myelocytes and metamyelocytes) > 1% indicates that a LEFT SHIFT is Present. LAB L100.2620 2.0-7.7 X10 3/uL Normal Absolute Neut 6.0 LAB L100.2720 0.83-4.51 X10 3/ul Low Absolute Lymph 0.78 Performed By: #### L100.0100 #### [facility] [address] [place], [place], [id number] BNP,B-TYPE NATRIURETIC Collected: 08/25/2018 Status: F Source: NOVA PEPTIDE 7:54 AM [facility] REPOSITORY Order Comment: Comments: as add on test TYPE CODE TESTS RESULT OUT OF RANGE REFERENCE UNITS LAB L503.6620 0-100 pg/mL High B-TYPE 322.1 LARISSA PEP Performed By: #### L503.6620 #### [facility] [address] [place], [place], [address] VANCOMYCIN, TROUGH Collected: 08/25/2018 Status: F Source: NOVA LEVEL 12:28 AM [facility] REPOSITORY Order Comment: Time Medication is to be Given? 0100 TYPE CODE TESTS RESULT OUT OF REFERENCE UNITS RANGE LAB L501.8820 5.0-15.0 ug/mL High VANCO, TROUGH 18.0 Result Comment: VANCOMYCIN STANDARED DRUG THERAPY TROUGH LEVEL: 5.0 - 15.0 mg/L VANCOMYCIN HIGH INTENSITY THERAPY TROUGH LEVEL: 15.0 - 20.0 mg/L High Intensity therapy recommended for serious life threatening infections include: - Meningitis -Endocarditis -Pneumonia (Ventilator/Healtcare Associated) -Sepsis PLEASE CONTACT PHARMACY SERVICES (#[id number]) FOR INTERPRETATION OF RESULTS. Performed By: #### L501.8820 #### [facility] [address] [place], [place], [address] Observed: 08/24/2018 Status: F Source: NOVA CULTURE, DEEP WOUND 5:08 PM [facility] REPOSITORY Order Date: 04/27/17 Comments: RIGHT LEG DISTAL TIBIAL TISSUE Gram Stain Gram Stain No White Blood Cells No organisms seen Wound Culture No growth aerobically. Cult, Anaerobic No growth in 5 days. Performed By: #### M100.1500 #### [facility] [facility] [place], [place], [address] Observed: 08/24/2018 Status: F Source: NOVA CULTURE, DEEP WOUND 5:08 PM [facility] REPOSITORY Order Date: 04/27/17 Comments: RIGHT LEG DISTAL TIBIAL HEMATOMA Gram Stain Gram Stain 4+ Red Blood Cells 1+ White Blood Cells Wound Culture No growth aerobically. Cult, Anaerobic No growth in 5 days. Performed By: #### M100.1500 #### [facility] [address] [place], [place], [address] Observed: 08/24/2018 Status: F Source: NOVA CULTURE, DEEP WOUND 4:59 PM [facility] REPOSITORY Order Date: 04/27/17 Comments: RIGHT LEG PROXIMAL TIBIAL TISSUE Gram Stain Gram Stain 4+ Red Blood Cells 1+ White Blood Cells No organisms seen Wound Culture No growth aerobically. Cult, Anaerobic No growth in 5 days. Performed By: #### M100.1500 #### [facility] [address] [place] [address]. [place], [place], [address] Observed: 08/24/2018 Status: F Source: NOVA CULTURE, DEEP WOUND 4:58 PM [facility] REPOSITORY Order Date: 04/27/17 Comments: RIGHT LEG PRETIBIAL HEMATOMA Gram Stain Gram Stain 4+ Red Blood Cells 1+ White Blood Cells No organisms seen Wound Culture No growth aerobically. Cult, Anaerobic No growth in 5 days. Performed By: #### M100.1500 #### [facility] [address] [facility] [place], [place], [id number] BASIC METABOLIC Collected: 08/24/2018 Status: F Source: NOVA PROFILE (BMP) 5:28 AM [facility] REPOSITORY TYPE CODE TESTS RESULT OUT OF RANGE REFERENCE UNITS LAB L501.0100 74-106 mg/dL Normal GLU 99 Result Comment: Please note revised GLUCOSE reference range effective 2017. LAB L501.1000 7-18 mg/dL High BUN 31 LAB L501.1100 0.70-1.30 mg/dL High CREAT,SERUM 1.47 Result Comment: The validity of the calculated GFR AND GFRAA in patients over 70 years has not been determined. Clinical correlation is essential. LAB L501.1110 >60 mL/min Low EST GFR 52 Result Comment: Non- GFR Calc LAB L501.1115 >60 mL/min Normal EST GFR - AA 63 Result Comment: GFR Calc LAB L501.1255 ml/min Normal Estimated CRCL 57.92 LAB L501.1300 10-20 RATIO High BUN/CRE 21.1 LAB L501.2200 8.5-10 mg/dL Normal .1 CA 9.0 LAB L501.5300 136-14 mmol/L Normal 5 NA 140 LAB L501.5600 3.5-5. mmol/L Normal 1 K 3.6 LAB L501.5900 98-107 mmol/L Normal CL 102 LAB L501.6100 21.0-3 mmol/L Normal 2.0 CO2 30.0 LAB L501.6200 5-15 Normal GAP 8 Performed By: #### L500.2500 #### [facility] [address] [place], [place], [address] PROTHROMBIN TIME W/INR Collected: 08/24/2018 Status: F Source: NOVA 5:28 AM [facility] REPOSITORY TYPE CODE TESTS RESULT OUT OF RANGE REFERENCE UNITS LAB L300.4150 11.7-14.9 SECONDS High PROTIME 17.2 LAB L300.4200 Normal INR 1.4 Performed By: #### L300.3900 #### [facility] [address] [place], [place], [address] CBC W/DIFF, AUTOMATED Collected: 08/24/2018 Status: F Source: NOVA 5:28 AM [facility] REPOSITORY TYPE CODE TESTS RESULT OUT OF RANGE REFERENCE UNITS LAB L100.1000 4.4-11.0 K/mm3 Normal WBC 4.6 LAB L100.1200 4.6-6.2 M/mm3 Normal RBC 5.13 LAB L100.1300 13.0-16.5 g/dl Normal HGB 16.5 LAB L100.1400 40-54 % Normal HCT 50.7 LAB L100.1500 80-94 fL High MCV 98.8 LAB L100.1600 27.0-32.0 pg High MCH 32.2 LAB L100.1700 32-36 g/gl Normal MCHC 32.5 LAB L100.1810 11.6-14.6 % High RDW CV 15.1 LAB L100.1820 35.1-43.9 fl High RDW SD 54.5 LAB L100.1900 150-450 K/mm3 Normal PLT 201 LAB L100.2000 6.2-12.0 fl Normal MPV 9.6 LAB L100.2100 47-70 % Normal NEUT% 56.8 LAB L100.2200 19-41 % Normal LY% 28.9 LAB L100.2300 0-10 % High MONO% 10.4 LAB L100.2400 0-5 % Normal EO% 2.2 LAB L100.2500 0-1 % High BASO% 1.5 LAB L100.2550 0.0-0.9 % Normal IM GRAN % 0.200 Result Comment: IG% - Immature Granulocytes (promyelocytes, myelocytes and metamyelocytes) > 1% indicates that a LEFT SHIFT is Present. LAB L100.2620 2.0-7.7 X10 3/uL Normal Absolute Neut 2.6 LAB L100.2720 0.83-4.51 X10 3/ul Normal Absolute Lymph 1.34 Performed By: #### L100.0100 #### [facility] [address] [place], [place], [address] HISTORY AND PHYSICAL Observed: 08/23/2018 Status: F Source: VIENNA EXAM 7:25 PM [facility] REPOSITORY [facility] Medical Records Department [address] [place] [address] History and Physical 08/23/18 1347 MR#: [id number] Acct: [id number] Name: CODEY RAZA Rep #: [id number] : [id number] 62 From: Jian Moya DO PCP: Lucas Nieves MD Status: ADM EMILIA Y Location: MS3 [id number] ADDENDUM by Jian Moya DO on 08/23/18 at 1925 Code Visit CAT scan of the leg performed and did confirm hematoma. Though could not rule out if it is infected or not. Discussed with Dr. Wallis who would see the patient but recommended consultation with Dr. garcia for possible surgical evaluation. Discussed with the Dr. Mcclure and on the next couple days and would prefer orthopedics to further assessment this surgically managed that in the hospital and then patient could follow- up with wound care as outpatient. So, I will hold the patient's Xarelto and consult orthopedics. Patient will tentatively be made n.p.o. at 0600. 08/23/181924 <Electronically signed by Jian Moya DO> Date Jian Moya DO cc: Jian Moya DO; Lucas Nieves MD * Signed Problem List (1) Cellulitis of right leg Status: Acute History of Present Illness Date of Admission: 08/23/18 Chief Complaint: redness of right leg. The patient is a 62 year old M who fell several weeks ago when he neuropathy. Patient was going upstairs time and then fell forward onto the stairs with abrasions to his right leg. Patient noted relatively soon thereafter, that he developed a redness. Patient was being managed at his primary care's office with antibiotics and had used Levaquin without relief and then most recently Bactrim again without relief. And his leg continue to get worse. Patient was directed to the emergency room for further inpatient treatment. Patient states that his right leg has become more swollen than usual, more red and does have swelling. Does have pain as well. Denies any fever chills though he does endorse that he is having some general malaise. 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 History of pleural effusion (Resolved) Z87.09 Asthma (Chronic) J45.909 Overweight (BMI 25.0-29.9) (Chronic) E66.3 Tobacco dependence (Chronic) F17.200 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 History of [place] (myocardial infarction) (Resolved) I25.2 Hyperlipidemia (Chronic) E78.5 COPD (chronic obstructive pulmonary disease) (Chronic) J44.9 Hypertension (Chronic) I10 Chronic kidney disease, stage 3 N18.3 Allergies No Known Allergies Allergy (Unverified 08/23/18 12:02) Home Medications: Ambulatory Orders Medication Instructions Recorded simvastatin 40 mg tablet 40 mg PO DAILY 10/27/17 Albuterol Inhaler [Ventolin Hfa] 2 puff INHALATION Q4H PRN PRN 01/06/18 Surgical History: Surgical History (Last Reviewed 08/23/18 @ 13:49 by Jian Moya DO) mediastinal exploration and arrest of hemorrhage (Resolved) History of coronary artery bypass graft x 2 (Resolved) Z95.1 Surgical History: coronary bypass surgery, tonsillectomy, - - 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, right shoulder surgery Psychiatric History: No pertinent psych hx Smoking Status: Current every day smoker Tobacco Use: Cigarettes Alcohol: None Drugs: None - *Family History Maternal Family History: Family History (Last Reviewed 08/23/18 @ 13:50 by Jian Moya DO) Mother Hypertension Heart disease Father Heart disease Hypertension Myocardial infarction Brother Heart disease Hypertension Myocardial infarction History Items: Heart Disease Paternal Family History: Family History (Last Reviewed 08/23/18 @ 13:50 by Jian Moya DO) Mother Hypertension Heart disease Father Heart disease Hypertension Myocardial infarction Brother Heart disease Hypertension Myocardial infarction History Items: Heart Disease Review of Systems Constitutional: Reports: Malaise. Denies: Chills, Fever, Weight Change Eyes: Denies: Blurred vision, Double vision HEENT: Denies: Head Aches, Sinus Congestion, Sinus Drainage Cardiovascular: Denies: Chest Pain, Palpitations Respiratory: Reports: Shortness of Breath - Chronic and occasional. Patient states that he does use his oxygen at times. Gastrointestinal: Denies: Abdominal Pain, Nausea, Vomiting Genitourinary: Denies: Dysuria Musculoskeletal: Reports: Leg Pain - Right leg pain. 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 Denies: Easy Bruising, Hx of blood clot Comment: A 10 point review of systems were negative except as mentioned in the history of present illness and the other review of systems. VTE Information - Inpt Only VTE Present on Admission: No VTE Pharm Prophylaxis ordered?: Yes Patient Problems: Active and Suspected Problems (Last Reviewed 06/28/18 @ 13:09 by Chica Saldivar) Cellulitis of right leg (Acute) - Physical Exam General: Alert, Cooperative, No apparent distress HEENT: Atraumatic, Normocephalic Oral: Moist Mucosa, No Gingival or Mucosal Lesions/ Ulcerations, - - Edentulous Neck: No Nodes, Thyroid Normal Size and Texture Lungs: Normal air movement, Wheezes - Upper respiratory Cardiovascular: Regular rate, No murmurs Abdomen: Bowel Sounds Present, Soft, Non Tender, Non-Distended, Obese Extremities: Edema - Right lower extremity edema, - - Right calf and distal lower extremity tenderness due to swelling Skin: - - Market erythema of the distal right lower extremity. Does have an area of fluctuance just below right patella. Musculoskeletal: No Tenderness to Palpation of Joints or Extremities, No Muscle Wasting Neurological: Neuro grossly intact, - - No clonus Psych/Mental Status: Normal Affect, Appropriate Vital Signs Temp Pulse Resp BP Pulse Ox 36.4 C L 89 17 133/75 H 97 08/23/18 12:02 08/23/18 12:02 08/23/18 12:02 08/23/18 12:02 08/23/18 12:02 Oxygen Delivery Method Room Air Weight: 135.171 kg Body Mass Index (BMI) 39.3 Laboratory Tests Past 24 Hrs WBC RBC Hgb Hct MCV MCH MCHC Assessment/Plan All Active Problems (Last Reviewed 06/28/18 @ 13:09 by Chica Saldivar) Cellulitis of right leg (Acute) DINO (acute kidney injury) (Acute) Heart failure with preserved ejection fraction (Acute) COPD with acute exacerbation (Acute) New onset atrial fibrillation (Acute) Shortness of breath (Acute) Leg edema (Acute) mediastinal exploration and arrest of hemorrhage (Resolved) History of coronary artery bypass graft x 2 (Resolved) History of pleural effusion (Resolved) History of Vogt's palsy (Resolved) History of [place] (myocardial infarction) (Resolved) 1. Right lower extremity cellulitis * Failed outpatient antibiotics with Levaquin and Bactrim * Patient will continue with vancomycin * Check wound MRSA * Check a CT scan of his leg to evaluate if this is hematoma versus abscess. May require orthopedic assistance if there is concern for abscess. * Patient's wounds on his right lower extremity appear to be scabbed over and 2. Atrial fibrillation * Currently rate controlled * Continue with carvedilol and Xarelto 3. Coronary artery disease * Stable 4. Chronic kidney disease stage III * Creatinine 1.47, which is similar to the patient's last creatinine in our system 1.46 * Continue to monitor particular with the patient is on Lasix. 5. DVT prophylaxis: Patient is anticoagulated. Code Visit Inpatient E AND M: 11205 Init Hosp L3 08/23/18 9483 <Electronically signed by Jian Moya DO> Date Jian Moya DO Cosigner Signature: Date (if applicable) CC: Jian Moya DO; Lucas Nieves MD Signed EMERGENCY DEPARTMENT Observed: 08/23/2018 Status: F Source: [place] SUMMARY 4:14 PM [facility] REPOSITORY [facility] Medical Records Department [address] [place] [address] Emergency Department Summary 08/23/18 1320 MR#: [id number] Acct: [id number] Name: CODEY RAZA Rep #: [id number] : 1955 62 From: Oneil Ortega MD PCP: Lucas Nieves MD Status: ADM EMILIA - ER Visit Summary Date of Service: 08/23/18 Chief Complaint: Right leg infection History of Present Illness: The patient is a 62 M with a presumed right leg infection. The patient was referred to the emergency department today by his primary care doctor for admission for IV antibiotics. He has an underlying history of coronary disease and CABG. He has chronic venous stasis of his legs, but worse on the right from his vein surgery. He was evaluated 2 weeks ago, after a fall. This is when his symptoms started. He had an x-ray which was negative and an ultrasound which was negative for DVT done at the [facility]. His primary care doctor followed him for swelling, redness, and wounds. He has been on Levaquin and then a round of Bactrim. He had outpatient culture of his leg wounds and they did not grow anything. His PCP saw him today and his redness and warmth seem to be worse. He denies fever or systemic symptoms. Physical Examination: Afebrile and vital signs unremarkable. Patient has an irregular heartbeat. Lungs are clear. Abdomen soft. Right lower extremity is diffusely red, warm, and tender to palpation below the knee. He has multiple scabs over his anterior leg and foot. He has some anterior leg swelling just distal to his right knee. Pulses are dopplerable. Calf edematous but nontender. Test Results: Hemoglobin 17.6, BUN 32, creatinine 1.47. Coags and lactate pending. Blood cultures pending. Emergency Department Course and Treatment: Patient presents with failed outpatient treatment for cellulitis. He has dopplerable pulses. He had negative x-rays 2 weeks ago. He had a negative duplex ultrasound 2 weeks ago. Patient started on vancomycin. Hospitalist was contacted for admission. Treatment Plan: As above Disposition: Admission Impression: 1. Right leg cellulitis This note was generated with [employer] dictation software. It may contain incorrect words, spelling, and punctuation that were not noted in review of the chart prior to signing ED Disposition - Plan for ED Patient: Chief Complaint: Cellulitis Referrals: Lucas Nieves MD [Primary Care Provider] - What to do if you have Problems For any increased pain, shortness of breath, bleeding, nausea or vomiting, chest pain, or any unexpected problems, contact your Primary Care Provider. Call [employer] [facility] ([phone]) or report to the closest Emergency Room. Call 911 if necessary. 08/23/18 8124 <Electronically signed by Oneil Ortega MD> Date Oneil Ortega MD Cosigner Signature (If Indicated): Date CC: Lucas Nieves MD EXTREMITY LOWER Observed: 08/23/2018 Status: F Source: [place] WITHOUT CONTRA 2:56 PM [facility] REPOSITORY [facility] Imaging Services [address] [place] [id number] Extremity Lower without Contra MR#: [id number] Acct: [id number] Name: CODEY RAZA Marybel Rep #: [id number] : 1955 M 62 From: Toby Gamez MD PCP: Lucas Nieves MD Status: ADM EMILIA Study: Extremity Lower without Contra Date of Exam: 08/23/18 Exam# [id number] Ordering Dr: Jian Moya DO STUDY: CT RIGHT TIBIA/FIBULA WITHOUT CONTRAST REASON FOR EXAM: Right lower leg injury/infection. TECHNIQUE: Transaxial CT imaging of the tibia/fibula was performed. Sagittal and coronal images were reconstructed. Individualized dose optimization techniques were used for this CT. COMPARISON: None. FINDINGS: Normal tibia and fibula without fracture or bone destruction. There is a fluid collection anterior to the tibial tubercle measuring approximately 3.2 cm in length and 3.3 cm in transverse dimension with increased density (axial images 43-57) suggesting hematoma. There is diffuse edema in the subcutis adipose space of the lower leg. Normal muscle groups of the lower leg. There are surgical clips at the medial aspect of the lower leg. CT/Extremity Lower without Contra IMPRESSION: Hematoma anterior to the tibial tubercle, with or without superimposed infection. Diffuse edema in the subcutis adipose space. Electronically Signed: Toby Gamez MD at 15:55 EST Tel , Service support , CC: Jian Moya DO; Lucas Nieves MD Receiver Bulk System: Signed CBC W/DIFF, AUTOMATED Collected: 08/23/2018 Status: F Source: [place] 12:40 PM [facility] REPOSITORY TYPE CODE TESTS RESULT OUT OF RANGE REFERENCE UNITS LAB L100.1000 4.4-11.0 K/mm3 Normal WBC 6.1 LAB L100.1200 4.6-6.2 M/mm3 Normal RBC 5.55 LAB L100.1300 13.0-16.5 g/dl High HGB 17.6 LAB L100.1400 40-54 % High HCT 54.1 LAB L100.1500 80-94 fL High MCV 97.5 LAB L100.1600 27.0-32.0 pg Normal MCH 31.7 LAB L100.1700 32-36 g/gl Normal MCHC 32.5 LAB L100.1810 11.6-14.6 % High RDW CV 15.1 LAB L100.1820 35.1-43.9 fl High RDW SD 53.5 LAB L100.1900 150-450 K/mm3 Normal PLT 199 LAB L100.2000 6.2-12.0 fl Normal MPV 9.7 LAB L100.2100 47-70 % High NEUT% 72.4 LAB L100.2200 19-41 % Low LY% 16.0 LAB L100.2300 0-10 % High MONO% 10.1 LAB L100.2400 0-5 % Normal EO% 0.5 LAB L100.2500 0-1 % Normal BASO% 0.8 LAB L100.2550 0.0-0.9 % Normal IM GRAN % 0.200 Result Comment: IG% - Immature Granulocytes (promyelocytes, myelocytes and metamyelocytes) > 1% indicates that a LEFT SHIFT is Present. LAB L100.2620 2.0-7.7 X10 3/uL Normal Absolute Neut 4.4 LAB L100.2720 0.83-4.51 X10 3/ul Normal Absolute Lymph 0.98 Performed By: #### L100.0100 #### [facility] [address] [place], [address] COMPREHENSIVE METABOLIC Collected: 08/23/2018 Status: F Source: [facility] 12:40 PM [facility] REPOSITORY TYPE CODE TESTS RESULT OUT OF RANGE REFERENCE UNITS LAB L501.0100 74-106 mg/dL Normal GLU 98 Result Comment: Please note revised GLUCOSE reference range effective 2017. LAB L501.1000 7-18 mg/dL High BUN 32 LAB L501.1100 0.70-1.30 mg/dL High CREAT,SERUM 1.47 Result Comment: The validity of the calculated GFR AND GFRAA in patients over 70 years has not been determined. Clinical correlation is essential. LAB L501.1110 >60 mL/min Low EST GFR 52 Result Comment: Non- GFR Calc LAB L501.1115 >60 mL/min Normal EST GFR - AA 63 Result Comment: GFR Calc LAB L501.1255 ml/min Normal Estimated CRCL 59.64 LAB L501.1300 10-20 RATIO High BUN/CRE 21.8 LAB L501.1500 6.4-8. g/dL High 2 T PROT 9.0 LAB L501.1800 3.2-5. g/dL Normal 0 ALB 3.8 LAB L501.1950 2.2-4. g/dL High 2 GLOB 5.2 LAB L501.2000 0.9-2. RATIO Low 4 A/G 0.7 LAB L501.2200 8.5-10 mg/dL Normal .1 CA 9.2 LAB L501.4100 15-37 U/L Normal AST 26 LAB L501.4305 45-117 U/L Normal ALK P 72 LAB L501.4405 16-61 U/L Normal ALT 19 LAB L501.4600 0.20-1 mg/dL High .00 T BILI 1.50 LAB L501.5300 136-14 mmol/L Normal 5 NA 137 LAB L501.5600 3.5-5. mmol/L Normal 1 K 3.9 LAB L501.5900 98-107 mmol/L Normal CL 103 LAB L501.6100 21.0-3 mmol/L Normal 2.0 CO2 29.0 LAB L501.6200 5-15 Normal GAP 5 Performed By: #### L500.4050 #### [facility] [address] [place], [place], [address] LACTIC ACID Collected: 08/23/2018 Status: F Source: [place] 12:40 PM [facility] REPOSITORY Order Comment: Yes/No query for Sepsis Lactate Rule Y TYPE CODE TESTS RESULT OUT OF RANGE REFERENCE UNITS LAB L503.6005 0.4-2.0 mmol/L Normal LACTIC ACID 0.9 Performed By: #### L503.6005 #### [facility] [address] [place], [place], [address] PROTHROMBIN TIME W/INR Collected: 08/23/2018 Status: F Source: [place] 12:40 PM [facility] REPOSITORY TYPE CODE TESTS RESULT OUT OF RANGE REFERENCE UNITS LAB L300.4150 11.7-14.9 SECONDS High PROTIME 26.2 LAB L300.4200 Normal INR 2.4 Performed By: #### L300.3900, L300.4310 #### [facility] [address] [place], [address] PARTIAL THROMBOPLAST Collected: 08/23/2018 Status: F Source: [place] TIME 12:40 PM [facility] REPOSITORY TYPE CODE TESTS RESULT OUT OF REFERENCE UNITS RANGE LAB L300.4310 24.1-36.2 Seconds High PTT 43.2 Performed By: #### L300.3900, L300.4310 #### [facility] [address] [place], [place], [id number] ERYTHROCYTE SED RATE Collected: 08/23/2018 Status: F Source: [place] 12:40 PM [facility] REPOSITORY TYPE CODE TESTS RESULT OUT OF RANGE REFERENCE UNITS LAB L102.0000 0-20 mm/hr High SED RATE 21 Performed By: #### L101.9900 #### [facility] [address] [place], [address] Observed: 08/23/2018 Status: F Source: [place] CULTURE, BLOOD (WB) 12:40 PM [facility] REPOSITORY BC No growth in 5 days. Performed By: #### M200.1000 #### [facility] [address] [place], [place], [address] Observed: 08/23/2018 Status: F Source: [place] CULTURE, BLOOD (WB) 12:40 PM [facility] REPOSITORY BC No growth in 5 days. Performed By: #### M200.1000 #### [facility] [address] [place], [place], [address] PROGRESS Observed: 08/23/2018 Status: COMPLETED Source: [place] 12:36 PM [facility] REPOSITORY HNO ID: [id number] Author: Lucas Nieves Service: (none) Author Type: Physician Type: Progress Notes Filed: 08/23/2018 12:38 PM Note Text: Patient was here to f/u on right leg cellulitis. On exam leg has increased swelling, erythema and warmth. Patient sent to [facility] ER for failed outpatient antibiotic treatment. CNOV Observed: 08/23/2018 Status: COMPLETED Source: [place] 11:00 AM [facility] REPOSITORY Office Visit (FAMPWS) CODEY RAZA ([id number]) 1955 M Date Time Provider Department 08/23/18 11:00 AM LUCAS NIEVES During your visit today, we recorded the following information about you: Temperature Pulse Respiration Blood pressure 98.2 degrees 80/minute 16/minute 128/72 Weight 134.6 kg Lucas Nieves MD 08/23/2018 12:38 PM Signed Patient was here to f/u on right leg cellulitis. On exam leg has increased swelling, erythema and warmth. Patient sent to [facility] ER for failed outpatient antibiotic treatment. Referring Provider: LUCAS NIEVES [[id number]] Allergies As of Date: 08/23/2018 Noted Allergy Reaction SHELLFISH DERIVED 08/08/2018 12 - Shortness of Breath Date Reviewed: 08/23/2018 Reviewed by: Charla Leger Ma - Fully Assessed Reason for Visit: Follow Up [171] Primary Visit Diagnosis:APPOINTMENT CANCELLED Prescriptions as of 08/23/2018 Sig: LEVOFLOXACIN 500 MG TABLET Take 1 tablet by mouth once d* VENTOLIN HFA 90 MCG/ACTUATION* INHALE 2 PUFFS EVERY 4 HOURS * SYMBICORT 160 MCG-4.5 MCG/ACT* FUROSEMIDE 40 MG TABLET TAKE 1 TABLET TWO TIMES DAILY CARVEDILOL 6.25 MG TABLET TAKE 1 (ONE) TABLET TWO TIMES* RIVAROXABAN 20 MG TABLET Take 1 tablet by mouth daily * SIMVASTATIN 40 MG TABLET Take 1 tablet by mouth daily * POTASSIUM CHLORIDE ER 20 MEQ * Take 1 tablet by mouth twice * GABAPENTIN 600 MG TABLET Take 1 tablet by mouth three * UMECLIDINIUM 62.5 MCG/ACTUATI* Inhale 1 Puff as instructed o* Problem List As Of Date 08/23/2018 Noted Resolved Coronary artery disease due to lipid rich plaqu*INVALID FOR* Priority: A More... Chronic atrial fibrillation (HCC) [I48.2] INVALID FOR* Priority: A COPD (chronic obstructive pulmonary disease) (H*INVALID FOR* Priority: A More... 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 Facet arthritis, degenerative, lumbar spine [M4*INVALID FOR* Priority: M Elevated rheumatoid factor [R76.8] INVALID FOR* Arthralgia [M25.50] INVALID FOR* Encounter Status:Closed by LUCAS NIEVES on 08/23/18 PROGRESS Observed: 08/22/2018 Status: COMPLETED Source: [place] 11:26 AM [facility] REPOSITORY O ID: [id number] Author: Harika (Pt) Madi Service: (none) Author Type: Physical Therapist Type: Progress Notes Filed: 08/22/2018 12:08 PM Note Text: Episode Visit Count: 4 Therapist That Will Oversee The Plan Of Care: Tico Burnham PT Start of Care Date: 08/02/18 Onset Date: 11/30/17 Plan of Care Certification Date: 08/02/18 Patient Identified by Name and Date of : Yes REHABILITATION AND SPORTS THERAPY PHYSICAL THERAPY TREATMENT NOTE ASSESSMENT: Codey Raza demonstrated improvements in left low back and leg pain and feels it is because he is on pain medication currently for right lower leg wounds. Patient with good tolerance to extension based exercises and core stabilization with no overall change in pain. Patient needs to be re-directed to stay focussed on task. The patient will continue to benefit from continued skilled physical therapy for progression of core stabilization. PLAN FOR NEXT VISIT: Continue with extension based exercises per patient tolerance. SUBJECTIVE: Patient reports he is on pain pills and has no pain in back currently. He reports right lower leg where he fell hurts. He reports it is red, tight and swollen. Pain Score: 8/10 Pain Location: Other: See Comment (right lower leg) Description: Aching;Tightness;Other: See comment (stinging) Frequency: Continuous Post Treatment Pain Score: No Change OBJECTIVE MEASURES WITH LEVEL OF FUNCTION: Pulse oxygen check throughout treatment and percentage was 93-94% throughout exercise. TREATMENT: Therapeutic Exercise: 1: standing lumbar extension 2x10 2: back extension machine 50# 3x10 3: seated in front of hoist pull downs with jan overhead keeping elbows extended 2 plates 2x15 4: seated in front of Hoist scapular retraction 3 plates 3x15 5: seated at edge of table emphasis on posture blue t-band perturbations R, L and forward 3x15 each direction 6: seated on mat table TA activation with B alt hip flexion 3x10 7: stirring the pot 2 purple bands 2x10 each direction cw and ccw. Skilled Intervention: Patient was educated in proper exercise technique and purpose for exercises. Skilled judgment was provided in selection of appropriate interventions. Correct performance of therapeutic exercises was facilitated with verbal and visual cuing. Billing: [facility]: Therapeutic Exercise (47927): 1:1 time: 45 minutes (3 units: 38-52 mins) Total time: 45 minutes Grant Montano PT-A/Harika Barraza PT CNTHERAPY Observed: 08/22/2018 Status: COMPLETED Source: [place] 10:45 AM [facility] REPOSITORY OT/PT/Speech Visit (PTWS) CODEY RAZA ([id number]) 1955 M Date Time Provider Department 08/22/18 10:45 AM GRANT MONTANO (DRUG ENFORCEMENT AGENT) PTWS Date Time Provider Department Center 08/22/2018 10:45 AM [id number], NANCY (DRUG ENFORCEMENT AGENT) PTWS [facility] Reason for Visit: Physical Therapy [503] Primary Visit Diagnosis:Left-sided low back pain with left- sided sciatica, unspecified chronicity [M54.42] Other Visit Diagnosis:Radiculopathy with lower extremity symptoms [M54.10] Allergies As of Date: 08/22/2018 Noted Allergy Reaction SHELLFISH DERIVED 08/08/2018 12 - Shortness of Breath Date Reviewed: 08/15/2018 Reviewed by: Lucas Nieves - Fully Assessed Prescriptions as of 08/22/2018 Sig: LEVOFLOXACIN 500 MG TABLET Take 1 tablet by mouth once d* HYDROCODONE 5 MG-ACETAMINOPHE* Take 1 tablet by mouth every * VENTOLIN HFA 90 MCG/ACTUATION* INHALE 2 PUFFS EVERY 4 HOURS * SYMBICORT 160 MCG-4.5 MCG/ACT* FUROSEMIDE 40 MG TABLET TAKE 1 TABLET TWO TIMES DAILY CARVEDILOL 6.25 MG TABLET TAKE 1 (ONE) TABLET TWO TIMES* RIVAROXABAN 20 MG TABLET Take 1 tablet by mouth daily * SIMVASTATIN 40 MG TABLET Take 1 tablet by mouth daily * POTASSIUM CHLORIDE ER 20 MEQ * Take 1 tablet by mouth twice * GABAPENTIN 600 MG TABLET Take 1 tablet by mouth three * UMECLIDINIUM 62.5 MCG/ACTUATI* Inhale 1 Puff as instructed o* Progress Notes: Harika Barraza, PT 08/22/2018 12:08 PM Signed Episode Visit Count: 4 Therapist That Will Oversee The Plan Of Care: Tico Burnham PT Start of Care Date: 08/02/18 Onset Date: 11/30/17 Plan of Care Certification Date: 08/02/18 Patient Identified by Name and Date of : Yes REHABILITATION AND SPORTS THERAPY PHYSICAL THERAPY TREATMENT NOTE ASSESSMENT: Codey Rzaa demonstrated improvements in left low back and leg pain and feels it is because he is on pain medication currently for right lower leg wounds. Patient with good tolerance to extension based exercises and core stabilization with no overall change in pain. Patient needs to be re-directed to stay focussed on task. The patient will continue to benefit from continued skilled physical therapy for progression of core stabilization. PLAN FOR NEXT VISIT: Continue with extension based exercises per patient tolerance. SUBJECTIVE: Patient reports he is on pain pills and has no pain in back currently. He reports right lower leg where he fell hurts. He reports it is red, tight and swollen. Pain Score: 8/10 Pain Location: Other: See Comment (right lower leg) Description: Aching;Tightness;Other: See comment (stinging) Frequency: Continuous Post Treatment Pain Score: No Change OBJECTIVE MEASURES WITH LEVEL OF FUNCTION: Pulse oxygen check throughout treatment and percentage was 93-94% throughout exercise. TREATMENT: Therapeutic Exercise: 1: standing lumbar extension 2x10 2: back extension machine 50# 3x10 3: seated in front of hoist pull downs with jan overhead keeping elbows extended 2 plates 2x15 4: seated in front of Hoist scapular retraction 3 plates 3x15 5: seated at edge of table emphasis on posture blue t-band perturbations R, L and forward 3x15 each direction 6: seated on mat table TA activation with B alt hip flexion 3x10 7: stirring the pot 2 purple bands 2x10 each direction cw and ccw. Skilled Intervention: Patient was educated in proper exercise technique and purpose for exercises. Skilled judgment was provided in selection of appropriate interventions. Correct performance of therapeutic exercises was facilitated with verbal and visual cuing. Billing: [facility]: Therapeutic Exercise ([id number]): 1:1 time: 45 minutes (3 units: 38-52 mins) Total time: 45 minutes Grant Montano PTDottyA/Harika Barraza PT Previous Version Follow-up and Disposition History Recorded WOUND Observed: 08/15/2018 Status: F Source: [place] CULTURE/STAIN 8:42 AM [facility] REPOSITORY Sp. Request/Comment: - Swab Smear Result - No organisms seen No Polymorphonuclear Leukocytes Rare Epithelial cells Culture Result - No growth 3 days Performed By: #### WCUL #### [facility] [address] [place] [address] WOUND Observed: 08/15/2018 Status: F Source: [place] CULTURE/STAIN 8:41 AM [facility] REPOSITORY Sp. Request/Comment: - Swab Smear Result - No organisms seen Rare Polymorphonuclear leukocytes Rare Mononuclear cells Culture Result - No growth 3 days Performed By: #### WCUL #### [facility] [address] [place] [address] PROGRESS Observed: 08/15/2018 Status: COMPLETED Source: [place] 8:16 AM [facility] REPOSITORY HNO ID: [id number] Author: Lucas Nieves Service: (none) Author Type: Physician Type: Progress Notes Filed: 08/15/2018 8:51 AM Note Text: Chief Complaint Patient presents with: Musculoskeletal Problem: R - 1 week HPI Codey Raza is a 62 year old male who presents here today for Above Complaints.. Patient was seen in the office 08/08/2018 after a fall the Tuesday prior when he fell onto a set of brick steps. He had an US of the right leg due to swelling that showed no blood clot but had a hematoma at the right knee region. Has been on bactrim since. Feels the swelling is worse and the pain is increased. The two lesions on the right lower leg are draining more. Has increased redness and warmth of skin. No shortness of breath, fevers or chills. Past medical history, appointments, medications, allergies reviewed. Previous Medical History PAST MEDICAL HISTORY Diagnosis Date - CHF (congestive heart failure) ([facility]) 07/25/2018 - Chronic atrial fibrillation ([facility]) 07/25/2018 - COPD (chronic obstructive pulmonary disease) ([facility]) 07/25/2018 - Coronary artery disease due to lipid rich plaque 07/25/2018 - DDD (degenerative disc disease), lumbar 07/31/2018 X-rays 07/2018 - Elevated rheumatoid factor 07/31/2018 - Facet arthritis, degenerative, lumbar spine 07/31/2018 - History of coronary artery bypass graft x 2 07/25/2018 - Left leg weakness 07/25/2018 - Left-sided low back pain with left-sided sciatica 07/25/2018 - Mixed hyperlipidemia 07/25/2018 - Numbness of left foot 07/25/2018 - Radiculopathy with lower extremity symptoms 07/25/2018 - Smoker 07/25/2018 - Venous stasis dermatitis of both lower extremities 07/25/2018 Previous Surgical History PAST SURGICAL HISTORY Procedure Laterality Date - PAST SURGICAL HISTORY OF 2 vessel CABG Family History No family history on file. Patient Allergies ALLERGIES Allergen Reactions - Shellfish Derived Shortness of Breath Current Medications Current Outpatient Prescriptions on File Prior to Visit: sulfamethoxazole-trimethoprim (BACTRIM DS) 800-160 mg per tablet Take 1 tablet by mouth twice daily for 10 days. VENTOLIN HFA 90 mcg/actuation inhaler INHALE 2 PUFFS EVERY 4 HOURS NEEDED FOR ASTHMA SYMBICORT 160-4.5 mcg/actuation inhaler furosemide (LASIX) 40 mg tablet TAKE 1 TABLET TWO TIMES DAILY carvedilol (COREG) 6.25 mg tablet TAKE 1 (ONE) TABLET TWO TIMES DAILY rivaroxaban (XARELTO) 20 mg tablet Take 1 tablet by mouth daily with dinner. simvastatin (ZOCOR) 40 mg tablet Take 1 tablet by mouth daily at bedtime. For cholesterols. potassium chloride ER (K-DUR, KLOR-CON) 20 mEq tablet Take 1 tablet by mouth twice daily. gabapentin (NEURONTIN) 600 mg tablet Take 1 tablet by mouth three times daily. umeclidinium (INCRUSE ELLIPTA) 62.5 mcg/actuation inhaler Inhale 1 Puff as instructed once daily. Inhale one puff once daily. DO NOT CLICK OPEN UNTIL READY FOR DOSE No current facility-administered medications on file prior to visit. Social History Social History Marital status: Single Spouse name: Years of education: Number of children: Social History Main Topics Smoking status: Current Every Day Smoker Packs/day: 0.50 Years: 0.00 Types: Cigarettes Smokeless tobacco: Never Used Alcohol use: No Drug use: No Review of Symptoms REVIEW OF SYSTEMS See HPI EXAM: BP 122/80 Pulse 60 Resp 14 Wt 131.1 kg (289 lb) General Appearance: Well appearing, alert, in no acute distress, well-hydrated, well nourished.. Skin: left lower leg shows healing abrasion with no redness or discharge. Right leg shows: There is a hematoma below the knee with serosanguinous drainage. No puss. There is an abrasion at the lower anterior hernandez with granulation tissue and a smaller one on th right medial calf with granulation tissue. There is redness of the right leg and swelling. This area is mildly warmth to touch and mildly tender. . Health Maintenance List DTAP,TDAP,TD(1 - Tdap) due on 11/25/1975 ONE PNEUMOVAX PRIOR TO AGE 65 due on 11/25/1975 HEPATITIS C SCREENING due on 2000 COLORECTAL CANCER SCREENING,SEE MODIFIER due on 2006 LDL CHOLESTEROL due on 12/09/2011 DIABETES SCREEN due on 12/08/2013 LIPID SCREEN due on 12/09/2015 ANNUAL PCP TEAM CHRONIC DISEASE VISIT due on 08/08/2019 PROSTATE CANCER SCREENING DISCUSSION Completed INFLUENZA Completed Data reviewed A/P ASSESSMENT/PLAN: 1. Wound cellulitis - ICD9: 682.9, ICD10: L03.90 - Follow up for recheck in a week - Patient instructed if swelling and redness increases or getting fever of chills needs to go to the ER. - Will stop the bactrim and start Levaquin 500 mg a day. - WOUND CULTURE AND GRAM STAIN - WOUND CULTURE AND GRAM STAIN Signed Prescriptions Disp Refills levoFLOXacin (LEVAQUIN) 500 mg tablet 10 tablet 0 Sig: Take 1 tablet by mouth once daily for 10 days. F/u in a week Lucas Nieves MD CNOV Observed: 08/15/2018 Status: COMPLETED Source: [place] 8:00 AM [facility] REPOSITORY Office Visit (FAMPWS) CODEY RAZA ([id number]) 1955 M Date Time Provider Department 08/15/18 8:00 AM [facility] your visit today, we recorded the following information about you: Pulse Respiration Blood pressure Weight 60/minute 14/minute 122/80 131.1 kg Lucas Nieves MD 08/15/2018 8:51 AM Signed Chief Complaint Patient presents with: Musculoskeletal Problem: R - 1 week HPI Codey Raza is a 62 year old male who presents here today for Above Complaints.. Patient was seen in the office 08/08/2018 after a fall the Tuesday prior when he fell onto a set of brick steps. He had an US of the right leg due to swelling that showed no blood clot but had a hematoma at the right knee region. Has been on bactrim since. Feels the swelling is worse and the pain is increased. The two lesions on the right lower leg are draining more. Has increased redness and warmth of skin. No shortness of breath, fevers or chills. Past medical history, appointments, medications, allergies reviewed. Previous Medical History PAST MEDICAL HISTORY Diagnosis Date - CHF (congestive heart failure) ([facility]) 07/25/2018 - Chronic atrial fibrillation ([facility]) 07/25/2018 - COPD (chronic obstructive pulmonary disease) (HCC) 07/25/2018 - Coronary artery disease due to lipid rich plaque 07/25/2018 - DDD (degenerative disc disease), lumbar 07/31/2018 X-rays 07/2018 - Elevated rheumatoid factor 07/31/2018 - Facet arthritis, degenerative, lumbar spine 07/31/2018 - History of coronary artery bypass graft x 2 07/25/2018 - Left leg weakness 07/25/2018 - Left-sided low back pain with left-sided sciatica 07/25/2018 - Mixed hyperlipidemia 07/25/2018 - Numbness of left foot 07/25/2018 - Radiculopathy with lower extremity symptoms 07/25/2018 - Smoker 07/25/2018 - Venous stasis dermatitis of both lower extremities 07/25/2018 Previous Surgical History PAST SURGICAL HISTORY Procedure Laterality Date - PAST SURGICAL HISTORY OF 2 vessel CABG Family History No family history on file. Patient Allergies ALLERGIES Allergen Reactions - Shellfish Derived Shortness of Breath Current Medications Current Outpatient Prescriptions on File Prior to Visit: sulfamethoxazole-trimethoprim (BACTRIM DS) 800-160 mg per tablet Take 1 tablet by mouth twice daily for 10 days. VENTOLIN HFA 90 mcg/actuation inhaler INHALE 2 PUFFS EVERY 4 HOURS NEEDED FOR ASTHMA SYMBICORT 160-4.5 mcg/actuation inhaler furosemide (LASIX) 40 mg tablet TAKE 1 TABLET TWO TIMES DAILY carvedilol (COREG) 6.25 mg tablet TAKE 1 (ONE) TABLET TWO TIMES DAILY rivaroxaban (XARELTO) 20 mg tablet Take 1 tablet by mouth daily with dinner. simvastatin (ZOCOR) 40 mg tablet Take 1 tablet by mouth daily at bedtime. For cholesterols. potassium chloride ER (K-DUR, KLOR-CON) 20 mEq tablet Take 1 tablet by mouth twice daily. gabapentin (NEURONTIN) 600 mg tablet Take 1 tablet by mouth three times daily. umeclidinium (INCRUSE ELLIPTA) 62.5 mcg/actuation inhaler Inhale 1 Puff as instructed once daily. Inhale one puff once daily. DO NOT CLICK OPEN UNTIL READY FOR DOSE No current facility-administered medications on file prior to visit. Social History Social History Marital status: Single Spouse name: Years of education: Number of children: Social History Main Topics Smoking status: Current Every Day Smoker Packs/day: 0.50 Years: 0.00 Types: Cigarettes Smokeless tobacco: Never Used Alcohol use: No Drug use: No Review of Symptoms REVIEW OF SYSTEMS See HPI EXAM: BP 122/80 Pulse 60 Resp 14 Wt 131.1 kg (289 lb) General Appearance: Well appearing, alert, in no acute distress, well-hydrated, well nourished.. Skin: left lower leg shows healing abrasion with no redness or discharge. Right leg shows: There is a hematoma below the knee with serosanguinous drainage. No puss. There is an abrasion at the lower anterior hernandez with granulation tissue and a smaller one on th right medial calf with granulation tissue. There is redness of the right leg and swelling. This area is mildly warmth to touch and mildly tender. . Health Maintenance List DTAP,TDAP,TD(1 - Tdap) due on 11/25/1975 ONE PNEUMOVAX PRIOR TO AGE 66 due on 11/25/1975 HEPATITIS C SCREENING due on 2000 COLORECTAL CANCER SCREENING,SEE MODIFIER due on 2006 LDL CHOLESTEROL due on 12/09/2011 DIABETES SCREEN due on 12/08/2013 LIPID SCREEN due on 12/09/2015 ANNUAL PCP TEAM CHRONIC DISEASE VISIT due on 08/08/2019 PROSTATE CANCER SCREENING DISCUSSION Completed INFLUENZA Completed Data reviewed A/P ASSESSMENT/PLAN: 1. Wound cellulitis - ICD9: 682.9, ICD10: L03.90 - Follow up for recheck in a week - Patient instructed if swelling and redness increases or getting fever of chills needs to go to the ER. - Will stop the bactrim and start Levaquin 500 mg a day. - WOUND CULTURE AND GRAM STAIN - WOUND CULTURE AND GRAM STAIN Signed Prescriptions Disp Refills levoFLOXacin (LEVAQUIN) 500 mg tablet 10 tablet 0 Sig: Take 1 tablet by mouth once daily for 10 days. F/u in a week Lucas Nieves MD Referring Provider: SELF [200] Allergies As of Date: 08/15/2018 Noted Allergy Reaction SHELLFISH DERIVED 08/08/2018 12 - Shortness of Breath Date Reviewed: 08/15/2018 Reviewed by: Lucas Nieves - Fully Assessed Reason for Visit: Musculoskeletal Problem [69] Cmt: R - 1 week Reason For Visit History Recorded Primary Visit Diagnosis:Wound cellulitis [L03.90] Other Visit Diagnoses:Fall, initial encounter [W19.XXXA] Acute pain of right knee [M25.561] Order(s):WOUND CULTURE AND GRAM STAIN [SQWCUL] Order #: [id number] WOUND CULTURE AND GRAM STAIN [SQWCUL] Order #: [id number] levoFLOXacin (LEVAQUIN) 500 mg tabletTake 1 tablet by mouth once daily for 10 days.Disp: 10 tabletRfl: 0 HYDROcodone-acetaminophen (NORCO) 5-325 mg per tabletTake 1 tablet by mouth every 8 hours as needed for up to 7 days.Disp: 21 tabletRfl: 0 Prescriptions as of 08/15/2018 Sig: VENTOLIN HFA 90 MCG/ACTUATION* INHALE 2 PUFFS EVERY 4 HOURS * SYMBICORT 160 MCG-4.5 MCG/ACT* FUROSEMIDE 40 MG TABLET TAKE 1 TABLET TWO TIMES DAILY CARVEDILOL 6.25 MG TABLET TAKE 1 (ONE) TABLET TWO TIMES* RIVAROXABAN 20 MG TABLET Take 1 tablet by mouth daily * SIMVASTATIN 40 MG TABLET Take 1 tablet by mouth daily * POTASSIUM CHLORIDE ER 20 MEQ * Take 1 tablet by mouth twice * GABAPENTIN 600 MG TABLET Take 1 tablet by mouth three * UMECLIDINIUM 62.5 MCG/ACTUATI* Inhale 1 Puff as instructed o* LEVOFLOXACIN 500 MG TABLET Take 1 tablet by mouth once d* HYDROCODONE 5 MG-ACETAMINOPHE* Take 1 tablet by mouth every * Problem List As Of Date 08/15/2018 Noted Resolved Coronary artery disease due to lipid rich plaqu*INVALID FOR* Priority: A More... Chronic atrial fibrillation (HCC) [I48.2] INVALID FOR* Priority: A COPD (chronic obstructive pulmonary disease) (H*INVALID FOR* Priority: A More... 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 HYDROCODONE 5 MG-ACETAMINOPHEN 325 M* 21 t* 0 08/15/2018 08/22/2018 Class: Print RX Route: ORAL Sig: Take 1 tablet by mouth every 8 hours as needed for up to 7 days. Medications Discontinued During This Encounter sulfamethoxazole-trimethoprim (BACTR* 20 t* 0 08/08/2018 08/15/2018 Cmt: Ok to give generic equivalent Route: ORAL Sig: Take 1 tablet by mouth twice daily for 10 days. Disc: Changing Therapy/Dosage Form HYDROcodone-acetaminophen (NORCO) 5-* 12 t* 0 08/08/2018 08/15/2018 Class: Print RX Route: ORAL Sig: Take 1 tablet by mouth every 6 hours as needed for up to 3 days. Disc: Reason for discontinue is not on file. Disposition: Return in about 1 week (around 08/22/2018) for cellulitis f/u. Follow-up and Disposition History Recorded Encounter Status:Closed by LUCAS NIEVES on 08/15/18 PROGRESS Observed: 08/10/2018 Status: COMPLETED Source: [place] 1:10 PM [facility] O ID: [id number] Author: Tico (Pt) Tej Service: (none) Author Type: Physical Therapist Type: Progress Notes Filed: 08/10/2018 1:12 PM Note Text: Episode Visit Count: 3 Therapist That Will Oversee The Plan Of Care: Tico Burnham PT Start of Care Date: 08/02/18 Onset Date: 11/30/17 Plan of Care Certification Date: 08/02/18 Patient Identified by Name and Date of : Yes REHABILITATION AND SPORTS THERAPY PHYSICAL THERAPY TREATMENT NOTE ASSESSMENT: Codey Raza demonstrated difficulty with completing prone therex since injuries from fall and improvements in pain and exercise tolerance secondary to medication. The patient will continue to benefit from continued skilled physical therapy for supervised progression of therex and possibly lumbar belt traction if he can tolerate getting onto mat table. PLAN FOR NEXT VISIT: Continue with extension based exercises per patient tolerance. SUBJECTIVE: Pt reports that overall he is feeling the same. He reports that he has been taking pain medication since he fell on 08/05/18 and this medication is helping his low back. Therefore low back pain is lower than it had been. He reports that laying prone to do HEP has not been an option since he fell and injured his LEs. Pain Score: 3/10 Pain Location: Low Back/Lumbar Spine - Left Description: Stabbing Frequency: Intermittent Post Treatment Pain Score: 4/10 Pain Location: Low Back/Lumbar Spine - Left Post Treatment Pain Description: (increased slightly) Post Treatment Symptoms: Pt reported a slight increase in low back pain from 3/10 to 4/10 that he attributed to back extension machine. OBJECTIVE MEASURES WITH LEVEL OF FUNCTION: Posture / Alignment Posture: Forward head;Rounded shoulders;Increased thoracic kyphosis;Decreased lumbar lordosis TREATMENT: Therapeutic Exercise: 1: standing lumbar extension 2x10 2: back extension machine 70# 3x10 3: seated in front of hoAllani pull downs with jan overhead keeping elbows extended 2 plates 3x10 4: seated in front of Hoist scapular retraction 3 plates 3x15 5: seated at edge of table emphasis on posture blue t-band perturbations R, L and forward 3x15 each direction 6: seated on corner of mat table TA activation with B alt hip flexion 3x10 7: stirring the pot at [facility] wiht 1 plate and 3 round 2x10 facing each direction Skilled Intervention: Patient was educated in proper exercise technique and purpose for exercises. Skilled judgment was provided in selection of appropriate interventions. Correct performance of therapeutic exercises was facilitated with verbal and visual cuing. Billing: [facility]: Therapeutic Exercise ([id number]): 1:1 time: 45 minutes (3 units: 38-52 mins) Total time: 45 minutes Tico Burnham PT CNTHERAPY Observed: 08/10/2018 Status: COMPLETED Source: [place] 11:30 AM [facility] REPOSITORY OT/PT/Speech Visit (PTWS) CODEY RAZA ([id number]) 1955 M Date Time Provider Department 08/10/18 11:30 AM TICO BURNHAM (PT) PTWS Date Time Provider Department Center 08/10/2018 11:30 AM [id number], BRENT (PT) PTWS [facility] Reason for Visit: Physical Therapy [503] Primary Visit Diagnosis:Left-sided low back pain with left- sided sciatica, unspecified chronicity [M54.42] Other Visit Diagnosis:Radiculopathy with lower extremity symptoms [M54.10] Allergies As of Date: 08/10/2018 Noted Allergy Reaction SHELLFISH DERIVED 08/08/2018 12 - Shortness of Breath Date Reviewed: 08/08/2018 Reviewed by: Becky Huggins Ma - Fully Assessed Prescriptions as of 08/10/2018 Sig: HYDROCODONE 5 MG-ACETAMINOPHE* Take 1 tablet by mouth every * SULFAMETHOXAZOLE 800 MG-TRIME* Take 1 tablet by mouth twice * VENTOLIN HFA 90 MCG/ACTUATION* INHALE 2 PUFFS EVERY 4 HOURS * SYMBICORT 160 MCG-4.5 MCG/ACT* FUROSEMIDE 40 MG TABLET TAKE 1 TABLET TWO TIMES DAILY CARVEDILOL 6.25 MG TABLET TAKE 1 (ONE) TABLET TWO TIMES* RIVAROXABAN 20 MG TABLET Take 1 tablet by mouth daily * SIMVASTATIN 40 MG TABLET Take 1 tablet by mouth daily * POTASSIUM CHLORIDE ER 20 MEQ * Take 1 tablet by mouth twice * GABAPENTIN 600 MG TABLET Take 1 tablet by mouth three * UMECLIDINIUM 62.5 MCG/ACTUATI* Inhale 1 Puff as instructed o* Progress Notes: Tico Burnham PT 08/10/2018 1:12 PM Signed Episode Visit Count: 3 Therapist That Will Oversee The Plan Of Care: Tico Burnham PT Start of Care Date: 08/02/18 Onset Date: 11/30/17 Plan of Care Certification Date: 08/02/18 Patient Identified by Name and Date of : Yes REHABILITATION AND SPORTS THERAPY PHYSICAL THERAPY TREATMENT NOTE ASSESSMENT: Codey Raza demonstrated difficulty with completing prone therex since injuries from fall and improvements in pain and exercise tolerance secondary to medication. The patient will continue to benefit from continued skilled physical therapy for supervised progression of therex and possibly lumbar belt traction if he can tolerate getting onto mat table. PLAN FOR NEXT VISIT: Continue with extension based exercises per patient tolerance. SUBJECTIVE: Pt reports that overall he is feeling the same. He reports that he has been taking pain medication since he fell on 08/05/18 and this medication is helping his low back. Therefore low back pain is lower than it had been. He reports that laying prone to do HEP has not been an option since he fell and injured his LEs. Pain Score: 3/10 Pain Location: Low Back/Lumbar Spine - Left Description: Stabbing Frequency: Intermittent Post Treatment Pain Score: 4/10 Pain Location: Low Back/Lumbar Spine - Left Post Treatment Pain Description: (increased slightly) Post Treatment Symptoms: Pt reported a slight increase in low back pain from 3/10 to 4/10 that he attributed to back extension machine. OBJECTIVE MEASURES WITH LEVEL OF FUNCTION: Posture / Alignment Posture: Forward head;Rounded shoulders;Increased thoracic kyphosis;Decreased lumbar lordosis TREATMENT: Therapeutic Exercise: 1: standing lumbar extension 2x10 2: back extension machine 70# 3x10 3: seated in front of hoist pull downs with jan overhead keeping elbows extended 2 plates 3x10 4: seated in front of ist scapular retraction 3 plates 3x15 5: seated at edge of table emphasis on posture blue t-band perturbations R, L and forward 3x15 each direction 6: seated on corner of mat table TA activation with B alt hip flexion 3x10 7: stirring the pot at [facility] wiht 1 plate and 3 round 2x10 facing each direction Skilled Intervention: Patient was educated in proper exercise technique and purpose for exercises. Skilled judgment was provided in selection of appropriate interventions. Correct performance of therapeutic exercises was facilitated with verbal and visual cuing. Billing: [facility]: Therapeutic Exercise ([id number]): 1:1 time: 45 minutes (3 units: 38-52 mins) Total time: 45 minutes Tico Burnham PT PROGRESS Observed: 08/08/2018 Status: COMPLETED Source: [place] 1:45 PM [facility] REPOSITORY HNO ID: [id number] Author: Maura (Rt) Dulce Ibarra Service: (none) Author Type: Sqe Type: Progress Notes Filed: 08/08/2018 1:45 PM Note Text: Radiology Service Progress Note PATIENT NAME: Codey Raza DATE OF SERVICE: August 08, 2018 TIME: 1:45 PM PATIENT IDENTITY VERIFICATION COMPLETED USING TWO (2) METHODS: Patient confirmed name verbally and Date of . PATIENT GENDER DATA: Male PATIENT RELEVANT IMPLANT DATA REVIEWED: Not Applicable RADIOLOGY DEPARTMENT: General X-ray: Exam(s) Completed: Lower Extremity X-Ray(s): Knee, AP / LAT Right and Wt. Bearing and Tibia Fibula, Right: PERIPHERAL IV DATA: Not applicable SIGNED BY: RT Victorina August 08, 2018 1:45 PM XR TIBIA FIBULA 2V Observed: 08/08/2018 Status: F Source: [place] AP/LAT RT 1:38 PM [facility] REPOSITORY * * *Final Report* * * DATE OF EXAM: Aug 08 2018 1:38PM [id number] - XR TIBIA FIBULA 2V AP/LAT RT / PROCEDURE REASON: multiple diagnoses * * * * Physician Interpretation * * * * EXAMINATION: XR KNEE 2V AP/LAT RT, XR TIBIA FIBULA 2V AP/LAT RT HISTORY: lump on the anterior surfacre of the right proximal tib after falling 3 days ago. (accession [id number]), laceraction on the anterior distal tiba and lump on the anterior proximal after falling 3 days ago. (accession [id number]) Fall, initial encounter Acute pain of right knee . TECHNIQUE: XR KNEE 2V AP/LAT RT, XR TIBIA FIBULA 2V AP/LAT RT Laterality: RIGHT Number of different views (projections): 4 M: XB_1 COMPARISON: There are no prior studies for comparison RESULT: AP standing radiographs of the bilateral knees with a lateral view of the right knee as well as 4 views of the right tibia and fibula show no evidence of acute fracture or dislocation. On the lateral view of the right knee and tibia there is focal soft tissue prominence over the tibial tuberosity without underlying bony abnormality. There is no radiopaque foreign body or gas within the soft tissues. 4 views of the right tibia demonstrate our pointing to an area of open wound. There is no evidence of gas within the soft tissues or underlying bony process. There is no bony destructive change. IMPRESSION: No evidence of acute bony process to include fracture or osteomyelitis. Soft tissue findings as detailed in report. Receiver Bulk System: PSCB Transcribe Date/Time: Aug 08 2018 2:00P Dictated by : ERIKA HERNANDEZ MD This examination was interpreted and the report reviewed and electronically signed by: ERIKA HERNANDEZ MD on Aug 08 2018 2:04PM EST [id number] XR KNEE 2V AP/LAT Observed: 08/08/2018 Status: F Source: [place] RT 1:38 PM [facility] REPOSITORY * * *Final Report* * * DATE OF EXAM: Aug 08 2018 1:38PM [id number] - XR KNEE 2V AP/LAT RT / PROCEDURE REASON: multiple diagnoses * * * * Physician Interpretation * * * * EXAMINATION: XR KNEE 2V AP/LAT RT, XR TIBIA FIBULA 2V AP/LAT RT HISTORY: lump on the anterior surfacre of the right proximal tib after falling 3 days ago. (accession [id number]), laceraction on the anterior distal tiba and lump on the anterior proximal after falling 3 days ago. (accession [id number]) Fall, initial encounter Acute pain of right knee . TECHNIQUE: XR KNEE 2V AP/LAT RT, XR TIBIA FIBULA 2V AP/LAT RT Laterality: RIGHT Number of different views (projections): 4 M: XB_1 COMPARISON: There are no prior studies for comparison RESULT: AP standing radiographs of the bilateral knees with a lateral view of the right knee as well as 4 views of the right tibia and fibula show no evidence of acute fracture or dislocation. On the lateral view of the right knee and tibia there is focal soft tissue prominence over the tibial tuberosity without underlying bony abnormality. There is no radiopaque foreign body or gas within the soft tissues. 4 views of the right tibia demonstrate our pointing to an area of open wound. There is no evidence of gas within the soft tissues or underlying bony process. There is no bony destructive change. IMPRESSION: No evidence of acute bony process to include fracture or osteomyelitis. Soft tissue findings as detailed in report. Receiver Bulk System: PSCB Transcribe Date/Time: Aug 08 2018 2:00P Dictated by : ERIKA HERNANDEZ MD This examination was interpreted and the report reviewed and electronically signed by: ERIKA HERNANDEZ MD on Aug 08 2018 2:04PM EST [id number] PROGRESS Observed: 08/08/2018 Status: COMPLETED Source: [place] 1:23 PM [facility] REPOSITORY HNO ID: [id number] Author: Tico (Pt) Tej Service: (none) Author Type: Physical Therapist Type: Progress Notes Filed: 08/08/2018 2:01 PM Note Text: Episode Visit Count: 2 Therapist That Will Oversee The Plan Of Care: Tico Burnham PT Start of Care Date: 08/02/18 Onset Date: 11/30/17 Plan of Care Certification Date: 08/02/18 Patient Identified by Name and Date of : Yes REHABILITATION AND SPORTS THERAPY PHYSICAL THERAPY TREATMENT NOTE ASSESSMENT: Codey Raza demonstrated difficulty with right lower leg greater than before with bruising and cuts from falling over the weekend. Pain in left back, buttock and upper hamstring were abolished with extension based exercises today. Patient was instructed to continue with exercise per his tolerance of not creating increase pain in newly bruised areas of lower legs. The patient will continue to benefit from continued skilled physical therapy for progression of core stabilization and extension based exercises. PLAN FOR NEXT VISIT: Continue with extension based exercises per patient tolerance. SUBJECTIVE: Patient reports he fell on Tuesday and hurt right lower leg with bruising. He reports his legs felt weak and gave out on him. He reports he just came from Dr Nieves's office. He reports he is have X-rays and US. Patient reports left low back, buttock and upper hamstring are hurting today. Pain Score: 7/10 Pain Location: Low Back/Lumbar Spine - Left;Buttocks - Left;Other: See Comment (left upper hamstring) Description: Stabbing Frequency: Intermittent Post Treatment Pain Score: 0/10 OBJECTIVE MEASURES WITH LEVEL OF FUNCTION: Extension exercises abolished left low back, buttock and upper hamstring pain today. TREATMENT: Therapeutic Exercise: 1: Standing extension 1x5 with increase pulling B lower legs where bruising is and this was stopped. 2: prone on elbows x3 minutes 3: standing lumbar extension 2x10 in pain-free range. 4: *Prone press ups 2x10. 5: *Bridging 1x10 with head elevated with pillow and 2 small wedge bolsters. 6: *Seated upright TA 2-3 second hold x 10. Instruction to do this 3-5 times throughout the day. 7: Seated upright TA with alt biceps curls x 10. 8: *Seated scapular retraction 2x10. Instruction to do this 3-5 times throughout the day. Skilled Intervention: Patient was educated in proper exercise technique and purpose for exercises. Reviewed and educated patient on additions/changes for home exercise program as above (*) Skilled judgment was provided in selection of appropriate interventions. Provided written instruction for home exercise program to facilitate proper performance and compliance. Correct performance of therapeutic exercises was facilitated with verbal and visual cuing. Billing: [facility]: Therapeutic Exercise ([id number]): 1:1 time: 45 minutes (3 units: 38-52 mins) Total time: 45 minutes BRYANT Retana PT CNTHERAPY Observed: 08/08/2018 Status: COMPLETED Source: [place] 12:30 PM [facility] REPOSITORY OT/PT/Speech Visit (PTWS) CODEY RAZA ([id number]) 1955 M Date Time Provider Department 08/08/18 12:30 PM GRANT MONTANO (DRUG ENFORCEMENT AGENT) PTWS Date Time Provider Department Center 08/08/2018 12:30 PM [id number], NANCY (DRUG ENFORCEMENT AGENT) [facility] Reason for Visit: Physical Therapy [503] Primary Visit Diagnosis:Left-sided low back pain with left- sided sciatica, unspecified chronicity [M54.42] Other Visit Diagnosis:Radiculopathy with lower extremity symptoms [M54.10] Allergies As of Date: 08/08/2018 Noted Allergy Reaction SHELLFISH DERIVED 08/08/2018 12 - Shortness of Breath Date Reviewed: 08/08/2018 Reviewed by: Becky Huggins Ma - Fully Assessed Prescriptions as of 08/08/2018 Sig: HYDROCODONE 5 MG-ACETAMINOPHE* Take 1 tablet by mouth every * SULFAMETHOXAZOLE 800 MG-TRIME* Take 1 tablet by mouth twice * VENTOLIN HFA 90 MCG/ACTUATION* INHALE 2 PUFFS EVERY 4 HOURS * SYMBICORT 160 MCG-4.5 MCG/ACT* FUROSEMIDE 40 MG TABLET TAKE 1 TABLET TWO TIMES DAILY CARVEDILOL 6.25 MG TABLET TAKE 1 (ONE) TABLET TWO TIMES* RIVAROXABAN 20 MG TABLET Take 1 tablet by mouth daily * SIMVASTATIN 40 MG TABLET Take 1 tablet by mouth daily * POTASSIUM CHLORIDE ER 20 MEQ * Take 1 tablet by mouth twice * GABAPENTIN 600 MG TABLET Take 1 tablet by mouth three * UMECLIDINIUM 62.5 MCG/ACTUATI* Inhale 1 Puff as instructed o* Progress Notes: Tico Burnham PT 08/08/2018 2:01 PM Signed Episode Visit Count: 2 Therapist That Will Oversee The Plan Of Care: Tico Burnham PT Start of Care Date: 08/02/18 Onset Date: 11/30/17 Plan of Care Certification Date: 08/02/18 Patient Identified by Name and Date of : Yes REHABILITATION AND SPORTS THERAPY PHYSICAL THERAPY TREATMENT NOTE ASSESSMENT: Codey Raza demonstrated difficulty with right lower leg greater than before with bruising and cuts from falling over the weekend. Pain in left back, buttock and upper hamstring were abolished with extension based exercises today. Patient was instructed to continue with exercise per his tolerance of not creating increase pain in newly bruised areas of lower legs. The patient will continue to benefit from continued skilled physical therapy for progression of core stabilization and extension based exercises. PLAN FOR NEXT VISIT: Continue with extension based exercises per patient tolerance. SUBJECTIVE: Patient reports he fell on Tuesday and hurt right lower leg with bruising. He reports his legs felt weak and gave out on him. He reports he just came from Dr Nieves's office. He reports he is have X-rays and US. Patient reports left low back, buttock and upper hamstring are hurting today. Pain Score: 7/10 Pain Location: Low Back/Lumbar Spine - Left;Buttocks - Left;Other: See Comment (left upper hamstring) Description: Stabbing Frequency: Intermittent Post Treatment Pain Score: 0/10 OBJECTIVE MEASURES WITH LEVEL OF FUNCTION: Extension exercises abolished left low back, buttock and upper hamstring pain today. TREATMENT: Therapeutic Exercise: 1: Standing extension 1x5 with increase pulling B lower legs where bruising is and this was stopped. 2: prone on elbows x3 minutes 3: standing lumbar extension 2x10 in pain-free range. 4: *Prone press ups 2x10. 5: *Bridging 1x10 with head elevated with pillow and 2 small wedge bolsters. 6: *Seated upright TA 2-3 second hold x 10. Instruction to do this 3-5 times throughout the day. 7: Seated upright TA with alt biceps curls x 10. 8: *Seated scapular retraction 2x10. Instruction to do this 3-5 times throughout the day. Skilled Intervention: Patient was educated in proper exercise technique and purpose for exercises. Reviewed and educated patient on additions/changes for home exercise program as above (*) Skilled judgment was provided in selection of appropriate interventions. Provided written instruction for home exercise program to facilitate proper performance and compliance. Correct performance of therapeutic exercises was facilitated with verbal and visual cuing. Billing: [facility]: Therapeutic Exercise ([id number]): 1:1 time: 45 minutes (3 units: 38-52 mins) Total time: 45 minutes BRYANT Retana PT Previous Version Follow-up and Disposition History Recorded PROGRESS Observed: 08/08/2018 Status: COMPLETED Source: [place] 11:00 AM [facility] REPOSITORY O ID: [id number] Author: Monroe Corbin Service: (none) Author Type: Physician [employer]orter [employer]undry Articles Type: Progress Notes Filed: 08/08/2018 3:08 PM Note Text: Chief Complaint Patient presents with: Pain: Patient is here for right leg pain - HPI Codey Raza is a 62 year old male who presents here today for Fall. Patient states that on Tuesday he fell at home and landed on his knees. Scraped his toes and heels. Has a large knot under R knee and multiple abrasions on R foot. He is on blood thinners. Past medical history, appointments, medications, allergies reviewed. Previous Medical History PAST MEDICAL HISTORY Diagnosis Date - CHF (congestive heart failure) ([facility]) 07/25/2018 - Chronic atrial fibrillation ([facility]) 07/25/2018 - COPD (chronic obstructive pulmonary disease) ([facility]) 07/25/2018 - Coronary artery disease due to lipid rich plaque 07/25/2018 - DDD (degenerative disc disease), lumbar 07/31/2018 X-rays 07/2018 - Elevated rheumatoid factor 07/31/2018 - Facet arthritis, degenerative, lumbar spine 07/31/2018 - History of coronary artery bypass graft x 2 07/25/2018 - Left leg weakness 07/25/2018 - Left-sided low back pain with left-sided sciatica 07/25/2018 - Mixed hyperlipidemia 07/25/2018 - Numbness of left foot 07/25/2018 - Radiculopathy with lower extremity symptoms 07/25/2018 - Smoker 07/25/2018 - Venous stasis dermatitis of both lower extremities 07/25/2018 Previous Surgical History PAST SURGICAL HISTORY Procedure Laterality Date - PAST SURGICAL HISTORY OF 2 vessel CABG Family History No family history on file. Patient Allergies ALLERGIES Allergen Reactions - Shellfish Derived Shortness of Breath Current Medications Current Outpatient Prescriptions on File Prior to Visit: VENTOLIN HFA 90 mcg/actuation inhaler INHALE 2 PUFFS EVERY 4 HOURS NEEDED FOR ASTHMA SYMBICORT 160-4.5 mcg/actuation inhaler furosemide (LASIX) 40 mg tablet TAKE 1 TABLET TWO TIMES DAILY carvedilol (COREG) 6.25 mg tablet TAKE 1 (ONE) TABLET TWO TIMES DAILY rivaroxaban (XARELTO) 20 mg tablet Take 1 tablet by mouth daily with dinner. simvastatin (ZOCOR) 40 mg tablet Take 1 tablet by mouth daily at bedtime. For cholesterols. potassium chloride ER (K-DUR, KLOR-CON) 20 mEq tablet Take 1 tablet by mouth twice daily. gabapentin (NEURONTIN) 600 mg tablet Take 1 tablet by mouth three times daily. umeclidinium (INCRUSE ELLIPTA) 62.5 mcg/actuation inhaler Inhale 1 Puff as instructed once daily. Inhale one puff once daily. DO NOT CLICK OPEN UNTIL READY FOR DOSE No current facility-administered medications on file prior to visit. Social History Social History Marital status: Single Spouse name: Years of education: Number of children: Social History Main Topics Smoking status: Current Every Day Smoker Packs/day: 0.50 Years: 0.00 Types: Cigarettes Smokeless tobacco: Never Used Alcohol use: No Drug use: No Review of Symptoms REVIEW OF SYSTEMS See hpi EXAM: BP 108/64 (BP Site: Left Arm, BP Position: Sitting, BP Cuff Size: Large Adult) Pulse 64 Resp 12 Wt 134.3 kg (296 lb) General Appearance: Well appearing, alert, in no acute distress, well-hydrated, well nourished. and Obese. Extremities: R lower leg has noted hematoma under R knee. Tender to palp. R lower leg is swollen and erythematous. Neg homans. Multiple abrasions. Bloody drainage noted. ROM in ankle is restricted due to swelling. Left ankle with small healing abrasion Musculoskeletal: no pain with palp of R knee. Pain with palp of tibial tuberosity and tibula. Patient ambulates without assistance. Full ROM of R knee with minimal discomfort. Health Maintenance List DTAP,TDAP,TD(1 - Tdap) due on 11/25/1975 ONE PNEUMOVAX PRIOR TO AGE 65 due on 11/25/1975 HEPATITIS C SCREENING due on 2000 COLORECTAL CANCER SCREENING,SEE MODIFIER due on 2006 LDL CHOLESTEROL due on 12/09/2011 DIABETES SCREEN due on 12/08/2013 LIPID SCREEN due on 12/09/2015 ANNUAL PCP TEAM CHRONIC DISEASE VISIT due on 07/25/2019 PROSTATE CANCER SCREENING DISCUSSION Completed INFLUENZA Completed Data reviewed n/a ASSESSMENT/PLAN: 1. Fall, initial encounter - ICD9: E888.9, ICD10: W19.XXXA (primary diagnosis) Will check x-ray US of Lower leg Start antibiotic given concerns for developing cellulitis Recommend RICE Follow up in 1 week Wound care instructions given. - XR KNEE LIMITED 2V AP/LAT RT - XR TIBIA FIBULA 2V AP/LAT RT - HYDROCODONE 5 MG-ACETAMINOPHEN 325 MG TABLET - XR KNEE LIMITED 2V AP/LAT RT - XR TIBIA FIBULA 2V AP/LAT RT 2. Acute pain of right knee - ICD9: 719.46, ICD10: M25.561 - XR KNEE LIMITED 2V AP/LAT RT - XR TIBIA FIBULA 2V AP/LAT RT - HYDROCODONE 5 MG-ACETAMINOPHEN 325 MG TABLET - XR KNEE LIMITED 2V AP/LAT RT - XR TIBIA FIBULA 2V AP/LAT RT 3. Hematoma - ICD9: 924.9, ICD10: T14.8XXA - US LEG VEIN DVT UNL VAS LAB 4. Leg swelling - ICD9: 729.81, ICD10: M79.89 - US LEG VEIN DVT UNL V[facility] LAB JOSEFA CORBIN PA-C CNOV Observed: 08/08/2018 Status: COMPLETED Source: [place] 11:00 AM [facility] REPOSITORY Office Visit (FAMPWS) CODEY RAZA ([id number]) 1955 Date Time Provider Department 08/08/18 11:00 AM LAUREN CORBIN) FAMPWS During your visit today, we recorded the following information about you: Pulse Respiration Blood pressure Weight 64/minute 12/minute 108/64 134.3 kg JOSEFA CORBIN PA-C 08/08/2018 3:08 PM Signed Chief Complaint Patient presents with: Pain: Patient is here for right leg pain - HPI Codey Raza is a 62 year old male who presents here today for Fall. Patient states that on Tuesday he fell at home and landed on his knees. Scraped his toes and heels. Has a large knot under R knee and multiple abrasions on R foot. He is on blood thinners. Past medical history, appointments, medications, allergies reviewed. Previous Medical History PAST MEDICAL HISTORY Diagnosis Date - CHF (congestive heart failure) ([facility]) 07/25/2018 - Chronic atrial fibrillation ([facility]) 07/25/2018 - COPD (chronic obstructive pulmonary disease) ([facility]) 07/25/2018 - Coronary artery disease due to lipid rich plaque 07/25/2018 - DDD (degenerative disc disease), lumbar 07/31/2018 X-rays 07/2018 - Elevated rheumatoid factor 07/31/2018 - Facet arthritis, degenerative, lumbar spine 07/31/2018 - History of coronary artery bypass graft x 2 07/25/2018 - Left leg weakness 07/25/2018 - Left-sided low back pain with left-sided sciatica 07/25/2018 - Mixed hyperlipidemia 07/25/2018 - Numbness of left foot 07/25/2018 - Radiculopathy with lower extremity symptoms 07/25/2018 - Smoker 07/25/2018 - Venous stasis dermatitis of both lower extremities 07/25/2018 Previous Surgical History PAST SURGICAL HISTORY Procedure Laterality Date - PAST SURGICAL HISTORY OF 2 vessel CABG Family History No family history on file. Patient Allergies ALLERGIES Allergen Reactions - Shellfish Derived Shortness of Breath Current Medications Current Outpatient Prescriptions on File Prior to Visit: VENTOLIN HFA 90 mcg/actuation inhaler INHALE 2 PUFFS EVERY 4 HOURS NEEDED FOR ASTHMA SYMBICORT 160-4.5 mcg/actuation inhaler furosemide (LASIX) 40 mg tablet TAKE 1 TABLET TWO TIMES DAILY carvedilol (COREG) 6.25 mg tablet TAKE 1 (ONE) TABLET TWO TIMES DAILY rivaroxaban (XARELTO) 20 mg tablet Take 1 tablet by mouth daily with dinner. simvastatin (ZOCOR) 40 mg tablet Take 1 tablet by mouth daily at bedtime. For cholesterols. potassium chloride ER (K-DUR, KLOR-CON) 20 mEq tablet Take 1 tablet by mouth twice daily. gabapentin (NEURONTIN) 600 mg tablet Take 1 tablet by mouth three times daily. umeclidinium (INCRUSE ELLIPTA) 62.5 mcg/actuation inhaler Inhale 1 Puff as instructed once daily. Inhale one puff once daily. DO NOT CLICK OPEN UNTIL READY FOR DOSE No current facility-administered medications on file prior to visit. Social History Social History Marital status: Single Spouse name: Years of education: Number of children: Social History Main Topics Smoking status: Current Every Day Smoker Packs/day: 0.50 Years: 0.00 Types: Cigarettes Smokeless tobacco: Never Used Alcohol use: No Drug use: No Review of Symptoms REVIEW OF SYSTEMS See hpi EXAM: BP 108/64 (BP Site: Left Arm, BP Position: Sitting, BP Cuff Size: Large Adult) Pulse 64 Resp 12 Wt 134.3 kg (296 lb) General Appearance: Well appearing, alert, in no acute distress, well-hydrated, well nourished. and Obese. Extremities: R lower leg has noted hematoma under R knee. Tender to palp. R lower leg is swollen and erythematous. Neg homans. Multiple abrasions. Bloody drainage noted. ROM in ankle is restricted due to swelling. Left ankle with small healing abrasion Musculoskeletal: no pain with palp of R knee. Pain with palp of tibial tuberosity and tibula. Patient ambulates without assistance. Full ROM of R knee with minimal discomfort. Health Maintenance List DTAP,TDAP,TD(1 - Tdap) due on 11/25/1975 ONE PNEUMOVAX PRIOR TO AGE 65 due on 11/25/1975 HEPATITIS C SCREENING due on 2000 COLORECTAL CANCER SCREENING,SEE MODIFIER due on 2006 LDL CHOLESTEROL due on 12/09/2011 DIABETES SCREEN due on 12/08/2013 LIPID SCREEN due on 12/09/2015 ANNUAL PCP TEAM CHRONIC DISEASE VISIT due on 07/25/2019 PROSTATE CANCER SCREENING DISCUSSION Completed INFLUENZA Completed Data reviewed n/a ASSESSMENT/PLAN: 1. Fall, initial encounter - ICD9: E888.9, ICD10: W19.XXXA (primary diagnosis) Will check x-ray US of Lower leg Start antibiotic given concerns for developing cellulitis Recommend RICE Follow up in 1 week Wound care instructions given. - XR KNEE LIMITED 2V AP/LAT RT - XR TIBIA FIBULA 2V AP/LAT RT - HYDROCODONE 5 MG-ACETAMINOPHEN 325 MG TABLET - XR KNEE LIMITED 2V AP/LAT RT - XR TIBIA FIBULA 2V AP/LAT RT 2. Acute pain of right knee - ICD9: 719.46, ICD10: M25.561 - XR KNEE LIMITED 2V AP/LAT RT - XR TIBIA FIBULA 2V AP/LAT RT - HYDROCODONE 5 MG-ACETAMINOPHEN 325 MG TABLET - XR KNEE LIMITED 2V AP/LAT RT - XR TIBIA FIBULA 2V AP/LAT RT 3. Hematoma - ICD9: 924.9, ICD10: T14.8XXA - US LEG VEIN DVT UNL VAS LAB 4. Leg swelling - ICD9: 729.81, ICD10: M79.89 - US LEG VEIN DVT UNL VAS LAB JOSEFA CORBIN PA-C Referring Provider: SELF [200] Allergies As of Date: 08/08/2018 Noted Allergy Reaction SHELLFISH DERIVED 08/08/2018 12 - Shortness of Breath Date Reviewed: 08/08/2018 Reviewed by: Becky Huggins Ma - Fully Assessed Reason for Visit: Pain [78] Cmt: Patient is here for right leg pain - Primary Visit Diagnosis:Fall, initial encounter [W19.XXXA] Other Visit Diagnoses:Acute pain of right knee [M25.561] Hematoma [T14.8XXA] Leg swelling [M79.89] Order(s):XR KNEE LIMITED 2V AP/LAT RT [[id number]] Order #: [id number] #:[id number] FUTURE XR TIBIA FIBULA 2V AP/LAT RT [[id number]] Order #: [id number] #:[id number] FUTURE US LEG VEIN DVT UNL VAS LAB [[id number]] Order #: [id number] FUTURE HYDROcodone-acetaminophen (NORCO) 5-325 mg per tabletTake 1 tablet by mouth every 6 hours as needed for up to 3 days.Disp: 12 tabletRfl: 0 sulfamethoxazole-trimethoprim (BACTRIM DS) 800-160 mg per tabletTake 1 tablet by mouth twice daily for 10 days.Disp: 20 tabletRfl: 0 XR KNEE LIMITED 2V AP/LAT RT [[id number]] Order #: [id number] FUTURE XR TIBIA FIBULA 2V AP/LAT RT [[id number]] Order #: [id number] FUTURE Prescriptions as of 08/08/2018 Sig: VENTOLIN HFA 90 MCG/ACTUATION* INHALE 2 PUFFS EVERY 4 HOURS * SYMBICORT 160 MCG-4.5 MCG/ACT* FUROSEMIDE 40 MG TABLET TAKE 1 TABLET TWO TIMES DAILY CARVEDILOL 6.25 MG TABLET TAKE 1 (ONE) TABLET TWO TIMES* RIVAROXABAN 20 MG TABLET Take 1 tablet by mouth daily * SIMVASTATIN 40 MG TABLET Take 1 tablet by mouth daily * POTASSIUM CHLORIDE ER 20 MEQ * Take 1 tablet by mouth twice * GABAPENTIN 600 MG TABLET Take 1 tablet by mouth three * UMECLIDINIUM 62.5 MCG/ACTUATI* Inhale 1 Puff as instructed o* HYDROCODONE 5 MG-ACETAMINOPHE* Take 1 tablet by mouth every * SULFAMETHOXAZOLE 800 MG-TRIME* Take 1 tablet by mouth twice * Problem List As Of Date 08/08/2018 Noted Resolved Coronary artery disease due to lipid rich plaqu*INVALID FOR* Priority: A More... Chronic atrial fibrillation (HCC) [I48.2] INVALID FOR* Priority: A COPD (chronic obstructive pulmonary disease) (H*INVALID FOR* Priority: A More... 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 Facet arthritis, degenerative, lumbar spine [M4*INVALID FOR* Priority: M Elevated rheumatoid factor [R76.8] INVALID FOR* Arthralgia [M25.50] INVALID FOR* Prescriptions ordered this encounter Disp Refills Start End HYDROCODONE 5 MG-ACETAMINOPHEN 325 M* 12 t* 0 08/08/2018 08/11/2018 Class: Print RX Route: ORAL Sig: Take 1 tablet by mouth every 6 hours as needed for up to 3 days. SULFAMETHOXAZOLE 800 MG-TRIMETHOPRIM* 20 t* 0 08/08/2018 08/18/2018 Cmt: Ok to give generic equivalent Route: ORAL Sig: Take 1 tablet by mouth twice daily for 10 days. Encounter Status:Closed by JOSEFA LINDA on 08/08/18 PROGRESS Observed: 08/02/2018 Status: COMPLETED Source: [place] 2:34 PM [facility] REPOSITORY [facility] ID: [id number] Author: Tico Burnham Service: (none) Author Type: Physical Therapist Type: Progress Notes Filed: 08/02/2018 2:43 PM Note Text: Episode Visit Count: 1 Therapist That Will Oversee The Plan Of Care: Tico Golias, PT Start of Care Date: 08/02/18 Onset Date: 11/30/17 Plan of Care Certification Date: 08/02/18 Patient Identified by Name and Date of : Yes REHABILITATION AND SPORTS THERAPY PHYSICAL THERAPY EVALUATION PLAN OF CARE: Assessment: Codey Raza presents with the chief complaint of L low back pain with radicular L LE symptoms. He presents with impairments of pain, postural deficits, ROM deficits, postural weakness and resulting functional limitations. He may benefit from skilled therapy services to improve pain, posture, ROM, core/postural strength and facilitate a return to prior functional level. Classification Low Back Pain Subgroup Classification: Core stabilization subgroup: recommended visits 10. Core Stabilization Subgroup Classification based on: pain with transitional movements (pain with prolonged positions and activities) Prognosis: Excellent Excellent due to: current objective clinical presentation;good support system/ coping skills;within-session changes at evaluation Goals for Episode of Care: created on 08/02/18 through 09/06/18 Independent in home exercises. Patient will decrease pain to 0/10 at rest and with functional activities to allow patient to improve ambulation, transfers and standing tolerance for ADLs. Restore pain-free lumbar ROM to WFL to allow for improved tolerance with bed mobility. Stand / Walk without limitations, without pain/symptoms. Sit without limitations, without pain/symptoms to allow for increased sitting tolerance. Maintain proper sitting posture throughout session Patient will increase strength of core and postural muscles to WFL to allow for return to prior functional status. Improve Modified Oswestry Pain Questionnaire (LBP) by 6 points (12%) to indicate a Minimal Clinical Important Difference. Planned Interventions, Frequency, and Duration: Current Frequency: 2x/week Duration: 5 weeks Total Number of Visits Planned: 10 Planned Treatment Interventions: Therapeutic exercise;Neuromuscular re-education;Manual therapy;Therapeutic activities;Self-skilled nursing management;Gait Training;Patient/Family/Caregiver Education;Body Mechanics Training PLAN FOR NEXT VISIT: review and progress HEP prn, continue with postural stretching and strengthening with extension directional preference. Consider manual lumbar belt traction prn. Patient demonstrates good understanding of plan of care and treatment. The above goals and plan of care were discussed and agreed upon by patient/family. SUBJECTIVE: Codey Raza is a 62 year old male seen today for intermittent pain in L low back that radiates down into L hip and down L LE to feet. He also reports L peripheral neuropathy. He reports that pain in L LE began after a bout with shingles in November 2017. Patient Goals: decrease pain Functional Limitations: stair negotiation;sitting;standing;walking (bed mobility ) Prior Level of Function: Independent without limitations Relevant History Medical Conditions: Cardiac;Hypertension;Peripheral Neuropathy;Smoking History (COPD, CABG x2, AFib, shingles) Surgical Conditions: (CABGx2, cervical spine fusion at five level, R shoulder ) Intake Information: Prescription present Previous Treatment: Steroids?;Chiropractor?;NSAIDs? Pain Score: 5/10 (5/10 currently and 8/10 at worst) Pain Location: Low Back/Lumbar Spine - Left;Leg - Left Description: Sharp;Stabbing Frequency: Intermittent Post Treatment Pain Score: No Change Red Flags Vertebral Fracture Clinical Reasoning: No identified risk factors Abdominal Aortic Aneurysm Clinical Reasoning: No identified risk factors. Cancer Clinical Reasoning: No identified risk factors. Infection Clinical Reasoning: No identified risk factors. Cauda Equina Syndrome Clinical Reasoning: No identified risk factors. Red Flags - Cervical Cancer Clinical Reasoning: No identified risk factors. Infection Clinical Reasoning: No identified risk factors. Spine History Symptoms Location at Onset: Back;Buttock Symptoms Since Onset: Improving (at times) Pain is Worse Always: Sitting;Standing;Walking Pain is Better Sometimes: (heat and medication) Previous Episodes: No Sleeping Position: Side lying right () Sleep Affected by Pain: Pain awakens OBJECTIVE MEASURES WITH LEVEL OF FUNCTION: Posture / Alignment Posture: Forward head;Rounded shoulders;Increased thoracic kyphosis;Decreased lumbar lordosis Reflexes - Lower Extremity R Patellar: Normal L Patellar: Normal Spine Palpation L Lumbar Spine Palpation Tenderness: (no tenderness) Sensation - Lumbar Sensation: Grossly Intact Lumbar Spine AROM Lumbar Flexion: Minimal limitation;Increased pain;Peripheralizing Lumbar Extension: Minimal limitation;Increased pain;Centralizing Lumbar R Side-Bend: Major limitation;Increased pain Lumbar L Side-Bend: Moderate limitation;Increased pain Lumbar R Rotation: Moderate limitation Lumbar L Rotation: Minimal limitation Repeated Test Movements - Lumbar Directional preference: Yes Directional Preference Direction: Extension Directional Preference Comments: standing flexion causes peripheralization, extension does not Static Testing - Lumbar Stand Slouched: peripheralized Stand Erect: centralized LE Strength Trunk Strength: Pt diagnosis, his findings on imaging studies, postural deficits and reported functional difficulties are all indications that he will benefit from increased core and postural strength. Special Tests - Hip and Spine Hip and Spine Special Tests: Slump Test;SLR Test SLR Test: Left Positive Slump Test: Left Positive Gait Gait Observation: shuffling antalgic pattern Education: Education Learning Preferences: Demonstration;Explanation;Performance;Printed Materials Barriers: None Learning/educational needs: Lifestyle changes;Health promotion;Home exercise program;Plan of Care;Posture;Body Mechanics Education Provided: Yes, see treatment interventions for education provided Education Mode/Type: Demonstration;Explanation/Discussion;Literature/Printed Materials;Performance Response to Education/Teach Back: States/Identifies;Return Demonstration;Requires Review/Additional Education TREATMENT: Evaluation Therapeutic Exercise: 1: Pt was educated the anatomy of symptomatic area, likely source of symptoms and rationale for proposed treatment plan. He was educated on the impact of flexion and extension of lumbar discs. He was educated on centralization versus peripheralization and all precautions. He was educated on postural correction and proper body mechanics and a handout was provided to supplement postural education. Pictures were used to clarify education on anatomy. 2: *prone on elbows x3 minutes 3: *standing lumbar extension 2x10 in pain-free range. Skilled Intervention: Patient was educated in proper exercise technique and purpose for exercises. Reviewed and educated patient on additions/changes for home exercise program as above (*) Skilled judgment was provided in selection of appropriate interventions. Provided written instruction for home exercise program to facilitate proper performance and compliance. Correct performance of therapeutic exercises was facilitated with verbal and visual cuing. Billing: [facility]: Evaluation - Moderate Complexity (05581) Therapeutic Exercise (54043): 1:1 time: 15 minutes (1 unit: 8-22 mins) Total time: 45 minutes Tico Burnham PT CNTHERAPY Observed: 08/02/2018 Status: COMPLETED Source: [place] 10:30 AM [facility] REPOSITORY OT/PT/Speech Visit (PTWS) CODEY RAZA ([id number]) 1955 M Date Time Provider Department 08/02/18 10:30 AM TICO BURNHAMPT) PTWS Date Time Provider Department Center 08/02/2018 10:30 AM [id number], BRENT (PT) PTWS [facility] Reason for Visit: PT Eval [747] Patient Education [91] Primary Visit Diagnosis:Left-sided low back pain with left- sided sciatica, unspecified chronicity [M54.42] Other Visit Diagnosis:Radiculopathy with lower extremity symptoms [M54.10] Allergies As of Date: 08/02/2018 (No Known Allergies) Date Reviewed: 07/25/2018 Reviewed by: Lucas Nieves - Fully Assessed Prescriptions as of 08/02/2018 Sig: VENTOLIN HFA 90 MCG/ACTUATION* INHALE 2 PUFFS EVERY 4 HOURS * SYMBICORT 160 MCG-4.5 MCG/ACT* FUROSEMIDE 40 MG TABLET TAKE 1 TABLET TWO TIMES DAILY CARVEDILOL 6.25 MG TABLET TAKE 1 (ONE) TABLET TWO TIMES* RIVAROXABAN 20 MG TABLET Take 1 tablet by mouth daily * SIMVASTATIN 40 MG TABLET Take 1 tablet by mouth daily * POTASSIUM CHLORIDE ER 20 MEQ * Take 1 tablet by mouth twice * GABAPENTIN 600 MG TABLET Take 1 tablet by mouth three * UMECLIDINIUM 62.5 MCG/ACTUATI* Inhale 1 Puff as instructed o* Progress Notes: Tico Burnham PT 08/02/2018 2:43 PM Signed Episode Visit Count: 1 Therapist That Will Oversee The Plan Of Care: Tico Burnham PT Start of Care Date: 08/02/18 Onset Date: 11/30/17 Plan of Care Certification Date: 08/02/18 Patient Identified by Name and Date of : Yes [facility]ER[facility]Y PHYSICAL THERAPY EVALUATION PLAN OF CARE: Assessment: Codey Raza presents with the chief complaint of L low back pain with radicular L LE symptoms. He presents with impairments of pain, postural deficits, ROM deficits, postural weakness and resulting functional limitations. He may benefit from skilled therapy services to improve pain, posture, ROM, core/postural strength and facilitate a return to prior functional level. Classification Low Back Pain Subgroup Classification: Core stabilization subgroup: recommended visits 10. Core Stabilization Subgroup Classification based on: pain with transitional movements (pain with prolonged positions and activities) Prognosis: Excellent Excellent due to: current objective clinical presentation;good support system/ coping skills;within-session changes at evaluation Goals for Episode of Care: created on 08/02/18 through 09/06/18 Independent in home exercises. Patient will decrease pain to 0/10 at rest and with functional activities to allow patient to improve ambulation, transfers and standing tolerance for ADLs. Restore pain-free lumbar ROM to WFL to allow for improved tolerance with bed mobility. Stand / Walk without limitations, without pain/symptoms. Sit without limitations, without pain/symptoms to allow for increased sitting tolerance. Maintain proper sitting posture throughout session Patient will increase strength of core and postural muscles to WFL to allow for return to prior functional status. Improve Modified Oswestry Pain Questionnaire (LBP) by 6 points (12%) to indicate a Minimal Clinical Important Difference. Planned Interventions, Frequency, and Duration: Current Frequency: 2x/week Duration: 5 weeks Total Number of Visits Planned: 10 Planned Treatment Interventions: Therapeutic exercise;Neuromuscular re-education;Manual therapy;Therapeutic activities;Self-skilled nursing management;Gait Training;Patient/Family/Caregiver Education;Body Mechanics Training PLAN FOR NEXT VISIT: review and progress HEP prn, continue with postural stretching and strengthening with extension directional preference. Consider manual lumbar belt traction prn. Patient demonstrates good understanding of plan of care and treatment. The above goals and plan of care were discussed and agreed upon by patient/family. SUBJECTIVE: Codey Raza is a 62 year old male seen today for intermittent pain in L low back that radiates down into L hip and down L LE to feet. He also reports L peripheral neuropathy. He reports that pain in L LE began after a bout with shingles in November 2017. Patient Goals: decrease pain Functional Limitations: stair negotiation;sitting;standing;walking (bed mobility ) Prior Level of Function: Independent without limitations Relevant History Medical Conditions: Cardiac;Hypertension;Peripheral Neuropathy;Smoking History (COPD, CABG x2, AFib, shingles) Surgical Conditions: (CABGx2, cervical spine fusion at five level, R shoulder ) Intake Information: Prescription present Previous Treatment: Steroids?;Chiropractor?;NSAIDs? Pain Score: 5/10 (5/10 currently and 8/10 at worst) Pain Location: Low Back/Lumbar Spine - Left;Leg - Left Description: Sharp;Stabbing Frequency: Intermittent Post Treatment Pain Score: No Change Red Flags Vertebral Fracture Clinical Reasoning: No identified risk factors Abdominal Aortic Aneurysm Clinical Reasoning: No identified risk factors. Cancer Clinical Reasoning: No identified risk factors. Infection Clinical Reasoning: No identified risk factors. Cauda Equina Syndrome Clinical Reasoning: No identified risk factors. Red Flags - Cervical Cancer Clinical Reasoning: No identified risk factors. Infection Clinical Reasoning: No identified risk factors. Spine History Symptoms Location at Onset: Back;Buttock Symptoms Since Onset: Improving (at times) Pain is Worse Always: Sitting;Standing;Walking Pain is Better Sometimes: (heat and medication) Previous Episodes: No Sleeping Position: Side lying right () Sleep Affected by Pain: Pain awakens OBJECTIVE MEASURES WITH LEVEL OF FUNCTION: Posture / Alignment Posture: Forward head;Rounded shoulders;Increased thoracic kyphosis;Decreased lumbar lordosis Reflexes - Lower Extremity R Patellar: Normal L Patellar: Normal Spine Palpation L Lumbar Spine Palpation Tenderness: (no tenderness) Sensation - Lumbar Sensation: Grossly Intact Lumbar Spine AROM Lumbar Flexion: Minimal limitation;Increased pain;Peripheralizing Lumbar Extension: Minimal limitation;Increased pain;Centralizing Lumbar R Side-Bend: Major limitation;Increased pain Lumbar L Side-Bend: Moderate limitation;Increased pain Lumbar R Rotation: Moderate limitation Lumbar L Rotation: Minimal limitation Repeated Test Movements - Lumbar Directional preference: Yes Directional Preference Direction: Extension Directional Preference Comments: standing flexion causes peripheralization, extension does not Static Testing - Lumbar Stand Slouched: peripheralized Stand Erect: centralized LE Strength Trunk Strength: Pt diagnosis, his findings on imaging studies, postural deficits and reported functional difficulties are all indications that he will benefit from increased core and postural strength. Special Tests - Hip and Spine Hip and Spine Special Tests: Slump Test;SLR Test SLR Test: Left Positive Slump Test: Left Positive Gait Gait Observation: shuffling antalgic pattern Education: Education Learning Preferences: Demonstration;Explanation;Performance;Printed Materials Barriers: None Learning/educational needs: Lifestyle changes;Health promotion;Home exercise program;Plan of Care;Posture;Body Mechanics Education Provided: Yes, see treatment interventions for education provided Education Mode/Type: Demonstration;Explanation/Discussion;Literature/Printed Materials;Performance Response to Education/Teach Back: States/Identifies;Return Demonstration;Requires Review/Additional Education TREATMENT: Evaluation Therapeutic Exercise: 1: Pt was educated the anatomy of symptomatic area, likely source of symptoms and rationale for proposed treatment plan. He was educated on the impact of flexion and extension of lumbar discs. He was educated on centralization versus peripheralization and all precautions. He was educated on postural correction and proper body mechanics and a handout was provided to supplement postural education. Pictures were used to clarify education on anatomy. 2: *prone on elbows x3 minutes 3: *standing lumbar extension 2x10 in pain-free range. Skilled Intervention: Patient was educated in proper exercise technique and purpose for exercises. Reviewed and educated patient on additions/changes for home exercise program as above (*) Skilled judgment was provided in selection of appropriate interventions. Provided written instruction for home exercise program to facilitate proper performance and compliance. Correct performance of therapeutic exercises was facilitated with verbal and visual cuing. Billing: [facility]: Evaluation - Moderate Complexity (95435) Therapeutic Exercise (33078): 1:1 time: 15 minutes (1 unit: 8-22 mins) Total time: 45 minutes Tico Burnham PT C-REACTIVE PROTEIN Collected: 07/25/2018 Status: F Source: [place] 10:12 AM [facility] REPOSITORY TYPE CODE TESTS RESULT OUT OF REFERENCE UNITS RANGE LAB CRP <0.9 mg/dL C-Reactive 0.3 Protein Performed By: #### CRP, RF, WSR, ANAIFS #### [facility] [address] [place] [address] RHEUMATOID FACTOR Collected: 07/25/2018 Status: F Source: [place] 10:12 AM [facility] REPOSITORY TYPE CODE TESTS RESULT OUT OF REFERENCE UNITS RANGE LAB RF <16 IU/mL High Rheumatoid 45 Factor Performed By: #### CRP, RF, WSR, ANAIFS #### [facility] [address] [place] [address] SED RATE WESTERGREN Collected: 07/25/2018 Status: F Source: [place] 10:12 AM [facility] REPOSITORY TYPE CODE TESTS RESULT OUT OF REFERENCE UNITS RANGE LAB WSR 0-15 mm/hr Sed Rate Westergren 2 Performed By: #### CRP, RF, WSR, ANAIFS #### [facility] [address], [place] [address] UMU BY IFA Collected: 07/25/2018 Status: F Source: [place] 10:12 AM [facility] REPOSITORY TYPE CODE TESTS RESULT OUT OF REFERENCE UNITS RANGE LAB ANASC Negative UMU Negative Result Comment: Normal range : negative at <1:80 serum dilution. Approximately 6% of patients with connective tissue diseases with low positive EIA values are negative by IFA. Recommend follow-up with specific antinuclear antibodies if clinically indicated. LAB KEEGAN Negative Negative UMU Titer Result Comment: Normal range : negative at <1:80 serum dilution. LAB ANAP UMU Not applicable Pattern for negative result. Performed By: #### CRP, RF, WSR, ANAIFS #### [facility] [address], [place] [address] XR LUMBAR PARS 4V Observed: 07/25/2018 Status: F Source: [place] AP/LAT/OBL X2 10:08 AM [facility] REPOSITORY * * *Final Report* * * DATE OF EXAM: Jul 25 2018 10:08AM WOX [id number] - XR LUMBAR PARS 4V AP/LAT/OBL X2 / PROCEDURE REASON: Left-sided low back pain with left-sided sciatica, unspecified chronicity * * * * Physician Interpretation * * * * EXAM: LUMBAR SPINE, 4 VIEWS CLINICAL: 62-year-old male with left-sided back pain TECHNIQUE: AP, lateral obliques COMPARISON: None RESULTS: Counting reference: Anatomic Variant: Dextroscoliosis centered at L3. Moderate to marked disc space narrowing at L1/L2 through L4/L5. Osteophytes anteriorly and laterally throughout the lumbar spine. 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 The remaining pars intra-articular intact. Degenerative changes throughout the lumbar spine with hypertrophic changes at L3/L4 through L5/S1. IMPRESSION: MODERATELY ADVANCED DEGENERATIVE DISC AND FACET DISEASE. 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 DEXTROSCOLIOSIS. Receiver Bulk System: CARA Transcribe Date/Time: Jul 25 2018 5:39P Dictated by : NONA DURAND MD This examination was interpreted and the report reviewed and electronically signed by: NONA DURAND MD on Jul 25 2018 5:42PM EST [id number] PROGRESS Observed: 07/25/2018 Status: COMPLETED Source: [place] 9:55 AM [facility] REPOSITORY HNO ID: [id number] Author: Neva Shaffer (Rt) Dulce Pastrana Service: (none) Author Type: Sqe Type: Progress Notes Filed: 07/25/2018 10:08 AM Note Text: Radiology Service Progress Note PATIENT NAME: Codey Raza DATE OF SERVICE: July 25, 2018 TIME: 9:55 AM PATIENT IDENTITY VERIFICATION COMPLETED USING TWO (2) METHODS: Patient confirmed name verbally and Date of . PATIENT GENDER DATA: Male PATIENT RELEVANT IMPLANT DATA REVIEWED: Not Applicable RADIOLOGY DEPARTMENT: General X-ray: Exam(s) Completed: Spine X-Ray(s): Lumbar AP / LAT / L5-S1 / OBL PERIPHERAL IV DATA: Not applicable SIGNED BY: RT Coni July 25, 2018 9:55 AM PROGRESS Observed: 07/25/2018 Status: COMPLETED Source: [place] 8:57 AM [facility] REPOSITORY HNO ID: [id number] Author: Lucas Nieves Service: (none) Author Type: Physician Type: Progress Notes Filed: 07/25/2018 10:04 PM Note Text: Chief Complaint Patient presents with: Foot Swelling: left x 7 months HPI Codey Raza is a 62 year old male who presents here today for Above Complaints.. A year ago the patient developed shingles in the crack of his buttocks that went down the back of his left leg. Was treated with valtrex. The shingles resolved but has continued to have pain off and on in the left leg from time to time and some times would be on the right side of the leg and other times would be on the left side. Patient was started on gabapentin and titrated to 300 mg three times a day. Pain would not resolve but improved some. Seeing pain management in [facility]. Patient feels he has been having swelling in the bottom of his left foot for the past year and never resolves. Has numbness in the left foot. Has been told he has sciatica but no work up has been completed. No x-rays or PHYSICAL THERAPY. Past medical history, appointments, medications, allergies reviewed. Previous Medical History PAST MEDICAL HISTORY Diagnosis Date - Chronic atrial fibrillation (HCC) 07/25/2018 - Coronary artery disease due to lipid rich plaque 07/25/2018 Previous Surgical History No past surgical history on file. Family History No family history on file. Patient Allergies ALLERGIES No Known Allergies Current Medications No current outpatient prescriptions on file prior to visit. No current facility-administered medications on file prior to visit. Social History Social History Marital status: Single Spouse name: Years of education: Number of children: Social History Main Topics Smoking status: Current Every Day Smoker Packs/day: 0.50 Years: 0.00 Types: Cigarettes Smokeless tobacco: Never Used Alcohol use: No Drug use: No Review of Symptoms REVIEW OF SYSTEMS RESPIRATORY: Negative for cough, hemoptysis. Breathing has been stable and at base line CARDIOVASCULAR: Negative for chest pain, hypertension, CHF or palpitations. Has leg swelling on occasion especial on the right were the veins were removed for the CAGE. But no recent change MUSCULOSKELETAL: see HPI EXAM: BP 116/76 Pulse 80 Resp 16 Wt 133.8 kg (295 lb) General Appearance: Well appearing, alert, in no acute distress, well-hydrated, well nourished. and Obese. Lungs: Lungs clear to auscultation. No wheezing, rhonchi, rales. Heart: RRR without murmur, gallop, or rubs. No ectopy. Abdomen: Normal abdominal exam, Abdomen soft, non-tender. Bowel sounds normal. No masses, organomegaly. Extremities: No deformities, edema,. Has chronic venous stasis changes. Musculoskeletal: no pain over the lower lumber spine. Mild pain over the left SI region. Has noticeable weakness on knee extension on the left compared to the right at 4-4.5/5. SLR was normal on both sides.. Peripheral Pulses: Normal, Pulses: radial=4/4bilaterally and on the left dorsalis pedis=4/4 and left posterior tibial=4/4. Neurologic: Gait normal. Reflexes normal and symmetric. Sensation to light touch was intact in both lower extremities till the feet. Has significant degreased light touch sensation on the bottom of the left foot (ball, lateral edge and heel) Arch sensation ws normal. Foot: No swelling on the bottom of the left foot on exam and no mass. Health Maintenance List DTAP,TDAP,TD(1 - Tdap) due on 11/25/1975 ONE PNEUMOVAX PRIOR TO AGE 65 due on 11/25/1975 HEPATITIS C SCREENING due on 2000 COLORECTAL CANCER SCREENING,SEE MODIFIER due on 2006 DIABETES SCREEN due on 12/08/2013 LIPID SCREEN due on 12/09/2015 PROSTATE CANCER SCREENING DISCUSSION Completed INFLUENZA Completed Data reviewed A/P ASSESSMENT/PLAN: 1. Left-sided low back pain with left-sided sciatica, unspecified chronicity - ICD9: 724.3, ICD10: M54.42 (primary diagnosis) Sciatica - Check XR LUMBAR PARS DEFECT 4V AP/LAT/BOTH OBL - CONSULT TO PHYSICAL THERAPY - Check EMG(NEURO/NI) 2. Left leg weakness - ICD9: 729.89, ICD10: R29.898 - CONSULT TO PHYSICAL THERAPY - Check EMG(NEURO/NI) 3. Radiculopathy with lower extremity symptoms - ICD9: 724.4, ICD10: M54.10 Sciatica - CONSULT TO PHYSICAL THERAPY - Check EMG(NEURO/NI) 4. Numbness of left foot - ICD9: 782.0, ICD10: R20.8 - CONSULT TO PHYSICAL THERAPY - Check EMG(NEURO/NI) 5. Arthralgia, unspecified joint - ICD9: 719.40, ICD10: M25.50 Check - SED RATE WESTERGREN - RHEUMATOID FACTOR BL - C-REACTIVE PROTEIN (CRP) - UMU BY IFA SCREEN F/u in 8 weeks for numbness in left foot and left sciatica. F/u 6 months WAE sooner if issues. Time entering room was 9:01 AM And time leaving was 9:33 AM (total face to face time was 32 min) Lucas Nieves MD CNOV Observed: 07/25/2018 Status: COMPLETED Source: [place] 8:20 AM [facility] REPOSITORY Office Visit (FAMPWS) CODEY RAZA ([id number]) 1955 M Date Time Provider Department 07/25/18 8:20 AM LUCAS NIEVESPWS During your visit today, we recorded the following information about you: Pulse Respiration Blood pressure Weight 80/minute 16/minute 116/76 133.8 kg Lucas Nieves MD 07/25/2018 10:04 PM Signed Chief Complaint Patient presents with: Foot Swelling: left x 7 months HPI Codey Raza is a 62 year old male who presents here today for Above Complaints.. A year ago the patient developed shingles in the crack of his buttocks that went down the back of his left leg. Was treated with valtrex. The shingles resolved but has continued to have pain off and on in the left leg from time to time and some times would be on the right side of the leg and other times would be on the left side. Patient was started on gabapentin and titrated to 300 mg three times a day. Pain would not resolve but improved some. Seeing pain management in [facility]. Patient feels he has been having swelling in the bottom of his left foot for the past year and never resolves. Has numbness in the left foot. Has been told he has sciatica but no work up has been completed. No x-rays or PHYSICAL THERAPY. Past medical history, appointments, medications, allergies reviewed. Previous Medical History PAST MEDICAL HISTORY Diagnosis Date - Chronic atrial fibrillation (HCC) 07/25/2018 - Coronary artery disease due to lipid rich plaque 07/25/2018 Previous Surgical History No past surgical history on file. Family History No family history on file. Patient Allergies ALLERGIES No Known Allergies Current Medications No current outpatient prescriptions on file prior to visit. No current facility-administered medications on file prior to visit. Social History Social History Marital status: Single Spouse name: Years of education: Number of children: Social History Main Topics Smoking status: Current Every Day Smoker Packs/day: 0.50 Years: 0.00 Types: Cigarettes Smokeless tobacco: Never Used Alcohol use: No Drug use: No Review of Symptoms REVIEW OF SYSTEMS RESPIRATORY: Negative for cough, hemoptysis. Breathing has been stable and at base line CARDIOVASCULAR: Negative for chest pain, hypertension, CHF or palpitations. Has leg swelling on occasion especial on the right were the veins were removed for the CAGE. But no recent change MUSCULOSKELETAL: see HPI EXAM: BP 116/76 Pulse 80 Resp 16 Wt 133.8 kg (295 lb) General Appearance: Well appearing, alert, in no acute distress, well-hydrated, well nourished. and Obese. Lungs: Lungs clear to auscultation. No wheezing, rhonchi, rales. Heart: RRR without murmur, gallop, or rubs. No ectopy. Abdomen: Normal abdominal exam, Abdomen soft, non-tender. Bowel sounds normal. No masses, organomegaly. Extremities: No deformities, edema,. Has chronic venous stasis changes. Musculoskeletal: no pain over the lower lumber spine. Mild pain over the left SI region. Has noticeable weakness on knee extension on the left compared to the right at 4-4.5/5. SLR was normal on both sides.. Peripheral Pulses: Normal, Pulses: radial=4/4bilaterally and on the left dorsalis pedis=4/4 and left posterior tibial=4/4. Neurologic: Gait normal. Reflexes normal and symmetric. Sensation to light touch was intact in both lower extremities till the feet. Has significant degreased light touch sensation on the bottom of the left foot (ball, lateral edge and heel) Arch sensation ws normal. Foot: No swelling on the bottom of the left foot on exam and no mass. Health Maintenance List DTAP,TDAP,TD(1 - Tdap) due on 11/25/1975 ONE PNEUMOVAX PRIOR TO AGE 65 due on 11/25/1975 HEPATITIS C SCREENING due on 2000 COLORECTAL CANCER SCREENING,SEE MODIFIER due on 2006 DIABETES SCREEN due on 12/08/2013 LIPID SCREEN due on 12/09/2015 PROSTATE CANCER SCREENING DISCUSSION Completed INFLUENZA Completed Data reviewed A/P ASSESSMENT/PLAN: 1. Left-sided low back pain with left-sided sciatica, unspecified chronicity - ICD9: 724.3, ICD10: M54.42 (primary diagnosis) Sciatica - Check XR LUMBAR PARS DEFECT 4V AP/LAT/BOTH OBL - CONSULT TO PHYSICAL THERAPY - Check EMG(NEURO/NI) 2. Left leg weakness - ICD9: 729.89, ICD10: R29.898 - CONSULT TO PHYSICAL THERAPY - Check EMG(NEURO/NI) 3. Radiculopathy with lower extremity symptoms - ICD9: 724.4, ICD10: M54.10 Sciatica - CONSULT TO PHYSICAL THERAPY - Check EMG(NEURO/NI) 4. Numbness of left foot - ICD9: 782.0, ICD10: R20.8 - CONSULT TO PHYSICAL THERAPY - Check EMG(NEURO/NI) 5. Arthralgia, unspecified joint - ICD9: 719.40, ICD10: M25.50 Check - SED RATE WESTERGREN - RHEUMATOID FACTOR BL - C-REACTIVE PROTEIN (CRP) - UMU BY IFA SCREEN F/u in 8 weeks for numbness in left foot and left sciatica. F/u 6 months WAE sooner if issues. Time entering room was 9:01 AM And time leaving was 9:33 AM (total face to face time was 32 min) Lucas Nieves MD Referring Provider: SELF [200] Allergies As of Date: 07/25/2018 (No Known Allergies) Date Reviewed: 07/25/2018 Reviewed by: Lucas Nieves - Fully Assessed Reason for Visit: Foot Swelling [1972] Cmt: left x 7 months Primary Visit Diagnosis:Left-sided low back pain with left- sided sciatica, unspecified chronicity [M54.42] Other Visit Diagnoses:Left leg weakness [R29.898] Radiculopathy with lower extremity symptoms [M54.10] Numbness of left foot [R20.8] Arthralgia, unspecified joint [M25.50] Order(s):SED RATE WESTERGREN [SQWSR] Order #: [id number] FUTURE RHEUMATOID FACTOR BL [SQRF] Order #: [id number] FUTURE C-REACTIVE PROTEIN (CRP) [SQCRP] Order #: [id number] FUTURE UMU BY IFA SCREEN [SQANAIFS] Order #: [id number] FUTURE XR LUMBAR PARS DEFECT 4V AP/LAT/BOTH OBL [4025774] Order #: [id number] FUTURE CONSULT TO PHYSICAL THERAPY [9031] Order #: [id number]: 1 EMG(NEURO/NI) [[id number]] Order #: [id number]: 1 FUTURE Prescriptions as of 07/25/2018 Sig: VENTOLIN HFA 90 MCG/ACTUATION* INHALE 2 PUFFS EVERY 4 HOURS * SYMBICORT 160 MCG-4.5 MCG/ACT* FUROSEMIDE 40 MG TABLET TAKE 1 TABLET TWO TIMES DAILY CARVEDILOL 6.25 MG TABLET TAKE 1 (ONE) TABLET TWO TIMES* RIVAROXABAN 20 MG TABLET Take 1 tablet by mouth daily * SIMVASTATIN 40 MG TABLET Take 1 tablet by mouth daily * POTASSIUM CHLORIDE ER 20 MEQ * Take 1 tablet by mouth twice * GABAPENTIN 600 MG TABLET Take 1 tablet by mouth three * UMECLIDINIUM 62.5 MCG/ACTUATI* Inhale 1 Puff as instructed o* Problem List As Of Date 07/25/2018 Noted Resolved Coronary artery disease due to lipid rich plaqu*INVALID FOR* Priority: A More... Chronic atrial fibrillation (HCC) [I48.2] INVALID FOR* Priority: A COPD (chronic obstructive pulmonary disease) (H*INVALID FOR* Priority: A More... 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 Follow-up and Disposition History Recorded Encounter Status:Closed by LUCAS NIEVES on 07/25/18 PULMONARY VISIT REPORT Observed: 06/28/2018 Status: F Source: [facility] 2:01 PM [facility] REPOSITORY Pulmonary Medicine [address] [place] [address] OFFICE VISIT Date of Service: 06/28/18 MR#: [id number] Acct: [id number] Name: CODEY RAZA Rep #: [id number] : [id number] Provider: Maurisio Lee D.O. Age/Sex: 62/M Location: [facility] [place].PMW Status: Signed with Addenda ADDENDUM by Maggie Dolan on 06/28/18 at 1401 OFFICE PROCEDURES Office Procedure Documentation entered by Maggie Dolan 06/28/18 14:01: Immunizations Pneumovax 23 Performing Provider: Maurisio Lee DO Administered by: Maggie Dolan on 06/28/18 13:58 Dose Route Admin Location Lot Number Expiration Date NDC Customer Support Professional 0.5 mL IM Right Deltoid [id number] 10/03/19 7016-2437-02 [employer] VIS Given Date VIS Publication Date 06/28/18 01/17/15 Eligibility Eligibility Date Office Meds Flucelvax Quad [id number] (PF) Performing Provider: Maurisio Lee DO Administered by: Maggie Dolan on 06/28/18 13:58 Dose Route Admin Location Lot Number Expiration Date NDC Customer Support Professional 0.5 mL IM L deltoid [id number] 02/24/19 37699-524-54 [employer] 06/28/18 1401 <Electronically signed by Maggie Dolan > Date Maggie Dolan cc: Lucita Newell MD * Signed Assessment AND Plan 1. Stage 4 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 J44.9 FEV1 30% of predicted Plan The patient has advanced stage COPD based upon recent pulmonary function testing and continues to smoke 0.5 packs of cigarettes daily. Despite this, he is on a stable inhaler regimen including Symbicort, Incruse and as needed albuterol. This will be continued without change. The patient has been advised to call this office with any worsening in his breathing quality and/or increased reliance on his short acting beta agonist. He will also receive his annual influenza vaccination along with pneumococcal vaccinations today. 2. Obesity E66.9 Plan Weight loss through dietary modification and a graded exercise regimen is strongly encouraged. 3. Nicotine dependence, cigarettes, uncomplicated F17.210 Plan The patient was once again counseled regarding the deleterious effects of ongoing tobacco utilization, including modalities which could be utilized to achieve a smoke-free lifestyle. He remains pre-contemplative. Plan Detail Other Orders Orders: Other Medications New: Flucelvax Quad [id number] (PF) (flu vac qs 2018(4 yr up)CD0.5 mL IM ONCE 1 mL 0RF NS Z23 (PF)) Follow Up 6 Months (DMB) HPI HPI Comments Details: The patient is a 62-year-old male who presents to the clinic today for a routine scheduled follow-up office visit. If you recall, the patient presented to me with an established diagnosis of COPD, having been followed by a diesel mechanic construction, Dr. Braxton, in [place] previously. The patient has an extensive smoking history of 2 packs per day 40 years, but has cut back to smoking 1 pack per day currently. CT chest completed in March 2015 revealed upper lobe predominant emphysematous changes. It appears that the patient underwent pulmonary function testing through [facility] in October 2014, at which time, there was indication of a severe obstructive ventilatory impairment with evidence of air trapping and reduction in diffusing capacity. The patient also has a history of coronary artery disease for which he has status post CABG 2 in 2013. Surface echocardiogram from January 2014 revealed ejection fraction of 50-55%. The patient is not currently employed. 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 A 6-minute walk test also completed at that time revealed a chano oxygen saturation of 90% with ambulation. Today, the patient reports overall stability in his breathing quality. He reports compliance with the use of Symbicort and Incruse. He reports routinely infrequent utilization of his albuterol rescue inhaler. He denies the presence of chest tightness or wheezing. He continues to smoke cigarettes but has cut back to 0.5 packs/day. He has not been evaluated in the emergency department or urgent care clinic for breathing related issues recently. He is requesting both pneumococcal and influenza vaccinations today. His weight has been stable. He denies fevers, chills or night sweats. Intake Vital Signs06/28/18 Height 6 ft 1 in 06/28/18 Weight: 298 lb Intake Visit Reasons: 3 M FU [facility] Vendor: BETTIE Accompanied by: Self Allergies No Known Allergies Allergy (Unverified 06/28/18 13:08) Medications simvastatin 40 mg tablet 40 mg PO DAILY 10/27/17 [History Confirmed 06/28/18] Albuterol Inhaler [Ventolin Hfa] 2 puff INHALATION Q4H PRN PRN 01/06/18 [History Confirmed 06/28/18] Budesonide/Formoterol 160/4.5 [Symbicort 160/4.5 Mcg Inhaler (SP)] 2 puff INHALATION DAILY 01/06/18 [History Confirmed 06/28/18] Gabapentin [Neurontin] 300 mg PO DAILY 01/06/18 [History Confirmed 06/28/18] Umeclidinium [place] Inhaler [Incruse Ellipta Inhaler] 1 inh INHALATION DAILY 01/06/18 [History Confirmed 06/28/18] Albuterol Aerosols [Ventolin Aerosols] 2.5 mg INHALATION Q4HWA.RT PRN #1 vial.neb. 01/10/18 [Rx Confirmed 06/28/18] Carvedilol [Coreg (Beta Gil)] 12.5 mg PO BID #60 tab 01/10/18 [Rx Confirmed 06/28/18] Diltiazem CD [Cardizem CD] 180 mg PO DAILY #30 cap 01/10/18 [Rx Confirmed 06/28/18] Furosemide [Lasix] 40 mg PO DAILY #30 tab 01/10/18 [Rx Confirmed 06/28/18] Potassium Chloride [K-Dur] 20 meq PO DAILY #30 tab 01/10/18 [Rx Confirmed 06/28/18] Rivaroxaban [Xarelto] 20 mg PO DAILY #30 tab 01/10/18 [Rx Confirmed 06/28/18] azithromycin 250 mg tablet 250 mg PO QDAY #6 tab 03/24/18 [Rx Confirmed 06/28/18] PFSH Medical History HDL deficiency (Chronic) History of pleural effusion (Resolved) Asthma (Chronic) Overweight (BMI 25.0-29.9) (Chronic) Tobacco dependence (Chronic) History of Vogt's palsy (Resolved) History of [place] (myocardial infarction) (Resolved) Hyperlipidemia (Chronic) COPD (chronic obstructive pulmonary disease) (Chronic) Hypertension (Chronic) Surgical History mediastinal exploration and arrest of hemorrhage (Resolved) History of coronary artery bypass graft x 2 (Resolved) Family History Mother Hypertension Heart disease Father Heart disease Hypertension Myocardial infarction Brother Heart disease Hypertension Myocardial infarction Social History Smoking Status: Current every day smoker second hand exposure: Yes alcohol intake: former year quit: 1990 substance use type: does not use caffeine: Yes Type: coffee Number of servings: 3 what type of physical activity do you participate in: none Review of Systems Const CONSTITUTIONAL: Positive fatigue; negative anorexia, body ache, chills, daytime sleepiness, fever(s), night sweats, oral thrush, stops breathing during sleep, weight loss, sleeping in chair, weight loss, weight gain, frequent colds, seasonal allergies, other, headache(s) or orthopnea EETM Ear Nose Throat Mouth: Positive hearing normal; negative hard of hearing, hoarseness, dry mouth in morning, change in vision, itchy eyes, eye pain, swallowing Difficulty, ear pain, nose bleed, headache(s), mouth pain, nasal congestion, nasal discharge, post nasal drip, sinus pain, sinus pressure, sore throat or other Cardio Cardiovascular: Negative chest pain, chest pain at rest, chest pain with activity, irregular heart rhythm, edema, shortness of breath when lying down, palpitations, murmur or other Resp Respiratory: Positive as per HPI, shortness of breath shortness of breath: Positive with activity and cough cough: Positive productive (unknown ); negative pain with cough, wheezing, chest congestion, chest tightness, pain on inspiration, inhalers, increase use of rescue inhalers, snoring, apnea or other Gastro Gastrointestional: Negative bloody stools, change in appetite, difficulty swallowing, reflux, hematemesis, melena stool, loose stool, constipation or other Genitourinary: Negative blood in urine, nocturia, pain with urination or other Musc Musculoskeletal: Positive back pain; negative body pain, neck pain or other Skin/Breast Skin/Breast: Negative dry skin, itching, rash, unusual bruising, breast lump or other Neuro Neurological: Positive weakness; negative restless legs, confusion or other Psych Psychocological: Positive anxiety; negative abnormal sleep pattern, thoughts of hurting self/others, hopelessness or other Lymph Lymphatic: Negative easy bleeding, easy bruising, swollen lymph nodes or other Exam Const Constitutional: Positive conversant, cooperative, in no acute respiratory distress, well developed, well nourished, good hygiene, obese and smells of smoke Head Head: Positive normocephalic and atraumatic; negative cyanosis of lips/distal nose Eyes Eye: Positive clear conjunctiva; negative nystagmus or scleral abnormality Ears Ear: Positive hearing normal; negative hard of hearing Nose Nose: Positive external nose normal; negative epistaxis Mouth Mouth: Positive oral mucosae normal and posterior oropharynx is adequate; negative no lesions or post nasal drip Mallampati Score: II: Mallampati Score Neck Neck: Positive normal visual inspection and trachea midline; negative lymphadenopathy Chest Wall Chest: Positive symmetric chest movement Normal AP diameter. Resp lung sounds: Positive wheezes wheezing: Positive upper, diminished diminished: Positive bialteral and prolonged expiratory time; negative rhonchi or rales Cardio Cardiac: Positive regular rate, regular rhythm, S1 normal and S2 normal; negative rub, gallop or murmur GI GI: Positive normal bowel sounds and obese Soft without distention Genitourinary: Positive deferred Musc Musculoskeletal: Positive steady gait Skin Pulmonary Skin Exam: Positive intact; negative lesion, ulcers, dermal atrophy or rash Pulses Pulse: Yes Pedal pulses present: Extremities Extremities: No clubbing, No cyanosis, No edema Neuro Neurologic: Yes conversant, Yes no focal neuro deficits, Yes cooperative Lymph Lymphatic: No lymphadenopathy Psych Appearance: Positive grossly normal Mental Status: Positive mental status grossly normal Mood: Positive congruent mood Affect: Positive normal affect Coding Level of Care Code Off vis,est,level 3 Diagnoses Stage 4 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 J44.9 Obesity E66.9 Nicotine dependence, cigarettes, uncomplicated F17.210 06/28/18 1357 <Electronically signed by Maurisio Lee DO> Date Maurisio Lee DO Cosigner Signature: Date (if applicable) CC: Lucita Newell MD CBC Collected: 04/06/2018 Status: F Source: [facility] 8:01 AM [facility]ATION REPOSITORY TYPE CODE TESTS RESULT OUT OF REFERENCE UNITS RANGE LAB WBC(LOINC) 4.60-10.80 10 3/mcL WBC 8.60 LAB RBCCT(LOINC 4.04-6.13 10 6/mcL ) RBC 6.13 LAB HGB(LOINC) 14.0-18.0 G/dL High Hgb 19.8 LAB HCT(LOINC) 42.0-52.0 % High Hct 58.8 LAB MCV(LOINC) 80.0-94.0 fL High MCV 95.8 LAB MCH(LOINC) 27.0-31.2 pg High MCH 32.3 LAB MCHC(LOINC) 31.8-35.4 G/dL MCHC 33.7 LAB RDW(LOINC) 11.5-14.5 % High RDW 17.6 LAB PLT(LOINC) 130-400 10 3/mcL Platelet 171 LAB MPV(LOINC) 7.4-10.4 fL MPV 8.4 Performed By: #### CBC, ADIFF, ANEU, LIPID, CMP, GFR, PBNP #### [address] [address] .AUTO DIFF Collected: 04/06/2018 Status: F Source: [facility] 8:01 [facility] REPOSITORY TYPE CODE TESTS RESULT OUT OF REFERENCE UNITS RANGE LAB TIN(LOINC) 37.0-80.0 % Neutrophil % 65.4 LAB LYM(LOINC) 10.0-50.0 % Lymphocyte % 25.5 LAB MON(LOINC) 1.7-13.0 % Monocyte % 7.2 LAB EO(LOINC) 0.0-7.0 % Eosinophil % 1.0 LAB BAS(LOINC) 0.0-2.5 % Basophil % 0.9 LAB ABLYM(LOIN 0.77-3.85 10 3/mcL C) Lymphocyte, 2.20 Absolute LAB NIYA(LOINC 0.15-1.00 10 3/mcL ) Monocyte, 0.60 Absolute LAB AEOS(LOINC 0.00-0.40 10 3/mcL ) Eosinophil, 0.10 Absolute LAB ABAS(LOINC 0.00-0.19 10 3/mcL ) Basophil, 0.10 Absolute Performed By: #### CBC, ADIFF, ANEU, LIPID, CMP, GFR, PBNP #### [address] [address] .NEUABS Collected: 04/06/2018 Status: F Source: [facility] 8:01 AM [facility] REPOSITORY TYPE CODE TESTS RESULT OUT OF REFERENCE UNITS RANGE LAB ANEU(LOINC) 2.85-6.16 10 3/mcL Neutrophil, 5.60 Absolute Performed By: #### CBC, ADIFF, ANEU, LIPID, CMP, GFR, PBNP #### [facility] [address] [place], [place] [address] LIPID Collected: 04/06/2018 Status: F Source: [facility] 8:01 AM [facility] REPOSITORY TYPE CODE TESTS RESULT OUT OF REFERENCE UNITS RANGE LAB CHOL(LOINC 131-200 mg/dL ) Low Cholesterol 124 Result Comment: Cholesterol Reference Interval: Less than 200 Desirable 200-239 Borderline high risk 240 and above High risk LAB TRIG(LOINC) 40-150 mg/dL Triglycerides 119 Result Comment: Triglyceride Reference Interval: Less than 150 Normal 150-199 Borderline high risk 200-499 High risk 500 or higher Very high risk LAB HD(LOINC) 35-90 mg/dL HDL Low Cholesterol 27 Result Comment: HDL Reference Interval: Less than 40 Low - high risk 60 or above Optimal/lowers risk LAB LDL(LOINC) 0-130 mg/dL LDL Cholesterol 73 Result Comment: LDL is a calculated result and requires a 12-hr fast. LDL Reference Interval: Less than 100 Optimal 100-129 Near or above optimal 130-159 Borderline high risk 160-189 High risk 190 and above Very high risk Performed By: #### CBC, ADIFF, ANEU, LIPID, CMP, GFR, PBNP #### [address] [id number] [place], [place] [address] CMP Collected: 04/06/2018 Status: F Source: [facility] 8:01 [facility] REPOSITORY TYPE CODE TESTS RESULT OUT OF REFERENCE UNITS RANGE LAB GLU(LOINC) 80-115 mg/dL Glucose Level 92 LAB NA(LOINC) 136-146 mEq/L Sodium Level 142 LAB K(LOINC) 3.5-5.1 mEq/L Potassium Level 3.9 LAB CL(LOINC) 98-107 mEq/L Chloride 100 LAB CO2(LOINC) 23-31 mEq/L CO2 High 34 LAB EBAL(LOINC mEq/L ) Electrolyte Balance 8.0 LAB BUN(LOINC) 7.0-18.0 mg/dL BUN High 25.8 LAB CRE(LOINC) 0.6-1.2 mg/dL Creatinine Lvl (s) 1.0 LAB BC(LOINC) 7-27 ratio BUN/Creatinine 26 Ratio LAB CA(LOINC) 8.4-10.2 mg/dL Calcium Lvl 9.5 LAB PROT(LOINC 6.0-8.3 G/dL ) Total Protein 7.6 LAB ALB(LOINC) 3.4-4.8 G/dL Albumin Level 4.3 LAB GLB(LOINC) G/dL Globulin 3.3 LAB AG(LOINC) 1.1-2.5 ratio A/G Ratio 1.3 LAB BILT(LOINC 0.2-1.0 mg/dL ) Bili Total High 1.2 LAB AP(LOINC) 40-135 IU/L Alk Phos 53 LAB AST(LOINC) 10-40 IU/L AST/SGOT 26 LAB ALT(LOINC) 10-35 IU/L ALT/SGPT 29 Performed By: #### CBC, ADIFF, ANEU, LIPID, CMP, GFR, PBNP #### [address] [address] .GFR Collected: 04/06/2018 Status: F Source: [facility] 8:01 AM [facility] REPOSITORY TYPE CODE TESTS RESULT OUT OF REFERENCE UNITS RANGE LAB GFRAA(LOINC ml/min/1.73 ) sqm GFR >60 [place] Result Comment: GFR Population mean for , Non- Americans Ages 20-29 = 116 mL/min/1.73 sq.m. Ages 30-39 = 107 mL/min/1.73 sq.m. Ages 40-49 = 99 mL/min/1.73 sq.m. Ages 50-59 = 93 mL/min/1.73 sq.m. Ages 60-69 = 85 mL/min/1.73 sq.m. Ages 70+ = 75 mL/min/1.73 sq.m. Chronic Kidney Disease: Less than 60 mL/min/1.73 square meters End Stage Renal Disease: Less than 15 mL/min/1.73 square meters LAB GFRNO(LOINC) ml/min/1.73sqm GFR Non- >60 Result Comment: GFR Population mean for , Non- Americans Ages 20-29 = 116 mL/min/1.73 sq.m. Ages 30-39 = 107 mL/min/1.73 sq.m. Ages 40-49 = 99 mL/min/1.73 sq.m. Ages 50-59 = 93 mL/min/1.73 sq.m. Ages 60-69 = 85 mL/min/1.73 sq.m. Ages 70+ = 75 mL/min/1.73 sq.m. Chronic Kidney Disease: Less than 60 mL/min/1.73 square meters End Stage Renal Disease: Less than 15 mL/min/1.73 square meters Performed By: #### CBC, ADIFF, ANEU, LIPID, CMP, GFR, PBNP #### [id number] [place], [place] [address] PBNP Collected: 04/06/2018 Status: F Source: [facility] 8:01 AM [facility] REPOSITORY TYPE CODE TESTS RESULT OUT OF REFERENCE UNITS RANGE LAB PBNP(LOINC) 5.0-300.0 pg/mL High N-Terminal 400.2 proBNP Result Comment: In the presence of acute dyspnea, CHF likely if: Age <50 years: >450 pg/mL Age 50-75 years: >900 pg/mL Age >75 years: >1800 pg/mL Performed By: #### CBC, ADIFF, ANEU, LIPID, CMP, GFR, PBNP #### [id number] [place], [place] [address] PULMONARY VISIT REPORT Observed: 03/24/2018 Status: F Source: [facility] 1:44 PM [facility] REPOSITORY Pulmonary Medicine [address] [place] [address] OFFICE VISIT Date of Service: 03/24/18 MR#: [id number] Acct: [id number] Name: CODEY RAZA Rep #: [id number] : 1955 Provider: Vandana Castillo Age/Sex: 62/M Location: [facility] [place].W Status: Signed Assessment AND Plan 1. Stage 4 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 J44.9 Status Chronic FEV1 30% of predicted Plan Deteriorated. He is in exacerbation of his COPD, providing him with prescription for a Z-Aime and a prednisone taper. Continue current maintenance medications, reinforced that Symbicort is a maintenance medication designed to prevent recurrent exacerbations. The patient previously was provided with written education on maintenance versus rescue inhalers. He remembers receiving them, he has been encouraged to follow direction. He conveys understanding. Follow-up with Dr. Lee in 3 months. He has been encouraged to contact the office next week if his symptoms have not resolved. 2. Moderate persistent asthma with acute exacerbation J45.41 Status Chronic Plan Exacerbated. Plan to treat with a Z-Aime and a prednisone taper. 3. Tobacco dependence F17.200 Plan Deteriorated, continues to smoke half pack per day. 5 minutes [id number] conversation regarding smoking cessation. The patient reports that he would be ineffective for him to set up a quit date or to try to cut a specific amount of cigarettes out daily. Per his own words he would be setting himself up for failure. Continue to encourage smoking cessation. He denies any need for further assistance at this time. Follow- up with Dr. Lee in 3 months. Plan Detail Other Orders Orders: Other Medications New: prednisone take 4 tabs for three days, then 3 tabs for three days, then10 mg PO QDAY 2 tabs for three days, then 1 tab for 3 days Follow Up 3 Months (DMB) HPI 3 M FU: Chief Complaint: Shortness of breath HPI Comments Details: This is a 62 year old M, currently under the care of Lucita Newell, here today to review test results, and to follow-up on his very severe COPD. He is ambulatory and currently on room air. He reports a feeling as though he is coming down with an episode. He reports increase in chest tightness and shortness of breath that has been ongoing for the past couple days. He does have a cough that is productive of sputum, he is unsure of the color. He denies any chest pain or palpitation, nose that he has atrial fibrillation but has not experienced any of those symptoms. He has nasal cannula oxygen that he wears as needed. Denies any fever, chills or body aches. He is compliant with improved daily, he says this medication has been very helpful to him. He is using his rescue inhaler approximately 1-2 times per day. He is using Symbicort as needed, he does admit that he was scared after he read the possible side effects which included frequent respiratory infections. He continues to smoke but he is down to one half pack per day. He has not added any [id number] medications. He does use an albuterol nebulizer as needed for his shortness of breath, he does report that the albuterol nebulizer and rescue inhaler do give him some temporary relief of his chest tightness and shortness of breath. I personally reviewed the tests/images/tracings which showed: Pulmonary stress test was completed on February 07, 2018, and did not show a drop in saturation below 89%, which supports no current requirement for supplemental oxygen at this time. I personally reviewed a chest X-Ray, that was completed on February 05, 2018, that showed vascular congestion and mild degree of CHF, blunting of the left costophrenic angle, mild cardiomegaly. Intake Vital Signs03/24/18 Height 6 ft 1 in 03/24/18 Weight: 284 lb Intake Visit Reasons: 3 M FU [facility] Vendor: [employer] Accompanied by: Self Allergies No Known Allergies Allergy (Unverified 12/12/17 14:25) Medications simvastatin 40 mg tablet 40 mg PO DAILY 10/27/17 [History Confirmed 01/06/18] Albuterol Inhaler [Ventolin Hfa] 2 puff INHALATION Q4H PRN PRN 01/06/18 [History Confirmed 01/06/18] Budesonide/Formoterol 160/4.5 [Symbicort 160/4.5 Mcg Inhaler (SP)] 2 puff INHALATION DAILY 01/06/18 [History Confirmed 01/06/18] Gabapentin [Neurontin] 300 mg PO DAILY 01/06/18 [History Confirmed 01/06/18] Umeclidinium [place] [Incruse Ellipta] 1 inh INHALATION DAILY 01/06/18 [History Confirmed 01/06/18] Albuterol Aerosols [Ventolin Aerosols] 2.5 mg INHALATION Q4HWA.RT PRN #1 vial.neb. 01/10/18 [Rx] Carvedilol [Coreg (Beta Gil)] 12.5 mg PO BID #60 tab 01/10/18 [Rx] Diltiazem CD [Cardizem CD] 180 mg PO DAILY #30 cap 01/10/18 [Rx] Furosemide [Lasix] 40 mg PO DAILY #30 tab 01/10/18 [Rx] Potassium Chloride [K-Dur] 20 meq PO DAILY #30 tab 01/10/18 [Rx] Prednisone 4 tab PO DAILY #12 tab 01/10/18 [Rx] Rivaroxaban [Xarelto] 20 mg PO DAILY #30 tab 01/10/18 [Rx] azithromycin 250 mg tablet 250 mg PO QDAY #6 tab 03/24/18 [Rx Confirmed 03/24/18] prednisone 10 mg tablet 10 mg PO QDAY #30 tab 03/24/18 [Rx Confirmed 03/24/18] [facility], [facility] Medical History HDL deficiency (Chronic) History of pleural effusion (Resolved) Asthma (Chronic) Overweight (BMI 25.0-29.9) (Chronic) Tobacco dependence (Chronic) History of Vogt's palsy (Resolved) History of [place] (myocardial infarction) (Resolved) Hyperlipidemia (Chronic) COPD (chronic obstructive pulmonary disease) (Chronic) Hypertension (Chronic) Surgical History mediastinal exploration and arrest of hemorrhage (Resolved) History of coronary artery bypass graft x 2 (Resolved) Family History Mother Hypertension Heart disease Father Heart disease Hypertension Myocardial infarction Brother Heart disease Hypertension Myocardial infarction Social History Smoking Status: Current every day smoker second hand exposure: Yes alcohol intake: former year quit: 1990 substance use type: does not use caffeine: Yes Type: coffee Number of servings: 3 what type of physical activity do you participate in: none FEV1% FEV1%: 30 Review of Systems Const CONSTITUTIONAL: Positive fatigue; negative anorexia, body ache, chills, daytime sleepiness, fever(s), night sweats, oral thrush, stops breathing during sleep, weight loss, sleeping in chair, weight loss, weight gain, frequent colds, seasonal allergies, other, headache(s) or orthopnea EETM Ear Nose Throat Mouth: Positive hearing normal and post nasal drip; negative hard of hearing, hoarseness, dry mouth in morning, change in vision, itchy eyes, eye pain, swallowing Difficulty, ear pain, nose bleed, headache(s), mouth pain, nasal congestion, nasal discharge, sinus pain, sinus pressure, sore throat or other Cardio Cardiovascular: Negative chest pain, chest pain at rest, chest pain with activity, irregular heart rhythm, edema, shortness of breath when lying down, palpitations, murmur or other Resp Respiratory: Positive as per HPI, shortness of breath shortness of breath: Positive with activity and worsening, wheezing, cough cough: Positive non- productive and productive and chest tightness; negative pain with cough, chest congestion, pain on inspiration, inhalers, increase use of rescue inhalers, snoring, apnea or other Gastro Gastrointestional: Negative bloody stools, change in appetite, difficulty swallowing, reflux, hematemesis, melena stool, loose stool, constipation or other Genitourinary: Negative blood in urine, nocturia, pain with urination or other Musc Musculoskeletal: Negative body pain, back pain, neck pain or other Skin/Breast Skin/Breast: Negative dry skin, itching, rash, unusual bruising, breast lump or other Neuro Neurological: Negative restless legs, confusion, weakness or other Psych Psychocological: Negative abnormal sleep pattern, anxiety, thoughts of hurting self/others, hopelessness or other Lymph Lymphatic: Negative easy bleeding, easy bruising, swollen lymph nodes or other Exam Const Constitutional: Positive conversant, cooperative, in no acute respiratory distress, well developed, well nourished, good hygiene, obese, smells of smoke and dyspenic Head Head: Positive normocephalic and atraumatic; negative cyanosis of lips/distal nose Eyes Eye: Positive clear conjunctiva and nystagmus; negative scleral abnormality Ears Ear: Positive hearing normal and external ears normal; negative hard of hearing Nose Nose: Positive external nose normal and no nasal discharge; negative epistaxis Mouth Mouth: Positive post nasal drip, oral mucosae normal, crowded posterior oropharynx, poor dentition and no lesions; negative oral thrush present or malodorous breath Mallampati Score: III: Mallampati Score Neck Neck: Positive normal visual inspection, full ROM, trachea midline and thick neck; negative lymphadenopathy, JVD or tender Chest Wall Chest: Positive increased A/P diameter and symmetric chest movement Resp lung sounds: Positive wheezes, diminished, prolonged expiratory time and increased work of breathing; negative use of accessory muscles Cardio Cardiac: Positive S1 normal and S2 normal; negative murmur, regular rate or regular rhythm GI GI: Positive normal to inspection, normal bowel sounds and obese; negative distended Genitourinary: Positive deferred Musc Musculoskeletal: Positive steady gait and ROM normal; negative kyphosis or scoliosis Skin Pulmonary Skin Exam: Positive intact and dermal atrophy; negative rash, lesion, ulcers, erythema or scaly Pulses Pulse: Yes radial pulses present Extremities Extremities: No edema, Yes clubbing, Yes capillary refill normal, No cyanosis, No stasis dermatitis Neuro Neurologic: Yes conversant, Yes no focal neuro deficits, Yes cooperative, Yes understands questions, No tremor, Yes normal cognition, Yes normal concentration, Yes normal coordination Lymph Lymphatic: No lymphadenopathy, No tenderness, No cervical adenopathy, No axillary adenopathy Psych Appearance: Positive grossly normal, eye contact and well kempt Mental Status: Positive mental status grossly normal Mood: Positive irritable mood Affect: Positive irritable affect Coding Level of Care Code Off vis,est,level 4 Diagnoses Stage 4 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 J44.9 Moderate persistent asthma with acute exacerbation J45.41 Asthma severity: moderate Asthma persistence: persistent Asthma complication type: with acute exacerbation Tobacco dependence F17.200 03/24/18 1344 <Electronically signed by Vandana ELLIS> Date Vandana ELLIS Cosigner Signature: Date (if applicable) CC: Lucita Newell [facility] Collected: 02/22/2018 Status: F Source: [facility] 11:55 AM [facility] REPOSITORY TYPE CODE TESTS RESULT OUT OF REFERENCE UNITS RANGE LAB GLU(LOINC) 80-115 mg/dL Glucose Level 86 LAB NA(LOINC) 136-146 mEq/L Sodium Level 137 LAB K(LOINC) 3.5-5.1 mEq/L Potassium Level 4.1 LAB CL(LOINC) 98-107 mEq/L Chloride 100 LAB CO2(LOINC) 23-31 mEq/L CO2 28 LAB EBAL(LOINC mEq/L ) Electrolyte Balance 9.0 LAB BUN(LOINC) 7.0-18.0 mg/dL BUN High 23.5 LAB CRE(LOINC) 0.6-1.2 mg/dL Creatinine High Lvl (s) 1.3 LAB BC(LOINC) 7-27 ratio BUN/Creatinine 18 Ratio LAB CA(LOINC) 8.4-10.2 mg/dL Calcium Lvl 9.3 Performed By: #### ZEKE, GFR #### [address] [address] .GFR Collected: 02/22/2018 Status: F Source: [facility] 11:55 AM [facility] REPOSITORY TYPE CODE TESTS RESULT OUT OF REFERENCE UNITS RANGE LAB GFRAA(LOINC ml/min/1.73 ) sqm GFR 71 [place] Result Comment: GFR Population mean for , Non- Americans Ages 20-29 = 116 mL/min/1.73 sq.m. Ages 30-39 = 107 mL/min/1.73 sq.m. Ages 40-49 = 99 mL/min/1.73 sq.m. Ages 50-59 = 93 mL/min/1.73 sq.m. Ages 60-69 = 85 mL/min/1.73 sq.m. Ages 70+ = 75 mL/min/1.73 sq.m. Chronic Kidney Disease: Less than 60 mL/min/1.73 square meters End Stage Renal Disease: Less than 15 mL/min/1.73 square meters LAB GFRNO(LOINC) ml/min/1.73sqm GFR Non- 59 Result Comment: GFR Population mean for , Non- Americans Ages 20-29 = 116 mL/min/1.73 sq.m. Ages 30-39 = 107 mL/min/1.73 sq.m. Ages 40-49 = 99 mL/min/1.73 sq.m. Ages 50-59 = 93 mL/min/1.73 sq.m. Ages 60-69 = 85 mL/min/1.73 sq.m. Ages 70+ = 75 mL/min/1.73 sq.m. Chronic Kidney Disease: Less than 60 mL/min/1.73 square meters End Stage Renal Disease: Less than 15 mL/min/1.73 square meters Performed By: #### BMP, GFR #### [address] [address] 6 MINUTE WALK TEST Observed: 02/07/2018 Status: F Source: [facility] 2:47 PM [facility] REPOSITORY [facility] Pulmonary Services/Neurology [address] [place] [address] MR#: [id number] Acct: [id number] Name: CODEY RAZA Rep #: [id number] : 1955 62 From: Crispin Butcher MD Referring Dr: Vandana Castillo HOSPICE MUSIC THERAPIST Date: Ordering Dr: Sex: M C Location: PSN PSN 6 Minute Walk Test - 6 Minute Walk Test 6 Minute Walk Test: 6 Minute Walk Test PSN:6-Minute Walk Test Start: 02/07/18 13:04 Freq: Status: Active Protocol: RESP.[id number] Document 02/07/18 13:04 FR (Rec: 02/07/18 13:08 FR [id number]) 6 Minute Walk Test Date Performed 02/07/18 Time Performed 12:30 Height 6 ft 1 in Weight: 132.903 kg Weight in Pounds 293.[address]: Vandana Castillo FIO2 (% Oxygen) 21 Assistive device used: None Pre-test Oxygen Delivery Method Room Air Pulse Ox (%) 94 Pulse Rate (60-100 beats/min) 78 1st minute Oxygen Delivery Method Room Air Pulse Ox (%) 92 Pulse Rate (60-100 beats/min) 89 2nd minute Oxygen Delivery Method Room Air Pulse Ox (%) 90 Pulse Rate (60-100 beats/min) 92 3rd minute Oxygen Delivery Method Room Air Pulse Ox (%) 90 Pulse Rate (60-100 beats/min) 99 4th minute Oxygen Delivery Method Room Air Pulse Ox (%) 90 Pulse Rate (60-100 beats/min) 118 H 5th minute Oxygen Delivery Method Room Air Pulse Ox (%) 91 Pulse Rate (60-100 beats/min) 92 6th minute Oxygen Delivery Method Room Air Pulse Ox (%) 90 Pulse Rate (60-100 beats/min) 88 Dyspnea Levy Scale (0-10) 6 Exertion Levy Scale (6-20) 9 Post-test Oxygen Delivery Method Room Air Pulse Ox (%) 95 Pulse Rate (60-100 beats/min) 78 Full Laps Walked 13 Partial Lap, Number of Tiles Walked 23 Total Distance Walked (ft) 790 - Interpretation Interpretation: The patient was able to ambulate 790 feet over the course of 6 minutes on room air with no assistive devices or breaks. She did have significant desaturation with an oxygen chano of 90%. Some reflexive tachycardia was noted. These findings are consistent with a respiratory limitation exercise tolerance. - Recommendations Recommendations: Luminal oxygen is indicated at this time. However, patient will need to be followed closely given level of desaturation 02/07/181446 <Electronically signed by Crispin Butcher MD> Date Crispin Butcher MD CC: Date Dictated: 02/07/181445 Date Transcribed: 02/07/181445 Receiver Bulk System: Crispin Butcher Signed BMP Collected: 01/16/2018 Status: F Source: [facility] 2:38 [facility] REPOSITORY TYPE CODE TESTS RESULT OUT OF REFERENCE UNITS RANGE LAB 1547-9 80-115 mg/dL GLUCOSE 87 LAB NA(LOINC) 136-146 mEq/L Sodium Level 140 LAB K(LOINC) 3.5-5.1 mEq/L Potassium Level 4.5 LAB CL(LOINC) 98-107 mEq/L Chloride 101 LAB CO2(LOINC) 23-31 mEq/L CO2 High 32 LAB EBAL(LOINC mEq/L ) Electrolyte Balance 7.0 LAB BUN(LOINC) 7.0-18.0 mg/dL BUN 16.9 LAB CRE(LOINC) 0.6-1.2 mg/dL Creatinine Lvl (s) 1.0 LAB BC(LOINC) 7-27 ratio BUN/Creatinine 17 Ratio LAB CA(LOINC) 8.4-10.2 mg/dL Calcium Lvl 8.8 Performed By: #### ZEKE, GFR #### [facility] [place] [address] .GFR Collected: 01/16/2018 Status: F Source: [facility] 2:38 PM [facility] REPOSITORY TYPE CODE TESTS RESULT OUT OF REFERENCE UNITS RANGE LAB GFRAA(LOINC ml/min/1.73 ) sqm GFR 97 [place] Result Comment: GFR Population mean for , Non- Americans Ages 20-29 = 116 mL/min/1.73 sq.m. Ages 30-39 = 107 mL/min/1.73 sq.m. Ages 40-49 = 99 mL/min/1.73 sq.m. Ages 50-59 = 93 mL/min/1.73 sq.m. Ages 60-69 = 85 mL/min/1.73 sq.m. Ages 70+ = 75 mL/min/1.73 sq.m. Chronic Kidney Disease: Less than 60 mL/min/1.73 square meters End Stage Renal Disease: Less than 15 mL/min/1.73 square meters LAB GFRNO(LOINC) ml/min/1.73sqm GFR Non- >60 Result Comment: GFR Population mean for , Non- Americans Ages 20-29 = 116 mL/min/1.73 sq.m. Ages 30-39 = 107 mL/min/1.73 sq.m. Ages 40-49 = 99 mL/min/1.73 sq.m. Ages 50-59 = 93 mL/min/1.73 sq.m. Ages 60-69 = 85 mL/min/1.73 sq.m. Ages 70+ = 75 mL/min/1.73 sq.m. Chronic Kidney Disease: Less than 60 mL/min/1.73 square meters End Stage Renal Disease: Less than 15 mL/min/1.73 square meters Performed By: #### BMP, GFR #### [facility] [address] [address] DISCHARGE SUMMARY Observed: 01/10/2018 Status: F Source: [place] 2:35 PM [facility] REPOSITORY [facility] Medical Records Department [address] [place] [address] Discharge Summary 01/10/18 1429 MR#: [id number] Acct: [id number] Name: CODEY RAZA Rep #: [id number] : 1955 62 From: Jian Moya DO PCP: Lucita Newell Status: ADM IN Y Location: [place] [id number] Discharge Date and Diagnosis - Problem List Patient Problems: Active and Suspected Problems (Last Reviewed 12/13/17 @ 13:04 by CARLOS TateC) DINO (acute kidney injury) (Acute) Heart failure with preserved ejection fraction (Acute) COPD with acute exacerbation (Acute) New onset atrial fibrillation (Acute) Leg edema (Acute) Date of Admission: 01/06/18 Date of Discharge: 01/10/18 - Primary Discharge Diagnosis Active and Suspected Problems (Last Reviewed 12/13/17 @ 13:04 by RHONDA Tate) DINO (acute kidney injury) (Acute) Heart failure with preserved ejection fraction (Acute) COPD with acute exacerbation (Acute) New onset atrial fibrillation (Acute) Shortness of breath (Acute) Leg edema (Acute) - Secondary Discharge Diagnosis Chronic Problems (Last Reviewed 12/13/17 @ 13:04 by RHONDA Tate) Stage 4 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 Cardiomegaly. Electronically Signed: Mao Cuenca MD at 11:33 EDT Tel [phone], Service support , Chest X-Ray 01/07/18 05:55 IMPRESSION: No change since yesterday's study. Cardiomegaly with central vascular congestion. Electronically Signed: Alfa Aguilar, at 7:08 EDT Tel , Service support , Chest X-Ray 01/08/18 05:55 IMPRESSION: Cardiomegaly with minimally improved central vascular congestion. No pneumonia and no pleural effusions. Electronically Signed: Alfa Aguilar, at 6:47 EDT Tel , Service support , Operations: None Procedures: 2-D Echocardiogram - EF 50%. PASP 30mmHg Summary of Care Provided: The patient is a 62 year old M presents with atrial fibrillation and shortness of breath. Patient was felt to be in acute heart failure as well as acute exacerbation of COPD. Patient was started on IV Lasix IV Solu-Medrol and oxygen. Patient did improve from a respiratory standpoint. Patient did drop down to 80% on room air and therefore will require oxygen at home. 1. New onset afib w RVR * now rate controlled. * TAS3SI1-GTSi score is 3 * continue coreg, dilt and xarelto * follow up with cardiology 2. HFpEF * EF 50% * change lasix to PO (40 Qday) * on cozaar and coreg 3. AECOPD: * change steroids to prednisone (continue through 01/13) * improved * albuterol PRN * follow up with Dr. Lee. 4. DINO: * likely d/t overdiuresis * baseline 1.05, now 1.46 * dc IV lasix * follow up outpatient labs. ] Discharge Diet: 6 Cup Fluid Restriction, 2000 mg Sodium Diet Discharge Activity: Return to Normal Activity Call your doctor if you observe: Fever of 101 or Higher, Shortness of breath, Chest pain Home Medications: Medications to take at Discharge simvastatin 40 mg tablet 40 mg PO DAILY 10/27/17 Albuterol Inhaler [Ventolin Hfa] 2 puff INHALATION Q4H PRN PRN 01/06/18 Budesonide/Formoterol 160/4.5 [Symbicort 160/4.5 Mcg Inhaler (SP)] 2 puff INHALATION DAILY 01/06/18 Gabapentin [Neurontin] 300 mg PO DAILY 01/06/18 Umeclidinium [place] [Incruse Ellipta] 1 inh INHALATION DAILY 01/06/18 Albuterol Aerosols [Ventolin Aerosols] 2.5 mg INHALATION Q4HWA.RT PRN #1 vial.neb. 01/10/18 Carvedilol [Coreg (Beta Gil)] 12.5 mg PO BID #60 tab 01/10/18 Diltiazem CD [Cardizem CD] 180 mg PO DAILY #30 cap 01/10/18 Furosemide [Lasix] 40 mg PO DAILY #30 tab 01/10/18 Potassium Chloride [K-Dur] 20 meq PO DAILY #30 tab 01/10/18 Prednisone 4 tab PO DAILY #12 tab 01/10/18 Rivaroxaban [Xarelto] 20 mg PO DAILY #30 tab 04/17/18 Following Prescrptions Were Given to Patient: Albuterol Aerosols [Ventolin Aerosols] 2.5 mg INHALATION Q4HWA.RT PRN #1 vial.neb. PRN Reason: Shortness Of Breath Diltiazem CD [Cardizem CD] 180 mg PO DAILY #30 cap Furosemide [Lasix] 40 mg PO DAILY #30 tab Potassium Chloride [K-Dur] 20 meq PO DAILY #30 tab Prednisone 4 tab PO DAILY #12 tab Rivaroxaban [Xarelto] 20 mg PO DAILY #30 tab Carvedilol [Coreg (Beta Gil)] 12.5 mg PO BID #60 tab Primary Care Physician: Lucita Newell [Primary Care Provider] - Within 2 Weeks Please Follow Up With: [facility] - afib and heart failure follow up. When: 1-2 months Please Follow Up With: Maurisio Lee DO - COPD follow up When: 1-2 months Disposition: Home Minutes spent on discharge:: 32 Patient Condition:: Fair Medical Necessity - Tobacco Use Smoking Status: Current every day smoker Tobacco Use: Cigarettes Meaningful Use Info Meaningful Use Diagnoses (Choose all that apply): CHF - CHF SOLOMON/ARB ordered at discharge?: Yes Documented LVEF (%): 50 Code Visit Inpatient E AND M: 21809 Disch Hosp 01/10/18 1435 <Electronically signed by Jian Moya DO> Date Jian Moya DO Cosigner Signature (if applicable): Date CC: Jian Moya DO; Lucita Newell Signed DISCHARGE INSTRUCTION Observed: 01/10/2018 Status: F Source: [place] 2:29 PM [facility] REPOSITORY [facility] Medical Records Department [address] [place] [address] Instructions for Home/Discharge Instructions 01/10/18 1425 MR#: [id number] Acct: [id number] Name: CODEY RAZA Rep #: [id number] : 1955 62 From: Jian Moya DO PCP: Lucita Newell Status: ADM IN - Discharge Diagnoses Current Active Problems: Current Active and Chronic Problems (Last Reviewed 12/13/17 @ 13:04 by Vandana Castillo NP-C) New onset atrial fibrillation (Acute) Shortness of breath (Acute) Leg edema (Acute) You will use the following diet at home:: Cardiac, Fluid restricted (specify 2000 mls, 1500 mls) - 2000 cc/day Your food should be the consistency of: Regular Your liquids should be the consistency of: Regular/Thin Discharge Activity: Return to Normal Activity Call your doctor if you observe: Fever of 101 or Higher, Shortness of breath, Chest pain Allergies/Adverse Reactions: Allergies No Known Allergies Allergy (Unverified 12/12/17 14:25) Medications to take at Discharge simvastatin 40 mg tablet 40 mg PO DAILY 10/27/17 Albuterol Inhaler [Ventolin Hfa] 2 puff INHALATION Q4H PRN PRN 01/06/18 Budesonide/Formoterol 160/4.5 [Symbicort 160/4.5 Mcg Inhaler (SP)] 2 puff INHALATION DAILY 01/06/18 Gabapentin [Neurontin] 300 mg PO DAILY 01/06/18 Umeclidinium [place] [Incruse Ellipta] 1 inh INHALATION DAILY 01/06/18 Albuterol Aerosols [Ventolin Aerosols] 2.5 mg INHALATION Q4HWA.RT PRN #1 vial.neb. 01/10/18 Carvedilol [Coreg (Beta Gil)] 12.5 mg PO BID #60 tab 01/10/18 Diltiazem CD [Cardizem CD] 180 mg PO DAILY #30 cap 01/10/18 Furosemide [Lasix] 40 mg PO DAILY #30 tab 01/10/18 Potassium Chloride [K-Dur] 20 meq PO DAILY #30 tab 01/10/18 Prednisone 4 tab PO DAILY #12 tab 01/10/18 Rivaroxaban [Xarelto] 20 mg PO DAILY #30 tab 01/10/18 The following prescriptions were given: Albuterol Aerosols [Ventolin Aerosols] 2.5 mg INHALATION Q4HWA.RT PRN #1 vial.neb. PRN Reason: Shortness Of Breath Diltiazem CD [Cardizem CD] 180 mg PO DAILY #30 cap Furosemide [Lasix] 40 mg PO DAILY #30 tab Potassium Chloride [K-Dur] 20 meq PO DAILY #30 tab Prednisone 4 tab PO DAILY #12 tab Rivaroxaban [Xarelto] 20 mg PO DAILY #30 tab Carvedilol [Coreg (Beta Gil)] 12.5 mg PO BID #60 tab Primary Care Physician: Lucita Newell [Primary Care Provider] - Within 2 Weeks Please Follow Up With: [facility] - afib and heart failure follow up. When: 1-2 months Please Follow Up With: Maurisio Lee DO - COPD follow up When: 1-2 months Proposed Discharge Date: 01/10/18 01/10/18 1429 <Electronically signed by Jian Moya DO> Date Jian Moya DO CC: Silvestre Burks MD; Lucita Newell 12 LEAD ELECTROCARDIOGRAM Observed: 01/10/2018 Status: F Source: [place] 1:53 PM [facility] REPOSITORY [facility] Cardiovascular Services [address] [place] [address] 12 Lead EKG 01/06/18 1118 MR#: [id number] Acct: [id number] Name: CODEY RAZA Rep #: [id number] : 1955 62 From: Martínez Saul MD Attending Dr: Jian Moya DO Status: ADM IN Ordering Dr: Marcelino Turner MD Date: 01/06/18 Location: [facility] Sex: M C Admitted: 01/06/18 Test Reason : SOB Blood Pressure : / mmHG Vent. Rate : 122 BPM Atrial Rate : 129 BPM P-R Int : 000 ms QRS Dur : 100 ms QT Int : 336 ms P-R-T Axes : 000 071 011 degrees QTc Int : 478 ms Atrial fibrillation with premature ventricular or aberrantly conducted complexes Low voltage QRS Septal infarct , age undetermined Abnormal ECG Confirmed by MARTÍNEZ SAUL MD ([id number]), food editor BEATRIZ IBARRA ([id number]) on 01/10/2018 1:52:59 PM Referred By: BOB Confirmed By:MARTÍNEZ SAUL MD 01/10/18 1353 Date Martínez Saul MD CC: Jian Moya DO; Lucita Newell; Marcelino Turner MD Signed BASIC METABOLIC Collected: 01/09/2018 Status: F Source: [place] PROFILE (BMP) 4:14 PM [facility] REPOSITORY TYPE CODE TESTS RESULT OUT OF RANGE REFERENCE UNITS LAB L501.0100 74-106 mg/dL High GLU 131 Result Comment: Fasting Glucose result greater than or equal to 126 mg/dL suggests DIABETES MELLITUS per A.D.A. criteria. Please note revised GLUCOSE reference range effective 2017. LAB L501.1000 7-18 mg/dL High BUN 36 LAB L501.1100 0.70-1.30 mg/dL High CREAT,SERUM 1.46 Result Comment: The validity of the calculated GFR AND GFRAA in patients over 70 years has not been determined. Clinical correlation is essential. LAB L501.1110 >60 mL/min Low EST GFR 52 Result Comment: Non- GFR Calc LAB L501.1115 >60 mL/min Normal EST GFR - AA 63 Result Comment: GFR Calc LAB L501.1255 ml/min Normal Estimated CRCL 60.05 LAB L501.1300 10-20 RATIO High BUN/CRE 24.7 LAB L501.2200 8.5-10 mg/dL Normal .1 CA 9.2 LAB L501.5300 136-14 mmol/L Normal 5 NA 139 LAB L501.5600 3.5-5. mmol/L Normal 1 K 4.7 LAB L501.5900 98-107 mmol/L Normal CL 100 LAB L501.6100 21.0-3 mmol/L High 2.0 CO2 34.0 LAB L501.6200 5-15 Normal GAP 5 Performed By: #### L500.2500 #### [facility] [address] [place], [address] BASIC METABOLIC Collected: 01/08/2018 Status: F Source: [place] PROFILE (BMP) 5:45 AM [facility] REPOSITORY TYPE CODE TESTS RESULT OUT OF RANGE REFERENCE UNITS LAB L501.0100 74-106 mg/dL High GLU 135 Result Comment: Fasting Glucose result greater than or equal to 126 mg/dL suggests DIABETES MELLITUS per A.D.A. criteria. Please note revised GLUCOSE reference range effective 2017. LAB L501.1000 7-18 mg/dL High BUN 29 LAB L501.1100 0.70-1.30 mg/dL Normal CREAT,SERUM 1.25 Result Comment: The validity of the calculated GFR AND GFRAA in patients over 70 years has not been determined. Clinical correlation is essential. LAB L501.1110 >60 mL/min Normal EST GFR 62 Result Comment: Non- GFR Calc LAB L501.1115 >60 mL/min Normal EST GFR - AA 76 Result Comment: GFR Calc LAB L501.1255 ml/min Normal Estimated CRCL 70.13 LAB L501.1300 10-20 RATIO High BUN/CRE 23.2 LAB L501.2200 8.5-10 mg/dL Normal .1 CA 9.1 LAB L501.5300 136-14 mmol/L Normal 5 NA 136 LAB L501.5600 3.5-5. mmol/L Normal 1 K 4.7 LAB L501.5900 98-107 mmol/L Normal CL 101 LAB L501.6100 21.0-3 mmol/L High 2.0 CO2 33.0 LAB L501.6200 5-15 Low GAP 2 Performed By: #### L500.2500 #### [facility] [address] [place], [address] CHEST 1 VIEW Observed: 01/08/2018 Status: F Source: NOVA (PORTABLE) 12:00 AM [facility] REPOSITORY [facility] Imaging Services [address] [place] [address] Chest 1 View (Portable) MR#: [id number] Acct: [id number] Name: CODEY RAZA Rep #: [id number] : 1955 M 62 From: Alfa Aguilar MD PCP: Lucita Newell Status: ADM IN Study: Chest 1 View (Portable) Date of Exam: 01/08/18 Exam# [id number] Ordering Dr: Esau Everett DO STUDY: X-RAY CHEST REASON FOR EXAM: Male, 62 years old. Shortness of breath TECHNIQUE: 1 view COMPARISON: None. FINDINGS: Cardiomegaly with minimally improved vascular congestion but no pneumonia and no pleural effusions. Median sternotomy wires are in place Normal visualized thoracic spine. Normal visualized ribs, clavicles, and shoulders. There is no demonstrated abnormality of the visualized soft tissue structures of the upper abdomen. RAD/Chest 1 View (Portable) IMPRESSION: Cardiomegaly with minimally improved central vascular congestion. No pneumonia and no pleural effusions. Electronically Signed: Alfa Aguilar, at 6:47 EDT Tel , Service support , CC: Esau Everett DO; Lucita Newell Receiver Bulk System: Signed CONSULTATION Observed: 01/07/2018 Status: F Source: VIENNA 2:41 PM [facility] REPOSITORY [facility] Medical Records Department [address] [place] [address] Consultation 01/07/18 1432 MR#: [id number] Acct: [id number] Name: CODEY RAZA Marybel Rep #: [id number] : 1955 62 From: Silvestre Burks MD PCP: Lucita Newell Status: ADM IN Y Location: [place] [id number] Problem List (1) New onset atrial fibrillation Status: Acute Reason for Consult Date of Consultation: 01/07/18 History of Present Illness: The patient is a 62 year old M past medical history significant for coronary artery disease status post coronary artery bypass graft surgery, hypertension, COPD and dyslipidemia. He was referred from his primary care physician's office where and he had gone with complaints for complaints of increased ankle swelling. He was noted to be in atrial fibrillation. Subsequently he was admitted to the hospital. He was started on calcium channel blockers and his beta-gil dosage was increased. He was also started on anticoagulation with Xarelto. Patient describes history of palpitations off-and-on. Denies any chest pains. He has chronic shortness of breath on account of his COPD. Recent change. Denies any cough. No fevers or chills. Denies any orthopnea. Denies any history of sleep apnea. No PND. [] Past Medical History Allergies/Adverse Reactions: Allergies No Known Allergies Allergy (Unverified 12/12/17 14:25) Home Medications: Ambulatory Orders Medication Instructions Recorded carvedilol 3.125 mg tablet 3.125 mg PO DAILY 10/27/17 Past Medical History (Chronic Problems): Chronic Problems (Last Reviewed 12/13/17 @ 13:04 by RHONDA Tate) Stage 4 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 (Chronic) HDL deficiency (Chronic) Asthma (Chronic) Overweight (BMI 25.0-29.9) (Chronic) Tobacco dependence (Chronic) Hyperlipidemia (Chronic) COPD (chronic obstructive pulmonary disease) (Chronic) Hypertension (Chronic) Surgical History: coronary bypass surgery, tonsillectomy, - - 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, right shoulder surgery Psychiatric History: No pertinent psych hx - *Family History Maternal Family History: Family History (Last Reviewed 12/13/17 @ 13:04 by RHONDA Tate) Mother Hypertension Heart disease Father Heart disease Hypertension Myocardial infarction Brother Heart disease Hypertension Myocardial infarction History Items: Heart Disease Paternal Family History: Family History (Last Reviewed 12/13/17 @ 13:04 by RHONDA Tate) Mother Hypertension Heart disease Father Heart disease Hypertension Myocardial infarction Brother Heart disease Hypertension Myocardial infarction History Items: Heart Disease Lives: Friends Smoking Status: Current every day smoker Tobacco Use: Cigarettes Alcohol: None Drugs: None Review of Systems - Review of Systems General: Denies: Fever, Chills, Weight Loss HEENT: Denies: Head Aches Cardiovascular: Reports: Shortness of Breath with Exertion, Peripheral Edema. Denies: Chest Discomfort, Chest Discomfort at Rest, Chest Discomfort with Exertion Respiratory: Reports: Shortness of Breath Gastrointestinal: Denies: Abdominal Discomfort, Emesis, Hematemesis, Melena Muscoloskeletal: Denies: Myalgias Neurological: Denies: History of TIA, History of CVA Hematologic/ Lymphatic: Denies: Anemia, Easy Brusing, Easy Bleeding Subjectve: Obese. No apparent distress. Objective: Vital Signs Temp Pulse Resp BP Pulse Ox 98.3 F 77 20 H 104/64 96 01/07/18 12:54 01/07/18 12:54 01/07/18 12:54 01/07/18 12:54 01/07/18 12:54 Oxygen Flow Rate (L/min) 3 Oxygen Delivery Method Nasal Cannula Weight: 136.4 kg Body Mass Index (BMI) 41.1 Intake and Output for Last 24 Hours Intake Total 420 / 420 780 / 780 Output Total 3650 / 3650 Balance 420 / -680 -2870 / -2870 General: Awake, Alert, Oriented x 3, No Acute Distress HEENT: Atraumatic, Normocephalic Oral: Moist Mucosa Neck: Supple, - - Jugular venous hernandez difficult because of body habitus Lungs: - - Bilateral end expiratory wheezing. Decreased breath sounds bilaterally Cardiovascular: Irregular Rhythm, Normal S1, Normal S2 Abdomen: Bowel Sounds Present, Soft Extremities: Bilateral Edema +2 - Chronic venous incompetence changes noted bilaterally Neurological: No Focal Motor or Sensory Deficit Psych/Mental Status: Appropriate 01/07/18 06:07: Sodium 140, Potassium 4.6, Chloride 103, Carbon Dioxide 29.0, Anion Gap 8, BUN 21 H, Creatinine 1.09, Est GFR (MDRD) Af Amer 88, Est GFR (MDRD) Non-Af 73, BUN/Creatinine Ratio 19.3, Glucose 118 H, Calcium 8.7 Rhythm: Atrial fibrillation. Controlled ventricular response EKG: Atrial fibrillation ECHO: Ejection fraction normal. Stress Test: Cardiac Cath: PCI: CT Surgery: Holter monitor: EPS: PPM: CXR: Mild central vascular congestion Chest CT Scan: Assessment/Plan . New diagnosis of atrial fibrillation. Agree with rate controlled with calcium channel blockers. Patient is on beta blockers, seems to be tolerating well. However if his bronchospastic disease gets worse, then may consider stopping beta blockers. Agree with anticoagulation for thromboembolic risk with atrial fibrillation. Discussed with patient. He understands and agrees 2. COPD. Unfortunately patient continues to smoke. He is unwilling to quit 3. History of coronary artery disease status post CABG 4. Lower extremity edema. Consider venous incompetence. Agree with diuretics next 5. Hypertension 6. Consider workup for sleep apnea. Consider pulmonology consult 7. Obesity. Counseled to lose weight 8. Patient does not follow regularly with cardiology. Recommend follow-up with the [facility] in 2-3 weeks time after discharge home 01/07/18 1441 <Electronically signed by Silvestre Burks MD> Date Silvestre Burks MD Cosigner Signature (if applicable): Date CC: Silvestre Bukrs MD; Lucita Newell Signed ECHOCARDIOGRAM COMPLETE Observed: 01/07/2018 Status: F Source: VIENNA 12:58 PM [facility] REPOSITORY [facility] Cardiovascular Services [address] [place] [id number] Echo Complete W/ Contrast 01/07/18 1010 MR#: [id number] Acct: [id number] Name: CODEY RAZA Rep #: [id number] : 1955 62 From: Martínez Saul MD Attending Dr: Esau Everett DO Status: ADM IN Ordering Dr: Esau Everett DO Date: 01/07/18 Location: [facility] Sex: M C Admitted: 01/06/18 Reason For Study: Afib, Aflutter Procedure This was a 2D Doppler, Color Flow transthoracic echocardiogram. The study was technically difficult. Pt scanned upright due to SOB. Exam performed portable in patient room. Left Ventricle Normal LV size. Left ventricular systolic function is lower limits of normal. The estimated ejection fraction is 50 %. Unable to assess diastolic dysfunction. No regional wall motion abnormalities noted. Right Ventricle Normal RV size. Normal systolic function. Atria The left atrium is moderately enlarged. The right atrium is moderately enlarged. Mitral Valve Mitral valve not well visualized. Tricuspid Valve The tricuspid valve is not well visualized. Mild to moderate (1-2+) tricuspid valve insufficiency. Pulmonary artery systolic pressure is 30 mmHg. Aortic Valve The aortic valve is not well visualized. Pulmonic Valve The pulmonic valve is not well visualized. Great Vessels Normal aortic root. Pericardium/Pleural No pericardial effusion. Medication Definity0.4ml given slow IV push to enhance endocardial definition. MMode/2D Measurements AND Calculations LVIDd: 5.5 cm IVSd: 1.2 cm Ao root diam: 3.0 cm LVIDs: 3.7 cm LVPWd: 1.2 cm LA dimension: 5.9 cm FS: 32.4 % LAV(MOD-bp): 84.4 ml LAV(MOD-bp) Indexed: 32.6 ml/m2 LA A4 area: 29.1 cm2 RA A4 area: 34.5 cm2 LAV(MOD-sp2): 66.0 ml LAV(MOD-sp4): 90.5 ml Doppler Measurements AND Calculations MV E max alisa: 82.1 cm/sec Ao V2 max: 102.3 cm/sec LV V1 max: 87.0 cm/sec Ao max P.2 mmHg LV V1 max P.0 mmHg Ao V2 mean: 79.8 cm/sec Ao mean P.7 mmHg Ao V2 VTI: 17.2 cm PA V2 max: 110.5 cm/sec TR max alisa: 253.7 cm/sec TR max P.8 mmHg Interpretation Summary Normal LV size. Left ventricular systolic function is lower limits of normal. The estimated ejection fraction is 50 %. Unable to assess diastolic dysfunction. Pulmonary artery systolic pressure is 30 mmHg. Contrast injection was performed. Ordering Physician: Esau Everett Referring Physician: Lucita Newell Performed By: Charla López, HUNG, RVT 01/07/18 1257 Date Martínez Saul MD CC: Esau Everett DO; Lucita Newell Date Dictated: 01/07/18 1010 Date Transcribed: 01/07/18 1257 Receiver Bulk System: Signed BASIC METABOLIC Collected: 01/07/2018 Status: F Source: NOVA PROFILE (BMP) 6:07 AM [facility] REPOSITORY TYPE CODE TESTS RESULT OUT OF RANGE REFERENCE UNITS LAB L501.0100 74-106 mg/dL High GLU 118 Result Comment: Fasting Glucose result from 100 to 125 mg/dL suggests IMPAIRED HOMEOSTASIS per A.D.A. criteria. Please note revised GLUCOSE reference range effective 2017. LAB L501.1000 7-18 mg/dL High BUN 21 LAB L501.1100 0.70-1.30 mg/dL Normal CREAT,SERUM 1.09 Result Comment: The validity of the calculated GFR AND GFRAA in patients over 70 years has not been determined. Clinical correlation is essential. LAB L501.1110 >60 mL/min Normal EST GFR 73 Result Comment: Non- GFR Calc LAB L501.1115 >60 mL/min Normal EST GFR - AA 88 Result Comment: GFR Calc LAB L501.1255 ml/min Normal Estimated CRCL 80.43 LAB L501.1300 10-20 RATIO Normal BUN/CRE 19.3 LAB L501.2200 8.5-10 mg/dL Normal .1 CA 8.7 LAB L501.5300 136-14 mmol/L Normal 5 NA 140 LAB L501.5600 3.5-5. mmol/L Normal 1 K 4.6 LAB L501.5900 98-107 mmol/L Normal CL 103 LAB L501.6100 21.0-3 mmol/L Normal 2.0 CO2 29.0 LAB L501.6200 5-15 Normal GAP 8 Performed By: #### L500.2500 #### [facility] [address] [place], [address] CHEST PA AND LATERAL Observed: 01/07/2018 Status: F Source: VIENNA 12:00 AM [facility] REPOSITORY [facility] Imaging Services [address] [place] [address] Chest PA and Lateral MR#: [id number] Acct: [id number] Name: CODEY RAZA Rep #: [id number] : 1955 M 62 From: Alfa Aguilar MD PCP: Lucita Newell Status: ADM IN Study: Chest PA and Lateral Date of Exam: 01/07/18 Exam# [id number] Ordering Dr: Esau Everett DO STUDY: X-RAY CHEST REASON FOR EXAM: Male, 62 years old. Follow-up TECHNIQUE: 1 view COMPARISON: January 06, 2018 FINDINGS: There is cardiomegaly with central vascular congestion and a few platelike atelectatic changes in the left base. No pneumonia. No pleural effusion. Median sternotomy wires are in place. Normal visualized thoracic spine. Normal visualized ribs, clavicles, and shoulders. There is no demonstrated abnormality of the visualized soft tissue structures of the upper abdomen. RAD/Chest PA and Lateral IMPRESSION: No change since yesterday's study. Cardiomegaly with central vascular congestion. Electronically Signed: Alfa Aguilar, at 7:08 EDT Tel , Service support , CC: Esau Everett DO; Lucita Newell Receiver Bulk System: Signed EMERGENCY DEPARTMENT Observed: 01/06/2018 Status: F Source: VIENNA SUMMARY 5:39 PM [facility] REPOSITORY [facility] Medical Records Department [address] [place] [address] Emergency Department Summary 01/06/18 1206 MR#: [id number] Acct: [id number] Name: CODEY RAZA Rep #: [id number] : 1955 62 From: Marcelino Turner MD PCP: Lucita Newell Status: ADM IN - ER Visit Summary Date of Service: 01/06/18 Chief Complaint: Lower extremity edema and shortness of breath History of Present Illness: The patient is a 62 M who sees Tono Lara and a chief meteorologist Dr. Barraza in [place]. Patient reports that he has swelling in his legs bilaterally that began approximately 1 week ago. Reports that at baseline his right leg is slightly swollen since having a two-vessel bypass 3 years ago. States it is twice as big as it typically is. Denies any chest pain or palpitations. He reports he has a chronic cough that is unchanged. No fever or chills. He reports that he has severe shortness of breath that is worsened by walking or laying flat. Physical Examination: Vitals: Stable. Afebrile. General: Well-nourished and well-developed. Head: Normocephalic atraumatic. Neck: Supple, no lymphadenopathy. No JVD. Nontender. Cardiovascular: Tachycardic irregular rhythm. No murmurs. Respiratory: No respiratory distress. Moderate wheezing bilaterally with decreased air movement. Abdominal: Soft, nontender, nondistended, normal bowel sounds. No guarding, rebound, or peritoneal signs. Back: Nontender. Extremities: Nontender, 3+ pitting edema of his lower extremities bilaterally. Neurologic: Alert and oriented 3. Cranial nerves II through XII are intact. Normal strength and sensation. Psych: Normal affect. Test Results: EKG is A. fib at [address] changes. Troponin is negative. Chem-7 was normal. CBC is more for an H AND H of 17.6 54.7, platelets 139, segment neutrophils 84, monocytes of 9. Emergency Department Course and Treatment: Patient was given albuterol and Atrovent aerosols. He was given 40 mg of Lasix IV. He was given Cardizem IV. Treatment Plan: Patient will be admitted to the hospital for further evaluation and treatment. Disposition: Admitted in improved condition. Impression: 1. Age fibrillation with RVR. 2. CHF. 3. COPD. 4. Critical care time 30 minutes. This note was generated with [employer] dictation software. It may contain incorrect words, spelling, and punctuation that were not noted in review of the chart prior to signing ED Disposition - Plan for ED Patient: Chief Complaint: Edema Referrals: Lucita Newell [Primary Care Provider] - What to do if you have Problems For any increased pain, shortness of breath, bleeding, nausea or vomiting, chest pain, or any unexpected problems, contact your Primary Care Provider. Call [employer] [facility] ([phone]) or report to the closest Emergency Room. Call 911 if necessary. 01/06/18 1739 <Electronically signed by Marcelino Turner MD> Date Marcelino Turner MD Cosigner Signature (If Indicated): Date CC: Lucita Newell HISTORY AND PHYSICAL Observed: 01/06/2018 Status: F Source: VIENNA EXAM 2:36 PM [facility] REPOSITORY [facility] Medical Records Department [address] [place] [address] History and Physical 01/06/18 1417 MR#: [id number] Acct: [id number] Name: CODEY RAZA Rep #: [id number] : 1955 62 From: Esau Everett DO PCP: Lucita Newell Status: ADM IN Y Location: [place] [address] Problem List (1) New onset atrial fibrillation Status: Acute (2) Shortness of breath Status: Acute (3) Leg edema Status: Acute History of Present Illness Date of Admission: 01/06/18 Chief Complaint: New-onset atrial fibrillation, leg edema, shortness of breath The patient is a 62 year old M who was seen in the emergency room at [facility] after being sent in for evaluation by his family physician after an office visit today revealed that he was in atrial fibrillation. Patient has been complaining of some shortness of breath over the last week-he is very vague about his symptoms, he denies any chest pain, purulent sputum production, fever, chills, or diaphoresis. Patient states that he has had symptoms of palpitations in the past but he was unaware he was in atrial fib today. Patient has a past history of coronary artery disease with bypass in 2014, last time he saw chief meteorologist was last year, information obtained from his family practitioner reveals the patient had a stress test in 2016 that was negative for reversible ischemia, his last echocardiogram was done in 2013 and it showed a normal EF. Patient also complained of lower extremity edema-again he was vague about the onset of the lower extremity edema, he states he noticed that when he was diagnosed with shingle approximally a week ago. Workup in the emergency room revealed the patient had normal labs with the exception of an elevated beta natruretic peptide of 177, patient's chest x- ray showed some mild pulmonary congestion bilaterally on an overlay of what I feel is chronic changes in both lungs. Patient's pulse ox on room air was 90%, EKG showed atrial fibrillation with a rate of 122 bpm. Patient was given IV Cardizem which slowed his rate down somewhat, at the time of my examination, his heart rate was in the 105-110 range-he was due to get another IV bolus of Cardizem by the emergency room physician. On examination, patient had diffuse expiratory wheezes bilaterally, he does have a diagnosis of COPD and continues to smoke .Examination of lower extremities reveals +3 mm pitting edema of both lower legs.He did not appear to be in any distress. He will be admitted to PCU for new onset atrial fib with RVR, CHF presumed to be diastolic, and exacerbation of COPD. 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 (Chronic) HDL deficiency (Chronic) Asthma (Chronic) Overweight (BMI 25.0-29.9) (Chronic) Tobacco dependence (Chronic) Hyperlipidemia (Chronic) COPD (chronic obstructive pulmonary disease) (Chronic) Hypertension (Chronic) Allergies No Known Allergies Allergy (Unverified 12/12/17 14:25) Home Medications: Ambulatory Orders Medication Instructions Recorded albuterol sulfate HFA 90 2 puff INHALATION Q6H 10/27/17 Surgical History: coronary bypass surgery, tonsillectomy, - - 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, right shoulder surgery Psychiatric History: No pertinent psych hx Lives: Friends Smoking Status: Current every day smoker Tobacco Use: Cigarettes Alcohol: None Drugs: None - *Family History Maternal History Items: Heart Disease Paternal History Items: Heart Disease Review of Systems Constitutional: Denies: Anorexia, Chills, Fever, Night Sweats, Malaise, Weakness, Weight Change, Fatigue Eyes: Denies: Blurred vision, Cataracts, Conjunctivae Inflammation HEENT: Denies: Difficulty Swallowing, Dysphasia, Ear Pain, Eye Pain, Head Aches, Hearing Changes, Nasal bleeding, Nasal Congestion, Post Nasal Drip Cardiovascular: Reports: Edema, Palpitations. Denies: Chest Pain, Claudication, Chest Pressure, Chest Tightness, Heaviness, Light Headedness, Orthopnea, Syncope Respiratory: Reports: Shortness of Breath, Shortness of breath at rest, Shortness of breath upon exertion, Wheezing. Denies: Cough, Hemoptysis, Pleuritic Pain, Sputum production Gastrointestinal: Denies: Abdominal Pain, Constipation, Diarrhea, Hematemesis, Hematochezia, Nausea, Melena, Vomiting Genitourinary: Denies: Dysuria, Frequency, Hematuria, Hesitancy, Incontinence, Nocturia, Urgency Musculoskeletal: Denies: Joint Pain, Joint stiffness, Joint swelling Skin: Reports: - - Patient has resolving shingles area on the left upper buttocks. Denies: Dryness, Pruritis, Rash Neurological: Denies: Blurred vision, Double vision, Change in Speech, Slurred speech, Difficulty swallowing, Focal weakness, Incoordination, Numbness, Tingling Psychiatric: Denies: Anxiety, Depression, Homicidal Ideations, Suicidal Ideations Endocrine: Denies: Change in Body Habitus, Heat/ Cold Intolerance, Polydipsia, Polyuria, Hx of Irradiation Hematologic/ Lymphatic: Denies: Adenopathy, Anemia, Easy Bruising, Easy Bleeding, Petechiae, Purpura VTE Information - Inpt Only VTE Present on Admission: No VTE Mechan Device Prophylaxis: None VTE Pharm Prophylaxis ordered?: No Reason prophylaxis not ordered:: Treatment Not Indicated - patient will get full anticoagulation Patient Problems: Active and Suspected Problems (Last Reviewed 12/13/17 @ 13:04 by CARLOS TateC) New onset atrial fibrillation (Acute) Shortness of breath (Acute) Leg edema (Acute) - Physical Exam General: Alert, Oriented x3, Cooperative, No apparent distress, Well developed, Well nourished HEENT: Atraumatic, PERRLA, EOMI, Normocephalic Neck: Supple, No JVD, Negative Carotid Bruits, No Nuchal Rigidity, Trachea Midline, Thyroid Normal Size and Texture Lungs: Normal air movement, No rhonchi, No rales, Wheezes - Expiratory wheezes bilaterally Cardiovascular: No murmurs, PMI Normal, Irregular Rate, No rub noted, No Gallop Abdomen: Bowel Sounds Present, Soft, Non Tender, Non-Distended, Obese, No hernias noted Extremities: No clubbing, No cyanosis, Capillary Refill Less than 3 Seconds, Edema - +3 mm edema is noted over both legs Skin: No rashes, No breakdown, - - eschar formation on the patient's left upper buttocks Musculoskeletal: No Tenderness to Palpation of Joints or Extremities Neurological: Cranial nerves II-XII grossly intact, Neuro grossly intact, Sensory exam intact to light touch and pain, Coordination normal Psych/Mental Status: Normal Affect, Appropriate, Alert and oriented to time, place, person, mood and affect Vital Signs Temp Pulse Resp BP Pulse Ox 98.7 F 101 H 18 139/66 H 94 01/06/18 13:49 01/06/18 14:15 01/06/18 14:15 01/06/18 14:15 01/06/18 14:15 Oxygen Flow Rate (L/min) 3 Oxygen Delivery Method Nasal Cannula Weight: 142.609 kg Body Mass Index (BMI) 41.4 Intake and Output for Last 24 Hours Output Total 1100 / 1100 Balance -1100 / -1100 Laboratory Tests Past 24 Hrs WBC 5.5 RBC 5.66 Assessment/Plan Active and Suspected Problems (Last Reviewed 12/13/17 @ 13:04 by Vandana Castillo, JORGE-Jaime) New onset atrial fibrillation (Acute) Shortness of breath (Acute) Leg edema (Acute) #1 new onset A. fib with RVR-patient will be admitted to PCU, he will receive oral Cardizem, I will increase the patient's carvedilol, he will remain on his other cardiac meds, patient will be monitored on telemetry. I will start the patient on Xarelto for anticoagulation, he will be seen by cardiology #2 acute exacerbation of COPD-I feel the patient's wheezing is from COPD rather than CHF, I will place him on IV Solu-Medrol and DuoNeb aerosol treatments, patient does not want nicotine patch-he continues to smoke at home. #3 mild diastolic CHF-patient will have an echocardiogram performed, IV Lasix will be administered, repeat chest x-ray will be obtained tomorrow #4 lower extremity edema-possibly secondary to pulmonary hypertension (undiagnosed)-patient will be given IV Lasix and monitored #5 morbid obesity #6 coronary artery disease #7 hyperlipidemia Code Visit Inpatient E AND M: [id number] Init Hosp L3 01/06/18 1436 <Electronically signed by Esau Everett DO> Date Esau Everett DO Cosigner Signature: Date (if applicable) CC: Esau Everett DO; Lucita Newell Signed CBC W/DIFF, AUTOMATED Collected: 01/06/2018 Status: F Source: NOVA 11:32 AM [facility] REPOSITORY TYPE CODE TESTS RESULT OUT OF RANGE REFERENCE UNITS LAB L100.1000 4.4-11.0 K/mm3 Normal WBC 5.5 LAB L100.1200 4.6-6.2 M/mm3 Normal RBC 5.66 LAB L100.1300 13.0-16.5 g/dl High HGB 17.6 LAB L100.1400 40-54 % High HCT 54.7 LAB L100.1500 80-94 fL High MCV 96.6 LAB L100.1600 27.0-32.0 pg Normal MCH 31.1 LAB L100.1700 32-36 g/gl Normal MCHC 32.2 LAB L100.1810 11.6-14.6 % High RDW CV 14.9 LAB L100.1820 35.1-43.9 fl High RDW SD 53.0 LAB L100.1900 150-450 K/mm3 Low PLT 139 LAB L100.2000 6.2-12.0 fl Normal MPV 9.9 LAB L100.2100 47-70 % High NEUT% 84.2 LAB L100.2200 19-41 % Low LY% 8.5 LAB L100.2300 0-10 % Normal MONO% 6.5 LAB L100.2400 0-5 % Normal EO% 0.2 LAB L100.2500 0-1 % Normal BASO% 0.4 LAB L100.2550 0.0-0.9 % Normal IM GRAN % 0.200 Result Comment: IG% - Immature Granulocytes (promyelocytes, myelocytes and metamyelocytes) > 1% indicates that a LEFT SHIFT is Present. LAB L100.2620 2.0-7.7 X10 3/uL Normal Absolute Neut 4.6 LAB L100.2720 0.83-4.51 X10 3/ul Low Absolute Lymph 0.47 LAB L100.4500 Normal SMEAR COMMENT COMMENT Result Comment: SLIDE SCANNED - LYMPHOPENIA NOTED. Performed By: #### L100.0100 #### [facility] [address] [place], [place], [address] BASIC METABOLIC Collected: 01/06/2018 Status: F Source: [place] PROFILE (BMP) 11:32 AM [facility] REPOSITORY Order Comment: 'TROP' Serial specimen #1, #2, #3, or #4: 1 TYPE CODE TESTS RESULT OUT OF RANGE REFERENCE UNITS LAB L501.0100 74-106 mg/dL Normal GLU 98 Result Comment: Please note revised GLUCOSE reference range effective 2017. LAB L501.1000 7-18 mg/dL Normal BUN 17 LAB L501.1100 0.70-1.30 mg/dL Normal CREAT,SERUM 1.05 Result Comment: The validity of the calculated GFR AND GFRAA in patients over 70 years has not been determined. Clinical correlation is essential. LAB L501.1110 >60 mL/min Normal EST GFR 76 Result Comment: Non- GFR Calc LAB L501.1115 >60 mL/min Normal EST GFR - AA 92 Result Comment: GFR Calc LAB L501.1255 ml/min Normal Estimated CRCL 83.49 LAB L501.1300 10-20 RATIO Normal BUN/CRE 16.2 LAB L501.2200 8.5-10 mg/dL Normal .1 CA 8.6 LAB L501.5300 136-14 mmol/L Normal 5 NA 140 LAB L501.5600 3.5-5. mmol/L Normal 1 K 4.0 LAB L501.5900 98-107 mmol/L Normal CL 106 LAB L501.6100 21.0-3 mmol/L Normal 2.0 CO2 30.0 LAB L501.6200 5-15 Low GAP 4 Performed By: #### L500.2500, L501.4010 #### [facility] [address] [place], [place], [address] TROPONIN-I Collected: 01/06/2018 Status: F Source: VIENNA 11:32 AM [facility] REPOSITORY Order Comment: 'TROP' Serial specimen #1, #2, #3, or #4: 1 TYPE CODE TESTS RESULT OUT OF RANGE REFERENCE UNITS LAB L501.4010 <0.06 ng/mL Normal < 0.02 TROPONIN-I Result Comment: TROPONIN-I EXPECTED VALUES <0.05 NEGATIVE 0.06 - 0.59 AT RISK OF [place] > OR = 0.60 SUGGEST [place] Performed By: #### L500.2500, L501.4010 #### [facility] [address] [place], [place], [address] BNP,B-TYPE NATRIURETIC Collected: 01/06/2018 Status: F Source: VIENNA PEPTIDE 11:32 AM [facility] REPOSITORY TYPE CODE TESTS RESULT OUT OF RANGE REFERENCE UNITS LAB L503.6620 0-100 pg/mL High B-TYPE 177.1 LARISSA PEP Performed By: #### L503.6620 #### [facility] [address] [place], [address] CHEST 1 VIEW Observed: 01/06/2018 Status: F Source: VIENNA (PORTABLE) 11:08 AM [facility] REPOSITORY [facility] Imaging Services [address] [place] [address] Chest 1 View (Portable) MR#: [id number] Acct: [id number] Name: CODEY RAZA Rep #: [id number] : 1955 M 62 From: Mao Cuenca MD PCP: Lucita Newell Status: REG ER Study: Chest 1 View (Portable) Date of Exam: 01/06/18 Exam# [id number] Ordering Dr: Marcelino Turner MD STUDY: X-RAY CHEST REASON FOR EXAM: Male, 62 years old. New onset of atrial fibrillation. Lower extremity edema. TECHNIQUE: Single AP portable view of the chest. COMPARISON: Comparison is made with prior study dated December 12, 2017. FINDINGS: EKG electrodes are seen. There is evidence of vascular congestion and mild degree of CHF. Blunting of the left costophrenic angle. Sternal cerclage wires and vascular clips are present from a prior sternotomy and coronary artery bypass graft procedure (CABG). Mild cardiomegaly. Normal mediastinum and steve. Normal visualized pulmonary arteries. Normal visualized aortic arch and descending thoracic aorta. There are diffuse degenerative changes of the visualized thoracic spine. Prior fusion of the lower cervical spine. There is no demonstrated abnormality of the visualized soft tissue structures of the upper abdomen. RAD/Chest 1 View (Portable) IMPRESSION: CHF. Cardiomegaly. Electronically Signed: Mao Cuenca MD at 11:33 EDT Tel [phone], Service support , CC: Lucita Newell; Marcelino Turner MD Receiver Bulk System: Signed PULMONARY VISIT REPORT Observed: 12/13/2017 Status: F Source: VIENNA 1:14 PM [facility] REPOSITORY [facility] [address] [place] [address] OFFICE VISIT Date of Service: 12/12/17 MR#: [id number] Acct: [id number] Name: CODEY RAZA Rep #: [id number] : 1955 Provider: Vandana Castillo Age/Sex: 62/M Location: [facility] Status: Signed Assessment AND Plan 1. Stage 4 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 J44.9 Plan Likely an exacerbation of his COPD today versus pneumonia. Treating with azithromycin and a prednisone taper. Continue current maintenance medications, adding a new inhaler, incuse. Sample provided today in the office, first dose taken during the exam, patient personally instructed on the use of the elliptical device. Follow-up with Dr. Lee in 3 months. Patient has been encouraged to contact the office after 48 hours on the antibiotic if his symptoms are not improving. Chest x-ray to be completed today to rule out pneumonia. Orders Orders: 2. Moderate persistent asthma with acute exacerbation J45.41 Status Chronic Plan Continue current maintenance medications, placing on a prednisone taper. Follow-up with Dr. Lee in 3 months. 3. Overweight (BMI 25.0-29.9) E66.3 Status Chronic Plan Continue to encourage weight loss. 4. Tobacco dependence F17.200 Status Chronic Plan Continue to encourage smoking cessation. Discussed the continued deleterious effects of smoking with the patient. Plan Detail Other Medications New: prednisone take 4 tabs for three days, then 3 tabs for three days, then10 mg PO QDAY 2 tabs for three days, then 1 tab for 3 days Follow Up 3 Months (DMB) HPI 6 wk FU: Chief Complaint: Cough HPI Comments Details: This patient presents the office today to follow- up after recently completing some test results. He is ambulatory and currently on room air. He has not been seen in the ED urgent care since his last office visit for any breathing problems. He has not been prescribed any antibiotics or prednisone for respiratory illnesses. He does report that over the past week to 10 days he has noticed an increase in his shortness of breath, wheezing and now has a cough that is productive of sputum. He is unsure of what color the sputum is. He is currently using his Ventolin rescue inhaler several times per day. He is compliant with Symbicort 2 puffs twice daily. He does report rinsing his mouth out after each use. He denies any medication sided such as sore throat or thrush. Pulmonary stress test completed on November 11, 2017 showed that the patient did not desaturate below 89%. He did desaturate to 89% at minute 2, he was able to ambulate 472 feet over the course of 6 minutes. No indication for supplemental oxygen at this time. Complete pulmonary function test completed on December 08, 2017 interpreted as irreversible very severe large airway ventilatory defect with air trapping and a severe reduction in diffusing capacity. FVC 58% of predicted, FEV1 30% of predicted, FEV1/FVC 40% of predicted, TLC 110% of predicted, RV 212% of predicted, DLCO 31% of predicted. He experiences shortness of breath on exertion. Denies any shortness of breath at rest or during conversation. He admits that he has not felt well since early August when he was treated for bronchitis. He states that he has never returned to his baseline respiratory function. He denies any hemoptysis. He denies any chest pain or palpitations. He has not experienced any fever, chills or body aches. See complete review of systems. He admits that he continues to smoke 1-1/2 packs per day. Intake Vital Signs12/12/17 Body Mass Index (BMI) 39.5 12/12/17 Blood Pressure 152/80 12/12/17 Height 6 ft 1 in 12/12/17 Weight: 301 lb Intake Visit Reasons: 6 wk FU Allergies No Known Allergies Allergy (Unverified 12/12/17 14:25) Medications albuterol sulfate HFA 90 mcg/actuation aerosol inhaler 2 puff INHALATION Q6H 10/27/17 [History Confirmed 12/12/17] carvedilol 3.125 mg tablet 3.125 mg PO BID 10/27/17 [History Confirmed 12/12/17] ibuprofen 600 mg tablet 600 mg PO ONCE 10/27/17 [History Confirmed 12/12/17] loratadine 10 mg tablet 10 mg PO QDAY 10/27/17 [History Confirmed 12/12/17] simvastatin 40 mg tablet 40 mg PO QAM 10/27/17 [History Confirmed 12/12/17] budesonide-formoterol HFA 160 mcg-4.5 mcg/actuation aerosol inhaler 2 inh INHALATION Q12H #1 device 11/01/17 [Rx Confirmed 12/12/17] azithromycin 250 mg tablet 250 mg PO QDAY #6 tab 12/12/17 [Rx Confirmed 12/12/17] gabapentin 800 mg tablet 800 mg PO BID tab 12/12/17 [History Confirmed 12/12/17] losartan 25 mg tablet 25 mg PO QDAY 12/12/17 [History Confirmed 12/12/17] prednisone 10 mg tablet 10 mg PO QDAY #30 tab 12/12/17 [Rx Confirmed 12/12/17] umeclidinium 62.5 mcg/actuation blister powder for inhalation 1 inh INHALATION QDAY #30 ea 12/12/17 [Rx Confirmed 12/12/17] PFSH Medical History HDL deficiency (Chronic) History of pleural effusion (Resolved) Asthma (Chronic) Overweight (BMI 25.0-29.9) (Chronic) Tobacco dependence (Chronic) History of Vogt's palsy (Resolved) History of [place] (myocardial infarction) (Resolved) Hyperlipidemia (Chronic) COPD (chronic obstructive pulmonary disease) (Chronic) Hypertension (Chronic) Surgical History mediastinal exploration and arrest of hemorrhage (Resolved) History of coronary artery bypass graft x 2 (Resolved) Family History Mother Hypertension Heart disease Father Heart disease Hypertension Myocardial infarction Brother Heart disease Hypertension Myocardial infarction Social History Smoking Status: Current every day smoker second hand exposure: Yes alcohol intake: former year quit: 1990 substance use type: does not use caffeine: Yes Type: coffee Number of servings: 3 what type of physical activity do you participate in: none FEV1% FEV1%: 30 Review of Systems Const CONSTITUTIONAL: Positive fatigue; negative anorexia, body ache, chills, daytime sleepiness, fever(s), night sweats, oral thrush, stops breathing during sleep, weight loss, sleeping in chair, weight loss, weight gain, frequent colds, seasonal allergies, other, headache(s) or orthopnea EETM Ear Nose Throat Mouth: Positive hearing normal; negative hard of hearing, hoarseness, dry mouth in morning, change in vision, itchy eyes, eye pain, swallowing Difficulty, ear pain, nose bleed, headache(s), mouth pain, nasal congestion, nasal discharge, post nasal drip, sinus pain, sinus pressure, sore throat or other Cardio Cardiovascular: Negative chest pain, chest pain at rest, chest pain with activity, irregular heart rhythm, edema, shortness of breath when lying down, palpitations, murmur or other Resp Respiratory: Positive as per HPI, shortness of breath shortness of breath: Positive with activity, wheezing and cough cough: Positive productive; negative pain with cough, chest congestion, chest tightness, pain on inspiration, inhalers, increase use of rescue inhalers, snoring, apnea or other Gastro Gastrointestional: Negative bloody stools, change in appetite, difficulty swallowing, reflux, hematemesis, melena stool, loose stool, constipation or other Genitourinary: Negative blood in urine, nocturia, pain with urination or other Musc Musculoskeletal: Negative body pain, back pain, neck pain or other Skin/Breast Skin/Breast: Negative dry skin, itching, rash, unusual bruising, breast lump or other Neuro Neurological: Negative restless legs, confusion, weakness or other Psych Psychocological: Negative abnormal sleep pattern, anxiety, thoughts of hurting self/others, hopelessness or other Lymph Lymphatic: Negative easy bleeding, easy bruising, swollen lymph nodes or other Exam Const Constitutional: Positive conversant, cooperative, in no acute respiratory distress, healthy appearing, well developed, well nourished, smells of smoke, obese and poor hygiene Head Head: Positive normocephalic and atraumatic; negative cyanosis of lips/distal nose Eyes Eye: Positive clear conjunctiva and nystagmus; negative scleral abnormality Ears Ear: Positive hearing normal and external ears normal; negative hard of hearing Nose Nose: Positive external nose normal and no nasal discharge; negative epistaxis Mouth Mouth: Positive oral mucosae normal, no lesions, poor dentition and crowded posterior oropharynx; negative post nasal drip, malodorous breath or oral thrush present Mallampati Score: III: Mallampati Score Neck Neck: Positive normal visual inspection, full ROM, trachea midline, thick neck and male neck greater than 43 cm (17 in); negative lymphadenopathy, JVD or tender Chest Wall Chest: Positive normal inspection of the chest and symmetric chest movement; negative increased A/P diameter Resp lung sounds: Positive wheezes, rhonchi, wheeze present on forced exhalation, normal expiratory time and normal respiratory effort; negative rales or dullness to percussion Cardio Cardiac: Positive regular rate, regular rhythm, S1 normal and S2 normal; negative murmur GI GI: Positive normal to inspection, normal bowel sounds and obese; negative distended Genitourinary: Positive deferred Musc Musculoskeletal: Positive steady gait and ROM normal; negative kyphosis or scoliosis Skin Pulmonary Skin Exam: Positive intact; negative rash, lesion, ulcers, erythema, scaly or dermal atrophy Pulses Pulse: Yes pulses normal x4 extremities Extremities Extremities: Yes edema Location: lower extremity location: Bilateral pitting +1, Yes capillary refill normal, No clubbing, No cyanosis, No stasis dermatitis Neuro Neurologic: Yes conversant, Yes no focal neuro deficits, Yes cooperative, Yes normal cognition, Yes normal coordination, Yes normal concentration, Yes understands questions Lymph Lymphatic: No lymphadenopathy, No tenderness, No cervical adenopathy, No axillary adenopathy Psych Appearance: Positive grossly normal, eye contact and well kempt Mental Status: Positive mental status grossly normal Mood: Positive congruent mood Affect: Positive normal affect Office Procedures Inhaler Training Inhaler Training Procedure performed by: Vandana Castillo Inhaler Training: Yes personally trained on inhaler use, sample provided, first dose given in the office, expresses understanding and continue to monitor Coding Level of Care Code Off vis,est,level 4 Diagnoses Stage 4 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 J44.9 Moderate persistent asthma with acute exacerbation J45.41 Asthma severity: moderate Asthma persistence: persistent Asthma complication type: with acute exacerbation Overweight (BMI 25.0-29.9) E66.3 Tobacco dependence F17.200 12/13/17 1314 <Electronically signed by Vandana ELLIS> Date Vandana ELLIS Cosigner Signature: Date (if applicable) CC: Lucita Rodriguezpkins CHEST PA AND LATERAL Observed: 12/12/2017 Status: F Source: NOVA 3:36 PM [facility] REPOSITORY [facility] Imaging Services [address] [place] [address] Chest PA and Lateral MR#: [id number] Acct: [id number] Name: CODEY RAZA Rep #: [id number] : 1955 M 62 From: Narayan Roca MD PCP: Lucita Newell Status: REG CLI Study: Chest PA and Lateral Date of Exam: 12/12/17 Exam# [id number] Ordering Dr: Vandana Castillo HOSPICE MUSIC THERAPIST-Jaime STUDY: X-RAY CHEST REASON FOR EXAM: Male, 62 years old. Short of breath and cough. TECHNIQUE: Frontal and lateral views of the chest. COMPARISON: None. FINDINGS: Hyperexpansion of the lungs. Increased lung markings in the perihilar regions and lung bases. Findings could be congestion and interstitial edema and/or atypical inflammatory process. Probable mild atelectasis or scarring in the lung bases. No focal infiltrates. No effusions. Sternal cerclage wires and vascular clips are present from a prior sternotomy and coronary artery bypass graft procedure (CABG). Mild cardiomegaly.. Normal mediastinum and steve. Normal visualized pulmonary arteries. Normal visualized aortic arch and descending thoracic aorta. There are diffuse degenerative changes of the visualized thoracic spine. Normal visualized ribs, clavicles, and shoulders. There is no demonstrated abnormality of the visualized soft tissue structures of the upper abdomen. RAD/Chest PA and Lateral IMPRESSION: Hyperexpansion of the lungs. Increased lung markings in the perihilar regions and lung bases. Findings could be congestion and interstitial edema and/or atypical inflammatory process. Electronically Signed: Narayan Roca MD at 9:45 EDT , Service support , CC: Vandana Castillo; Lucita Newell Receiver Bulk System: Signed PULMONARY FUNCTION Observed: 12/09/2017 Status: F Source: NOVA TEST 8:48 AM [facility] REPOSITORY [facility] Pulmonary Services/Neurology [address] [place] [address] MR#: [id number] Acct: [id number] Name: CODEY RAZA Rep #: [id number] : 1955 62 From: Maurisio Lee DO Referring Dr: Maurisio Lee D.O. Status: REG CLI Ordering Dr: Date: Location: [facility] Sex: M C INTRODUCTION: Patient is a 62-year-old male currently under the care of myself the presents for pulmonary function testing secondary to a diagnosis of COPD. Respiratory therapy reports good patient effort reports no other concerns. Bronchodilators were used during testing. INTERPRETATION: Forced expiration spirometry demonstrates the presence of a very severe large airways obstructive ventilatory defect. There was a significant response to aerosolized bronchodilators noted, based upon change in FVC. Spirograms are of good quality and do not plateau indicating slow emptying of the lungs. The respiratory flow volume loop reveals decreased expiratory flow rates at all lung volumes consistent with airways obstruction. Body plethysmography was performed and reveals an increased RV to 212% of predicted, indicative of underlying air trapping. Diffusing capacity by single breath CO is severely reduced at 31% of predicted. IMPRESSION: These pulmonary function studies demonstrate the presence of an irreversible very severe large airways obstructive ventilatory defect with associated air trapping and severe reduction in diffusing capacity. There are no previous pulmonary function studies available for comparison. 12/09/1748 <Electronically signed by Maurisio Lee DO> Date Maurisio Lee DO CC: Maurisio Lee D.O.; Lucita Newell Date Dictated: 12/09/1745 Date Transcribed: 12/09/17844 Receiver Bulk System: DB Signed 6 MINUTE WALK TEST Observed: 11/12/2017 Status: F Source: NOVA 7:50 AM [facility] REPOSITORY [facility] Pulmonary Services/Neurology [address] [place] [address] MR#: [id number] Acct: [id number] Name: CODEY RAZA Rep #: [id number] : 1955 61 From: Maurisio Lee DO Referring Dr: Maurisio Lee D.O. Date: Ordering Dr: Sex: M C Location: PSN PSN 6 Minute Walk Test - 6 Minute Walk Test 6 Minute Walk Test: 6 Minute Walk Test PSN:6-Minute Walk Test Start: 11/11/17 12:34 Freq: Status: Active Protocol: RESP.6MINW Document 11/11/17 12:34 DWP (Rec: 11/11/17 12:40 DWP [id number]) 6 Minute Walk Test Date Performed 11/11/17 Time Performed 12:17 Height 6 ft 1 in Weight: 300 lb Weight in Pounds 300.[address]: DR. ALEX PANCHAL FIO2 (% Oxygen) 0.21 Assistive device used: None Pre-test Oxygen Delivery Method Room Air Pulse Ox (%) 90 Pulse Rate (60-100 beats/min) 124 H Dyspnea Levy Scale (0-10) 5 Exertion Levy Scale (6-20) 10 Number of Rests Taken 0 1st minute Oxygen Delivery Method Room Air Pulse Ox (%) 90 Pulse Rate (60-100 beats/min) 124 H Number of Rests Taken 0 Reported Symptoms Increased Work of Breathing 2nd minute Oxygen Delivery Method Room Air Pulse Ox (%) 89 Pulse Rate (60-100 beats/min) 129 H Number of Rests Taken 0 3rd minute Oxygen Delivery Method Room Air Pulse Ox (%) 90 Pulse Rate (60-100 beats/min) 128 H Number of Rests Taken 0 Reported Symptoms Increased Work of Breathing 4th minute Oxygen Delivery Method Room Air Pulse Ox (%) 89 Pulse Rate (60-100 beats/min) 125 H Number of Rests Taken 0 5th minute Oxygen Delivery Method Room Air Pulse Ox (%) 89 Pulse Rate (60-100 beats/min) 126 H Number of Rests Taken 0 6th minute Oxygen Delivery Method Room Air Pulse Ox (%) 90 Pulse Rate (60-100 beats/min) 125 H Number of Rests Taken 0 Post-test Oxygen Delivery Method Room Air Pulse Ox (%) 92 Pulse Rate (60-100 beats/min) 121 H Dyspnea Levy Scale (0-10) 6 Exertion Levy Scale (6-20) 12 Full Laps Walked 8 Partial Lap, Number of Tiles Walked 0 Total Distance Walked (ft) 472 - Interpretation Interpretation: The patient ambulated 472 feet over the course of 6 minutes on room air without assistive devices or breaks. Pretesting oxygen saturation was noted to be 90% on room air. With ambulation, the chano oxygen saturation was 89%. The patient was notably tachycardic throughout the entire walk test. There was no significant exertional oxygen desaturation noted. However, there was evidence of impaired walk distance. - Recommendations Recommendations: There is no current indication for the use of supplemental oxygen at this time. However, close interval follow-up is recommended given the patient's low resting oxygen saturation and desaturation to 89% with ambulation. 11/12/17 0750 <Electronically signed by Maurisio Lee DO> Date Maurisio Lee DO CC: Date Dictated: 11/12/1748 Date Transcribed: 11/12/17747 Receiver Bulk System: Maurisio Lee DO Signed PULMONARY VISIT REPORT Observed: 11/02/2017 Status: F Source: VIENNA 6:40 AM [facility] Pulmonary Medicine [address] [place] [address] OFFICE VISIT Date of Service: 11/01/17 MR#: [id number] Acct: [id number] Name: CODEY RAZA Rep #: [id number] : 1955 Provider: Maurisio Lee D.O. Age/Sex: 61/M Location: [facility] [place] Status: Signed Assessment AND Plan 1. COPD (chronic obstructive pulmonary disease) J44.9 Plan The patient does have evidence of advanced stage COPD, based off of pulmonary function testing last completed 3 years ago. He is currently utilizing both Advair and as needed albuterol. However, he is not using his Advair as indicated. On average, he is only using it once per day. He does report having been given samples of Symbicort HFA previously which provided improvement in symptoms over Advair. Therefore, the patient will be transitioned from Advair Diskus to Symbicort HFA. Importance of utilizing the aforementioned medication twice daily was emphasized to the patient. He will be continued on albuterol on an as-needed basis. Repeat pulmonary function testing and a 6 minute walk test will be obtained in the interim. The patient will follow up with her nurse practitioner in 6 weeks to assess his symptom response to therapy and to review the results of his testing. Orders Orders: 2. CHILDERS (dyspnea on exertion) R06.09 Plan Likely multifactorial in etiology with underlying obstructive lung disease, obesity and deconditioning contributing. A 6 minute walk test will be obtained prior to his follow-up office visit. 3. Morbid obesity E66.01 Plan Weight loss through dietary modification and a graded exercise regimen is strongly encouraged. 4. Tobacco dependency F17.200 Plan I personally spent 5 minutes discussing the deleterious effects of ongoing tobacco use with the patient, including modalities which could be utilized to achieve a smoke-free lifestyle. The patient is currently pre-contemplative. This issue can be readdressed at his follow-up office visit. Orders Orders: Plan Detail Other Medications New: Discontinued: fluticasone-salmeterol 500-50 mcg/dose (Advair Diskus) Discontin1 inh Inhalation Q12H ued Reason: Order Changed Follow Up 6 Weeks (CSM) HPI HPI Comments Details: The patient is a 61-year-old male who presents to the clinic today in referral for evaluation of COPD. The patient is currently being followed by Lucita Newell NP of [facility]. 22 pages of medical records were personally reviewed at today's office visit. The patient presents today with an established diagnosis of COPD, having been followed by a diesel mechanic construction, Dr. Braxton, in [place] previously. The patient has an extensive smoking history of 2 packs per day 40 years, but has cut back to smoking 1 pack per day currently. CT chest completed in March 2015 revealed upper lobe predominant emphysematous changes. It appears that the patient underwent pulmonary function testing through [facility] in October 2014, at which time, there was indication of a severe obstructive ventilatory impairment with evidence of air trapping and reduction in diffusing capacity. The patient also has a history of coronary artery disease for which he has status post CABG 2 in 2013. Surface echocardiogram from January 2014 revealed ejection fraction of 50-55%. The patient is not currently employed. 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 He denies the presence of seasonal allergies. He does report chronic dyspnea on exertion. He denies the presence of a cough. However, he does admit to intermittent chest tightness and wheezing. He believes that he was previously diagnosed as a child with asthma. He is currently prescribed Advair Diskus along with as needed albuterol. Nevertheless, the patient readily admits that he typically will only utilize his Advair once per day. At the present time, the patient is using his rescue inhaler approximately 2 times per day. He was previously on Spiriva, but states that it never helped him. He also reports having been given a sample of Symbicort HFA previously, which reportedly provided even greater symptom improvement over Advair. He reports that his weight has been stable. He denies fevers, chills or night sweats. He denies chest pain, dizziness or lightheadedness. Intake Vital Signs11/01/17 Height 6 ft 1 in 11/01/17 Weight: 300 lb Intake Visit Reasons: COPD Accompanied by: Self Medications albuterol sulfate HFA 90 mcg/actuation aerosol inhaler 2 puff INHALATION Q6H 10/27/17 [History Confirmed 11/01/17] carvedilol 3.125 mg tablet 3.125 mg PO BID 10/27/17 [History Confirmed 11/01/17] ibuprofen 600 mg tablet 600 mg PO ONCE 10/27/17 [History Confirmed 11/01/17] loratadine 10 mg tablet 10 mg PO QDAY 10/27/17 [History Confirmed 11/01/17] simvastatin 40 mg tablet 40 mg PO QAM 10/27/17 [History Confirmed 11/01/17] budesonide-formoterol HFA 160 mcg-4.5 mcg/actuation aerosol inhaler 2 inh INHALATION Q12H #1 device 11/01/17 [Rx Confirmed 11/01/17] PFSH Medical History HDL deficiency (Chronic) History of pleural effusion (Resolved) Asthma (Chronic) Overweight (BMI 25.0-29.9) (Chronic) Tobacco dependence (Chronic) History of Vogt's palsy (Resolved) History of [place] (myocardial infarction) (Resolved) Hyperlipidemia (Chronic) COPD (chronic obstructive pulmonary disease) (Chronic) Hypertension (Chronic) Surgical History mediastinal exploration and arrest of hemorrhage (Resolved) History of coronary artery bypass graft x 2 (Resolved) Family History Mother Hypertension Heart disease Father Heart disease Hypertension Myocardial infarction Brother Heart disease Hypertension Myocardial infarction Social History Smoking Status: Current every day smoker second hand exposure: Yes alcohol intake: former year quit: 1990 substance use type: does not use caffeine: Yes Type: coffee Number of servings: 3 what type of physical activity do you participate in: none Review of Systems Const CONSTITUTIONAL: Negative anorexia, body ache, chills, daytime sleepiness, fever(s), night sweats, oral thrush, stops breathing during sleep, weight loss, sleeping in chair, fatigue, weight loss, weight gain, frequent colds, seasonal allergies, other, headache(s) or orthopnea EETM Ear Nose Throat Mouth: Positive hearing normal; negative hard of hearing, hoarseness, dry mouth in morning, change in vision, itchy eyes, eye pain, swallowing Difficulty, ear pain, nose bleed, headache(s), mouth pain, nasal congestion, nasal discharge, post nasal drip, sinus pain, sinus pressure, sore throat or other Cardio Cardiovascular: Negative chest pain, chest pain at rest, chest pain with activity, irregular heart rhythm, edema, shortness of breath when lying down, palpitations, murmur or other Resp Respiratory: Positive as per HPI; negative shortness of breath, pain with cough, wheezing, chest congestion, cough, chest tightness, pain on inspiration, inhalers, increase use of rescue inhalers, snoring, apnea or other Gastro Gastrointestional: Negative bloody stools, change in appetite, difficulty swallowing, reflux, hematemesis, melena stool, loose stool, constipation or other Genitourinary: Negative blood in urine, nocturia, pain with urination or other Musc Musculoskeletal: Negative body pain, back pain, neck pain or other Skin/Breast Skin/Breast: Negative dry skin, itching, rash, unusual bruising, breast lump or other Neuro Neurological: Negative restless legs, confusion, weakness or other Psych Psychocological: Negative abnormal sleep pattern, anxiety, thoughts of hurting self/others, hopelessness or other Lymph Lymphatic: Negative swollen lymph nodes Exam Const Constitutional: Positive conversant, cooperative, in no acute respiratory distress, well developed, well nourished, smells of smoke, poor hygiene and obese Head Head: Positive normocephalic and atraumatic; negative cyanosis of lips/distal nose Eyes Eye: Positive clear conjunctiva; negative nystagmus or scleral abnormality Ears Ear: Positive hearing normal; negative hard of hearing Nose Nose: Positive external nose normal; negative epistaxis Mouth Mouth: Positive oral mucosae normal and posterior oropharynx is adequate; negative no lesions or post nasal drip Mallampati Score: II: Mallampati Score Neck Neck: Positive normal visual inspection, trachea midline and thick neck; negative lymphadenopathy Chest Wall Chest: Positive symmetric chest movement Normal AP diameter. Resp lung sounds: Positive diminished and prolonged expiratory time; negative wheezes, rhonchi or rales Cardio Cardiac: Positive regular rate, regular rhythm, S1 normal and S2 normal; negative rub, gallop or murmur GI GI: Positive normal bowel sounds and obese Soft without distention Genitourinary: Positive deferred Musc Musculoskeletal: Positive steady gait Skin Pulmonary Skin Exam: Positive intact; negative lesion, ulcers, dermal atrophy or rash Lower extremity venous stasis dermatitis Pulses Pulse: Yes Pedal pulses present: Extremities Extremities: No clubbing, No cyanosis, Yes edema Neuro Neurologic: Yes conversant, Yes no focal neuro deficits, Yes cooperative Lymph Lymphatic: No lymphadenopathy Psych Appearance: Positive grossly normal Mental Status: Positive mental status grossly normal Mood: Positive congruent mood Affect: Positive normal affect Pulmonary Procedure Smoking Cessation Education: Yes 3-10 minutes Coding Level of Care Code Off vis,new,level 4 Diagnoses COPD (chronic obstructive pulmonary disease) J44.9 CHILDERS (dyspnea on exertion) R06.09 Morbid obesity E66.01 Tobacco dependency F17.200 11/02/17 0640 <Electronically signed by Maurisio Lee DO> Date Maurisio Davis Signature: Date (if applicable) CC: Lucita Rodriguezpkins LIPID Collected: 10/06/2017 Status: F Source: [facility] 8:43 AM [facility] REPOSITORY TYPE CODE TESTS RESULT OUT OF REFERENCE UNITS RANGE LAB CHOL(LOINC 131-200 mg/dL ) Low Cholesterol 98 Result Comment: Cholesterol Reference Interval: Less than 200 Desirable 200-239 Borderline high risk 240 and above High risk LAB TRIG(LOINC) 40-150 mg/dL Triglycerides 83 Result Comment: Triglyceride Reference Interval: Less than 150 Normal 150-199 Borderline high risk 200-499 High risk 500 or higher Very high risk LAB HD(LOINC) 35-90 mg/dL HDL Low Cholesterol 31 Result Comment: HDL Reference Interval: Less than 40 Low - high risk 60 or above Optimal/lowers risk LAB LDL(LOINC) 0-130 mg/dL LDL Cholesterol 50 Result Comment: LDL is a calculated result and requires a 12-hr fast. LDL Reference Interval: Less than 100 Optimal 100-129 Near or above optimal 130-159 Borderline high risk 160-189 High risk 190 and above Very high risk Performed By: #### LIPID, CMP, GFR, CBC, DIFF, MORPH #### [place] [address] CMP Collected: 10/06/2017 Status: F Source: [facility] 8:43 AM [facility] REPOSITORY TYPE CODE TESTS RESULT OUT OF REFERENCE UNITS RANGE LAB 1547-9 80-115 mg/dL GLUCOSE 83 LAB NA(LOINC) 136-146 mEq/L Sodium Level 139 LAB K(LOINC) 3.5-5.1 mEq/L Potassium Level 4.8 LAB CL(LOINC) 98-107 mEq/L Chloride 103 LAB CO2(LOINC) 23-31 mEq/L CO2 25 LAB EBAL(LOINC mEq/L ) Electrolyte Balance 11.0 LAB BUN(LOINC) 7.0-18.0 mg/dL BUN 13.4 LAB CRE(LOINC) 0.6-1.2 mg/dL Creatinine Lvl (s) 0.9 LAB BC(LOINC) 7-27 ratio BUN/Creatinine 15 Ratio LAB CA(LOINC) 8.4-10.2 mg/dL Calcium Lvl 9.3 LAB PROT(LOINC 6.0-8.3 G/dL ) Total Protein 7.7 LAB ALB(LOINC) 3.4-4.8 G/dL Albumin Level 4.4 LAB GLB(LOINC) G/dL Globulin 3.3 LAB AG(LOINC) 1.1-2.5 ratio A/G Ratio 1.3 LAB BILT(LOINC 0.2-1.0 mg/dL ) Bili Total 0.9 LAB AP(LOINC) 40-135 IU/L Alk Phos 53 LAB AST(LOINC) 10-40 IU/L AST/SGOT 24 LAB ALT(LOINC) 10-35 IU/L ALT/SGPT 21 Performed By: #### LIPID, CMP, GFR, CBC, DIFF, MORPH #### [address] [address] .GFR Collected: 10/06/2017 Status: F Source: [facility] 8:43 AM [facility] REPOSITORY TYPE CODE TESTS RESULT OUT OF REFERENCE UNITS RANGE LAB GFRAA(LOINC ml/min/1.73 ) sqm GFR 103 [place] Result Comment: GFR Population mean for , Non- Americans Ages 20-29 = 116 mL/min/1.73 sq.m. Ages 30-39 = 107 mL/min/1.73 sq.m. Ages 40-49 = 99 mL/min/1.73 sq.m. Ages 50-59 = 93 mL/min/1.73 sq.m. Ages 60-69 = 85 mL/min/1.73 sq.m. Ages 70+ = 75 mL/min/1.73 sq.m. Chronic Kidney Disease: Less than 60 mL/min/1.73 square meters End Stage Renal Disease: Less than 15 mL/min/1.73 square meters LAB GFRNO(LOINC) ml/min/1.73sqm GFR Non- >60 Result Comment: GFR Population mean for , Non- Americans Ages 20-29 = 116 mL/min/1.73 sq.m. Ages 30-39 = 107 mL/min/1.73 sq.m. Ages 40-49 = 99 mL/min/1.73 sq.m. Ages 50-59 = 93 mL/min/1.73 sq.m. Ages 60-69 = 85 mL/min/1.73 sq.m. Ages 70+ = 75 mL/min/1.73 sq.m. Chronic Kidney Disease: Less than 60 mL/min/1.73 square meters End Stage Renal Disease: Less than 15 mL/min/1.73 square meters Performed By: #### LIPID, CMP, GFR, CBC, DIFF, MORPH #### [address] [place], [place] [address] CBC Collected: 10/06/2017 Status: F Source: [facility] 8:43 AM [facility] REPOSITORY TYPE CODE TESTS RESULT OUT OF REFERENCE UNITS RANGE LAB WBC(LOINC) 4.60-10.80 10 3/mcL WBC 6.60 LAB RBCCT(LOINC 4.04-6.13 10 6/mcL ) RBC 6.02 LAB HGB(LOINC) 14.0-18.0 G/dL High Hgb 18.8 LAB HCT(LOINC) 42.0-52.0 % High Hct 57.8 LAB MCV(LOINC) 80.0-94.0 fL High MCV 96.0 LAB MCH(LOINC) 27.0-31.2 pg High MCH 31.3 LAB MCHC(LOINC) 31.8-35.4 G/dL MCHC 32.6 LAB RDW(LOINC) 11.5-14.5 % RDW 14.2 LAB PLT(LOINC) 130-400 10 3/mcL Platelet 153 LAB MPV(LOINC) 7.4-10.4 fL MPV 8.8 Performed By: #### LIPID, CMP, GFR, CBC, DIFF, MORPH #### [address] [place], [place] [address] .MANUAL DIFF Collected: 10/06/2017 Status: F Source: [facility] 8:43 AM [facility] REPOSITORY TYPE CODE TESTS RESULT OUT OF REFERENCE UNITS RANGE LAB NEUM(LOINC 37.0-80.0 % ) Neutrophil %, 45.0 Manual LAB LYMM(LOINC 10.0-50.0 % ) Lymphocyte %, 20.0 Manual LAB EOM(LOINC) 1.7-13.0 % Monocyte %, Manual 6.0 Result Comment: 4.0 LAB BASM(LOINC) 0.0-2.5 % Basophil %, Manual 0.0 LAB ALYM(LOINC) 0.0-5.0 % High Atypical Lymphs 20.0 LAB BAND(LOINC) 0.0-5.0 % Bands 5.0 LAB ANEUM(LOINC) 2.85-6.16 10 3/mcL Neutrophil, Abs Manual 3.00 LAB ABLYMM(LOINC) 0.77-3.85 10 3/mcL Lymphocyte, Abs Manual 2.60 LAB AMONM(LOINC) 0.15-1.00 10 3/mcL Monocyte, Abs Manual 0.40 LAB AEOSM(LOINC) 0.00-0.40 10 3/mcL Eosinophil, Abs Manual 0.30 LAB ABASM(LOINC) 0.00-0.19 10 3/mcL Basophil, Abs Manual 0.00 Performed By: #### LIPID, CMP, GFR, CBC, DIFF, MORPH #### [address] [place], [place] [address] .MORPH Collected: 10/06/2017 Status: F Source: [facility] 8:43 AM [facility] REPOSITORY TYPE CODE TESTS RESULT OUT OF REFERENCE UNITS RANGE LAB PLTE(LOINC ) Platelet Estimate Normal LAB MACYT(LOIN C) Macrocytosis Slight LAB SPHR(LOINC ) Spherocyte Few Performed By: #### LIPID, CMP, GFR, CBC, DIFF, MORPH #### [address] [place], [place] [address] ALLERGIES ALLERGIES DATE TYPE / CODE NAME / CODE REACTION SEVERITY SOURCE 08/23/2018 Drug No Known Unknown [place] Allergy/416 Allergies/Z95124 [facility] 951168(SNOM 0388(RXNORM) [facility] ED CT) Repository 08/08/2018 DRUG SHELLFISH SHORTNESS OF Med [facility] INGREDI/419 DERIVED [address] [place] 792304(SNOM Repository ED CT) 08/08/2018 DRUG SHELLFISH SHORTNESS OF [facility] INGREDI/419 DERIVED [address] [place] 183664(SNOM Repository ED CT) Drug NO KNOWN [facility] Class/91954 ALLERGIES [address] [place] 1003(SNOMED Repository CT) ENCOUNTERS ENCOUNTERS ADMIT/DISCHARGE ACCOUNT NUMBER ADMITTING ENCOUNTER LOCATION SOURCE CLASS 09/05/2018/09/06/20 [id number] NELY BRODY, Inpatient ABuilding:[place] 18 [facility]. Encounter CURoom: Health 3720Bed: A [facility] Repository 09/05/2018/09/05/20 [id number] Emergency BBuilding:ER N[place] 18 O [facility] Repository 08/23/2018/08/30/20 [id number] [place], Inpatient [place] 18 [place] Encounter [facility] ding:PCURoom Repository : [id number]: 1 08/23/2018 [id number] Maryuri Ambulatory BMSBuilding: [place] BMS.[facility] Repository 08/23/2018 [id number] Maryuri Ambulatory BMSBuilding: [place] BMS.[facility] Repository 08/23/2018 [id number] Mary[place] Ambulatory BMSBuilding: [place] BMS.[facility] Repository 08/23/2018 [id number] Maryuri Ambulatory BMSBuilding: [place] Jian BMS.Count includes the [facility] Repository 08/23/2018 [id number] Maryuri Ambulatory BMSBuilding: [place] Jian BMS.[facility] Repository 08/23/2018 [id number] Maryuri Ambulatory BMSBuilding: [place] BMS.[facility] Repository 08/23/2018 [id number] Maryuri Ambulatory BMSBuilding: [place] Jian BMS.[facility] Repository 08/23/2018 [id number] Maryuri Ambulatory BMSBuilding: [place] BMS.[facility] Repository 08/23/2018 [id number] Maryuri Ambulatory BMSBuilding: [place] BMS.[facility] Repository 08/23/2018/08/23/20 [id number] Ambulatory [address] Repository 08/22/2018/08/23/20 [id number] Ambulatory [address] Repository 08/15/2018/08/16/20 [id number] Ambulatory [address] Repository 08/10/2018/08/10/20 [id number] Ambulatory [address] Repository 08/10/2018 [id number] Ambulatory [facility] Repository 08/08/2018/11/13 [id number] Ambulatory [address] [place] Repository 08/08/2018/08/08/20 [id number] Ambulatory [address] Repository 08/08/2018 [id number] Ambulatory [facility] Repository 08/08/2018/08/09/20 [id number] Ambulatory [address] Repository 08/08/2018/08/09/20 [id number] Ambulatory [address] Repository 08/04/2018/08/07/20 [id number] Ambulatory [address] Repository 08/03/2018 [id number] Ambulatory ABuilding:[facility] Repository 08/02/2018/08/03/20 [id number] Ambulatory [address] Repository 07/25/2018/07/25/20 [id number] Ambulatory [address] Repository 07/25/2018/07/25/20 [id number] Ambulatory [address] Repository 07/25/2018/07/26/20 [id number] Ambulatory [address] Repository 06/28/2018/06/28/20 [id number] Ambulatory BMSBuilding: [place] 18 [facility] Repository 06/26/2018/06/26/20 [id number] Emergency BBuilding:MACARIO Tatum [address] [place] [address] Repository 04/06/2018/04/10/20 [id number] Ambulatory NANI [address] ding:[facility] Repository 03/24/2018/03/24/20 [id number] Ambulatory BMSBuilding: [place] 18 [facility] Repository 02/22/2018/02/27/20 [id number] Ambulatory [address] ding:[facility] Repository 02/07/2018 [id number] Ambulatory [facility] ding:PSN Repository 02/07/2018 [id number] [facility] 01/16/2018/01/21/20 [id number] Ambulatory BBuilding:DR Tatum [address] [place] [address] Repository 01/06/2018/01/11/20 [id number] Tereletsky, Inpatient [place] 18 [place] Encounter [facility] ding:PCURoom Repository : [id number]: 1 01/06/2018 [id number] Tereletsky, Ambulatory BMSBuilding: [place] BMS.[facility] Repository 01/06/2018 [id number] Tereletsky, Ambulatory BMSBuilding: [place] BMS.[facility] Repository 01/06/2018 [id number] Tereletsky, Ambulatory BMSBuilding: [place] [facility] [facility] Repository 01/06/2018 [id number] Tereletsky, Ambulatory BMSBuilding: [place] BMS.[facility] Repository 01/06/2018 [id number] Tereletsky, Ambulatory BMSBuilding: [place] BMS.[facility] Repository 01/06/2018 [id number] Tereletsky, Ambulatory BMSBuilding: [place] BMS.[facility] Repository 12/12/2017 [id number] Ambulatory [facility] ding:RAD Repository 12/12/2017/12/13/19 [id number] Ambulatory BMSBuilding: [place] 18 BMS.[facility] Repository 12/09/2017 [id number] Ambulatory BMSBuilding: [facility] Repository 12/08/2017 [id number] Ambulatory [facility] ding:PSN Repository 11/12/2017 [id number] Ambulatory BMSBuilding: [facility] Repository 11/11/2017 [id number] Ambulatory [facility] ding:PSN Repository 11/01/2017/11/01/19 [id number] Ambulatory BMSBuilding: [place] 18 BMS.[facility] Repository 10/06/2017/10/10/19 [id number] Ambulatory [address] ding:[facility] Repository PAYERS PAYERS ENCOUNTER GUARANTOR PAYER SUBSCRIBER SOURCE 09/05/2018 CODEY [facility]: Insurance:FLORECITA CROSSOB: [facility] [id number] [facility] [id number] Repository [facility], Number: [address] [facility] [address]Vrs: [id number] [place], [place] Date:2018-09-05Tel: (330) (HP)Tel: ([phone] (WP) Name:[address] (HP)Tel: 000) [place], [place] [phone] (WP) [address]YY: 09/05/2018 [facility]: [facility]: [facility] [id number] HEALTH PLANPolicy [id number] [place] [address], Number: [address] [facility] [address]Fti: [id number] [place], [place] Date:2018-09-05Tel: (330) (HP)Tel: [phone] (WP) Name:[address] (HP)Tel: (000) [place] [address] (WP) [address]KO: 08/23/2018 [facility] CODEY Bhatt [id number] Insurance:[facility]: [facility] [id number] Hospital [address]Hei: (330) PLANPolicy Number: Repository [phone] () [id number] Date:0215-72-89AZ [address] [place] [address]QY: 08/23/2018 Secondary NOT GIVENJACKY Bhatt Insurance:SELF PAY [facility] Number: Effective Repository Date:2018-08-23 08/23/2018 [facility] CODEY Bhatt [id number] Insurance[facility] [id number] Hospital [address]Bax: (330) PLANPolicy Number: Repository [phone] () [id number] Date:9684-46-30EM [address] [place], [place] [address] [address]KT: 08/23/2018 Secondary NOT GIVENUNK [place] Insurance:SELF PAY [facility] Number: Effective Repository Date:2018-08-23 08/23/2018 CODEY Primary CODEY Bhatt [id number] Insurance:BUCKEYE NEHLSDOB: [facility] [id number] Hospital [address]Seg: (330) PLANPolicy Number: Repository [phone] () [id number] Date:4479-40-76WV [address] [place] [address]TG: 08/23/2018 Secondary NOT GIVENUNK [place] Insurance:SELF PAY [facility] Number: Effective Repository Date:2018-08-23 08/23/2018 CODEY Primary CODEY Bhatt [id number] Insurance:BUCKEYE NEHLSDOB: [facility] [id number] Hospital [address]Svj: (330) PLANPolicy Number: Repository [phone] () [id number] Date:5415-73-61QR [address] [place] [address]DI: 08/23/2018 Secondary NOT GIVENUNK [place] Insurance:SELF PAY [facility] Number: Effective Repository Date:2018-08-23 08/23/2018 CODEY Primary CODEY Bhatt [id number] Insurance:BUCKEYE NEHLSDOB: [facility] [id number] Hospital [address]Egw: (330) PLANPolicy Number: Repository [phone] () [id number] Date:3237-73-23JC [address] [place] [address] [place] [address]GD: 08/23/2018 Secondary NOT GIVENUNK [place] Insurance:SELF PAY [facility] Number: Effective Repository Date:2018-08-23 08/23/2018 CODEY No Primary CODEY Bhatt [id number] Insurance:BUCKEYE NEZAKISDOB: [facility] [id number] Hospital [address]Xvb: (330) PLANPolicy Number: Repository [phone] () [id number] Date:4233-95-26TH [address] [place] [address]PT: 08/23/2018 Secondary NOT GIVENUNK [place] Insurance:SELF PAY [facility] Number: Effective Repository Date:2018-08-23 08/23/2018 CODEY Primary CODEY Bhatt [id number] Insurance:BUCKEYE NEZAKISDOB: [facility] [id number] Hospital [address]Ote: (330) PLANPolicy Number: Repository [phone] () [id number] Date:2688-77-09KX [address] [place] [address]PN: 08/23/2018 Secondary NOT GIVENUNK [place] Insurance:SELF PAY [facility] Number: Effective Repository Date:2018-08-23 08/23/2018 CODEY Primary CODEY Bhatt [id number] Insurance:BUCKEYE NEZAKISDOB: [facility] [id number] Hospital [address]Cpf: (330) PLANPolicy Number: Repository [phone] () [id number] Date:7590-53-00[address] [place] [address] 19701CI: 08/23/2018 Secondary NOT GIVENUNK [place] Insurance:SELF PAY [facility] Number: Effective Repository Date:2018-08-23 08/23/2018 CODEY Primary CODEY Bhatt [id number] Insurance:BUCKEYE NEZAKISDOB: [facility] [id number] Hospital [address]443Pbl: (330) PLANPolicy Number: Repository [phone] () [id number] Date:9352-91-72VU [address] [place] [address] 21596RN: 08/23/2018 Secondary NOT GIVENUNK [place] Insurance:SELF PAY [facility] Number: Effective Repository Date:2018-08-23 08/23/2018 [facility] CODEY Bhatt [id number] [facility] Insurance:[facility]: [facility] [id number] Hospital [address]Znl: (330) PLANPolicy Number: Repository [phone] () [id number] Date:0627-62-04IN [address] [place] [address] 20064ZJ: 08/23/2018 Secondary NOT GIVENUNK [place] Insurance:SELF PAY [facility] Number: Effective Repository Date:2018-08-23 08/03/2018 [facility] No [facility] Insurance:BUCKEYJohn SAAVEDRASDOB: [facility] [id number] HEALTH PLANPolicy [id number] Repository [facility], Number: [address] [facility] [address]Gmf: [id number] [place] Date:2018-05-09 39666Wgq: (330) (HP)Tel: [phone] [phone] (WP) Name:XPO Box ()Tel: [address] [place] [address] 000-0000 (WP) [address]JZ: 06/28/2018 [facility] CODEY Bhatt [id number] Insurance:FLORECITA HERNANDEZSDOB: [facility] [id number] Hospital [address]Sex: (330) PLANPolicy Number: Repository [phone] () [id number] Date:6093-41-01BD [address] [place] [address] 17104IV: 06/28/2018 Secondary NOT GIVENUNK [place] Insurance:SELF PAY [facility] Number: Effective Repository Date:2018-06-21 06/26/2018 [facility] Insurance:[facility] CROSSOB: [facility] [id number] Repository [facility], Number: [address] [facility] [place] [address]Ozz: [id number] [facility], [place] Date:2018-06-26Tel: (330) (HP)Tel: [phone]) [phone] [phone] (WP) Name:XPO Box (HP)Tel: [phone]) [place], [place] 000-0000 (WP) [address]MN: 04/06/2018 [facility] Insurance:FLORECITA CROSSOB: [facility] [id number] [facility], Number: [address] [facility] [address]Fld: [id number] [place] Date:2018-04-06Tel: (330) (HP)Tel: [phone] [phone] (WP) Name:XPO Box (HP)Tel: [phone]) [place], [place] 000-0000 (WP) [address]RT: 03/24/2018 [facility] CODEY No [place] [id number] [facility] Insurance:[facility]: [facility] [id number] Hospital [address]Hov: (330) [facility] Number: Repository [phone] (HP) [id number] Date:4230-46-39[address], [place] [address]HH: 03/24/2018 Secondary NOT GIVENUNK [place] Insurance:SELF PAY [facility] Number: Effective Repository Date:2018-03-22 02/22/2018 CODEY [facility] CODEY No [facility]SD[facility]: Insurance:FLORECITA CROSSOB: [facility] HEALTH PLANPolicy [id number] Repository HIGH [facility], Number: [address] [facility] [address]Klx: [id number] [place] Date:2018-02-22 [address]Ywm: (330) (HP)Tel: [phone] [phone] (WP) Name:XPO Box (HP)Tel: [phone]) [address], [place] [phone] (WP) [address]AU: 02/07/2018 CODEY [facility] CODEY [facility]Marg[facility] [id number] [facility] Insurance:[facility]B: [facility] [id number] Hospital [address]Uqu: (330) PLANPolicy Number: Repository [phone] () [id number] Date:7265-65-10NV [address] [place] [address]CJ: 02/07/2018 Secondary NOT GIVENUNK [place] Insurance:SELF PAY [facility] Number: Effective Repository Date:2018-01-20 02/07/2018 CODEY [facility] CODEY No [place] [id number] [facility] Insurance:[facility]OOB: [facility] [id number] Hospital [address]Aeh: (330) PLANPolicy Number: Repository [phone] () [id number] Date:1148-63-87CG [address] [place] [address] 67180OP: 02/07/2018 Secondary NOT GIVENUNK [place] Insurance:SELF PAY [facility] Number: Effective Repository Date:2018-02-07 01/16/2018 CODEY [facility] CODEY [facility] Insurance:[facility]ENTEROB: [facility] W HEALTH PLANPolicy [id number] Repository HIGH [facility], Number: [address] [facility] [address]Vhy: [id number] [place] Date:2018-01-16 [address]Odm: (330) ()Tel: [phone] [phone] (WP) Name:XPO Box ()Tel: [phone]) [phone] [place] [address] 000-0000 (WP) [address]YT: 01/06/2018 CODEY Primary CODEY Bhatt [id number] [address] Insurance:BUCKEYE NEZAKISDOB: [facility] [id number] Hospital [address]Jro: (330) PLANPolicy Number: Repository [phone] () [id number] Date:1759-85-47UC [address] [address]QI: 01/06/2018 Secondary NOT GIVENUNK [place] Insurance:SELF PAY [facility] Number: Effective Repository Date:2018-01-06 01/06/2018 CODEY Primary CODEY Bhatt [id number] Insurance:BUCKEYE NEHLSDOB: [facility] [id number] Hospital [address]Ywc: (330) PLANPolicy Number: Repository [phone] () [id number] Date:6411-06-73MD [address] [address]XF: 01/06/2018 Secondary NOT GIVENUNK [place] Insurance:SELF PAY [facility] Number: Effective Repository Date:2018-01-06 01/06/2018 CODEY Primary CODEY Bhatt [id number] Insurance:BUCKEYE NEHLSDOB: [facility] [id number] Hospital 178[address]Uct: (330) PLANPolicy Number: Repository [phone] () [id number] Date:6179-79-99CT[address], [place] [address]BD: 01/06/2018 Secondary NOT GIVENUNK [place] Insurance:SELF PAY [facility] Number: Effective Repository Date:2018-01-06 01/06/2018 CODEY No Primary CODEY Bhatt [id number] [address] Insurance:BUCKEYE NEZAKISDOB: [facility] [id number] Hospital [address]Qrd: (330) PLANPolicy Number: Repository [phone] () [id number] Date:0832-75-61SE [address] [place] [address] 25455NI: 01/06/2018 Secondary NOT GIVENUNK [place] Insurance:SELF PAY [facility] Number: Effective Repository Date:2018-01-06 01/06/2018 CODEY No Primary CODEY Bhatt [id number] Insurance:BUCKEYE NEHLSDOB: [facility] [id number] [id number]: (330) PLANPolicy Number: Repository [phone] () [id number] Date:8011-84-30HQ [address] [place] [address]GQ: 01/06/2018 Secondary NOT GIVENUNK [place] Insurance:SELF PAY [facility] Number: Effective Repository Date:2018-01-06 01/06/2018 CODEY No Primary CODEY Bhatt [id number] [address] Insurance:BUCKEYE NEHLSDOB: [facility] [id number] Hospital 115[address]Rsn: (330) PLANPolicy Number: Repository [phone] () [id number] Date:2101-30-63AQ [address] [place] [address] 14726SY: 01/06/2018 Secondary NOT GIVENUNK [place] Insurance:SELF PAY [facility] Number: Effective Repository Date:2018-01-06 01/06/2018 CODEY No Primary CODEY Bhatt [id number] [address] Insurance:BUCKEYE NEHLSDOB: [facility] [id number] Hospital 54[address]Wgq: (330) PLANPolicy Number: Repository [phone] () [id number] Date:9539-76-03DM BOX [facility] ShawanoSANGITA HELEN [address]UF: 01/06/2018 Secondary NOT GIVENUNK [place] Insurance:SELF PAY [facility] Number: Effective Repository Date:2018-01-06 12/12/2017 CODEY Primary CODEY Bhatt [id number] Insurance:BUCKEYE NEZAKISDOB: [facility] [id number] Hospital [address]Ngu: (330) PLANPolicy Number: Repository [phone] () [id number] Date:4351-38-46EG [address] [place] [address] [place] [address]EQ: 12/12/2017 Secondary NOT GIVENUNK [place] Insurance:SELF PAY [facility] Number: Effective Repository Date:2017-12-12 12/12/2017 [facility] Primary CODEY Bhatt [id number] Insurance:BUCKVOLODYMYRE NEZAKISDOB: [facility] [id number] Hospital [address]Enj: (330) PLANPolicy Number: Repository [phone] () [id number] Date:0448-77-43IR [address] [place] [address] 99[address]SB: 12/12/2017 Secondary NOT GIVENUNK [place] Insurance:SELF PAY [facility] Number: Effective Repository Date:2017-11-01 12/09/2017 CODEY Primary CODEY Bhatt [id number] [address] Insurance:BUCKEYE NEZAKISDOB: [facility] [id number] Hospital [address]Rcf: (330) PLANPolicy Number: Repository [phone] () [id number] Date:0370-14-11QE [address] [place] [address] [place] [address]WV: 12/09/2017 Secondary NOT GIVENUNK [place] Insurance:SELF PAY [facility] Number: Effective Repository Date:2017-12-09 12/08/2017 CODEY No Primary CODEY Bhatt [id number] [address] Insurance:LESLEYE TAYOB: [facility] [id number] Hospital 52083Bhq: (330) PLANPolicy Number: Repository [phone] () [id number] Date:0019-66-05QC [address] [place] [address] 00143XV: 12/08/2017 Secondary NOT GIVENUNK [place] Insurance:SELF PAY [facility] Number: Effective Repository Date:2017-11-01 11/12/2017 CODEY Bhatt [id number] [address] Insurance:LESLEYE TAYOB: [facility] [id number] Hospital [address]Cek: (330) PLANPolicy Number: Repository [phone] () [id number] Date:4328-99-83EF[address] [address]XO: 11/12/2017 Secondary NOT GIVENUNK [place] Insurance:SELF PAY [facility] Number: Effective Repository Date:2017-11-12 11/11/2017 CODEY Bhatt [id number] Insurance:FLORECITA CROSSOB: [facility] [id number] Hospital [address]11[address]Axl: (330) PLANPolicy Number: Repository [phone] () [id number] Date:0893-45-22RE [address] [place] [address] 52692RN: 11/11/2017 Secondary NOT GIVENUNK [place] Insurance:SELF PAY [facility] Number: Effective Repository Date:2017-11-01 11/01/2017 CODEY Bhatt [id number] Insurance:FLORECITA CROSSOB: [facility] [id number] Hospital [address], PLANPolicy Number: Repository [place] [id number]: [id number] Date:3969-44-63GY [address]OX (HP) [address] [address]EA: 11/01/2017 Secondary NOT GIVENUNK [place] Insurance:SELF PAY [facility] Number: Effective Repository Date:2017-09-20 10/06/2017 [facility]: [facility] [id number] [facility] [id number] Repository [facility], Number: [address] [facility] [address]Fsm: [id number] [place] Date:2017-04-09 30289Bqd: (330) (HP)Tel: (553) [phone] [phone] (WP) Name:XPO Box (HP)Tel: [phone]) 6910Wrentham Developmental CenterHELEN castillo 000-0000 (WP) [address]UI:
== END 2018-08-30 14:14 | disposition skilled nursing facility (03) | DRG 361 ==
LOC: ED 12:30 → MS3 08-24 07:07 → PCU 08-25 13:19
PROVIDERS: Internal Medicine; Orthopaedic Surgery; Physician Assistant; Emergency Provider Emergency Medicine; Family Provider Family Medicine; PCP Family Medicine; Visit Provider Internal Medicine
DX: L03.115 Cellulitis of right lower limb (principal); S80.11XA Contusion of right lower leg, initial encounter; W19.XXXA Unspecified fall, initial encounter; L97.819 Non-pressure chronic ulcer of other part of right lower leg with unspecified severity; I25.10 Atherosclerotic heart disease of native coronary artery without angina pectoris; E78.5 Hyperlipidemia, unspecified; J44.9 Chronic obstructive pulmonary disease, unspecified; J96.01 Acute respiratory failure with hypoxia; I50.33 Acute on chronic diastolic (congestive) heart failure; I13.0 Hypertensive heart and chronic kidney disease with heart failure and stage 1 through stage 4 chronic kidney disease, or unspecified chronic kidney disease; I48.0 Paroxysmal atrial fibrillation; N18.3 Chronic kidney disease, stage 3 (moderate); E78.6 Lipoprotein deficiency; F17.210 Nicotine dependence, cigarettes, uncomplicated; Z91.19 Patient's noncompliance with other medical treatment and regimen; G47.33 Obstructive sleep apnea (adult) (pediatric); I27.20 Pulmonary hypertension, unspecified; Z95.1 Presence of aortocoronary bypass graft; Z79.01 Long term (current) use of anticoagulants; Z79.899 Other long term (current) drug therapy; I25.2 Old myocardial infarction
CPT/HCPCS: 36415; 36600; 71045; 73700; 80048; 80053; 80202; 82803; 83605; 83735; 83880; 85025; 85610; 85652; 85730; 87040; 87070; 87075; 87102; 87205; 87206; 87640; 93005; 94002; 94003; 94640; 94762; 97110; 97162; 97166; 97530; 99283; 99406; J7030; J7040; A4216; J1940; J2310; J2405